=== PATIENT | male | born 1950 | race Caucasian/White ===

== ENCOUNTER → 2017-06-19 | Outpatient (CLI) | payer MEDICARE | END | disposition home or self-care (01) | LOC: LABWHC1 16:08 | PROVIDERS: ATTEND Otolaryngology | DX: H93.11 Tinnitus, right ear (principal); H91.91 Unspecified hearing loss, right ear | CPT/HCPCS: 36415; 82565 ==

== ENCOUNTER → 2017-06-20 | Outpatient (CLI) | payer MEDICARE ==
--- NOTE | 2017-06-20 09:52 | MR ---
EXAMINATION TYPE: MR iac wo/w con DATE OF EXAM: 06/20/2017 COMPARISON: NONE HISTORY: Tinnitus, Hearing loss, ringing in left and right ear TECHNIQUE: Multiplanar, multisequence images of the brain and brainstem is performed without and with IV contras t, utilizing 7.5 mL intravenous Gadavist . FINDINGS: Nasopharynx and visualized oropharynx are symmetric. Parotid glands have a normal appearance as visua lized. There is no evidence of cerebellopontine angle mass. No acoustic schwannoma. 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 There i s mild generalized degenerative change. Changes of chronic sinusitis noted. Nonspecific areas of abno rmal signal are most typical remote microvascular ischemia. Mastoid air cells are clear. IMPRESSION: 1. No evidence of cerebellopontine angle mass or acoustic schwannoma. 2. 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 3. Nonspecific white matter changes most typical remote microvascular ischemia A [facility] message has been communicated to Navid Silver MD via the [employer] Critical Result system on 06/20/2017 9:48 AM, Message ID [id number].
== END | disposition home or self-care (01) ==
LOC: RADMRIMAIN 07:59
PROVIDERS: ATTEND Otolaryngology
DX: I67.1 Cerebral aneurysm, nonruptured (principal); H93.11 Tinnitus, right ear; H91.91 Unspecified hearing loss, right ear
CPT/HCPCS: 70553; A9581

== ENCOUNTER → 2017-08-18 | Outpatient (CLI) | payer MEDICARE ==
[2017-08-18 17:43] LABS: Blood Urea Nitrogen 16 mg/dL (9-20)
--- NOTE | 2017-08-18 19:29 | CT ---
EXAMINATION TYPE: CT chest w con DATE OF EXAM: 08/18/2017 COMPARISON: NONE HISTORY: COPD. CT DLP: 538 mGycm Automated exposure control for dose reduction was used. CONTRAST: CT scan of the chest is performed with IV Contrast, patient injected with 100ml mL of Omnipaque 300. FINDINGS: There is diffuse pulmonary emphysema. There is some pleural thickening at the posterior lung apices b ilaterally. I see no pulmonary mass. There is a hiatal hernia. There is no pleural effusion. Heart si ze is normal. There is no pericardial effusion. There is no mediastinal adenopathy. There are no hilar masses. The bony thorax appears intact. There is spurring in the thoracic spine. There is 25% anterior wedging of L1 vertebral body. This appears o ld. IMPRESSION: Emphysema. Pulmonary fibrosis. Bilateral apical pleural scarring. Old mild compression f racture of L1. Normal heart. Hiatal hernia.
== END | disposition home or self-care (01) ==
LOC: RADCTMAIN 17:11
PROVIDERS: ATTEND Internal Medicine Critical Care Medicine
DX: J43.9 Emphysema, unspecified (principal); J84.10 Pulmonary fibrosis, unspecified; J98.4 Other disorders of lung; K44.9 Diaphragmatic hernia without obstruction or gangrene
CPT/HCPCS: 82565; 84520; 71260; 36415; Q9967

== ENCOUNTER 2018-06-10 22:14 | Emergency (ER) | payer MEDICARE ==
[2018-06-10 22:40] VITALS: TEMP 98.9
[2018-06-10] MEDS ORDERED: SODIUM CHLORIDE 0.9% 1,000 ML IV STA ×2 (22:47)
[2018-06-10] MEDS ORDERED: IPRATROPIUM-ALBUTEROL 3 ML NEB INHALATION STA (22:47)
[2018-06-10] MEDS ORDERED: methylPREDNISolone SOD SUCCI 125 MG/2 ML VIAL IV STA (22:47)
[2018-06-10] MEDS ORDERED: MORPHINE SULFATE 4 MG/ML SYRINGE IVP STA (22:48)
--- NOTE | 2018-06-10 22:48 | ED ---
Headache HPI - General Chief Complaint: Headache Stated Complaint: Has two aneurysms, stiff neck, headache Time Seen by Provider: 06/10/18 22:46 Source: RN notes reviewed, old records reviewed Mode of arrival: ambulatory Limitations: no limitations - History of Present Illness Initial Comments: This is a 68-year-old male the ER for evaluation of headache left hand swelling. Patient awoke with symptoms 3 days ago. Patient denies any trauma, has pain in the back of his neck back of his had and the swelling in his left arm. No significant chest pain or shortness of breath no travel history or sick contacts no fevers. Patient states he has no history of aneurysm is concerned that he went to an issue with the aneurysm in this patient brings him to the emergency room today. MD Complaint: headache, other (Cough and shortness of breath) -: days(s) (3) Onset Description: gradual Location: occipital Severity: moderate Severity scale (1-10): 3 Quality: aching Consistency: constant Improves With: nothing Worsens With: none Associated Symptoms: nausea Other Symptoms: cough Treatments Prior to Arrival: none - Related Data Home Medications Medication Instructions Recorded Confirmed Atorvastatin [Lipitor] 20 mg PO HS 06/10/18 06/10/18 Budesonide/Formoterol Fumarate 2 puff INHALATION RT-BID 06/10/18 06/10/18 [Symbicort 160-4.5 Mcg Inhaler] Esomeprazole Magnesium [NexIUM] 20 mg PO HS 06/10/18 06/10/18 Ipratropium/Albuterol Sulfate 1 puff INHALATION RT-QID 06/10/18 06/10/18 [Combivent Respimat Inhaler] Allergies Allergy/AdvReac Type Severity Reaction Status Date / Time No Known Allergies Allergy Verified 06/10/18 22:51 Review of Systems ROS Statement: Those systems with pertinent positive or pertinent negative responses have been documented in the HPI. ROS Other: All systems not noted in ROS Statement are negative. Past Medical History Past Medical History: COPD, Hyperlipidemia Additional Past Medical History / Comment(s): brain aneurysms. History of Any Multi-Drug Resistant Organisms: None Reported Past Surgical History: No Surgical Hx Reported Past Psychological History: No Psychological Hx Reported Smoking Status: Former smoker Past Alcohol Use History: Occasional Past Drug Use History: None Reported General Exam Limitations: no limitations General appearance: alert, in no apparent distress Head exam: Present: atraumatic, normocephalic, normal inspection Eye exam: Present: normal appearance, PERRL, EOMI. Absent: scleral icterus, conjunctival injection, periorbital swelling ENT exam: Present: normal exam, mucous membranes moist Neck exam: Present: normal inspection. Absent: tenderness, meningismus, lymphadenopathy Respiratory exam: Present: wheezes. Absent: respiratory distress, rales, rhonchi, stridor Cardiovascular Exam: Present: normal rhythm, tachycardia, normal heart sounds. Absent: systolic murmur, diastolic murmur, rubs, gallop, clicks GI/Abdominal exam: Present: soft, normal bowel sounds. Absent: distended, tenderness, guarding, rebound, rigid Extremities exam: Present: normal inspection, full ROM, normal capillary refill. Absent: tenderness, pedal edema, joint swelling, calf tenderness Back exam: Present: normal inspection Neurological exam: Present: alert, oriented X3, CN II-XII intact Psychiatric exam: Present: normal affect, normal mood Skin exam: Present: warm, dry, intact, normal color. Absent: rash Course Vital Signs 06/10/18 06/10/18 06/11/18 22:35 23:40 00:00 Temperature 98.9 F Pulse Rate 114 H 105 H 98 Respiratory 20 16 Rate Blood Pressure 161/87 155/82 155/82 O2 Sat by Pulse 93 L Oximetry 06/11/18 06/11/18 06/11/18 00:05 00:20 00:30 Temperature Pulse Rate 94 96 102 H Respiratory Rate Blood Pressure 136/94 O2 Sat by Pulse Oximetry - Reevaluation(s) Reevaluation #1: 06/10/18 23:37 Medical record is reviewed Reevaluation #2: 06/10/18 23:37 Patient has good pain control Reevaluation #3: 06/11/18 00:12 Patient is currently improved after breathing treatment Medical Decision Making - Medical Decision Making 68-year-old male the ER for evaluation of headache and cough and congestion, patient is mild has some exacerbation, pain is controlled, CTA brain and had neck is negative for acute disease. Patient's pain is controlled is in no acute distress denies any complaints and can be discharged home - Lab Data Result diagrams: 06/10/18 23:05 06/10/18 23:05 Lab Results 0106/10/18 06/10/18 Range/Units 23:05 23:05 23:05 WBC 15.9 H (3.8-10.6) k/uL RBC 4.58 (4.30-5.90) m/uL Hgb 14.7 (13.0-17.5) gm/dL Hct 43.0 (39.0-53.0) % MCV 93.8 (80.0-100.0) fL MCH 32.0 (25.0-35.0) pg MCHC 34.1 (31.0-37.0) g/dL RDW 13.1 (11.5-15.5) % Plt Count 267 (150-450) k/uL Neutrophils % 79 % Lymphocytes % 13 % Monocytes % 4 % Eosinophils % 1 % Basophils % 0 % Neutrophils # 12.6 H (1.3-7.7) k/uL Lymphocytes # 2.1 (1.0-4.8) k/uL Monocytes # 0.7 (0-1.0) k/uL Eosinophils # 0.1 (0-0.7) k/uL Basophils # 0.0 (0-0.2) k/uL PT (9.0-12.0) sec INR (<1.2) APTT (22.0-30.0) sec Sodium 142 (137-145) mmol/L Potassium 4.7 (3.5-5.1) mmol/L Chloride 107 (98-107) mmol/L Carbon Dioxide 26 (22-30) mmol/L Anion Gap 9 mmol/L BUN 15 (9-20) mg/dL Creatinine 0.86 (0.66-1.25) mg/dL Est GFR (CKD-EPI)AfAm >90 (>60 ml/min/1.73 sqM) Est GFR (CKD-EPI)NonAf 88 (>60 ml/min/1.73 sqM) Glucose 143 H (74-99) mg/dL Calcium 9.7 (8.4-10.2) mg/dL Magnesium 1.8 (1.6-2.3) mg/dL Total Bilirubin 0.8 (0.2-1.3) mg/dL AST 17 (17-59) U/L ALT 25 (21-72) U/L Alkaline Phosphatase 101 (38-126) U/L Total Creatine Kinase 41 L (55-170) U/L CK-MB (CK-2) 0.3 (0.0-2.4) ng/mL CK-MB (CK-2) Rel Index 0.7 Troponin I <0.012 (0.000-0.034) ng/mL Total Protein 6.9 (6.3-8.2) g/dL Albumin 3.8 (3.5-5.0) g/dL 06/10/18 Range/Units 23:05 WBC (3.8-10.6) k/uL RBC (4.30-5.90) m/uL Hgb (13.0-17.5) gm/dL Hct (39.0-53.0) % MCV (80.0-100.0) fL MCH (25.0-35.0) pg MCHC (31.0-37.0) g/dL RDW (11.5-15.5) % Plt Count (150-450) k/uL Neutrophils % % Lymphocytes % % Monocytes % % Eosinophils % % Basophils % % Neutrophils # (1.3-7.7) k/uL Lymphocytes # (1.0-4.8) k/uL Monocytes # (0-1.0) k/uL Eosinophils # (0-0.7) k/uL Basophils # (0-0.2) k/uL PT 10.3 (9.0-12.0) sec INR 1.0 (<1.2) APTT 23.7 (22.0-30.0) sec Sodium (137-145) mmol/L Potassium (3.5-5.1) mmol/L Chloride (98-107) mmol/L Carbon Dioxide (22-30) mmol/L Anion Gap mmol/L BUN (9-20) mg/dL Creatinine (0.66-1.25) mg/dL Est GFR (CKD-EPI)AfAm (>60 ml/min/1.73 sqM) Est GFR (CKD-EPI)NonAf (>60 ml/min/1.73 sqM) Glucose (74-99) mg/dL Calcium (8.4-10.2) mg/dL Magnesium (1.6-2.3) mg/dL Total Bilirubin (0.2-1.3) mg/dL AST (17-59) U/L ALT (21-72) U/L Alkaline Phosphatase (38-126) U/L Total Creatine Kinase (55-170) U/L CK-MB (CK-2) (0.0-2.4) ng/mL CK-MB (CK-2) Rel Index Troponin I (0.000-0.034) ng/mL Total Protein (6.3-8.2) g/dL Albumin (3.5-5.0) g/dL - EKG Data -: EKG Interpreted by Me (EKG shows sinus tachycardia rate of 108, DC 134, QRS 92, QTc 434) - Radiology Data Radiology results: report reviewed (CT brain CTA had not negative for acute changes, does have some millimeter Walker aneurysm similar to prior MRI as noted. Chest x-rays negative for acute disease), image reviewed Disposition Clinical Impression: Headache Disposition: HOME SELF-CARE Instructions: Acute Headache (ED) Is patient prescribed a controlled substance at d/c from ED?: No Referrals: Teodora Pascual DO [Primary Care Provider] - 1-2 days
[2018-06-10] MEDS ORDERED: ACETAMINOPHEN TAB 500 MG TAB PO STA (22:55)
[2018-06-10 23:14] LABS: Basophils % (A) 0 %; Eosinophils # (A) 0.1 k/uL (0-0.7); Eosinophils % (A) 1 %; HGB 14.7 gm/dL (13.0-17.5); Lymphocytes # (A) 2.1 k/uL (1.0-4.8); Lymphocytes % (A) 13 %; MCHC 34.1 g/dL (31.0-37.0); MCV 93.8 fL (80.0-100.0); Mean Platelet Volume 6.8; Monocytes # (A) 0.7 k/uL (0-1.0); Monocytes % (A) 4 %; Neutrophils # (A) 12.6 k/uL (1.3-7.7); Neutrophils % (A) 79 %; Platelet Count 267 k/uL (150-450); RBC 4.58 m/uL (4.30-5.90); RDW 13.1 % (11.5-15.5); WBC 15.9 k/uL (3.8-10.6)
--- NOTE | 2018-06-10 23:17 | XR ---
EXAMINATION TYPE: XR chest 2V DATE OF EXAM: 06/10/2018 COMPARISON: NONE HISTORY: Chest pain TECHNIQUE: Frontal and lateral views of the chest are obtained. FINDINGS: There is no heart failure nor confluent pneumonic infiltrate. Costophrenic angles are fair ly clear. There are mild interstitial fibrotic changes. There is minimal pleural thickening at the caroline ng apices. There are no hilar masses. Bony thorax is intact. IMPRESSION: Fibrotic changes mainly in the upper lobes. Normal heart.
[2018-06-10 23:22] LABS: Partial Thromboplastin Time 23.7 sec (22.0-30.0); Prothrombin Time 10.3 sec (9.0-12.0)
[2018-06-10 23:23] LABS: ALT 25 U/L (21-72); AST 17 U/L (17-59); Albumin 3.8 g/dL (3.5-5.0); Alkaline Phosphatase 101 U/L (38-126); Anion Gap 9 mmol/L; Blood Urea Nitrogen 15 mg/dL (9-20); Calcium 9.7 mg/dL (8.4-10.2); Carbon Dioxide 26 mmol/L (22-30); Chloride 107 mmol/L (98-107); Glucose 143 mg/dL (74-99); Magnesium 1.8 mg/dL (1.6-2.3); Potassium 4.7 mmol/L (3.5-5.1); Sodium 142 mmol/L (137-145); Total Bilirubin 0.8 mg/dL (0.2-1.3); Total Protein 6.9 g/dL (6.3-8.2)
[2018-06-10 23:31] LABS: Creatine Kinase 41 U/L (55-170)
[2018-06-10 23:43] VITALS: RESP 16
[2018-06-10 23:45] LABS: Creatine Kinase MB 0.3 ng/mL (0.0-2.4); Troponin I <0.012 ng/mL (0.000-0.034)
--- NOTE | 2018-06-10 23:51 | CT ---
EXAMINATION TYPE: CT brain wo con DATE OF EXAM: 06/10/2018 COMPARISON: None HISTORY: headache, stiff neck; hx. of aneurysms CT DLP: 957.9 mGycm Automated exposure control for dose reduction was used. FINDINGS: There is cerebral cortical atrophy. There is no mass effect nor midline shift. There is no sign of in tracranial hemorrhage. There is 7 mm high attenuation rounded area in the left anterior sylvian fissu re that could be aneurysm of the left middle cerebral artery. The calvarium is intact. IMPRESSION: CEREBRAL ATROPHY. POSSIBLE ANEURYSM LEFT MIDDLE CEREBRAL ARTERY. NO ACUTE INTRACRANIAL ABNORMALITY.
--- NOTE | 2018-06-10 23:56 | CT ---
EXAMINATION TYPE: CT angio COW [place] DATE OF EXAM: 06/10/2018 11:38 PM COMPARISON: HISTORY: stiff neck; headache CT DLP: 862.2 mGycm Automated exposure control for dose reduction was used. TECHNIQUE: Performed with IV Contrast, patient injected with 100 mL of Isovue 370. . FINDINGS: There is arterial flow in the anterior middle and posterior cerebral arteries. There is arterial flow in the vertebrobasilar artery system. There is bilateral distal vertebral artery flow. There is bila teral distal internal carotid artery flow. There is no evidence of carotid or vertebral dissection. T here is normal contrast opacification of the venous sinuses. There is a 7.5 mm saucedo aneurysm of the anterior left middle cerebral artery within the left sylvian fissure. There is no sign of hemorrhage. There is no mass effect. There is no evidence of cerebral ed mariya. I see no evidence of neovascularity. IMPRESSION: EXAM SHOWS 7.5 MM ANEURYSM OF THE LEFT MIDDLE CEREBRAL ARTERY. NO EVIDENCE OF CEREBRAL THROMBOSIS. NO INTRACRANIAL HEMORRHAGE SEEN.
[2018-06-11 00:38] VITALS: BP 136/94; PULSE 102
== END 2018-06-11 00:39 | disposition home or self-care (01) ==
LOC: EC 22:14
DX: R51 Headache (principal); I67.1 Cerebral aneurysm, nonruptured; R06.2 Wheezing; R00.0 Tachycardia, unspecified; R05 Cough; R09.89 Other specified symptoms and signs involving the circulatory and respiratory systems; R06.02 Shortness of breath; M79.89 Other specified soft tissue disorders; M54.2 Cervicalgia; R11.0 Nausea; J44.9 Chronic obstructive pulmonary disease, unspecified; E78.5 Hyperlipidemia, unspecified; Z87.891 Personal history of nicotine dependence; Z79.51 Long term (current) use of inhaled steroids; Z79.899 Other long term (current) drug therapy
CPT/HCPCS: 36415; 94640; 93005; 80053; 82550; 82553; 83735; 84484; 85025; 85610; 85730; 71046; 70496; 70450; 99285; 96374; 96375; 96361; J2270; J2930; Q9967

== ENCOUNTER → 2021-01-26 | Outpatient (CLI) | payer MEDICARE ==
[2021-01-26 13:17] LABS: HCT 44.7 % (39.0-53.0); HGB 15.4 gm/dL (13.0-17.5); MCH 33.5 pg (25.0-35.0); MCHC 34.4 g/dL (31.0-37.0); MCV 97.5 fL (80.0-100.0); Mean Platelet Volume 7.7; Platelet Count 300 k/uL (150-450); RBC 4.58 m/uL (4.30-5.90); RDW 13.3 % (11.5-15.5); WBC 13.6 k/uL (3.8-10.6)
[2021-01-26 13:23] LABS: African American GFR (CKD) >90 (>60 ml/min/1.73 sqM); Anion Gap 10 mmol/L; Blood Urea Nitrogen 11 mg/dL (9-20); Carbon Dioxide 27 mmol/L (22-30); Chloride 103 mmol/L (98-107); Non-African American GFR(CKD) >90 (>60 ml/min/1.73 sqM); Potassium 4.6 mmol/L (3.5-5.1); Sodium 140 mmol/L (137-145)
== END | disposition home or self-care (01) ==
LOC: LABPAT 11:36
PROVIDERS: ATTEND Internal Medicine Interventional Cardiology
DX: Z01.812 Encounter for preprocedural laboratory examination (principal); R94.39 Abnormal result of other cardiovascular function study
CPT/HCPCS: 36415; 80051; 82565; 84520; 85027

== ENCOUNTER 2021-02-02 08:53 | Day surgery (SDC) | payer MEDICARE ==
[2021-02-01 13:10] VITALS: BMI 25.1
[~2021-02-02 08:53] MED LIST: ALPRAZolam 0.25 MG TAB PO PRN; ALPRAZolam 0.5 MG TAB PO PRN; ASPIRIN 325 MG TAB PO STA; ATORVASTATIN 80 MG TAB PO STA; NITROGLYCERIN SL TABS 0.4 MG TAB SUBLINGUAL PRN; SODIUM CHLORIDE 0.9% 1,000 ML in EMPTY BAG 1 BAG IV ONE
[2021-02-02] MEDS ORDERED: SODIUM CHLORIDE 0.9% 1,000 ML IV ONE (09:15)
[2021-02-02 09:31] VITALS: TEMP 98.6
[2021-02-02 09:50] LABS: Basophils % (A) 0 %; Eosinophils # (A) 0.1 k/uL (0-0.7); Eosinophils % (A) 1 %; HCT 46.4 % (39.0-53.0); HGB 15.4 gm/dL (13.0-17.5); Lymphocytes # (A) 2.8 k/uL (1.0-4.8); Lymphocytes % (A) 22 %; MCH 32.4 pg (25.0-35.0); MCHC 33.2 g/dL (31.0-37.0); MCV 97.5 fL (80.0-100.0); Mean Platelet Volume 7.8; Monocytes # (A) 0.7 k/uL (0-1.0); Monocytes % (A) 5 %; Neutrophils # (A) 8.9 k/uL (1.3-7.7); Neutrophils % (A) 69 %; Platelet Count 295 k/uL (150-450); RBC 4.76 m/uL (4.30-5.90); RDW 13.6 % (11.5-15.5)
[2021-02-02] MEDS ORDERED: LIDOCAINE 1% INJ 10MG/ML (20 ML MDV) ONE (10:33)
[2021-02-02] MEDS ORDERED: VERAPAMIL 2.5 MG/ML 2 ML AMP ONE (10:33)
[2021-02-02] MEDS ORDERED: HEPARIN SODIUM 1,000 UN/ML (10ML VL) ONE (10:49)
[2021-02-02] MEDS ORDERED: MIDAZOLAM 2 MG/2 ML VIAL IVP ONE (10:52)
[2021-02-02] MEDS ORDERED: LIDOCAINE 1% INJ 10MG/ML (20 ML MDV) SQ ONE (10:55)
[2021-02-02] MEDS: VERAPAMIL SYRINGE (5 MG/10 ML) INTRAARTER ONE ×2 (10:58→11:08)
[2021-02-02] MEDS ORDERED: HEPARIN SODIUM 1,000 UN/ML (10ML VL) IV ONE (10:58)
[2021-02-02] MEDS ORDERED: IOPAMIDOL-370 100ML BTL INJ ONE (11:09)
[2021-02-02] MEDS ORDERED: SODIUM CHLORIDE 0.9% 1,000 ML IV SCH (11:20)
--- NOTE | 2021-02-02 14:34 | CC ---
CARDIAC CATHETERIZATION REPORT DATE OF PROCEDURE: 02/02/2021 PROCEDURE: Left heart catheterization and coronary angiography. PERFORMED BY: Dr. Sapna Frederick. Moderate conscious sedation time was 18 minutes. Patient was administered Versed. Oxygen saturation, hemodynamics and EKG were monitored closely. CLINICAL INFORMATION: Mr. Thong Sung is a 70-year-old gentleman with history of hypertension, hyperlipidemia, moderate aortic stenosis and a small intracranial aneurysm of about 8 mm length. Because of his abnormal stress test after clearance from Neurosurgery, I proceeded with cardiac catheterization after due discussion regarding risks, benefits and options. PROCEDURE NOTE: Under local anesthesia and strict aseptic precautions, a 6-Mal[place]ian introducer was placed in the right radial artery. Using a JR4 and JL3.5 catheters, I performed coronary angiography. The same right catheter was used to check LV pressures, but LV gram was not performed. Following the procedure, a TR band was applied as per protocol and saturation in the fingers of the right hand was 95%. The patient tolerated procedure well without complication. The details and the results were discussed with the patient and his . We will continue medical therapy with risk factor modification. Aortic stenosis is mild to moderate; no intervention. CARDIAC CATHETERIZATION FINDINGS: The left ventricular end-diastolic pressure was about 12-13 mmHg. There was a 25 mm pullback gradient across the aortic valve suggestive of mild to moderate aortic stenosis. The end-diastolic pressures were normal. CORONARY ANGIOGRAPHY FINDINGS: RIGHT CORONARY ARTERY: Large dominant vessel. No significant disease. Distally bifurcates into PDA and PLV, both of which supply a fair amount of myocardium. No significant disease in the dominant RCA. LEFT MAIN CORONARY ARTERY: Very short patent vessel. No significant disease. Bifurcates into LAD and circumflex. LEFT ANTERIOR DESCENDING CORONARY ARTERY: Good-caliber vessel extends along the anterior wall, gives off septal and diagonal branches and runs towards the apex. Has minor irregularities. No significant disease. LEFT POSTERIOR CIRCUMFLEX CORONARY ARTERY: This is a nondominant vessel that has a proximal lesion of about 40% to 45% and then it gives off two obtuse marginal branches and then an AV groove branch. The distal portion of the groove branch has mild diffuse disease. There is a left atrial circumflex branch with mild diffuse disease, but the circumflex marginal itself is free of significant disease. Proximal circumflex therefore has a 40% to 45% lesion which is best seen in the caudal projection. It does not appear to be significant in multiple views. Left ventriculogram was not performed. FINAL IMPRESSION: This patient has a right-dominant system. No significant disease in the RCA or LAD system. Proximal circumflex has about a 40% to 45% smooth lesion and then it gives off a good-sized obtuse marginal branch. Filling pressures are normal. There is mild to moderate aortic stenosis with a pullback gradient of 25 mmHg across the aortic valve. RECOMMENDATIONS: Findings were discussed with the patient and his . Circumflex lesion does not appear to be significant in multiple views. I will recommend no intervention at this time other than aggressive risk factor modifications with a lipid-lowering strategy and LDL of less than 70. Aortic stenosis is mild to moderate. No intervention needed. Will continue medical therapy with noninvasive followup. Details were discussed with the patient and his . I expect he will be discharged later on today and I will see him in the office next Friday. MMODL / IJN: [id number] /
[2021-02-02 14:54] VITALS: RESP 16
[2021-02-02 17:16] VITALS: BP 138/72; PULSE 76
== END 2021-02-02 17:20 | disposition home or self-care (01) ==
LOC: CATHCVL 08:53
PROVIDERS: ATTEND Internal Medicine Interventional Cardiology
DX: I25.10 Atherosclerotic heart disease of native coronary artery without angina pectoris (principal); I10 Essential (primary) hypertension; E78.5 Hyperlipidemia, unspecified; I35.0 Nonrheumatic aortic (valve) stenosis; I67.1 Cerebral aneurysm, nonruptured; J44.9 Chronic obstructive pulmonary disease, unspecified; F17.210 Nicotine dependence, cigarettes, uncomplicated; Z79.899 Other long term (current) drug therapy
CPT/HCPCS: 93458; 85025; C1894; J2250; J2001; J1644; Q9967

== ENCOUNTER 2021-12-15 22:42 | Inpatient (IN) | payer MEDICARE ==
[2021-12-15] MEDS ORDERED: SODIUM CHLORIDE 0.9% 500 ML 500 ML IV STA (23:16)
[2021-12-15] MEDS ORDERED: SODIUM CHLORIDE 0.9% 1,000 ML IV STA (23:16)
[2021-12-15] MEDS ORDERED: IPRATROPIUM-ALBUTEROL 3 ML NEB INHALATION STA (23:16)
[2021-12-15] MEDS ORDERED: ACETAMINOPHEN TAB 500 MG TAB PO STA (23:17)
[2021-12-15] MEDS ORDERED: IBUPROFEN 800 MG TAB PO STA (23:17)
--- NOTE | 2021-12-15 23:17 | ED ---
SOB HPI - General Chief Complaint: Shortness of Breath Stated Complaint: TRA, Fever Time Seen by Provider: 12/15/21 23:15 Source: patient, RN notes reviewed, old records reviewed Mode of arrival: ambulatory Limitations: no limitations - History of Present Illness Initial Comments: This is a 71-year-old male DF for evaluation. Patient presents today for evaluation regards to shortness of breath cough congestion feeling hot chills sweats. Patient having significant difficulty breathing. No recent travel history no known sick contacts no known coronavirus exposures patient is vaccinated. MD Complaint: shortness of breath, cough -: days(s) Severity: severe Severity scale (1-10): 10 Quality: aching Consistency: constant Improves With: nothing Worsens With: exertion, movement Known History Of: COPD Context: recent URI, recent illness Associated Symptoms: fever, cough Treatments Prior to Arrival: none - Related Data Home Medications Medication Instructions Recorded Confirmed Atorvastatin [Lipitor] 20 mg PO HS 06/10/18 02/02/21 Budesonide/Formoterol Fumarate 2 puff INHALATION RT-BID PRN 06/10/18 02/02/21 [Symbicort 160-4.5 Mcg Inhaler] Esomeprazole Magnesium [NexIUM] 20 mg PO DAILY 06/10/18 02/02/21 Ipratropium/Albuterol Sulfate 2 puff INHALATION BID 06/10/18 02/02/21 [Combivent Respimat Inhaler] Ascorbic Acid [Vitamin C] 500 mg PO DAILY 02/01/21 02/02/21 Metoprolol Tartrate [Lopressor] 25 mg PO DAILY 02/01/21 02/02/21 Allergies Allergy/AdvReac Type Severity Reaction Status Date / Time No Known Allergies Allergy Verified 12/15/21 23:01 Review of Systems ROS Statement: Those systems with pertinent positive or pertinent negative responses have been documented in the HPI. ROS Other: All systems not noted in ROS Statement are negative. Past Medical History Past Medical History: COPD, Hyperlipidemia, Hypertension Additional Past Medical History / Comment(s): 2 brain aneurysms-states no symptoms ., See Cardiology H & P. History of Any Multi-Drug Resistant Organisms: None Reported Past Surgical History: Heart Catheterization Additional Past Anesthesia/Blood Transfusion Reaction / Comment(s): NO ANESTHESIA HX Past Psychological History: No Psychological Hx Reported Smoking Status: Former smoker Past Alcohol Use History: Rare Past Drug Use History: None Reported - Past Family History Mother Family Medical History: No Reported History General Exam Limitations: no limitations General appearance: alert, in no apparent distress, anxious Head exam: Present: atraumatic, normocephalic, normal inspection Eye exam: Present: normal appearance, PERRL, EOMI. Absent: scleral icterus, conjunctival injection, periorbital swelling ENT exam: Present: normal exam, mucous membranes dry Neck exam: Present: normal inspection. Absent: tenderness, meningismus, lymphadenopathy Respiratory exam: Present: respiratory distress, wheezes, decreased breath sounds, prolonged expiratory. Absent: rales, rhonchi, stridor Cardiovascular Exam: Present: tachycardia, normal heart sounds. Absent: systolic murmur, diastolic murmur, rubs, gallop, clicks GI/Abdominal exam: Present: soft, normal bowel sounds. Absent: distended, tenderness, guarding, rebound, rigid Extremities exam: Present: normal inspection, full ROM, normal capillary refill. Absent: tenderness, pedal edema, joint swelling, calf tenderness Back exam: Present: normal inspection Neurological exam: Present: alert, oriented X3, CN II-XII intact Psychiatric exam: Present: normal affect, normal mood Skin exam: Present: warm, dry, intact, normal color. Absent: rash Course Vital Signs 12/15/21 12/15/21 12/15/21 23:01 23:29 23:42 Temperature 100.8 F H Pulse Rate 127 H 115 H 109 H Respiratory 28 H 20 Rate Blood Pressure 152/74 150/74 O2 Sat by Pulse 89 L 95 Oximetry 12/15/21 23:48 Temperature Pulse Rate 112 H Respiratory Rate Blood Pressure O2 Sat by Pulse Oximetry - Reevaluation(s) Reevaluation #1: 12/16/21 01:21 Medical record is reviewed Reevaluation #2: 12/16/21 01:21 Patient family informed of results and questions answered Reevaluation #3: 12/16/21 01:21 Patient is feeling improved with still requiring oxygen for low pulse ox - Consultations Consultation #1: Spoke with Dr. Sepulveda agrees to admit this patient Medical Decision Making - Medical Decision Making 68 female DF for evaluation. Patient will be admitted for pneumonia pneumonia with fever and sepsis. Elevated white count increasing shortness of breath and hypoxia. - Lab Data Result diagrams: 12/15/21 23:28 12/15/21 23:28 Lab Results 12/15/21 12/15/21 12/15/21 Range/Units 23:28 23:28 23:28 WBC 20.0 H (3.8-10.6) k/uL RBC 4.13 L (4.30-5.90) m/uL Hgb 13.7 (13.0-17.5) gm/dL Hct 39.4 (39.0-53.0) % MCV 95.5 (80.0-100.0) fL MCH 33.3 (25.0-35.0) pg MCHC 34.8 (31.0-37.0) g/dL RDW 13.4 (11.5-15.5) % Plt Count 283 (150-450) k/uL MPV 7.4 Neutrophils % 85 % Lymphocytes % 8 % Monocytes % 5 % Eosinophils % 0 % Basophils % 1 % Neutrophils # 17.1 H (1.3-7.7) k/uL Lymphocytes # 1.6 (1.0-4.8) k/uL Monocytes # 0.9 (0-1.0) k/uL Eosinophils # 0.1 (0-0.7) k/uL Basophils # 0.1 (0-0.2) k/uL PT 11.5 (9.0-12.0) sec INR 1.1 (<1.2) APTT 25.0 (22.0-30.0) sec Sodium 135 L (137-145) mmol/L Potassium 3.5 (3.5-5.1) mmol/L Chloride 104 (98-107) mmol/L Carbon Dioxide 20 L (22-30) mmol/L Anion Gap 11 mmol/L BUN 12 (9-20) mg/dL Creatinine 0.71 (0.66-1.25) mg/dL Est GFR (CKD-EPI)AfAm >90 (>60 ml/min/1.73 sqM) Est GFR (CKD-EPI)NonAf >90 (>60 ml/min/1.73 sqM) Glucose 128 H (74-99) mg/dL Plasma Lactic Acid Albert (0.7-2.0) mmol/L Calcium 9.2 (8.4-10.2) mg/dL Magnesium 1.3 L (1.6-2.3) mg/dL Total Bilirubin 0.7 (0.2-1.3) mg/dL AST 23 (17-59) U/L ALT 20 (4-49) U/L Alkaline Phosphatase 112 (38-126) U/L Troponin I (0.000-0.034) ng/mL NT-Pro-B Natriuret Pep pg/mL Total Protein 7.1 (6.3-8.2) g/dL Albumin 4.0 (3.5-5.0) g/dL Coronavirus (PCR) (Not Detectd) 12/15/21 12/15/21 12/15/21 Range/Units 23:28 23:28 23:28 WBC (3.8-10.6) k/uL RBC (4.30-5.90) m/uL Hgb (13.0-17.5) gm/dL Hct (39.0-53.0) % MCV (80.0-100.0) fL MCH (25.0-35.0) pg MCHC (31.0-37.0) g/dL RDW (11.5-15.5) % Plt Count (150-450) k/uL MPV Neutrophils % % Lymphocytes % % Monocytes % % Eosinophils % % Basophils % % Neutrophils # (1.3-7.7) k/uL Lymphocytes # (1.0-4.8) k/uL Monocytes # (0-1.0) k/uL Eosinophils # (0-0.7) k/uL Basophils # (0-0.2) k/uL PT (9.0-12.0) sec INR (<1.2) APTT (22.0-30.0) sec Sodium (137-145) mmol/L Potassium (3.5-5.1) mmol/L Chloride (98-107) mmol/L Carbon Dioxide (22-30) mmol/L Anion Gap mmol/L BUN (9-20) mg/dL Creatinine (0.66-1.25) mg/dL Est GFR (CKD-EPI)AfAm (>60 ml/min/1.73 sqM) Est GFR (CKD-EPI)NonAf (>60 ml/min/1.73 sqM) Glucose (74-99) mg/dL Plasma Lactic Acid Albert 1.9 (0.7-2.0) mmol/L Calcium (8.4-10.2) mg/dL Magnesium (1.6-2.3) mg/dL Total Bilirubin (0.2-1.3) mg/dL AST (17-59) U/L ALT (4-49) U/L Alkaline Phosphatase (38-126) U/L Troponin I <0.012 (0.000-0.034) ng/mL NT-Pro-B Natriuret Pep 226 pg/mL Total Protein (6.3-8.2) g/dL Albumin (3.5-5.0) g/dL Coronavirus (PCR) (Not Detectd) 12/15/21 Range/Units 23:28 WBC (3.8-10.6) k/uL RBC (4.30-5.90) m/uL Hgb (13.0-17.5) gm/dL Hct (39.0-53.0) % MCV (80.0-100.0) fL MCH (25.0-35.0) pg MCHC (31.0-37.0) g/dL RDW (11.5-15.5) % Plt Count (150-450) k/uL MPV Neutrophils % % Lymphocytes % % Monocytes % % Eosinophils % % Basophils % % Neutrophils # (1.3-7.7) k/uL Lymphocytes # (1.0-4.8) k/uL Monocytes # (0-1.0) k/uL Eosinophils # (0-0.7) k/uL Basophils # (0-0.2) k/uL PT (9.0-12.0) sec INR (<1.2) APTT (22.0-30.0) sec Sodium (137-145) mmol/L Potassium (3.5-5.1) mmol/L Chloride (98-107) mmol/L Carbon Dioxide (22-30) mmol/L Anion Gap mmol/L BUN (9-20) mg/dL Creatinine (0.66-1.25) mg/dL Est GFR (CKD-EPI)AfAm (>60 ml/min/1.73 sqM) Est GFR (CKD-EPI)NonAf (>60 ml/min/1.73 sqM) Glucose (74-99) mg/dL Plasma Lactic Acid Albert (0.7-2.0) mmol/L Calcium (8.4-10.2) mg/dL Magnesium (1.6-2.3) mg/dL Total Bilirubin (0.2-1.3) mg/dL AST (17-59) U/L ALT (4-49) U/L Alkaline Phosphatase (38-126) U/L Troponin I (0.000-0.034) ng/mL NT-Pro-B Natriuret Pep pg/mL Total Protein (6.3-8.2) g/dL Albumin (3.5-5.0) g/dL Coronavirus (PCR) Not Detected (Not Detectd) - EKG Data -: EKG Interpreted by Me (Over the past EKG shows sinus tachycardia 118 ME 135 QRS 92 QTC 410) - Radiology Data Radiology results: report reviewed (Chest x-rays positive for pneumonia), image reviewed Disposition Clinical Impression: Community acquired pneumonia, Acute exacerbation of chronic obstructive pulmonary disease, Hypoxia, Sepsis Disposition: ADMITTED IP TO THIS [facility] Condition: Serious Is patient prescribed a controlled substance at d/c from ED?: No Referrals: Teodora Pascual DO [Primary Care Provider] - 1-2 days Time of Disposition: 01:15
[2021-12-15 23:43] LABS: Basophils # (A) 0.1 k/uL (0-0.2); Basophils % (A) 1 %; Eosinophils # (A) 0.1 k/uL (0-0.7); Eosinophils % (A) 0 %; HCT 39.4 % (39.0-53.0); HGB 13.7 gm/dL (13.0-17.5); Lymphocytes # (A) 1.6 k/uL (1.0-4.8); Lymphocytes % (A) 8 %; MCH 33.3 pg (25.0-35.0); MCHC 34.8 g/dL (31.0-37.0); MCV 95.5 fL (80.0-100.0); Mean Platelet Volume 7.4; Monocytes # (A) 0.9 k/uL (0-1.0); Monocytes % (A) 5 %; Neutrophils # (A) 17.1 k/uL (1.3-7.7); Neutrophils % (A) 85 %; Platelet Count 283 k/uL (150-450); RBC 4.13 m/uL (4.30-5.90); RDW 13.4 % (11.5-15.5)
[2021-12-15 23:54] LABS: ALT 20 U/L (4-49); AST 23 U/L (17-59); African American GFR (CKD) >90 (>60 ml/min/1.73 sqM); Alkaline Phosphatase 112 U/L (38-126); Anion Gap 11 mmol/L; Blood Urea Nitrogen 12 mg/dL (9-20); Calcium 9.2 mg/dL (8.4-10.2); Carbon Dioxide 20 mmol/L (22-30); Chloride 104 mmol/L (98-107); Glucose 128 mg/dL (74-99); Magnesium 1.3 mg/dL (1.6-2.3); Non-African American GFR(CKD) >90 (>60 ml/min/1.73 sqM); Potassium 3.5 mmol/L (3.5-5.1); Sodium 135 mmol/L (137-145); Total Bilirubin 0.7 mg/dL (0.2-1.3); Total Protein 7.1 g/dL (6.3-8.2)
[2021-12-15 23:58] LABS: INR 1.1 (<1.2); Prothrombin Time 11.5 sec (9.0-12.0)
--- NOTE | 2021-12-16 00:12 | XR ---
EXAMINATION TYPE: XR chest 1V portable DATE OF EXAM: 12/16/2021 COMPARISON: 06/18/2018 HISTORY: Short of breath TECHNIQUE: Single view FINDINGS: There is some coarse interstitial infiltrate at the lung bases. There is poor inspiration. No heart failure. IMPRESSION: There is some interstitial infiltrate and atelectasis at the lung bases which appears new compared to old exam. There is probably some pulmonary fibrosis. No heart failure.
[2021-12-16] MEDS ORDERED: ALBUTEROL NEBULIZED 2.5 MG/3 ML INHALATION PRN (01:14)
[2021-12-16] MEDS ORDERED: IPRATROPIUM-ALBUTEROL 3 ML NEB INHALATION STA (01:14)
[2021-12-16] MEDS ORDERED: PNEUMONIA PROTOCOL UTILIZED 1 EACH MISC PO PRN (01:14)
[2021-12-16] MEDS ORDERED: AZITHROMYCIN 500 MG in SODIUM CHLORIDE 0.9% 250 ML IVPB STA (01:14)
[2021-12-16] MEDS ORDERED: SODIUM CHLORIDE 0.9% 1,000 ML IV STA (01:16)
[2021-12-16] MEDS ORDERED: SODIUM CHLORIDE 0.9% 500 ML 500 ML IV STA (01:16)
[2021-12-16] MEDS: SODIUM CHLORIDE 0.9% 1,000 ML IV SCH ×3 (05:39→20:38)
[2021-12-16] MEDS ORDERED: ACETAMINOPHEN TAB 500 MG TAB PO PRN (11:04)
[2021-12-16] MEDS: PANTOPRAZOLE 40 MG TABLET PO SCH (11:31)
[2021-12-16] MEDS: METOPROLOL TARTRATE 12.5 MG TAB PO SCH ×2 (11:31→20:37)
--- NOTE | 2021-12-16 12:29 | P.CNPUL ---
History of Present Illness Consult date: 12/16/21 Chief complaint: Shortness of breath, cough, chest pain History of present illness: 71-year-old male patient with past medical history of COPD with baseline FEV1 of 57% of predicted, former smoker, carries a 49-ayof-wplh smoking history, hypertension, hyperlipidemia, history of brain aneurysms, and moderate aortic stenosis, presented to the emergency department on 12/15/2021 with complaints of cough, chest congestion, chest pain in the right lower anterior rib cage exacerbated with deep breathing and coughing, shortness of breath. Patient agrees to having fever and chills. No recent travel history no known sick contacts. Patient is vaccinated against COVID-19. Patient tested positive for COVID-19 via PCR test. Chest x-ray showed some interstitial infiltrates and atelectasis at the lung bases. Probable fibrosis, no heart failure. Labs showed elevated white count of 20, hemoglobin 13.7, and coordination profile within normal limits, sodium is 135, potassium is 3.5, chloride is 104, CO2 is 20, BUN is 12, creatinine 0.72, LFTs were within normal limits, proBNP was 226. Patient was started on empiric antibiotics in the form of azithromycin and Rocephin, IV steroids have been added today, and nebulized bronchodilators were added. Review of Systems All systems: negative Constitutional: Denies chills, Denies fever Eyes: denies blurred vision, denies pain Ears, nose, mouth and throat: Denies headache, Denies sore throat Cardiovascular: Reports chest pain, Denies shortness of breath Respiratory: Reports congestion, Reports cough, Reports dyspnea Gastrointestinal: Denies abdominal pain, Denies diarrhea, Denies nausea, Denies vomiting Musculoskeletal: Denies myalgias Integumentary: Denies pruritus, Denies rash Neurological: Denies numbness, Denies weakness Psychiatric: Denies anxiety, Denies depression Endocrine: Denies fatigue, Denies weight change Past Medical History Past Medical History: COPD, Hyperlipidemia, Hypertension, Osteoarthritis (OA) Additional Past Medical History / Comment(s): 2 brain aneurysms-states no symptoms ., See Cardiology H & P. History of Any Multi-Drug Resistant Organisms: None Reported Past Surgical History: Heart Catheterization Past Anesthesia/Blood Transfusion Reactions: No Reported Reaction Additional Past Anesthesia/Blood Transfusion Reaction / Comment(s): NO ANESTHESIA HX Past Psychological History: No Psychological Hx Reported Smoking Status: Former smoker Past Alcohol Use History: Rare Additional Past Alcohol Use History / Comment(s): QUIT SMOKING 10-12 YEARS AGO, SMOKED 2PPD, STARTED SMOKING AGE 13 YRS OLD. Past Drug Use History: None Reported Additional Drug Use History / Comment(s): patient states he very rarely drinks alcohol. - Past Family History Mother Family Medical History: No Reported History Medications and Allergies Home Medications Medication Instructions Recorded Confirmed Type Budesonide/Formoterol Fumarate 2 puff INHALATION RT-BID PRN 06/10/18 12/16/21 History [Symbicort 160-4.5 Mcg Inhaler] Esomeprazole Magnesium [NexIUM] 20 mg PO DAILY 06/10/18 12/16/21 History Ipratropium/Albuterol Sulfate 1 puff INHALATION RT-QID 06/10/18 12/16/21 History [Combivent Respimat Inhaler] Ascorbic Acid [Vitamin C] 500 mg PO DAILY 02/01/21 12/16/21 History Metoprolol Tartrate [Lopressor] 25 mg PO DAILY 02/01/21 12/16/21 History Atorvastatin [Lipitor] 40 mg PO DAILY 12/16/21 12/16/21 History Allergies Allergy/AdvReac Type Severity Reaction Status Date / Time No Known Allergies Allergy Verified 12/16/21 11:37 Physical Exam Vitals: Vital Signs Temp Pulse Pulse Resp BP BP Pulse Ox 12/16/21 08:00 97.9 F 92 18 158/67 97 12/16/21 05:20 17 12/16/21 02:40 98.3 F 92 18 146/77 97 12/16/21 02:07 12/16/21 01:59 98.7 F 96 18 126/68 96 12/15/21 23:48 112 H 12/15/21 23:42 109 H 12/15/21 23:29 115 H 20 150/74 95 12/15/21 23:01 100.8 F H 127 H 28 H 152/74 89 L FiO2 12/16/21 08:00 12/16/21 05:20 12/16/21 02:40 12/16/21 02:07 100 12/16/21 01:59 12/15/21 23:48 12/15/21 23:42 12/15/21 23:29 12/15/21 23:01 Intake and Output 12/15/21 12/16/21 12/16/21 22:59 06:59 14:59 Other: Voiding Method Toilet Toilet # Voids 1 Weight 81.193 kg GENERAL EXAM: Alert, very pleasant, 71-year-old white male on 2 L of oxygen pulse ox of 97% comfortable in no apparent distress. HEAD: Normocephalic/atraumatic. EYES: Normal reaction of pupils, equal size. Conjunctiva pink, sclera white. NOSE: Clear with pink turbinates. THROAT: No erythema or exudates. NECK: No masses, no JVD, no thyroid enlargement, no adenopathy. CHEST: No chest wall deformity. Symmetrical expansion. LUNGS: Equal air entry with bilateral scattered rhonchi CVS: Regular rate and rhythm, normal S1 and S2, no gallops, no murmurs, no rubs ABDOMEN: Soft, nontender. No hepatosplenomegaly, normal bowel sounds, no guarding or rigidity. EXTREMITIES: No clubbing, no edema, no cyanosis, 2+ pulses and upper and lower extremities. MUSCULOSKELETAL: Muscle strength and tone normal. SPINE: No scoliosis or deformity SKIN: No rashes CENTRAL NERVOUS SYSTEM: Alert and oriented -3. No focal deficits, tone is normal in all 4 extremities. PSYCHIATRIC: Alert and oriented -3. Appropriate affect. Intact judgment and insight. Results - Laboratory Findings CBC and BMP: 12/15/21 23:28 12/15/21 23:28 PT/INR, D-dimer PT 11.5 sec (9.0-12.0) 12/15/21 23:28 INR 1.1 (<1.2) 12/15/21 23:28 Abnormal lab findings: Abnormal Labs 12/15/21 12/15/21 23:28 23:28 WBC 20.0 H RBC 4.13 L Neutrophils # 17.1 H Sodium 135 L Carbon Dioxide 20 L Glucose 128 H Magnesium 1.3 L - Diagnostic Findings Chest x-ray: report reviewed, image reviewed Assessment and Plan Plan: Assessment: #1. Acute hypoxic respiratory failure related to possible community acquired pneumonia, COVID-19 PCR is negative. Chest x-ray showing probable pulmonary fibrosis, and interstitial infiltrates and atelectasis #2. Acute exacerbation of COPD #3. History of COPD, baseline FEV1 of 57% of predicted #4. History of tobacco dependence, in remission, smoked one half packs a day for 49 years #5. History of brain aneurysms #6. Hypertension #7. Moderate aortic stenosis Plan: Continue current antibiotic coverage Send a sputum culture We will add IV steroids Continue nebulized bronchodilators We'll get a procalcitonin level We'll continue to follow his clinical course I have personally seen and examined the patient, performed the documentation and the assessment and plan as written. Number of minutes spent on the visit: [15] Time with Patient: Greater than 30
[2021-12-16] MEDS: guaiFENesin 600 MG TABLET.ER PO SCH ×3 (13:33→20:37)
[2021-12-16] MEDS: methylPREDNISolone SOD SUCCI 125 MG/2 ML VIAL IV SCH ×2 (13:33→18:57)
[2021-12-16] MEDS: ENOXAPARIN 40 MG/0.4 ML SYRINGE SQ SCH (13:33)
--- NOTE | 2021-12-16 14:14 | CT ---
EXAMINATION TYPE: CT angio chest CT DLP: 341.6 mGycm, Automated exposure control for dose reduction was used. DATE OF EXAM: 12/16/2021 1:29 PM COMPARISON: Chest radiograph from 12/16/2021 CLINICAL INDICATION:Male, 71 years old with history of chest pain. TECHNIQUE/CONTRAST: CTA scan of the thorax is performed without and with IV Contrast, patient injected with 100 ml mL of Isovue 370, pulmonary embolism protocol. MIP images are created and reviewed. FINDINGS: Motion artifact limits evaluation of the lungs. Pulmonary Artery: Poor bolus timing is present which limits evaluation. There is no evidence for a ce ntral filling defect within the pulmonary vasculature to suggest acute pulmonary embolism. Limited ev aluation of the segmental and subsegmental branches secondary to bolus timing. The pulmonary artery i s of normal size. Lungs/Pleura: There is centrilobular and paraseptal emphysema changes with suspected superimposed rig ht lower lobe airspace opacities. Scattered airspace opacities are seen throughout the left lower lob e, left upper lung and to a lesser extent the right middle upper lobes. There is right apical scarrin g with calcification and atelectasis. Airway: Bronchial wall thickening is also noted within the right lower lobe. A few opacified airways are seen in the right lower lobe and to a lesser extent left lower lobe.. Heart: The heart is mildly enlarged for size. There is mild coronary artery atherosclerosis present. Vasculature: No evidence of aortic aneurysm. Scattered mild atherosclerosis of the arterial vasculatu re. Mediastinum: No gross evidence of adenopathy. Moderate hiatal hernia is present. The pulmonary hilum fullness with lymph node measuring up to 10 mm in short axis. Musculoskeletal: No acute osseous abnormalities. Multilevel disc degeneration changes are seen throug hout the spine Soft Tissues: Unremarkable. Lower neck: No significant findings. Upper Abdomen: No significant findings. IMPRESSION: 1. No evidence of central pulmonary embolism. Limited evaluation of the segmental and subsegmental br anches secondary to bolus timing and motion. 2. Right lower lobe bronchial wall thickening with opacified airways in the bilateral lower lobes, co rrelate for aspiration pneumonitis/bronchitis. Alternatively opacification of the airways may represe nt retained secretions. 3. 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 4. Moderate to severe COPD with underlying pulmonary fibrosis is also suspected. 5. Moderate hiatal hernia. 6. Right pulmonary hilum lymph nodes secondary to infectious/inflammatory process mentioned #3.
--- NOTE | 2021-12-16 15:28 | P.HPIM ---
History of Present Illness H&P Date: 12/16/21 Chief Complaint: Short of breath This is a pleasant 70-year-old patient of Dr. Pascual. Chronic stable medical conditions include hypertension, hyperlipidemia, osteoporosis, aneurysm that has been followed. Initially patient. Posterior shopping and came back negative so short of breath. She has been identified. 2. No cough. Congestive, no sputum production. Decreased appetite. No change in bowel or urine... Patient is accompanied by the in the room. Slight improvement from last night. Review of systems: GEN.: Tired, decreased appetite EYES: None HEENT: None NECK: None RESPIRATORY: As above CARDIOVASCULAR: None GASTROINTESTINAL: None GENITOURINARY: None MUSCULOSKELETAL: Joint pains LYMPHATICS: None HEMATOLOGICAL: None PSYCHIATRY: None NEUROLOGICAL: None Past medical history to include: COPD, hypertension, hyperlipidemia, BPH, brain aneurysm Social history: . Started smoking at age 13 about 2 packs a day stopped about 10 years ago. Alcohol rarely. Family history: Reviewed, noncontributory to presentation Physical examination: VITAL SIGNS: 100.8, 127, 28, 152/74, 89% on room air upon presentation GENERAL: BMI 25.7, reclining but awake, tired. EYES: Pupils equal. Conjunctiva normal. HEENT: External appearance of nose and ears normal, oral cavity grossly normal. NECK: JVD not raised; masses not palpable. HEART: First and second heart sounds are normal; no edema. LUNGS: Respiratory rate increased; decreased breath sound some coarse breath sounds. ABDOMEN: Soft, nontender, liver spleen not palpable, no masses palpable. PSYCH: Alert and oriented x3; mood and affect normal. MUSCULOSKELETAL:No Clubbing/cyanosis;muscles-grossly intact. Evidence of OA NEUROLOGICAL: Cranial nerves grossly intact; no facial asymmetry, power and sensation grossly intact. LYMPHATICS: No lymph nodes palpable in the axilla and neck INVESTIGATIONS, reviewed in the clinical context: White count 20 hemoglobin 13.7 platelets 23 sodium 135 progression 3.5 crit 0.71 troponin I less than 0.012 proBNP 226 COVID 19: PCR: Not detected EKG tracing personally reviewed by me-normal sinus rhythm. Grade 1 on 8, some ST segment depression in lateral leads. Chest x-ray film personally reviewed by me-some basilar infiltrate CT chest: Right lower lobe bronchial wall thickening with opacified airways in bilateral lower lobes. COPD, moderate hiatal hernia. Assessment and plan: -Bilateral basal pneumonia, suspect gram-negative organism IV ceftriaxone twice a day -Acute COPD exacerbation and a previous smoker DuoNeb, nebulized steroids, IV Solu-Medrol -Essential hypertension Lopressor -Hyperlipidemia Lipitor 40 mg a day -GERD Nexium 20 mg a day IV ceftriaxone. DuoNeb. Steroids. Resume home medications. Add Mucinex. IV fluids. Care was discussed with the patient and at the bedside. Questions answered. Past Medical History Past Medical History: COPD, Hyperlipidemia, Hypertension, Osteoarthritis (OA) Additional Past Medical History / Comment(s): 2 brain aneurysms-states no symptoms ., See Cardiology H & P. History of Any Multi-Drug Resistant Organisms: None Reported Past Surgical History: Heart Catheterization Past Anesthesia/Blood Transfusion Reactions: No Reported Reaction Additional Past Anesthesia/Blood Transfusion Reaction / Comment(s): NO ANESTHESIA HX Past Psychological History: No Psychological Hx Reported Smoking Status: Former smoker Past Alcohol Use History: Rare Additional Past Alcohol Use History / Comment(s): QUIT SMOKING 10-12 YEARS AGO, SMOKED 2PPD, STARTED SMOKING AGE 13 YRS OLD. Past Drug Use History: None Reported Additional Drug Use History / Comment(s): patient states he very rarely drinks alcohol. - Past Family History Mother Family Medical History: No Reported History Medications and Allergies Home Medications Medication Instructions Recorded Confirmed Type Budesonide/Formoterol Fumarate 2 puff INHALATION RT-BID PRN 06/10/18 12/16/21 History [Symbicort 160-4.5 Mcg Inhaler] Esomeprazole Magnesium [NexIUM] 20 mg PO DAILY 06/10/18 12/16/21 History Ipratropium/Albuterol Sulfate 1 puff INHALATION RT-QID 06/10/18 12/16/21 History [Combivent Respimat Inhaler] Ascorbic Acid [Vitamin C] 500 mg PO DAILY 02/01/21 12/16/21 History Metoprolol Tartrate [Lopressor] 25 mg PO DAILY 02/01/21 12/16/21 History Atorvastatin [Lipitor] 40 mg PO DAILY 12/16/21 12/16/21 History Allergies Allergy/AdvReac Type Severity Reaction Status Date / Time No Known Allergies Allergy Verified 12/16/21 11:37 Physical Exam Vitals: Vital Signs Temp Pulse Pulse Resp BP BP Pulse Ox 12/16/21 08:00 97.9 F 92 18 158/67 97 12/16/21 05:20 17 12/16/21 02:40 98.3 F 92 18 146/77 97 12/16/21 02:07 12/16/21 01:59 98.7 F 96 18 126/68 96 12/15/21 23:48 112 H 12/15/21 23:42 109 H 12/15/21 23:29 115 H 20 150/74 95 12/15/21 23:01 100.8 F H 127 H 28 H 152/74 89 L FiO2 12/16/21 08:00 12/16/21 05:20 12/16/21 02:40 12/16/21 02:07 100 12/16/21 01:59 12/15/21 23:48 12/15/21 23:42 12/15/21 23:29 12/15/21 23:01 Intake and Output 12/15/21 12/16/21 12/16/21 22:59 06:59 14:59 Other: Voiding Method Toilet Toilet # Voids 1 Weight 81.193 kg Results CBC & Chem 7: 12/15/21 23:28 12/15/21 23:28 Labs: Abnormal Lab Results - Last 24 Hours (Table) 12/15/21 12/15/21 Range/Units 23:28 23:28 WBC 20.0 H (3.8-10.6) k/uL RBC 4.13 L (4.30-5.90) m/uL Neutrophils # 17.1 H (1.3-7.7) k/uL Sodium 135 L (137-145) mmol/L Carbon Dioxide 20 L (22-30) mmol/L Glucose 128 H (74-99) mg/dL Magnesium 1.3 L (1.6-2.3) mg/dL Thrombosis Risk Factor Assmnt - Choose All That Apply Any of the Below Risk Factors Present?: Yes Each Factor Represents 1 point: Abnormal pulmonary function (COPD) Each Risk Factor Represents 2 Points: Age 61-74 years Thrombosis Risk Factor Assessment Total Risk Factor Score: 3 Thrombosis Risk Factor Assessment Level: Moderate Risk
[2021-12-16] MEDS: IPRATROPIUM-ALBUTEROL 3 ML NEB INHALATION SCH ×2 (15:59→20:37)
[2021-12-16] MEDS: BUDESONIDE 1 MG/2 ML NEBU INHALATION SCH ×2 (16:00→20:37)
[2021-12-16] MEDS: AZITHROMYCIN 500 MG in SODIUM CHLORIDE 0.9% 250 ML IVPB SCH (20:36)
[2021-12-16] MEDS: ATORVASTATIN 20 MG TAB PO SCH (20:37)
[2021-12-17] MEDS: methylPREDNISolone SOD SUCCI 125 MG/2 ML VIAL IV SCH ×3 (00:33→12:26)
[2021-12-17] MEDS: SODIUM CHLORIDE 0.9% 1,000 ML IV SCH ×2 (05:31→18:03)
[2021-12-17] MEDS: guaiFENesin 600 MG TABLET.ER PO SCH ×4 (07:42→22:09)
[2021-12-17] MEDS: ENOXAPARIN 40 MG/0.4 ML SYRINGE SQ SCH (07:42)
[2021-12-17] MEDS: METOPROLOL TARTRATE 12.5 MG TAB PO SCH ×2 (07:42→22:09)
[2021-12-17] MEDS: PANTOPRAZOLE 40 MG TABLET PO SCH (07:42)
[2021-12-17] MEDS: BUDESONIDE 1 MG/2 ML NEBU INHALATION SCH ×2 (08:37→20:58)
[2021-12-17] MEDS: IPRATROPIUM-ALBUTEROL 3 ML NEB INHALATION SCH ×4 (08:39→20:58)
--- NOTE | 2021-12-17 09:10 | XR ---
EXAMINATION TYPE: XR chest 2V DATE OF EXAM: 12/17/2021 COMPARISON: 12/15/2021 TECHNIQUE: PA and lateral views submitted. HISTORY: Follow-up pneumonia FINDINGS: Hyperinflation compatible with emphysema with coarsened interstitium stable. Suspect bilateral nodule s representing nipple shadows. Improving left lower lobe infiltrate with small effusion. Biapical ple ural thickening. Arthropathy of the shoulders. Hypertrophic and degenerative change of the spine with a chronic appearing compression deformity thoracolumbar junction. Subsegmental changes right lung ba se stable. IMPRESSION: 1. COPD correlate for chronic interstitial lung disease. Improving left lower lobe atelectasis or inf iltrate with small effusion.
--- NOTE | 2021-12-17 12:52 | P.PN ---
Subjective Progress Note Date: 12/17/21 Principal diagnosis: Shortness of breath 71-year-old male patient with past medical history of COPD with baseline FEV1 of 57% of predicted, former smoker, carries a [id number] smoking history, hypertension, hyperlipidemia, history of brain aneurysms, and moderate aortic stenosis, presented to the emergency department on 12/15/2021 with complaints of cough, chest congestion, chest pain in the right lower anterior rib cage exacerbated with deep breathing and coughing, shortness of breath. Patient agrees to having fever and chills. No recent travel history no known sick c ontacts. Patient is vaccinated against COVID-19. Patient tested positive for COVID-19 via PCR test. Chest x-ray showed some interstitial infiltrates and atelectasis at the lung bases. Probable fibrosis, no heart failure. Labs showed elevated white count of 20, hemoglobin 13.7, and coordination profile within normal limits, sodium is 135, potassium is 3.5, chloride is 104, CO2 is 20, BUN is 12, creatinine 0.72, LFTs were within normal limits, proBNP was 226. Patient was started on empiric antibiotics in the form of azithromycin and Rocephin, IV steroids have been added today, and nebulized bronchodilators were added. On 12/17/2021 patient seen in follow-up on medical surgical floor, he is resting comfortably in bed, breathing easier today. Vital signs are stable, patient is currently down to 2.5 L from 4 L. No fever or chills, no chest pain. CTA chest was completed showing no evidence of central pulmonary embolism, evaluation of the segmental and subsegmental branches was limited secondary to bolus timing and motion, there was a right lower lobe bronchial wall thickening and opacification of the bilateral lower lobe airways possibly related to aspiration pneumonitis and bronchitis, or retained secretions. There was scattered airspace opacities likely related to infectious and inflammatory etiology. Moderate to severe COPD with underlying pulmonary fibrosis was suspected and a moderate hiatal hernia and lymph node in the pulmonary hilum measuring 10 mm with possibility of infectious etiology. he remains on combination of azithromycin and Rocephin, IV steroids, and nebulized bronchodilators. Sputum and blood cultures have been sent, results are pending. Objective - Vital Signs Vital signs: Vital Signs Temp 97.7 F 12/17/21 08:00 Pulse 88 12/17/21 12:20 Resp 16 12/17/21 08:00 BP 144/75 12/17/21 08:00 Pulse Ox 95 12/17/21 08:40 FiO2 100 12/16/21 02:07 Intake & Output 12/16/21 12/17/21 12/17/21 18:59 06:59 18:59 Intake Total 1080 Balance 1080 Intake: Oral 1080 Other: Voiding Method Toilet Toilet - Exam GENERAL EXAM: Alert, very pleasant, 71-year-old white male to have liters oxygen pulse ox of 95% comfortable in no apparent distress. HEAD: Normocephalic/atraumatic. EYES: Normal reaction of pupils, equal size. Conjunctiva pink, sclera white. NOSE: Clear with pink turbinates. THROAT: No erythema or exudates. NECK: No masses, no JVD, no thyroid enlargement, no adenopathy. CHEST: No chest wall deformity. Symmetrical expansion. LUNGS: Equal air entry with diffuse crackles CVS: Regular rate and rhythm, normal S1 and S2, no gallops, no murmurs, no rubs ABDOMEN: Soft, nontender. No hepatosplenomegaly, normal bowel sounds, no guarding or rigidity. EXTREMITIES: No clubbing, no edema, no cyanosis, 2+ pulses and upper and lower extremities. MUSCULOSKELETAL: Muscle strength and tone normal. SPINE: No scoliosis or deformity SKIN: No rashes CENTRAL NERVOUS SYSTEM: Alert and oriented -3. No focal deficits, tone is normal in all 4 extremities. PSYCHIATRIC: Alert and oriented -3. Appropriate affect. Intact judgment and insight. - Labs CBC & Chem 7: 12/15/21 23:28 12/15/21 23:28 Labs: Abnormal Lab Results - Last 24 Hours (Table) 12/15/21 Range/Units 23:28 Procalcitonin 0.25 H (0.02-0.09) ng/mL Assessment and Plan Plan: Assessment: #1. Acute hypoxic respiratory failure related to possible community acquired pneumonia, COVID-19 PCR is negative. Chest x-ray showing probable pulmonary fibrosis, and interstitial infiltrates and atelectasis #2. Acute exacerbation of COPD #3. History of COPD, baseline FEV1 of 57% of predicted #4. History of tobacco dependence, in remission, smoked one half packs a day for 49 years #5. History of brain aneurysms #6. Hypertension #7. Moderate aortic stenosis Plan: Continue current medical treatment Continue current antibiotics Will await results of the sputum culture and blood cultures Clinically patient is feeling improved We will continue on IV steroids and nebulized bronchodilators Continue to follow his clinical course If he continues to improve may consider discharge home in the next 24-48 hours I have personally seen and examined the patient, performed the documentation and the assessment and plan as written. Number of minutes spent on the visit: [15] Time with Patient: Less than 30
--- NOTE | 2021-12-17 13:23 | CDI ---
Documentation Clarification Form Date: 12/17/2021 12:59:43 PM From: Kalie Bills RN CCDS Admit Date: 12/16/2021 01:14:00 AM Patient Name: Thong Sung Visit Number: [id number] Discharge Date: ATTENTION: The Clinical Documentation Specialists (CDI) and [facility] Coding Staff appreciate your assistance in clarifying documentation. Please respond to the clarification below the line at the bottom and electronically sign. The CDI & [facility] Coding staff will review the response and follow-up if needed. Please note: Queries are made part of the Legal Health Record. If you have any questions, please contact the author of this message via ITS. Dr. David Sepulveda Sepsis is documented ED Note, 12/16, but is not noted in subsequent documentation. Clarification is requested. History/Risk Factors: 71-year-old male presents to the ED with shortness of breath. Medical history HTN and COPD. 12/16, H&P. Clinical Indicators: VSS: 12/15 B/P 152/74; HR 127; Temp 100.8; RR 28, SpO2 89% ra Labs: Wbc 20.0; Neutrophils 17.1. Fluid bolus: 12/15 0.9 NS 500cc IV x 1; 12/16 0.9NS 500cc IV x 1 AGCHEST: 12/16 Right lower lobe bronchial wall thickening with opacified airways in the bilateral lower lobes, alternatively opacifications of the airways may represent retained secretions. Scattered airspace opacities likely event sales representative of infectious/ inflammatory process. Moderate to severe COPD with underlying pulmonary fibrosis is also suspected. Right pulmonary hilum lymph nodes 2/2 infectious / inflammatory process Treatment: 12/16 Azithromycin IVPB x1; 12/16 Ceftriaxone x 1; 12/16 Ceftriaxone IVPB BID x 5 bags; 12/16 Azithromycin IVPB x 3 bags. Please clarify if the Sepsis is: [ ] Sepsis confirmed, remains under treatment [ ] Sepsis confirmed, resolved [ ] Sepsis ruled out [ ] Other condition, please specify [ ] Unable to determine (Template Last Revised: August 2020) Sepsis, secondary to pneumonia, POA MTDD
--- NOTE | 2021-12-17 17:15 | P.PN ---
Progress Note - Text Progress Note Date: 12/17/21 Chief Complaint: Short of breath This is a pleasant 70-year-old patient of Dr. Pascual. Chronic stable medical conditions include hypertension, hyperlipidemia, osteoporosis, aneurysm that has been followed. Initially patient. Posterior shopping and came back negative so short of breath. She has been identified. 2. No cough. Congestive, no sputum production. Decreased appetite. No change in bowel or urine... Patient is accompanied by the in the room. Slight improvement from last night. Admitted with bilateral basal pneumonia, COPD exacerbation. Started on IV ceftriaxone, bronchodilators, inhaled steroids. 12/17/2021: Breathing better. Decreased cough. Oral intake improving. Did sit up in a chair. Increase activity as tolerated. Past medical history to include: COPD, hypertension, hyperlipidemia, BPH, brain aneurysm Social history: . Started smoking at age 13 about 2 packs a day stopped about 10 years ago. Alcohol rarely. Family history: Reviewed, noncontributory to presentation Physical examination: VITAL SIGNS: 37.7, 90, 16, 94 was 75, 95% on 2 L GENERAL: Sitting up in bed, eating lunch. EYES: Pupils equal. Conjunctiva normal. HEENT: External appearance of nose and ears normal, oral cavity grossly normal. NECK: JVD not raised; masses not palpable. HEART: First and second heart sounds are normal; no edema. LUNGS: Respiratory rate increased; some basal crackles ABDOMEN: Soft, nontender, liver spleen not palpable, no masses palpable. PSYCH: Alert and oriented x3; mood and affect normal. MUSCULOSKELETAL:No Clubbing/cyanosis;muscles-grossly intact. Evidence of OA INVESTIGATIONS, reviewed in the clinical context: White count 20 hemoglobin 13.7 platelets 23 sodium 135 progression 3.5 crit 0.71 troponin I less than 0.012 proBNP 226 COVID 19: PCR: Not detected EKG tracing personally reviewed by me-normal sinus rhythm. Grade 1 on 8, some ST segment depression in lateral leads. Chest x-ray film personally reviewed by me-some basilar infiltrate CT chest: Right lower lobe bronchial wall thickening with opacified airways in bilateral lower lobes. COPD, moderate hiatal hernia. Assessment and plan: -Bilateral basal pneumonia, suspect gram-negative organism IV ceftriaxone twice a day -Acute COPD exacerbation and a previous smoker DuoNeb, nebulized steroids, IV Solu-Medrol -Essential hypertension Lopressor -Hyperlipidemia Lipitor 40 mg a day -GERD Nexium 20 mg a day IV ceftriaxone. DuoNeb. Steroids. Mucinex. Increase activity as tolerated.
[2021-12-17] MEDS: methylPREDNISolone SOD SUCCI 40 MG/ML 1 ML VIAL IV SCH (18:03)
[2021-12-17] MEDS: ATORVASTATIN 20 MG TAB PO SCH (22:09)
[2021-12-17] MEDS: AZITHROMYCIN 500 MG in SODIUM CHLORIDE 0.9% 250 ML IVPB SCH (22:09)
[2021-12-18] MEDS: methylPREDNISolone SOD SUCCI 40 MG/ML 1 ML VIAL IV SCH ×2 (00:45→08:11)
[2021-12-18] MEDS: PANTOPRAZOLE 40 MG TABLET PO SCH (08:05)
[2021-12-18] MEDS: guaiFENesin 600 MG TABLET.ER PO SCH ×2 (08:05→12:55)
[2021-12-18] MEDS: METOPROLOL TARTRATE 12.5 MG TAB PO SCH (08:05)
[2021-12-18] MEDS: ENOXAPARIN 40 MG/0.4 ML SYRINGE SQ SCH (08:06)
[2021-12-18] MEDS: BUDESONIDE 1 MG/2 ML NEBU INHALATION SCH (08:31)
[2021-12-18] MEDS: IPRATROPIUM-ALBUTEROL 3 ML NEB INHALATION SCH ×3 (08:31→15:40)
[2021-12-18 08:33] VITALS: RESP 16
--- NOTE | 2021-12-18 12:32 | P.PN ---
Subjective Progress Note Date: 12/18/21 Principal diagnosis: Shortness of breath. 71-year-old male patient with past medical history of COPD with baseline FEV1 of 57% of predicted, former smoker, carries a [id number] smoking history, hypertension, hyperlipidemia, history of brain aneurysms, and moderate aortic stenosis, presented to the emergency department on 12/15/2021 with complaints of cough, chest congestion, chest pain in the right lower anterior rib cage exacerbated with deep breathing and coughing, shortness of breath. Patient agrees to having fever and chills. No recent travel history no known sick contacts. Patient is vaccinated against COVID-19. Patient tested positive for COVID-19 via PCR test. Chest x-ray showed some interstitial infiltrates and atelectasis at the lung bases. Probable fibrosis, no heart failure. Labs showed elevated white count of 20, hemoglobin 13.7, and coordination profile within normal limits, sodium is 135, potassium is 3.5, chloride is 104, CO2 is 20, BUN is 12, creatinine 0.72, LFTs were within normal limits, proBNP was 226. Patient was started on empiric antibiotics in the form of azithromycin and Rocephin, IV steroids have been added today, and nebulized bronchodilators were added. On 12/17/2021 patient seen in follow-up on medical surgical floor, he is resting comfortably in bed, breathing easier today. Vital signs are stable, patient is currently down to 2.5 L from 4 L. No fever or chills, no chest pain. CTA chest was completed showing no evidence of central pulmonary embolism, evaluation of the segmental and subsegmental branches was limited secondary to bolus timing and motion, there was a right lower lobe bronchial wall thickening and opacification of the bilateral lower lobe airways possibly related to aspiration pneumonitis and bronchitis, or retained secretions. There was scattered airspace opacities likely related to infectious and inflammatory etiology. Moderate to severe COPD with underlying pulmonary fibrosis was suspected and a moderate hiatal hernia and lymph node in the pulmonary hilum measuring 10 mm with possibility of infectious etiology. he remains on combination of azithromycin and Rocephin, IV steroids, and nebulized bronchodilators. Sputum and blood cultures have been sent, results are pending. Progress note dated 12/18/2021. The patient is seen today in room 458. He is resting comfortably in bed. 2 L nasal cannula. Is getting saline at 50 mL an hour. The patient is stable from our perspective, and could be considered for possible discharge. If he is discharged, I will see him in the office next week. He states, he is feeling much improved. No new laboratory data today other than a pro-calcitonin level up 0.19, which is reduced from his previous pro-calcitonin level of 0.25. Sputum and blood cultures are negative. Chest x-ray from yesterday is reviewed. Objective - Vital Signs Vital signs: Vital Signs Temp 97.9 F 12/18/21 08:00 Pulse 80 12/18/21 12:14 Resp 16 12/18/21 08:00 BP 135/82 12/18/21 08:00 Pulse Ox 94 L 12/18/21 08:31 FiO2 28 12/18/21 08:31 Intake & Output 12/17/21 12/18/21 12/18/21 18:59 06:59 18:59 Other: Voiding Method Toilet Urinal # Voids 4 2 - Exam No acute distress, oriented 3. Currently on 2 L nasal cannula. Saturations are 94%. HEENT examination is grossly unremarkable. Neck supple. Full range of motion. No adenopathy thyromegaly or neck vein distention. Cardiovascular examination reveals regular rhythm rate. S1-S2 normal. No S3 or S4. No discernible murmur noted. Heart rate 80 bpm. Lungs reveal mild bilateral scattered rhonchi. No distinct wheezes. No c rackles. Breath sounds equal bilaterally. Breath sounds are certainly improved. Abdomen soft bowel sounds are heard. No masses or tenderness. Extremities are intact. No cyanosis clubbing or edema. Skin is without rash or lesion. Neurologic examination is brief but nonfocal. - Labs CBC & Chem 7: 12/15/21 23:28 12/15/21 23:28 Labs: Abnormal Lab Results - Last 24 Hours (Table) 12/18/21 Range/Units 06:08 Procalcitonin 0.19 H (0.02-0.09) ng/mL Microbiology - Last 24 Hours (Table) 12/17/21 08:44 Gram Stain - Preliminary Sputum Sputum Culture - Preliminary 12/17/21 05:57 Blood Culture - Preliminary Blood No Growth after 24 hours 12/17/21 05:47 Blood Culture - Preliminary Blood No Growth after 24 hours Assessment and Plan Assessment: Acute hypoxemic respiratory failure, secondary to possible community-acquired pneumonia. History of COPD, with COPD exacerbation, in a patient with moderately severe disease, and an FEV1 that's 57 % of predicted. Previous history of tobacco dependence, in remission. History of brain aneurysms. History of hypertension. Moderate aortic stenosis. Plan: Plan dated 12/18/2021. The patient will be assessed for the need for home oxygen. The patient could be discharged home on a prednisone burst and taper. The patient will see me in the office next week. No additional recommendations are made. Prognosis is guarded. The patient should resume his normal home medications. Prognosis is guarded. Time with Patient: Less than 30
[2021-12-18 13:26] VITALS: BP 144/73; PULSE 64; TEMP 97.5
--- NOTE | 2021-12-18 16:48 | P.DS ---
Providers Date of admission: 12/16/21 01:14 Expected date of discharge: 12/18/21 Attending physician: David Sepulveda Consults: 12/16/21 01:14 Consult Physician Routine Consulting Provider: David Navarrete Consult Reason/Comments: known Do you want consulting provider notified?: Yes Primary care physician: Teodora Pascual [facility] Course: Chief Complaint: Short of breath This is a pleasant 70-year-old patient of Dr. Pascual. Chronic stable medical conditions include hypertension, hyperlipidemia, osteoporosis, aneurysm that has been followed. Initially patient. Posterior shopping and came back negative so short of breath. She has been identified. 2. No cough. Congestive, no sputum production. Decreased appetite. No change in bowel or urine... Patient is accompanied by the in the room. Slight improvement from last night. Admitted with bilateral basal pneumonia, COPD exacerbation. Started on IV ceftriaxone, bronchodilators, inhaled steroids. 12/17/2021: Breathing better. Decreased cough. Oral intake improving. Did sit up in a chair. Increase activity as tolerated. 12/18/2021: Some cough or sputum. Admitting better. Cleared by Dr. Knox for discharge. Change antibiotic to Ceftin. Prednisone taper. Requiring oxygen for discharge. Discussion and discharge planning more than 35 minutes Past medical history to include: COPD, hypertension, hyperlipidemia, BPH, brain aneurysm Social history: . Started smoking at age 13 about 2 packs a day stopped about 10 years ago. Alcohol rarely. Family history: Reviewed, noncontributory to presentation Physical examination: VITAL SIGNS: 97.5, 64, 16, 140/73, 95% on 2 L GENERAL: Sitting up in bed, feeling better EYES: Pupils equal. Conjunctiva normal. HEENT: External appearance of nose and ears normal, oral cavity grossly normal. NECK: JVD not raised; masses not palpable. HEART: First and second heart sounds are normal; no edema. LUNGS: Respiratory rate normal; mild basal crackles ABDOMEN: Soft, nontender, liver spleen not palpable, no masses palpable. PSYCH: Alert and oriented x3; mood and affect normal. MUSCULOSKELETAL:No Clubbing/cyanosis;muscles-grossly intact. Evidence of OA INVESTIGATIONS, reviewed in the clinical context: December 18: Pro-calcitonin 0.19 White count 20 hemoglobin 13.7 platelets 23 sodium 135 progression 3.5 crit 0.71 troponin I less than 0.012 proBNP 226 COVID 19: PCR: Not detected EKG tracing personally reviewed by me-normal sinus rhythm. Grade 1 on 8, some ST segment depression in lateral leads. Chest x-ray film personally reviewed by me-some basilar infiltrate CT chest: Right lower lobe bronchial wall thickening with opacified airways in bilateral lower lobes. COPD, moderate hiatal hernia. Assessment and plan: -Bilateral basal pneumonia, suspect gram-negative organism IV ceftriaxone twice a day. Ceftin 500 mg twice a day complete course -Acute COPD exacerbation and a previous smoker DuoNeb, nebulized steroids, IV Solu-Medrol DC with prednisone taper -Acute hypoxic respiratory failure from COPD and pneumonia Discharge weight 2 L of oxygen -Essential hypertension Lopressor -Hyperlipidemia Lipitor 40 mg a day -GERD Nexium 20 mg a day Disposition: Home Plan - Discharge Summary Discharge Rx Participant: Yes New Discharge Prescriptions: New cefUROXime axetiL [Ceftin] 500 mg PO BID #10 tab predniSONE 10 mg PO DAILY #30 tab Continue Ipratropium/Albuterol Sulfate [Combivent Respimat Inhaler] 1 puff INHALATION RT-QID Esomeprazole Magnesium [NexIUM] 20 mg PO DAILY Budesonide/Formoterol Fumarate [Symbicort 160-4.5 Mcg Inhaler] 2 puff INHALATION RT-BID PRN PRN Reason: Shortness Of Breath Atorvastatin [Lipitor] 40 mg PO DAILY Ascorbic Acid [Vitamin C] 500 mg PO DAILY Changed Metoprolol Tartrate [Lopressor] 12.5 mg PO BID #0 Discharge Medication List Budesonide/Formoterol Fumarate [Symbicort 160-4.5 Mcg Inhaler] 2 puff INHALATION RT-BID PRN 06/10/18 [History] Esomeprazole Magnesium [NexIUM] 20 mg PO DAILY 06/10/18 [History] Ipratropium/Albuterol Sulfate [Combivent Respimat Inhaler] 1 puff INHALATION RT- QID 06/10/18 [History] Ascorbic Acid [Vitamin C] 500 mg PO DAILY 02/01/21 [History] Atorvastatin [Lipitor] 40 mg PO DAILY 12/16/21 [History] Metoprolol Tartrate [Lopressor] 12.5 mg PO BID #0 12/18/21 [Rx] cefUROXime axetiL [Ceftin] 500 mg PO BID #10 tab 12/18/21 [Rx] predniSONE 10 mg PO DAILY #30 tab 12/18/21 [Rx] Follow up Appointment(s)/Referral(s): [facility],Equipment [NON-STAFF] - (Please call [facility] once home to arrange delivery of the oxygen concentrator and with any questions regarding the home oxygen. ) Teodora Pascual DO [Primary Care Provider] - 12/28/21 11:30 am David Navarrete DO [Doctor of Osteopathic Medicine] - 12/26/21 9:45 am Patient Instructions/Handouts: Using Oxygen at Home (DC) Discharge Disposition: HOME SELF-CARE
== END 2021-12-18 16:14 | disposition home or self-care (01) | DRG 871 ==
LOC: EC 22:42 → 4SSUR 12-16 01:14
PROVIDERS: ADMIT Hospitalist; ATTEND Hospitalist
DX: A41.50 Gram-negative sepsis, unspecified (principal); J15.6 Pneumonia due to other Gram-negative bacteria; J96.01 Acute respiratory failure with hypoxia; J44.1 Chronic obstructive pulmonary disease with (acute) exacerbation; J44.0 Chronic obstructive pulmonary disease with (acute) lower respiratory infection; N40.0 Benign prostatic hyperplasia without lower urinary tract symptoms; E78.5 Hyperlipidemia, unspecified; M81.0 Age-related osteoporosis without current pathological fracture; I67.1 Cerebral aneurysm, nonruptured; Z20.822 Contact with and (suspected) exposure to COVID-19; I35.0 Nonrheumatic aortic (valve) stenosis; I10 Essential (primary) hypertension; J84.10 Pulmonary fibrosis, unspecified; K44.9 Diaphragmatic hernia without obstruction or gangrene; K21.9 Gastro-esophageal reflux disease without esophagitis; Z87.891 Personal history of nicotine dependence; Z79.899 Other long term (current) drug therapy; Z79.51 Long term (current) use of inhaled steroids
CPT/HCPCS: 36415; 71045; 71046; 71275; 80053; 83605; 83735; 83880; 84145; 84484; 85025; 85610; 85730; 87040; 87070; 87205; 87635; 93005; 94640; 94760; 96361; 96374; 99285

== ENCOUNTER → 2023-06-18 | Outpatient (CLI) | payer MEDICARE ==
[2023-06-18 15:20] LABS: ALT 12 U/L (10-49); AST 15 U/L (14-35); Albumin 3.7 g/dL (3.8-4.9); Albumin/Globulin Ratio 1.37 Ratio (1.60-3.17); Alkaline Phosphatase 105 U/L (41-126); BUN/Creat Ratio 20.33 Ratio (12.00-20.00); Blood Urea Nitrogen 18.3 mg/dL (9.0-27.0); Calcium 9.3 mg/dL (8.7-10.3); Carbon Dioxide 25.9 mmol/L (21.6-31.8); Chloride 104 mmol/L (96-109); Chol/HDL Ratio 2.35 Ratio; Globulin 2.7 g/dL (1.6-3.3); Glucose 105 mg/dL (70-110); LDL Cholesterol,Calculated 47.4 mg/dL (0.0-131.0); Potassium 4.5 mmol/L (3.5-5.5); Sodium 141 mmol/L (135-145); Total Bilirubin 0.4 mg/dL (0.3-1.2); Total Protein 6.4 g/dL (6.2-8.2); VLDL Calculation 10.68 mg/dL (5.00-40.00)
[2023-06-18 15:45] LABS: Basophils # (A) 0.02 X 10*3/uL (0.00-0.10); Basophils % (A) 0.2 %; Eosinophils # (A) 0.07 X 10*3/uL (0.04-0.35); Eosinophils % (A) 0.7 %; HCT 39.4 % (39.6-50.0); Lymphocytes # (A) 2.28 X 10*3/uL (0.90-5.00); Lymphocytes % (A) 21.2 %; MCH 31.6 pg (27.0-32.0); MCV 95.9 FL (80.0-97.0); Mean Platelet Volume 10.3 FL (9.5-12.2); Monocytes % (A) 7.4 %; NRBC Per 100 WBC 0 X 10*3/uL (0.00-0.01); Neutrophils # (A) 7.56 X 10*3/uL (1.80-7.70); Neutrophils % (A) 70.2 %; Platelet Count 220 X 10*3/uL (140-440); RBC 4.11 X 10*6/uL (4.40-5.60); RDW 13.6 % (11.5-14.5); WBC 10.76 X 10*3/uL (4.50-10.00)
== END | disposition home or self-care (01) ==
LOC: LABWHC1 11:24
PROVIDERS: ATTEND Family Medicine
DX: E78.5 Hyperlipidemia, unspecified (principal)
CPT/HCPCS: 36415; 80053; 80061; 85025

== ENCOUNTER 2023-10-17 03:02 | Inpatient (IN) | payer MEDICARE ==
[2023-10-17] MEDS: MORPHINE SULFATE 2 MG/ML SYRINGE IVP STA (03:15)
[2023-10-17] MEDS: SODIUM CHLORIDE 0.9% 1,000 ML IV STA (03:18)
--- NOTE | 2023-10-17 03:19 | ED ---
SOB HPI - General Stated Complaint: TRA Time Seen by Provider: 10/17/23 03:09 Source: RN notes reviewed, old records reviewed Mode of arrival: EMS Limitations: no limitations - History of Present Illness Initial Comments: This is a 73-year-old male with severe shortness of breath severe dyspnea severe respiratory distress history of significant lung disease COPD emphysema and h ypoxia severe respiratory distress persistent here in the ER worsening for the last few days. Suffers from COPD The 60s at home MD Complaint: shortness of breath, cough, "asthma attack", anxiety -: days(s) Severity: severe Severity scale (1-10): 10 Quality: dull Consistency: constant Improves With: nothing Worsens With: nothing Known History Of: asthma Context: recent URI, recent illness Associated Symptoms: cough Treatments Prior to Arrival: none - Related Data Home Medications Medication Instructions Recorded Confirmed Budesonide/Formoterol Fumarate 2 puff INHALATION RT-BID PRN 06/10/18 10/17/23 [Symbicort 160-4.5 Mcg Inhaler] Esomeprazole Magnesium [NexIUM] 20 mg PO DAILY 06/10/18 10/17/23 Ipratropium/Albuterol Sulfate 1 puff INHALATION RT-QID 06/10/18 10/17/23 [Combivent Respimat Inhaler] Atorvastatin [Lipitor] 40 mg PO DAILY 12/16/21 10/17/23 Previous Rx's Medication Instructions Recorded Furosemide [Lasix] 20 mg PO DAILY@1600 #30 tab 10/23/23 Furosemide [Lasix] 40 mg PO DAILY #30 tab 10/23/23 Losartan [Cozaar] 12.5 mg PO DAILY #15 tab 10/23/23 Metoprolol Tartrate [Lopressor] 25 mg PO TID #90 tab 10/23/23 Spironolactone [Aldactone] 12.5 mg PO DAILY #15 tab 10/23/23 predniSONE 10 mg PO DIRECTED #9 tab 10/23/23 Allergies Allergy/AdvReac Type Severity Reaction Status Date / Time No Known Allergies Allergy Verified 10/17/23 10:08 Review of Systems ROS Statement: Those systems with pertinent positive or pertinent negative responses have been documented in the HPI. ROS Other: All systems not noted in ROS Statement are negative. Past Medical History Past Medical History: COPD, Hyperlipidemia, Hypertension, Osteoarthritis (OA) Additional Past Medical History / Comment(s): 2 brain aneurysms-states no sym ptoms ., See Cardiology H & P. History of Any Multi-Drug Resistant Organisms: None Reported Past Surgical History: Heart Catheterization Past Anesthesia/Blood Transfusion Reactions: No Reported Reaction Additional Past Anesthesia/Blood Transfusion Reaction / Comment(s): NO ANESTHESIA HX Past Psychological History: No Psychological Hx Reported Smoking Status: Former smoker Past Alcohol Use History: Rare Past Drug Use History: None Reported - Past Family History Mother Family Medical History: No Reported History Father Family Medical History: Asthma General Exam Limitations: altered mental status General appearance: alert, anxious, in distress Head exam: Present: atraumatic, normocephalic, normal inspection Eye exam: Present: normal appearance, PERRL, EOMI. Absent: scleral icterus, conjunctival injection, periorbital swelling ENT exam: Present: normal exam, mucous membranes moist Neck exam: Present: normal inspection. Absent: tenderness, meningismus, lymphadenopathy Respiratory exam: Present: respiratory distress, wheezes, accessory muscle use, decreased breath sounds, prolonged expiratory. Absent: rales, rhonchi, stridor Cardiovascular Exam: Present: regular rate, normal rhythm, normal heart sounds. Absent: systolic murmur, diastolic murmur, rubs, gallop, clicks GI/Abdominal exam: Present: soft, normal bowel sounds. Absent: distended, tenderness, guarding, rebound, rigid Extremities exam: Present: normal inspection, full ROM, normal capillary refill. Absent: tenderness, pedal edema, joint swelling, calf tenderness Back exam: Present: normal inspection Neurological exam: Present: alert, oriented X3, CN II-XII intact Psychiatric exam: Present: normal affect, normal mood Skin exam: Present: warm, dry, intact, normal color. Absent: rash Course Vital Signs 10/17/23 10/17/23 10/17/23 03:08 03:24 03:34 Temperature Pulse Rate 146 H 115 H Pulse Rate [ Pulse Oximetery ] Pulse Rate [ Right] Respiratory 36 H 32 H 26 H Rate Blood Pressure 133/73 Blood Pressure [Left Arm Supine] Blood Pressure [Right Arm] O2 Sat by Pulse 56 L 97 Oximetry Fraction of Inspired Oxygen (FIO2) 10/17/23 10/17/23 10/17/23 03:36 04:00 04:31 Temperature Pulse Rate 105 H 101 H Pulse Rate [ Pulse Oximetery ] Pulse Rate [ Right] Respiratory 22 20 Rate Blood Pressure 135/72 123/68 Blood Pressure [Left Arm Supine] Blood Pressure [Right Arm] O2 Sat by Pulse 100 100 Oximetry Fraction of 70 Inspired Oxygen (FIO2) 10/17/23 10/17/23 10/17/23 05:23 05:34 06:00 Temperature Pulse Rate 99 92 96 Pulse Rate [ Pulse Oximetery ] Pulse Rate [ Right] Respiratory 20 Rate Blood Pressure 128/64 Blood Pressure [Left Arm Supine] Blood Pressure [Right Arm] O2 Sat by Pulse 100 Oximetry Fraction of 50 Inspired Oxygen (FIO2) 10/17/23 10/17/23 10/17/23 06:45 07:49 08:07 Temperature Pulse Rate 94 98 Pulse Rate [ Pulse Oximetery ] Pulse Rate [ Right] Respiratory Rate Blood Pressure Blood Pressure [Left Arm Supine] Blood Pressure [Right Arm] O2 Sat by Pulse Oximetry Fraction of 100 100 Inspired Oxygen (FIO2) 10/17/23 10/17/23 10/17/23 09:01 09:03 10:02 Temperature Pulse Rate Pulse Rate [ 133 H 133 H Pulse Oximetery ] Pulse Rate [ Right] Respiratory 20 20 Rate Blood Pressure Blood Pressure [Left Arm Supine] Blood Pressure 137/70 [Right Arm] O2 Sat by Pulse 96 Oximetry Fraction of 70 70 Inspired Oxygen (FIO2) 10/17/23 10/17/23 10/17/23 11:27 11:40 12:21 Temperature Pulse Rate 110 H 106 H Pulse Rate [ 104 H Pulse Oximetery ] Pulse Rate [ Right] Respiratory 20 Rate Blood Pressure Blood Pressure [Left Arm Supine] Blood Pressure 140/66 [Right Arm] O2 Sat by Pulse 98 Oximetry Fraction of 50 50 Inspired Oxygen (FIO2) 10/17/23 10/17/23 10/17/23 14:09 15:36 15:48 Temperature Pulse Rate 106 H 106 H Pulse Rate [ 104 H Pulse Oximetery ] Pulse Rate [ Right] Respiratory 20 Rate Blood Pressure Blood Pressure [Left Arm Supine] Blood Pressure [Right Arm] O2 Sat by Pulse Oximetry Fraction of 50 Inspired Oxygen (FIO2) 10/17/23 10/17/23 10/17/23 18:00 18:15 18:30 Temperature 98.5 F Pulse Rate Pulse Rate [ Pulse Oximetery ] Pulse Rate [ 108 H 117 H 103 H Right] Respiratory 20 20 21 Rate Blood Pressure Blood Pressure 139/61 141/84 136/70 [Left Arm Supine] Blood Pressure [Right Arm] O2 Sat by Pulse 95 96 98 Oximetry Fraction of 50 50 50 Inspired Oxygen (FIO2) - Reevaluation(s) Reevaluation #1: 10/17/23 04:36 Medical record is reviewed Reevaluation #2: 10/17/23 06:41 Patient has minimal improvement on BiPAP but is very temperamental especially with change of position, patient did go for CT scan and became significantly worse after being laid down flat Reevaluation #3: 10/17/23 06:41 Patient informed of results questions answered Reevaluation #4: Was pt. sent in by a medical professional or institution (, [facility], [facility], urgent care, hospital, or intermediate...) When possible be specific @ -no Did you speak to anyone other than the patient for history (EMS, parent, family, police, friend...)? What history was obtained from this source @ -no Did you review nursing and triage notes (agree or disagree)? Why? @ -agree Are old charts reviewed (outside hosp., previous admission, EMS record, old EKG, old radiological studies, urgent care reports/EKG's, intermediate records)? Report findings @ -yes Differential Diagnosis (chest pain, altered mental status, abdominal pain women, abdominal pain men, vaginal bleeding, weakness, fever, dyspnea, syncope, h eadache, dizziness, GI bleed, back pain, seizure, CVA, palpatations, mental health, musculoskeletal)? @ -prior EKG interpreted by me (3pts min.). @ -yes X-rays interpreted by me (1pt min.). @ -yes negative for acute disease CT interpreted by me (1pt min.). @ -no U/S interpreted by me (1pt. min.). @ -no What testing was considered but not performed or refused? (CT, X-rays, U/S, labs)? Why? @ -none What meds were considered but not given or refused? Why? @ -none Did you discuss the management of the patient with other professionals (professionals i.e. [facility], [facility] [employer], lab, RT, psych nurse, social service assistant, quality assurance supervisor, teacher, dental officer, case management rn)? Give summary @ -no Was smoking cessation discussed for >3mins.? @ -no Was critical care preformed (if so, how long)? @ -yes31 Were there social determinants of health that impacted care today? How? (Homelessness, low income, unemployed, alcoholism, drug addiction, transportation, low edu. Level, literacy, decrease access to med. care, long-term, rehab)? @ -none Was there de-escalation of care discussed even if they declined (Discuss DNR or withdrawal of care, Hospice)? DNR status @ -no What co-morbidities impacted this encounter? (DM, HTN, Smoking, COPD, CAD, Cancer, CVA, ARF, Chemo, Hep., AIDS, mental health diagnosis, sleep apnea, morbid obesity)? @ -none Was patient admitted / discharged? Hospital course, mention meds given and route, prescriptions, significant lab abnormalities, going to OR and other pertinent info. @ - 73 male in significant severe respiratory distress showing ARDS type picture on x-ray, patient has pneumonia with significant of elevated white blood cell count on BiPAP with respiratory failure and hypoxia Admitted Undiagnosed new problem with uncertain prognosis? @ -no Drug Therapy requiring intensive monitoring for toxicity (Heparin, Nitro, Insulin, Cardizem)? @ -no Were any procedures done? @ -no Diagnosis/symptom? @ -COPD hypoxia Acute, or Chronic, or Acute on Chronic? @ -Acute Uncomplicated (without systemic symptoms) or Complicated (systemic symptoms)? @ -Complicated Side effects of treatment? @ -no Exacerbation, Progression, or Severe Exacerbation? @ -exacerbation Poses a threat to life or bodily function? How? (Chest pain, [place], [place], pneumonia, PE, COPD, DKA, ARF, appy, cholecystitis, CVA, Diverticulitis, Homicidal, Suicidal, threat to staff... and all critical care pts) @ -yes with severe respiratory distress Reevaluation #5: Differential Dyspnea: Coronary syndrome, arrhythmia, tamponade, asthma, COPD, pulmonary embolism, pneumonia, pneumothorax, pulmonary effusion, anaphylaxis, diabetic ketoacidosis, flailed chest, pulmonary contusion, diaphragmatic rupture, anemia, neuromuscular, this is not meant to be an all-inclusive list. - Consultations Consultation #1: Spoke with [facility] who agrees to admit this patient Medical Decision Making - Medical Decision Making 73 male in significant severe respiratory distress showing ARDS type picture on x-ray, patient has pneumonia with significant of elevated white blood cell count on BiPAP with respiratory failure and hypoxia - Lab Data Result diagrams: 10/23/23 11:05 10/23/23 11:05 Lab Results 10/17/23 10/17/23 10/17/23 Range/Units 03:10 03:10 03:10 WBC 23.9 H (3.8-10.6) k/uL RBC 4.20 L (4.30-5.90) m/uL Hgb 13.6 (13.0-17.5) gm/dL Hct 43.6 (39.0-53.0) % MCV 103.8 H (80.0-100.0) fL MCH 32.3 (25.0-35.0) pg MCHC 31.1 (31.0-37.0) g/dL RDW 14.5 (11.5-15.5) % Plt Count 296 (150-450) k/uL MPV 10.3 Neutrophils % 49 % Lymphocytes % 43 % Monocytes % 4 % Eosinophils % 1 % Basophils % 1 % Neutrophils # 11.7 H (1.3-7.7) k/uL Lymphocytes # 10.2 H (1.0-4.8) k/uL Monocytes # 1.0 (0-1.0) k/uL Eosinophils # 0.2 (0-0.7) k/uL Basophils # 0.1 (0-0.2) k/uL Manual Slide Review Performed Hypochromasia Moderate Poikilocytosis (manual Present Anisocytosis (manual) Present Macrocytosis Slight PT 11.3 (10.0-12.5) sec INR 1.0 (<1.2) APTT 21.2 L (22.0-30.0) sec Sodium 142 (137-145) mmol/L Potassium 3.9 (3.5-5.1) mmol/L Chloride 109 H (98-107) mmol/L Carbon Dioxide 18 L (22-30) mmol/L Anion Gap 15 mmol/L BUN 17 (9-20) mg/dL Creatinine 0.79 (0.66-1.25) mg/dL Est GFR (CKD-EPI)AfAm >90 (>60 ml/min/1.73 sqM) Est GFR (CKD-EPI)NonAf 88 (>60 ml/min/1.73 sqM) Glucose 334 H (74-99) mg/dL Lactic Ac Sepsis Rflx Plasma Lactic Acid Albert (0.7-2.0) mmol/L Calcium 9.0 (8.4-10.2) mg/dL Magnesium 1.7 (1.6-2.3) mg/dL Total Bilirubin 0.4 (0.2-1.3) mg/dL AST 31 (17-59) U/L ALT 24 (4-49) U/L Alkaline Phosphatase 101 (38-126) U/L Troponin I (0.000-0.034) ng/mL NT-Pro-B Natriuret Pep 4210 pg/mL Total Protein 6.6 (6.3-8.2) g/dL Albumin 3.6 (3.5-5.0) g/dL Influenza Type A (PCR) (Not Detectd) Influenza Type B (PCR) (Not Detectd) RSV (PCR) (Not Detectd) SARS-CoV-2 (PCR) (Not Detectd) 10/17/23 10/17/23 10/17/23 Range/Units 03:10 03:10 03:39 WBC (3.8-10.6) k/uL RBC (4.30-5.90) m/uL Hgb (13.0-17.5) gm/dL Hct (39.0-53.0) % MCV (80.0-100.0) fL MCH (25.0-35.0) pg MCHC (31.0-37.0) g/dL RDW (11.5-15.5) % Plt Count (150-450) k/uL MPV Neutrophils % % Lymphocytes % % Monocytes % % Eosinophils % % Basophils % % Neutrophils # (1.3-7.7) k/uL Lymphocytes # (1.0-4.8) k/uL Monocytes # (0-1.0) k/uL Eosinophils # (0-0.7) k/uL Basophils # (0-0.2) k/uL Manual Slide Review Hypochromasia Poikilocytosis (manual Anisocytosis (manual) Macrocytosis PT (10.0-12.5) sec INR (<1.2) APTT (22.0-30.0) sec Sodium (137-145) mmol/L Potassium (3.5-5.1) mmol/L Chloride (98-107) mmol/L Carbon Dioxide (22-30) mmol/L Anion Gap mmol/L BUN (9-20) mg/dL Creatinine (0.66-1.25) mg/dL Est GFR (CKD-EPI)AfAm (>60 ml/min/1.73 sqM) Est GFR (CKD-EPI)NonAf (>60 ml/min/1.73 sqM) Glucose (74-99) mg/dL Lactic Ac Sepsis Rflx Y Plasma Lactic Acid Albert 7.0 H* (0.7-2.0) mmol/L Calcium (8.4-10.2) mg/dL Magnesium (1.6-2.3) mg/dL Total Bilirubin (0.2-1.3) mg/dL AST (17-59) U/L ALT (4-49) U/L Alkaline Phosphatase (38-126) U/L Troponin I 0.057 H* (0.000-0.034) ng/mL NT-Pro-B Natriuret Pep pg/mL Total Protein (6.3-8.2) g/dL Albumin (3.5-5.0) g/dL Influenza Type A (PCR) (Not Detectd) Influenza Type B (PCR) (Not Detectd) RSV (PCR) (Not Detectd) SARS-CoV-2 (PCR) (Not Detectd) 10/17/23 Range/Units 05:33 WBC (3.8-10.6) k/uL RBC (4.30-5.90) m/uL Hgb (13.0-17.5) gm/dL Hct (39.0-53.0) % MCV (80.0-100.0) fL MCH (25.0-35.0) pg MCHC (31.0-37.0) g/dL RDW (11.5-15.5) % Plt Count (150-450) k/uL MPV Neutrophils % % Lymphocytes % % Monocytes % % Eosinophils % % Basophils % % Neutrophils # (1.3-7.7) k/uL Lymphocytes # (1.0-4.8) k/uL Monocytes # (0-1.0) k/uL Eosinophils # (0-0.7) k/uL Basophils # (0-0.2) k/uL Manual Slide Review Hypochromasia Poikilocytosis (manual Anisocytosis (manual) Macrocytosis PT (10.0-12.5) sec INR (<1.2) APTT (22.0-30.0) sec Sodium (137-145) mmol/L Potassium (3.5-5.1) mmol/L Chloride (98-107) mmol/L Carbon Dioxide (22-30) mmol/L Anion Gap mmol/L BUN (9-20) mg/dL Creatinine (0.66-1.25) mg/dL Est GFR (CKD-EPI)AfAm (>60 ml/min/1.73 sqM) Est GFR (CKD-EPI)NonAf (>60 ml/min/1.73 sqM) Glucose (74-99) mg/dL Lactic Ac Sepsis Rflx Plasma Lactic Acid Albert (0.7-2.0) mmol/L Calcium (8.4-10.2) mg/dL Magnesium (1.6-2.3) mg/dL Total Bilirubin (0.2-1.3) mg/dL AST (17-59) U/L ALT (4-49) U/L Alkaline Phosphatase (38-126) U/L Troponin I (0.000-0.034) ng/mL NT-Pro-B Natriuret Pep pg/mL Total Protein (6.3-8.2) g/dL Albumin (3.5-5.0) g/dL Influenza Type A (PCR) Not Detected (Not Detectd) Influenza Type B (PCR) Not Detected (Not Detectd) RSV (PCR) Not Detected (Not Detectd) SARS-CoV-2 (PCR) Not Detected (Not Detectd) - EKG Data -: EKG Interpreted by Me (EKG sinus tachycardia 144 PA 160 QRS 94 QTc 376) - Radiology Data Radiology results: report reviewed (Chest x-ray positive for significant infiltrates), image reviewed Critical Care Time Critical Care Time: Yes Total Critical Care Time: 31 Disposition Clinical Impression: Acute exacerbation of chronic obstructive pulmonary disease, Hypoxia, Sepsis, Community acquired pneumonia, Acute pulmonary edema Disposition: ADMITTED IP TO THIS HOSP Condition: Critical Is patient prescribed a controlled substance at d/c from ED?: No
[2023-10-17 03:37] LABS: ALT 24 U/L (4-49); AST 31 U/L (17-59); African American GFR (CKD) >90 (>60 ml/min/1.73 sqM); Albumin 3.6 g/dL (3.5-5.0); Alkaline Phosphatase 101 U/L (38-126); Anion Gap 15 mmol/L; Blood Urea Nitrogen 17 mg/dL (9-20); Carbon Dioxide 18 mmol/L (22-30); Chloride 109 mmol/L (98-107); Glucose 334 mg/dL (74-99); Magnesium 1.7 mg/dL (1.6-2.3); Non-African American GFR(CKD) 88 (>60 ml/min/1.73 sqM); Potassium 3.9 mmol/L (3.5-5.1); Sodium 142 mmol/L (137-145); Total Bilirubin 0.4 mg/dL (0.2-1.3); Total Protein 6.6 g/dL (6.3-8.2)
[2023-10-17 03:45] LABS: NT-Pro-B-Type Natriuretic Pept 4210 pg/mL
--- NOTE | 2023-10-17 04:33 | XR ---
EXAM: XR Chest, 1 View CLINICAL HISTORY: ITS.REASON XR Reason: sob TECHNIQUE: Frontal view of the chest. COMPARISON: 08/11/2023 IMPRESSION: Severe interstitial opacities throughout.
[2023-10-17 04:36] LABS: Basophils # (A) 0.1 k/uL (0-0.2); Basophils % (A) 1 %; Eosinophils # (A) 0.2 k/uL (0-0.7); Eosinophils % (A) 1 %; HCT 43.6 % (39.0-53.0); HGB 13.6 gm/dL (13.0-17.5); Hypochromasia Moderate; Lymphocytes # (A) 10.2 k/uL (1.0-4.8); Lymphocytes % (A) 43 %; MCH 32.3 pg (25.0-35.0); MCHC 31.1 g/dL (31.0-37.0); MCV 103.8 fL (80.0-100.0); Macrocytosis Slight; Mean Platelet Volume 10.3; Monocytes % (A) 4 %; Neutrophils # (A) 11.7 k/uL (1.3-7.7); Neutrophils % (A) 49 %; Platelet Count 296 k/uL (150-450); RDW 14.5 % (11.5-15.5); WBC 23.9 k/uL (3.8-10.6)
[2023-10-17 04:54] LABS: Prothrombin Time 11.3 sec (10.0-12.5)
[2023-10-17 04:58] LABS: Partial Thromboplastin Time 21.2 sec (22.0-30.0)
[2023-10-17] MEDS: IPRATROPIUM-ALBUTEROL 3 ML NEB INHALATION STA ×2 (05:14→09:24)
[2023-10-17] MEDS: PIPERACILLIN-TAZOBACTAM 3.375 GM in SODIUM CHLORIDE 0.9% 100 ML IVPB STA (05:25)
[2023-10-17] MEDS: SODIUM CHLORIDE 0.9% 2,000 ML IV STA (05:26)
[2023-10-17] MEDS: LEVOFLOXACIN 750MG-D5W PMX 750 MG in DEXTROSE/WATER 1 150ML.BAG IVPB STA (06:07)
[2023-10-17 06:27] LABS: Anisocytosis (M) Present; Poikilocytosis (M) Present
[2023-10-17] MEDS ORDERED: MORPHINE SULFATE 4 MG/ML SYRINGE IV PRN (06:38)
[2023-10-17] MEDS ORDERED: ALBUTEROL NEBULIZED 2.5 MG/3 ML INHALATION PRN (06:38)
[2023-10-17] MEDS ORDERED: NALOXONE 0.4 MG/ML 1 ML VIAL IV PRN (06:38)
[2023-10-17] MEDS: SODIUM CHLORIDE 0.9% 1,000 ML IV SCH (06:58)
[2023-10-17] MEDS: IPRATROPIUM-ALBUTEROL 3 ML NEB INHALATION SCH (07:49)
--- NOTE | 2023-10-17 08:05 | CT ---
EXAMINATION TYPE: CT angio chest DATE OF EXAM: 10/17/2023 COMPARISON: 12/16/2021 HISTORY: 73-year-old male shortness of breath TECHNIQUE: Contiguous axial scanning of the chest after the administration of 80 mL of Isovue 370. C oronal/sagittal reconstructions MIP performed. CT DLP: 313.8 mGycm. Automatic exposure control utilized for a dose reduction. FINDINGS: Heart is upper limits of normal in size without pericardial effusion. No flattening of the interventr icular septum though there is mild refluxing contrast into the hepatic veins. Moderate aortic valvular calcifications. Mild atherosclerotic arch calcifications. Conventional arch vessel branching anatomy. Scattered nonenlarged and borderline sized mediastinal lymph nodes measuring up to 1.0 cm are unchang ed. Right hilar soft tissue measuring up to 3.0 x 1.6 cm, slightly increased. Right bronchial lymph node 1.6 cm versus 1.4 cm, previously. Left hilar lymph nodes measuring up to 1.4 cm, unchanged. Large caliber to the main right and left pulmonary arteries measuring up to 3.6 cm. Satisfactory opac ification of the pulmonary arterial system. No evidence for pulmonary embolus. There is underlying moderate to advanced emphysematous change. Superimposed diffuse groundglass and s eptal lines throughout. There are small bilateral pleural effusions with adjacent atelectasis. Small to moderate-sized hiatal hernia. Bones: Mild superior compression deformity L1 remains unchanged compatible with old injury. IMPRESSION: 1. No evidence for pulmonary embolus. 2. Borderline cardiomegaly with pulmonary arterial hypertension. There is central and peripheral inte rstitial thickening with diffuse groundglass and small pleural effusions. Correlate for CHF with deve loping pulmonary edema. 3. Numerous borderline sized and mildly enlarged hilar lymph nodes may be reactive. However, keli ti ssue at the right hilum measures up to 3.0 cm. Recommend follow-up CT after successful treatment (suc h as in 6-8 weeks) to ensure stability/resolution and exclude a neoplastic etiology. 4. 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 5. Small to moderate sized hiatal hernia.
[2023-10-17 08:46] LABS: ABG Base Excess -3.3 mmol/L; ABG HCO3 22 mmol/L (21-25); ABG Oxygen Saturation 100.3 % (94-97); ABG PCO2 38 mmHg (35-45); ABG PH 7.37 (7.35-7.45); ABG PO2 365 mmHg (83-108); Allen Test Performed? Yes
[2023-10-17] MEDS: methylPREDNISolone SOD SUCCI 125 MG/2 ML VIAL IV SCH (09:33)
[2023-10-17] MEDS: FUROSEMIDE 10 MG/ML 4 ML VIAL IV STA (09:33)
[2023-10-17] MEDS: PANTOPRAZOLE 40 MG/10 ML VIAL IV SCH (09:33)
[2023-10-17] MEDS ORDERED: DEXTROSE 50% SYRINGE 50 ML IVP PRN ×2 (10:54)
[2023-10-17 12:28] LABS: Glucose,Whole Blood 159 mg/dL (70-110)
[2023-10-17] MEDS: LORazepam 2 MG/ML INJ IV STA (12:28)
[2023-10-17] MEDS: INSULIN ASPART (NovoLOG) 100 UNIT/ML VIAL SQ SCH (12:38)
[2023-10-17] MEDS: NON FORMULARY DRUG (Esomeprazole Magnesium [Nexium] 20 MG Capsule.Dr) PO SCH (12:47)
[2023-10-17] MEDS: PIPERACILLIN-TAZOBACTAM 3.375 GM in SODIUM CHLORIDE 0.9% 100 ML IVPB SCH (13:55)
--- NOTE | 2023-10-17 14:46 | P.CNPUL ---
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 He was recently seen in our office earlier this week with some symptoms of shortness of breath he was treated with steroids and was doing well the following day, well enough to golf. Last night however he developed significant shortness of breath and presented here to the emergency room around 3:00 this morning. His initial saturation was at 56% on room air. He was immediately placed on BiPAP 14/6 and 100% FiO2. Chest x-ray shows severe interstitial opacities bilaterally. CT angiogram ruled out pulmonary embolus. There is borderline cardiomegaly and pulmonary arterial hypertension. There is central and peripheral interstitial thickening with di ffuse groundglass and small pleural effusions. Correlate for CHF with developing pulmonary edema. Numerous borderline and mildly enlarged hilar lymph nodes. May be reactive. 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 White count 23.9. Hemoglobin 13.6. Sodium 142. Potassium 3.9. Bicarb 18. BUN 17. Creatinine 0.79. Glucose 159. Troponin 0.057, 0.894, 1.54. proBNP 4210. Viral screen negative. EKG revealed sinus tachycardia with nonspecific ST and T wave abnormalities. Arterial blood gases revealed a pH O2 of 365, pCO2 of 38 and a pH of 7.37 on 100% FiO2. This will be titrated down. He is currently awake and alert. Afebrile. Hemodynamically stable. Review of Systems REVIEW OF SYSTEMS: CONSTITUTIONAL: Denies any recent significant weight loss or weight gain. EYES: Denies change in vision. EARS, NOSE, MOUTH, THROAT: Denies headaches, denies sore throat. CARDIOVASCULAR: Denies chest pain, palpitations or syncopal episodes. RESPIRATORY: Positive for shortness of breath, cough, congestion no hemoptysis. GASTROINTESTINAL: Denies change in appetite, denies abdominal pain GENITOURINARY: Denies hematuria, denies infections. MUSKULOSKELETAL: Denies pain, denies swelling. INTEGUMENTARY: Denies rash, denies eczema. NEUROLOGICAL: Denies recent memory loss, no recent seizure activity. PSYCHIATRIC: Denies anxiety, denies depression. HEMATOLOGIC/LYMPHATIC: Denies anemia, denies enlarged lymph nodes. Past Medical History Past Medical History: COPD, Hyperlipidemia, Hypertension, Osteoarthritis (OA) Additional Past Medical History / Comment(s): 2 brain aneurysms-states no symptoms ., See Cardiology H & P. History of Any Multi-Drug Resistant Organisms: None Reported Past Surgical History: Heart Catheterization Past Anesthesia/Blood Transfusion Reactions: No Reported Reaction Additional Past Anesthesia/Blood Transfusion Reaction / Comment(s): NO ANESTHESIA HX Past Psychological History: No Psychological Hx Reported Smoking Status: Former smoker Past Alcohol Use History: Rare Past Drug Use History: None Reported - Past Family History Mother Family Medical History: No Reported History Medications and Allergies Home Medications Medication Instructions Recorded Confirmed Type Budesonide/Formoterol Fumarate 2 puff INHALATION RT-BID PRN 06/10/18 10/17/23 History [Symbicort 160-4.5 Mcg Inhaler] Esomeprazole Magnesium [NexIUM] 20 mg PO DAILY 06/10/18 10/17/23 History Ipratropium/Albuterol Sulfate 1 puff INHALATION RT-QID 06/10/18 10/17/23 History [Combivent Respimat Inhaler] Atorvastatin [Lipitor] 40 mg PO DAILY 12/16/21 10/17/23 History Metoprolol Tartrate [Lopressor] 12.5 mg PO BID #0 12/18/21 10/17/23 Rx Allergies Allergy/AdvReac Type Severity Reaction Status Date / Time No Known Allergies Allergy Verified 10/17/23 10:08 Physical Exam Vitals: Vital Signs Pulse Pulse Resp BP BP Pulse Ox FiO2 10/17/23 12:21 104 H 20 140/66 98 50 10/17/23 11:40 106 H 10/17/23 11:27 110 H 50 10/17/23 10:02 133 H 20 10/17/23 09:03 70 10/17/23 09:01 133 H 20 137/70 96 70 10/17/23 08:07 98 10/17/23 07:49 94 100 10/17/23 06:45 100 10/17/23 06:00 96 20 128/64 100 10/17/23 05:34 92 10/17/23 05:23 99 50 10/17/23 04:31 101 H 20 123/68 100 10/17/23 04:00 105 H 22 135/72 100 10/17/23 03:36 70 10/17/23 03:34 115 H 26 H 133/73 97 10/17/23 03:24 32 H 10/17/23 03:08 146 H 36 H 56 L Intake and Output 10/16/23 10/17/23 10/17/23 22:59 06:59 14:59 Output Total 1325 Balance -1325 Output: Urine 1325 Other: Weight 95.254 kg GENERAL EXAM: Alert, pleasant 73-year-old male, on BiPAP 14/6 on 100% FiO2, in mild respiratory distress. HEAD: Normocephalic. EYES: Normal reaction of pupils, equal size. NOSE: Clear with pink turbinates. THROAT: No erythema or exudates. NECK: No masses, no JVD. CHEST: No chest wall deformity. LUNGS: Equal air entry with crackles in the bilateral bases. CVS: S1 and S2 normal with no audible murmur, regular rhythm. ABDOMEN: No hepatosplenomegaly, normal bowel sounds, no guarding or rigidity. SPINE: No scoliosis or deformity SKIN: No rashes CENTRAL NERVOUS SYSTEM: No focal deficits, tone is normal in all 4 extremities. EXTREMITIES: There is no peripheral edema. No clubbing, no cyanosis. Per ipheral pulses are intact. Results - Laboratory Findings CBC and BMP: 10/17/23 03:10 10/17/23 03:10 ABG ABG pH 7.37 (7.35-7.45) 10/17/23 08:39 ABG pCO2 38 mmHg (35-45) 10/17/23 08:39 ABG pO2 365 mmHg (83-108) H 10/17/23 08:39 ABG O2 Saturation 100.3 % (94-97) H 10/17/23 08:39 PT/INR, D-dimer PT 11.3 sec (10.0-12.5) 10/17/23 03:10 INR 1.0 (<1.2) 10/17/23 03:10 Abnormal lab findings: Abnormal Labs 10/17/23 10/17/23 10/17/23 03:10 03:10 03:10 WBC 23.9 H RBC 4.20 L MCV 103.8 H Neutrophils # 11.7 H Lymphocytes # 10.2 H APTT 21.2 L ABG pO2 ABG O2 Saturation Chloride 109 H Carbon Dioxide 18 L Glucose 334 H POC Glucose (mg/dL) Plasma Lactic Acid Albert Troponin I 10/17/23 10/17/23 10/17/23 03:10 03:10 08:30 WBC RBC MCV Neutrophils # Lymphocytes # APTT ABG pO2 ABG O2 Saturation Chloride Carbon Dioxide Glucose POC Glucose (mg/dL) Plasma Lactic Acid Albert 7.0 H* Troponin I 0.057 H* 0.894 H* 10/17/23 10/17/23 10/17/23 08:39 12:26 13:16 WBC RBC MCV Neutrophils # Lymphocytes # APTT ABG pO2 365 H ABG O2 Saturation 100.3 H Chloride Carbon Dioxide Glucose POC Glucose (mg/dL) 159 H Plasma Lactic Acid Albert Troponin I 1.540 H* - Diagnostic Findings Chest x-ray: image reviewed CT scan - chest: image reviewed Assessment and Plan Assessment: Acute hypoxemic respiratory failure suspect secondary to flash pulmonary edema. Cannot rule out underlying pneumonia. Procalcitonin pending. Currently on Zosyn and Levaquin. Chest x-ray shows severe interstitial opacities bilaterally. CT angiogram ruled out pulmonary embolus. There is borderline cardiomegaly and pulmonary arterial hypertension. There is central and peripheral interstitial thickening with diffuse groundglass and small pleural effusions. Correlate for CHF with developing pulmonary edema. Numerous borderline and mildly enlarged hilar lymph nodes. May be reactive. 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 Troponin leak, echocardiogram pending Moderate aortic stenosis Leukocytosis, being treated with steroids in the outpatient setting, procalcitonin pending History of moderate to advanced COPD Former smoker Hypertension Hyperlipidemia Plan: The patient was seen and evaluated Chest x-ray, CAT scan, labs, ABGs and medications reviewed Currently on BiPAP 14/6 and 100% FiO2 Titrate down the FiO2 as tolerated Obtain echocardiogram, cardiology consult Obtain a procalcitonin Continue antibiotics for now Lasix 40 mg IVP x 1 Decrease fluids to KVO Continue bronchodilators and steroids We will continue to follow and make further recommendations based on his clinical status I have personally seen and examined the patient, performed the documentation and the assessment and plan as written. Number of minutes spent on the visit: 20.
[2023-10-17] MEDS ORDERED: ALPRAZolam 0.5 MG TAB PO PRN (15:30)
[2023-10-17] MEDS ORDERED: NITROGLYCERIN SL TABS 0.4 MG TAB SUBLINGUAL PRN (15:30)
[2023-10-17] MEDS ORDERED: ALPRAZolam 0.25 MG TAB PO PRN (15:30)
[2023-10-17] MEDS ORDERED: HEPARIN SODIUM 1,000 UN/ML (10ML VL) IV PRN (15:32)
[2023-10-17] MEDS: ASPIRIN 325 MG TAB PO STA (16:02)
[2023-10-17] MEDS: HEPARIN SODIUM 1,000 UN/ML (10ML VL) IV ONE ×2 (16:02→16:55)
[2023-10-17] MEDS ORDERED: LIDOCAINE 1% INJ 10MG/ML (20 ML MDV) ONE (16:04)
[2023-10-17] MEDS ORDERED: VERAPAMIL 2.5 MG/ML 2 ML AMP ONE (16:04)
[2023-10-17] MEDS: ATORVASTATIN 40 MG TAB PO STA (16:13)
[2023-10-17] MEDS: NITROGLYCERIN-D5W PMX 50 MG in DEXTROSE/WATER 1 250ML.BAG IV SCH (16:13)
[2023-10-17 16:26] LABS: Basophils % (A) 0 %; Eosinophils % (A) 0 %; HCT 42.7 % (39.0-53.0); HGB 13.7 gm/dL (13.0-17.5); Lymphocytes # (A) 0.9 k/uL (1.0-4.8); Lymphocytes % (A) 7 %; MCH 31.8 pg (25.0-35.0); MCHC 32.1 g/dL (31.0-37.0); MCV 99.1 fL (80.0-100.0); Macrocytosis Slight; Mean Platelet Volume 8.4; Monocytes # (A) 0.3 k/uL (0-1.0); Monocytes % (A) 2 %; Neutrophils # (A) 11.9 k/uL (1.3-7.7); Neutrophils % (A) 91 %; Platelet Count 264 k/uL (150-450); RBC 4.31 m/uL (4.30-5.90); RDW 14.8 % (11.5-15.5); WBC 13.2 k/uL (3.8-10.6)
[2023-10-17] MEDS: ATORVASTATIN 80 MG TAB PO STA (16:28)
[2023-10-17] MEDS: ATORVASTATIN 40 MG TAB PO SCH (16:28)
[2023-10-17] MEDS: ASPIRIN 81 MG PO STA (16:28)
[2023-10-17 16:33] LABS: INR 1.1 (<1.2); Partial Thromboplastin Time 23.7 sec (22.0-30.0); Prothrombin Time 11.9 sec (10.0-12.5)
[2023-10-17] MEDS ORDERED: fentaNYL (PF) 50 MCG/ML 2 ML AMP ONE (16:40)
[2023-10-17] MEDS ORDERED: HEPARIN SODIUM 1,000 UN/ML (10ML VL) ONE (16:40)
[2023-10-17] MEDS: MIDAZOLAM 2 MG/2 ML VIAL IVP ONE (16:45)
[2023-10-17] MEDS: fentaNYL (PF) 50 MCG/1 ML VIAL IVP ONE (16:45)
[2023-10-17] MEDS: LIDOCAINE 1% INJ 10MG/ML (20 ML MDV) SQ ONE (16:49)
[2023-10-17] MEDS: VERAPAMIL SYRINGE (5 MG/10 ML) INTRAARTER ONE (16:51)
[2023-10-17] MEDS: IV FLUID CONTINUATION 1,000 ML IV ONE (16:56)
[2023-10-17] MEDS: IOPAMIDOL-370 100ML BTL INJ ONE ×2 (17:01→17:02)
--- NOTE | 2023-10-17 17:20 | P.HPIM ---
History of Present Illness H&P Date: 10/17/23 Chief Complaint: Shortness of breath 73-year-old male patient who has a history of hypertension, hyperlipidemia, obstructive pulmonary disease, former smoker, brain aneurysms, moderate aortic stenosis. He was recently seen in our office earlier this week with some symptoms of shortness of breath he was treated with steroids and was doing well the following day, well enough to golf. Last night however he developed significant shortness of breath and presented here to the emergency room around 3:00 this morning. His initial saturation was at 56% on room air. He was i mmediately placed on BiPAP 14/6 and 100% FiO2. Chest x-ray shows severe interstitial opacities bilaterally. CT angiogram ruled out pulmonary embolus. There is borderline cardiomegaly and pulmonary arterial hypertension. There is central and peripheral interstitial thickening with diffuse groundglass and small pleural effusions. Correlate for CHF with developing pulmonary edema. Numerous borderline and mildly enlarged hilar lymph nodes. May be reactive. 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 White count 23.9. Hemoglobin 13.6. Sodium 142. Potassium 3.9. Bicarb 18. BUN 17. Creatinine 0.79. Glucose 159. Troponin 0.057, 0.894, 1.54. proBNP 4210. Viral screen negative. EKG revealed sinus tachycardia with nonspecific ST and T wave abnormalities. Arterial blood gases revealed a pH O2 of 365, pCO2 of 38 and a pH of 7.37 on 100% FiO2. Review of Systems REVIEW OF SYSTEMS: CONSTITUTIONAL: No fever, no malaise, no fatigue. HEENT: No recent visual problems or hearing problems. Denied any sore throat. CARDIOVASCULAR: No chest pain, orthopnea, PND, no palpitations, no syncope. PULMONARY: No shortness of breath, no cough, no hemoptysis. GASTROINTESTINAL: No diarrhea, no nausea, no vomiting, no abdominal pain. NEUROLOGICAL: No headaches, no weakness, no numbness. HEMATOLOGICAL: Denies any bleeding or petechiae. GENITOURINARY: Denies any burning micturition, frequency, or urgency. MUSCULOSKELETAL/RHEUMATOLOGICAL: Denies any joint pain, swelling, or any muscle pain. ENDOCRINE: Denies any polyuria or polydipsia. The rest of the 14-point review of systems is negative. Past Medical History Past Medical History: COPD, Hyperlipidemia, Hypertension, Osteoarthritis (OA) Additional Past Medical History / Comment(s): 2 brain aneurysms-states no symptoms ., See Cardiology H & P. History of Any Multi-Drug Resistant Organisms: None Reported Past Surgical History: Heart Catheterization Past Anesthesia/Blood Transfusion Reactions: No Reported Reaction Additional Past Anesthesia/Blood Transfusion Reaction / Comment(s): NO ANESTHESIA HX Past Psychological History: No Psychological Hx Reported Smoking Status: Former smoker Past Alcohol Use History: Rare Past Drug Use History: None Reported - Past Family History Mother Family Medical History: No Reported History Medications and Allergies Home Medications Medication Instructions Recorded Confirmed Type Budesonide/Formoterol Fumarate 2 puff INHALATION RT-BID PRN 06/10/18 10/17/23 History [Symbicort 160-4.5 Mcg Inhaler] Esomeprazole Magnesium [NexIUM] 20 mg PO DAILY 06/10/18 10/17/23 History Ipratropium/Albuterol Sulfate 1 puff INHALATION RT-QID 06/10/18 10/17/23 History [Combivent Respimat Inhaler] Atorvastatin [Lipitor] 40 mg PO DAILY 12/16/21 10/17/23 History Metoprolol Tartrate [Lopressor] 12.5 mg PO BID #0 12/18/21 10/17/23 Rx Allergies Allergy/AdvReac Type Severity Reaction Status Date / Time No Known Allergies Allergy Verified 10/17/23 10:08 Physical Exam Vitals: Vital Signs Pulse Pulse Resp BP BP Pulse Ox FiO2 10/17/23 11:27 110 H 50 10/17/23 10:02 133 H 20 10/17/23 09:03 70 10/17/23 09:01 133 H 20 137/70 96 70 10/17/23 08:07 98 10/17/23 07:49 94 100 10/17/23 06:45 100 10/17/23 06:00 96 20 128/64 100 10/17/23 05:34 92 10/17/23 05:23 99 50 10/17/23 04:31 101 H 20 123/68 100 10/17/23 04:00 105 H 22 135/72 100 10/17/23 03:36 70 10/17/23 03:34 115 H 26 H 133/73 97 10/17/23 03:24 32 H 10/17/23 03:08 146 H 36 H 56 L Intake and Output 10/16/23 10/17/23 10/17/23 22:59 06:59 14:59 Other: Weight 95.254 kg General appearance: alert, anxious, in distress Head exam: Present: atraumatic, normocephalic, normal inspection Eye exam: Present: normal appearance, PERRL, EOMI. Absent: scleral icterus, conjunctival injection, periorbital swelling ENT exam: Present: normal exam, mucous membranes moist Neck exam: Present: normal inspection. Absent: tenderness, meningismus, lymphadenopathy Respiratory exam: Present: respiratory distress, wheezes, accessory muscle use, decreased breath sounds, prolonged expiratory. Absent: rales, rhonchi, stridor Cardiovascular Exam: Present: regular rate, normal rhythm, normal heart sounds. Absent: systolic murmur, diastolic murmur, rubs, gallop, clicks GI/Abdominal exam: Present: soft, normal bowel sounds. Absent: distended, t enderness, guarding, rebound, rigid Extremities exam: Present: normal inspection, full ROM, normal capillary refill. Absent: tenderness, pedal edema, joint swelling, calf tenderness Neurological exam: Present: alert, oriented X3, CN II-XII intact Skin exam: Present: warm, dry, intact, normal color. Absent: rash Results CBC & Chem 7: 10/17/23 15:57 10/17/23 03:10 Labs: Abnormal Lab Results - Last 24 Hours (Table) 10/17/23 10/17/23 10/17/23 Range/Units 03:10 03:10 03:10 WBC 23.9 H (3.8-10.6) k/uL RBC 4.20 L (4.30-5.90) m/uL MCV 103.8 H (80.0-100.0) fL Neutrophils # 11.7 H (1.3-7.7) k/uL Lymphocytes # 10.2 H (1.0-4.8) k/uL APTT 21.2 L (22.0-30.0) sec ABG pO2 (83-108) mmHg ABG O2 Saturation (94-97) % Chloride 109 H (98-107) mmol/L Carbon Dioxide 18 L (22-30) mmol/L Glucose 334 H (74-99) mg/dL Plasma Lactic Acid Albert (0.7-2.0) mmol/L Troponin I (0.000-0.034) ng/mL 10/17/23 10/17/23 10/17/23 Range/Units 03:10 03:10 08:30 WBC (3.8-10.6) k/uL RBC (4.30-5.90) m/uL MCV (80.0-100.0) fL Neutrophils # (1.3-7.7) k/uL Lymphocytes # (1.0-4.8) k/uL APTT (22.0-30.0) sec ABG pO2 (83-108) mmHg ABG O2 Saturation (94-97) % Chloride (98-107) mmol/L Carbon Dioxide (22-30) mmol/L Glucose (74-99) mg/dL Plasma Lactic Acid Albert 7.0 H* (0.7-2.0) mmol/L Troponin I 0.057 H* 0.894 H* (0.000-0.034) ng/mL 10/17/23 Range/Units 08:39 WBC (3.8-10.6) k/uL RBC (4.30-5.90) m/uL MCV (80.0-100.0) fL Neutrophils # (1.3-7.7) k/uL Lymphocytes # (1.0-4.8) k/uL APTT (22.0-30.0) sec ABG pO2 365 H (83-108) mmHg ABG O2 Saturation 100.3 H (94-97) % Chloride (98-107) mmol/L Carbon Dioxide (22-30) mmol/L Glucose (74-99) mg/dL Plasma Lactic Acid Albert (0.7-2.0) mmol/L Troponin I (0.000-0.034) ng/mL Assessment and Plan Assessment: 1. Acute hypoxic respiratory failure; multifactorial Pulmonary edema-/underlying pneumonia versus COPD exacerbation 2. Possible pneumonia; patient has been placed on Levaquin and Zosyn --Chest x-ray completed in ED reveals severe interstitial bilateral opacities -- CTA chest is negative for PE but revealed central and peripheral interstitial thickening and diffuse groundglass and small pleural effusion 3. Pulmonary edema; cardiology on board; cardiogram is ordered; Lasix 40 mg IV x 1 completed in ED -- Monitor strict CLARA's, daily weights, low-salt and fluid restricted diet 4. Elevated troponin; likely demand ischemia related to acute hypoxia; patient has been placed on IV heparin per protocol -- Monitor EKG and trend troponin; 2D echo is ordered and pending 5. COPD; in exacerbation; continue with the home inhaler therapy -Patient has been placed on Solu-Medrol 60 mg IV every 6 hours; DuoNeb nebulizer treatments 4 times daily and as needed 6. Hypertension; metoprolol 12.5 mg twice daily 7. Hyperlipidemia; Lipitor 40 mg daily DVT prophylaxis; IV heparin CODE STATUS; full code
[2023-10-17 17:56] LABS: Glucose,Whole Blood 144 mg/dL (70-110)
--- NOTE | 2023-10-17 18:40 | CA ---
Transthoracic Echo Report Name: Thong Sung Age: 73 Gender: M : 1950 Exam Date: 10/17/2023 10:49 Exam Location: [facility] Ht (in): 73 Wt (lb): 210 Ordering Physician: Summer Vincent Attending/Referring Phys: Tube Splicer Teresa Poe RDCS Procedure CPT: Indications: Hypoxemia, CHF Cardiac Hx: Technical Quality: Fair Contrast 1: Total Dose (mL): Contrast 2: Total Dose (mL): MEASUREMENTS (Male / Female) Normal Values 2D ECHO LV Diastolic Diameter PLAX 6.4 cm 4.2 - 5.9 / 3.9 - 5.3 cm LV Systolic Diameter PLAX 5.7 cm IVS Diastolic Thickness 0.6 cm 0.6 - 1.0 / 0.6 - 0.9 cm LVPW Diastolic Thickness 0.9 cm 0.6 - 1.0 / 0.6 - 0.9 cm LV Relative Wall Thickness 0.2 RV Internal Dim ED PLAX 1.7 cm LVOT Diameter 2.2 cm LA Systolic Diameter LX 4.2 cm 3.0 - 4.0 / 2.7 - 3.8 cm LV Diastolic Volume MOD BP 145.7 cm??? 67 - 155 / 56 - 104 cm??? LV Systolic Volume MOD BP 96.3 cm??? 22 - 58 / 19 - 49 cm??? LV Ejection Fraction MOD BP 33.9 % >= 55 % LV Diastolic Volume MOD 4C 148.0 cm??? LV Systolic Volume MOD 4C 105.6 cm??? LV Ejection Fraction MOD 4C 28.7 % LV Diastolic Length 4C 8.6 cm LV Systolic Length 4C 8.0 cm LV Diastolic Volume MOD 2C 133.9 cm??? LV Systolic Volume MOD 2C 88.9 cm??? LV Ejection Fraction MOD 2C 33.6 % LV Diastolic Length 2C 8.0 cm LV Systolic Length 2C 8.0 cm M-MODE Aortic Root Diameter MM 2.8 cm LA Systolic Diameter MM 3.7 cm LA Ao Ratio MM 1.3 DOPPLER AV Peak Velocity 370.9 cm/s AV Peak Gradient 55.0 mmHg AV Mean Velocity 270.7 cm/s AV Mean Gradient 33.9 mmHg AV Velocity Time Integral 82.4 cm AI Peak Velocity 345.0 cm/s AI Peak Gradient 47.6 mmHg AI Pressure Half Time 202.2 ms LVOT Peak Velocity 98.8 cm/s LVOT Peak Gradient 3.9 mmHg LVOT Velocity Time Integral 21.3 cm LVOT Stroke Volume 77.9 cm??? LVOT Stroke Volume Index 35.5 ml/m??? AV Area Cont Eq vti 0.9 cm??? AV Area Cont Eq pk 1.0 cm??? MV E' Velocity 5.3 cm/s TR Peak Velocity 298.4 cm/s TR Peak Gradient 35.6 mmHg Right Ventricular Systolic Press 50.6 mmHg FINDINGS Left Ventricle Left ventricular ejection fraction is estimated at 25-30 %. Mildly increased left ventricular diastolic diameter. Severely increased left ventricular systolic volume. Severely reduced global left ventricular systolic function. Right Ventricle Mild right ventricular dilatation. Moderate pulmonary hypertension. Right Atrium Mild right atrial dilatation. Left Atrium Mildly increased left atrial diameter. Mitral Valve Structurally normal mitral valve. [id number] mitral regurgitation. Aortic Valve Severe aortic stenosis with a peak velocity of 3.81 m/s, peak gradient 57mmHg, mean gradient 41mmHg. Severe aortic regurgitation. Eccentric aortic regurgitation jet directed at the mitral valve. Tricuspid Valve Structurally normal tricuspid valve. Mild tricuspid regurgitation. Pulmonic Valve Structurally normal pulmonic valve. Trace pulmonic regurgitation. Pericardium No pericardial or pleural effusion. Aorta Normal size aortic root and proximal ascending aorta. CONCLUSIONS Impaired LV function was EF between 25-30% Severe aortic stenosis and severe aortic regurgitation Moderate to severe mitral regurgitation Previewed by: Dr. Kolby Becker MD (Electronically Signed) Final Date: 17 Oct 2023 18:39
[2023-10-17] MEDS: HEPARIN SOD,PORK IN 0.45% NACL 25,000 UNIT in 0.45% NACL 1 250ML.BAG IV SCH (19:36)
[2023-10-17 20:20] LABS: Glucose,Whole Blood 147 mg/dL (70-110)
[2023-10-17] MEDS: SYMBICORT 160-4.5 MCG INHALER INHALATION SCH (20:43)
[2023-10-17] MEDS: METOPROLOL TARTRATE 12.5 MG TAB PO SCH (21:24)
--- NOTE | 2023-10-17 23:11 | P.CARDCATH ---
Description of Procedure: PROCEDURES PERFORMED: Left heart catheterization, bilateral coronary angiography, ultrasound guided arterial access, left ventriculogram, aortogram INDICATION: Non-STEMI CONSENT:I have discussed the risks, benefits and alternative therapies for the above-mentioned procedure and for both sedation/analgesia as well as necessary blood product administration, if indicated, as they pertain to this patient. The patient has indicated understanding and acceptance of the risks and procedures discussed. PROCEDURE: After the risks, benefits and alternatives of the above mentioned procedure explained in detail with the patient, informed consent was obtained. Patient was taken to the catheterization lab and prepped and draped in usual fashion. Ultrasound guidance was used to assess for arterial access. 1% lidocaine was used to anesthetize the right radial artery. A 6-Canadian sheath was placed in the right radial artery using modified Seldinger technique and ultrasound guidance. Left coronary angiography was performed with a 5-Canadian JL 3.5 catheter and right coronary angiography was performed with a 5-Canadian FR5 catheter in various views. A 5-Canadian FR5 catheter was inserted into the left ventricle and pressure measurements were obtained. A 6-Canadian pigtail catheter was inserted left ventricle and left ventriculogram was performed in the ESTRELLA projection. Additionally given concern of significant aortic regurgitation an aortogram was performed. The right radial sheath was removed and a TR band was placed with hemostasis achieved. The patient tolerated the procedure well. Patient was transported back to the post catheterization holding area in stable condition. Conscious Sedation: Patient was monitored under the direct supervision of myself for conscious sedation using Versed and fentanyl for a total duration of 13 minutes HEMODYNAMICS: Ao: 127/61 LV: 171/3, LVEDP 14, peak to peak across valve around 45-50, mean gradient 47mmHg Left Ventriculogram: LV EF 30-35% with global hypokinesis, 2-3+ mitral regurgitation Aortogram: 4+ aortic regurgitation, no aortic aneurysm or dissection SELECTIVE CORONARY ARTERIOGRAPHY: LEFT MAIN: The left main is a large caliber vessel which bifurcates into the LAD and circumflex. There is no significant stenosis. LEFT ANTERIOR DESCENDING CORONARY ARTERY: LAD is a large caliber vessel which wraps around to the apex. There is no significant stenosis. LEFT CIRCUMFLEX CORONARY ARTERY: Left circumflex is a moderate caliber vessel with mild 20-30% stenosis. RIGHT CORONARY ARTERY: The right coronary artery is a large caliber vessel which gives off a PDA and PLV branch and is the dominant vessel. There is no significant stenosis. FINAL IMPRESSION: 1. Relatively normal coronary arteries as described above other than 20-30% mid circumflex stenosis. 2. Normal left sided filling pressures 3. Severe aortic stenosis with mean gradient 47mmHg 4. Severe aortic regurgitation 5 2-3+ mitral regurgitation PLAN: 1. Aggressive risk factor modification per most recent ACC/AHA guidelines. 2. Evaluate for aortic valve replacement
--- NOTE | 2023-10-17 23:30 | P.CRDCN ---
History of Present Illness History of present illness: HISTORY OF PRESENTING ILLNESS This is a pleasant 73-year-old with past medical history significant for hypertension, hyperlipidemia, aortic stenosis, brain aneurysm, COPD. He follows in the office with Dr Frederick. He has been monitored for his aortic stenosis. He had heart catheterization in 2020 which showed only mild circumflex disease. He was recently seen in pulmonology office and had been prescribed antibiotics and "given a shot "likely steroids in the office approximately a week ago for increasing shortness breath. He had been feeling fairly good the day before presentation and had actually played some golf. He then became significantly short of breath however woke up gasping for air and initial oxygen saturation was 56% on room air. She was placed on BiPAP with improvement in oxygen saturation. White blood cell count 23.9, hemoglobin 13.6, creatinine 0.79, lactic acid 7.0, troponin 0.05, 0.89, 1.5. ProBNP 4210. Viral panel negative. Chest x-ray showed severe interstitial opacities throughout consistent with flash pulmonary edema versus bilateral pneumonia. CTA showed no PE, cardiomegaly and interstitial thickening with groundglass changes and small pleural effusions, correlate with CHF as well as numerous borderline enlarged hilar lymph node nodes. Echocardiogram shows left ventricular ejection fraction 25-30%, moderate to severe mitral regurgitation, severe aortic stenosis as well as severe aortic regurgitation REVIEW OF SYSTEMS At the time of my exam: CONSTITUTIONAL: Denies fever or chills. CARDIOVASCULAR: Denies chest pain, +shortness of breath, +orthopnea, no PND or palpitations. RESPIRATORY: Denies cough. GASTROINTESTINAL: Denies abdominal pain, diarrhea, constipation, nausea or vomiting. MUSCULOSKELETAL: Denies myalgias. NEUROLOGIC: Denies numbness, tingling or weakness. ENDOCRINE: Denies fatigue, weight change, polydipsia or polyurina. GENITOURINARY: Denies burning, hematuria or urgency with micturation. HEMATOLOGIC: Denies history of anemia or bleeding. PHYSICAL EXAMINATION Vital signs reviewed. CONSTITUTIONAL: On BIPAP, +respiratory distrest HEENT: Head is normocephalic. Pupils are equal, round. Sclerae anicteric. Mucous membranes of the mouth are moist. No JVD. No carotid bruit. CHEST EXAMINATION: Lungs are clear to auscultation. No chest wall tenderness is noted on palpation or with deep breathing. HEART EXAMINATION: Regular rate and rhythm. S1, S2 heard. No murmurs, gallops or rub. ABDOMEN: Soft, nontender. Positive bowel sounds. EXTREMITIES: 2+ peripheral pulses, no lower extremity edema and no calf tenderne ss. NEUROLOGIC EXAMINATION: Patient is awake, alert and oriented x3. ASSESSMENT Acute on chronic respiratory failure, likely significant amount related to heart failure Acute on chronic systolic heart failure New-onset cardiomyopathy Severe aortic stenosis, severe aortic regurgitation Moderate to severe mitral regurgitation Non-STEMI COPD Previous minimal CAD by heart catheterization 2020 Hypertension Sinus tachycardia, likely reactive to severe respiratory distress PLAN Patient with non-STEMI which may be related to severe hypoxia, lactic oh stenosis Discussed heart catheterization for definitive evaluation given new-onset cardiomyopathy Majority of heart failure may be related to severe valvular disease. Patient will need evaluation for possible aortic valve replacement Leukocytosis may be related to recent steroids however mildly elevated pro- calcitonin Further recommendations to follow Past Medical History Past Medical History: COPD, Hyperlipidemia, Osteoarthritis (OA) Additional Past Medical History / Comment(s): 2 brain aneurysms-states no symptoms and no surgery/clipping History of Any Multi-Drug Resistant Organisms: None Reported Past Surgical History: Heart Catheterization Additional Past Surgical History / Comment(s): heart cath -no intervention Past Anesthesia/Blood Transfusion Reactions: No Reported Reaction Additional Past Anesthesia/Blood Transfusion Reaction / Comment(s): NO ANESTHESIA HX Smoking Status: Former smoker - Past Family History Mother Family Medical History: CVA/TIA Father Family Medical History: Asthma Medications and Allergies Home Medications Medication Instructions Recorded Confirmed Type Budesonide/Formoterol Fumarate 2 puff INHALATION RT-BID PRN 06/10/18 10/17/23 History [Symbicort 160-4.5 Mcg Inhaler] Esomeprazole Magnesium [NexIUM] 20 mg PO DAILY 06/10/18 10/17/23 History Ipratropium/Albuterol Sulfate 1 puff INHALATION RT-QID 06/10/18 10/17/23 History [Combivent Respimat Inhaler] Atorvastatin [Lipitor] 40 mg PO DAILY 12/16/21 10/17/23 History Metoprolol Tartrate [Lopressor] 12.5 mg PO BID #0 12/18/21 10/17/23 Rx Allergies Allergy/AdvReac Type Severity Reaction Status Date / Time No Known Allergies Allergy Verified 10/17/23 10:08 Physical Exam Vitals: Vital Signs Temp Pulse Pulse Pulse Resp BP BP 10/17/23 23:21 98 18 113/55 10/17/23 21:20 98.0 F 105 H 18 130/55 10/17/23 20:56 104 H 10/17/23 20:43 100 10/17/23 18:30 103 H 21 136/70 10/17/23 18:15 117 H 20 141/84 10/17/23 18:00 98.5 F 108 H 20 139/61 10/17/23 15:48 106 H 10/17/23 15:36 106 H 10/17/23 14:09 104 H 20 10/17/23 12:21 104 H 20 10/17/23 11:40 106 H 10/17/23 11:27 110 H 10/17/23 10:02 133 H 20 10/17/23 09:03 10/17/23 09:01 133 H 20 10/17/23 08:07 98 10/17/23 07:49 94 10/17/23 06:45 10/17/23 06:00 96 20 128/64 10/17/23 05:34 92 10/17/23 05:23 99 10/17/23 04:31 101 H 20 123/68 10/17/23 04:00 105 H 22 135/72 10/17/23 03:36 10/17/23 03:34 115 H 26 H 133/73 10/17/23 03:24 32 H 10/17/23 03:08 146 H 36 H BP Pulse Ox FiO2 10/17/23 23:21 95 10/17/23 21:20 93 L 10/17/23 20:56 10/17/23 20:43 10/17/23 18:30 98 50 10/17/23 18:15 96 50 10/17/23 18:00 95 50 10/17/23 15:48 10/17/23 15:36 50 10/17/23 14:09 10/17/23 12:21 140/66 98 50 10/17/23 11:40 10/17/23 11:27 50 10/17/23 10:02 10/17/23 09:03 70 10/17/23 09:01 137/70 96 70 10/17/23 08:07 10/17/23 07:49 100 10/17/23 06:45 100 10/17/23 06:00 100 10/17/23 05:34 10/17/23 05:23 50 10/17/23 04:31 100 10/17/23 04:00 100 10/17/23 03:36 70 10/17/23 03:34 97 10/17/23 03:24 10/17/23 03:08 56 L Intake and Output 10/17/23 10/17/23 10/18/23 14:59 22:59 06:59 Intake Total 50 Output Total 1325 Balance -1325 50 Intake: IV 50 Output: Urine 1325 Other: Weight 95.254 kg Results 10/17/23 15:57 10/17/23 03:10 Cardiac Enzymes 10/17/23 10/17/23 10/17/23 Range/Units 03:10 03:10 08:30 AST 31 (17-59) U/L Troponin I 0.057 H* 0.894 H* (0.000-0.034) ng/mL 10/17/23 Range/Units 13:16 AST (17-59) U/L Troponin I 1.540 H* (0.000-0.034) ng/mL Coagulation 10/17/23 10/17/23 10/17/23 Range/Units 03:10 15:57 21:20 PT 11.3 11.9 (10.0-12.5) sec APTT 21.2 L 23.7 23.9 (22.0-30.0) sec CBC 10/17/23 10/17/23 Range/Units 03:10 15:57 WBC 23.9 H 13.2 H (3.8-10.6) k/uL RBC 4.20 L 4.31 (4.30-5.90) m/uL Hgb 13.6 13.7 (13.0-17.5) gm/dL Hct 43.6 42.7 (39.0-53.0) % Plt Count 296 264 (150-450) k/uL Comprehensive Metabolic Panel 10/17/23 Range/Units 03:10 Sodium 142 (137-145) mmol/L Potassium 3.9 (3.5-5.1) mmol/L Chloride 109 H (98-107) mmol/L Carbon Dioxide 18 L (22-30) mmol/L BUN 17 (9-20) mg/dL Creatinine 0.79 (0.66-1.25) mg/dL Glucose 334 H (74-99) mg/dL Calcium 9.0 (8.4-10.2) mg/dL AST 31 (17-59) U/L ALT 24 (4-49) U/L Alkaline Phosphatase 101 (38-126) U/L Total Protein 6.6 (6.3-8.2) g/dL Albumin 3.6 (3.5-5.0) g/dL Current Medications Generic Name Dose Route Start Last Admin Trade Name Freq PRN Reason Stop Dose Admin Albuterol/Ipratropium 3 ml 10/17/23 08:00 10/17/23 20:43 Ipratropium-Albuterol 3 Ml Neb INHALATION 3 ml RT-QID CHASITY Administration Alprazolam 0.25 mg 10/17/23 15:30 Alprazolam 0.25 Mg Tab PO Q6HR PRN Mild Anxiety Alprazolam 0.5 mg 10/17/23 15:30 Alprazolam 0.5 Mg Tab PO Q6HR PRN Moderate Anxiety Atorvastatin Calcium 40 mg 10/18/23 09:00 Atorvastatin 40 Mg Tab PO DAILY CHASITY Budesonide/Formoterol Fumarate 2 puff 10/17/23 20:00 10/17/23 20:43 Symbicort 160-4.5 Mcg Inhaler INHALATION 2 puff RT-BID CHASITY Administration Dextrose/Water 25 ml 10/17/23 10:54 Dextrose 50% Syringe 50 Ml IVP PER PROTOCOL PRN Hypoglycemia Protocol Dextrose/Water 50 ml 10/17/23 10:54 Dextrose 50% Syringe 50 Ml IVP PER PROTOCOL PRN Hypoglycemia Protocol Heparin Sodium (Porcine) 0 unit 10/17/23 15:32 Heparin Sodium 1,000 Un/Ml (10ml Vl) IV PER PROTOCOL PRN Low PTT Protocol Levofloxacin 750 mg/ IV 150 mls @ 100 mls/hr 10/18/23 09:00 Solution IVPB Q24H CHASITY Protocol Piperacillin Sod/Tazobactam 100 mls @ 25 mls/hr 10/17/23 14:00 10/17/23 21:24 Sod 3.375 gm/ Sodium Chloride IVPB 25 mls/hr Q8H CHASITY Administration Protocol Sodium Chloride 1,000 mls @ 10 mls/hr 10/17/23 06:45 10/17/23 06:58 Saline 0.9% IV 130 mls/hr .Q24H HCASITY Administration Heparin Sodium (Porcine) 10, 1,001 mls @ 999 mls/hr 10/18/23 07:00 000 unit/ Sodium Chloride IRRIGATION 10/18/23 23:00 ONCE PRN INTRA-OP Heparin Sodium (Porcine) 2,500 250.5 mls @ 250 mls/hr 10/18/23 07:00 unit/ Sodium Chloride IRRIGATION 10/18/23 23:00 ONCE PRN INTRA-OP Heparin Sodium/Sodium Chloride 250 mls @ 10 mls/hr 10/17/23 15:45 10/17/23 19:36 25,000 unit/ Sodium Chloride IV Not Given .Q24H CHASITY Protocol 10.498 UNITS/KG/HR Nitroglycerin/Dextrose 50 mg/ 250 mls @ 6 mls/hr 10/17/23 15:45 10/17/23 16:13 IV Solution IV 20 mcg/min .Q24H CHASITY 6 mls/hr Administration Protocol 20 MCG/MIN Insulin Aspart 0 unit 10/17/23 12:30 10/17/23 20:36 Insulin Aspart (Novolog) 100 Unit/Ml Vial SQ Not Given ACHS [facility] Protocol Methylprednisolone Sodium Succinate 60 mg 10/17/23 08:30 10/17/23 23:22 Methylprednisolone Sod Succi 125 Mg/2 Ml Vial IV 60 mg Q6HR CHASITY Administration Metoprolol Tartrate 12.5 mg 10/17/23 21:00 10/17/23 21:24 Metoprolol Tartrate 12.5 Mg Tab PO 12.5 mg BID CHASITY Administration Morphine Sulfate 4 mg 10/17/23 06:38 Morphine Sulfate 4 Mg/Ml Syringe IV Q4HR PRN Severe Pain (Scale 7 to 10) Naloxone HCl 0.2 mg 10/17/23 06:38 Naloxone 0.4 Mg/Ml 1 Ml Vial IV Q2M PRN Opioid Reversal Nitroglycerin 0.4 mg 10/17/23 15:30 Nitroglycerin Sl Tabs 0.4 Mg Tab SUBLINGUAL Q5M PRN Chest Pain Pantoprazole Sodium 40 mg 10/17/23 09:00 10/17/23 09:33 Pantoprazole 40 Mg/10 Ml Vial IV 40 mg DAILY CHASITY Administration Intake and Output 10/17/23 10/17/23 10/18/23 14:59 22:59 06:59 Intake Total 50 Output Total 1325 Balance -1325 50 Intake: IV 50 Output: Urine 1325 Other: Weight 95.254 kg Patient Weight 10/18/23 06:59 Weight 95.254 kg 10/17/23 15:57 10/17/23 03:10
[2023-10-18 06:29] LABS: Glucose,Whole Blood 149 mg/dL (70-110)
[2023-10-18] MEDS ORDERED: HEPARIN SODIUM,PORCINE 10,000 UNIT in SODIUM CHLORIDE 0.9% 1,000 ML IRRIGATION PRN (07:00)
[2023-10-18] MEDS ORDERED: HEPARIN SODIUM,PORCINE (1 ML) 2,500 UNIT in SODIUM CHLORIDE 0.9% 250 ML IRRIGATION PRN (07:00)
[2023-10-18] MEDS: ATORVASTATIN 40 MG TAB PO SCH (08:11)
[2023-10-18] MEDS ORDERED: ATORVASTATIN 40 MG TAB PO SCH (09:00)
[2023-10-18 09:12] LABS: Basophils % (A) 0 %; Eosinophils % (A) 0 %; HCT 35.8 % (39.0-53.0); HGB 11.5 gm/dL (13.0-17.5); Lymphocytes # (A) 1.1 k/uL (1.0-4.8); Lymphocytes % (A) 10 %; MCH 31.6 pg (25.0-35.0); MCHC 32.2 g/dL (31.0-37.0); MCV 98.1 fL (80.0-100.0); Mean Platelet Volume 8.6; Monocytes # (A) 0.6 k/uL (0-1.0); Monocytes % (A) 5 %; Neutrophils # (A) 9.4 k/uL (1.3-7.7); Neutrophils % (A) 84 %; Platelet Count 227 k/uL (150-450); RBC 3.65 m/uL (4.30-5.90); RDW 14.8 % (11.5-15.5); WBC 11.2 k/uL (3.8-10.6)
[2023-10-18 09:30] LABS: INR 1.1 (<1.2); Prothrombin Time 12.2 sec (10.0-12.5)
[2023-10-18 09:36] LABS: ALT 22 U/L (4-49); AST 27 U/L (17-59); African American GFR (CKD) >90 (>60 ml/min/1.73 sqM); Alkaline Phosphatase 75 U/L (38-126); Anion Gap 9 mmol/L; Blood Urea Nitrogen 23 mg/dL (9-20); Calcium 8.1 mg/dL (8.4-10.2); Carbon Dioxide 20 mmol/L (22-30); Chloride 110 mmol/L (98-107); Glucose 131 mg/dL (74-99); Magnesium 1.4 mg/dL (1.6-2.3); Non-African American GFR(CKD) >90 (>60 ml/min/1.73 sqM); Phosphorus 3.7 mg/dL (2.5-4.5); Potassium 3.8 mmol/L (3.5-5.1); Sodium 139 mmol/L (137-145); Total Bilirubin 0.6 mg/dL (0.2-1.3); Total Protein 5.7 g/dL (6.3-8.2)
--- NOTE | 2023-10-18 09:41 | XR ---
EXAMINATION TYPE: XR chest 1V portable DATE OF EXAM: 10/18/2023 Comparison: 10/17/2023 Clinical History: 73-year-old male chf Findings: Heart mildly enlarged. Hyperinflation. Diffuse interstitial and airspace opacities show slight improv ement. Small bilateral pleural effusions. Impression: COPD with superimposed CHF and interstitial pulmonary edema. The pulmonary edema is improving from pr ior. Underlying small bilateral pleural effusions.
[2023-10-18] MEDS: LEVOFLOXACIN 750MG-D5W PMX 750 MG in DEXTROSE/WATER 1 150ML.BAG IVPB SCH (11:29)
[2023-10-18 11:37] LABS: Glucose,Whole Blood 202 mg/dL (70-110)
--- NOTE | 2023-10-18 12:00 | P.PN ---
Subjective Progress Note Date: 10/18/23 Principal diagnosis: Acute systolic congestive heart failure This is a very pleasant 73-year-old male patient who has a history of hypertension, hyperlipidemia, obstructive pulmonary disease, former smoker, brain aneurysms, moderate aortic stenosis. He was recently seen in our office earlier this week with some symptoms of shortness of breath he was treated with steroids and was doing well the following day, well enough to golf. Last night however he developed significant shortness of breath and presented here to the emergency room around 3:00 this morning. His initial saturation was at 56% on room air. He was immediately placed on BiPAP 14/6 and 100% FiO2. Chest x-ray shows severe interstitial opacities bilaterally. CT angiogram ruled out pulmonary embolus. There is borderline cardiomegaly and pulmonary arterial hypertension. There is central and peripheral interstitial thickening with diffuse groundglass and small pleural effusions. Correlate for CHF with developing pulmonary edema. Numerous borderline and mildly enlarged hilar lymph nodes. May be reactive. 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 White count 23.9. Hemoglobin 13.6. Sodium 142. Potassium 3.9. Bicarb 18. BUN 17. Creatinine 0.79. Glucose 159. Troponin 0.057, 0.894, 1.54. proBNP 4210. Viral screen negative. EKG revealed sinus tachycardia with nonspecific S T and T wave abnormalities. Arterial blood gases revealed a pH O2 of 365, pCO2 of 38 and a pH of 7.37 on 100% FiO2. This will be titrated down. He is currently awake and alert. Afebrile. Hemodynamically stable. Patient was reevaluated today on 10/18/2023, patient made a significant improvement over the last 24 hours. Patient responded well to diuretics, clinically the patient is feeling much better and he is down now to 6 L nasal cannula with O2 saturation in the mid 90s. Hardly any pulmonary symptoms patient clearly stated to me that he is much better today compared to yesterday. Chest x-ray showed significant improvement in his pulmonary edema echocardiogram showed severe LV dysfunction with ejection fraction of 25 to 30%, patient underwent cardiac catheterization yesterday, found to have relatively normal coronary arteries, however he was found to have severe aortic stenosis w ith mean gradient of 47 and severe aortic regurgitation. Cardiology is considering evaluation for aortic valve replacement and I think that would be very appropriate. WBC count today is 11.2 hemoglobin 11.5 basic metabolic profile is normal and renal profile is normal chest x-ray today showed dramatic improvement but nonetheless continues to have some evidence of pulmonary edema. Objective - Vital Signs Vital signs: Vital Signs Temp 97.8 F 10/18/23 08:08 Pulse 103 H 10/18/23 11:33 Resp 18 10/18/23 11:27 BP 121/54 10/18/23 11:27 Pulse Ox 96 10/18/23 11:27 FiO2 50 10/17/23 18:30 Intake & Output 10/17/23 10/18/23 10/18/23 18:59 06:59 18:59 Intake Total 50 118 Output Total 1325 800 Balance -1275 -800 118 Weight 95.254 kg Intake: IV 50 Oral 118 Output: Urine 1325 800 - Exam GENERAL EXAM: Reveals 73-year-old white male on 6 L nasal cannula, not in distress HEAD: Normocephalic. EYES: Normal reaction of pupils, equal size. NOSE: Clear with pink turbinates. THROAT: No erythema or exudates. NECK: No masses, no JVD. CHEST: No chest wall deformity. LUNGS: Minimal crackles at the bases CVS: S1 and S2 normal 2/6 systolic murmur over the aortic area ABDOMEN: No hepatosplenomegaly, normal bowel sounds, no guarding or rigidity. SKIN: No rashes CENTRAL NERVOUS SYSTEM: Alert oriented x 3 no gross focal neurologic deficit Psychiatric: Normal mood affect and no mental status examination EXTREMITIES: No clubbing edema or cyanosis peripheral pulses are intact. - Labs CBC & Chem 7: 10/18/23 08:02 10/18/23 08:02 Labs: Abnormal Lab Results - Last 24 Hours (Table) 10/17/23 10/17/23 10/17/23 Range/Units 08:34 12:26 13:16 WBC (3.8-10.6) k/uL RBC (4.30-5.90) m/uL Hgb (13.0-17.5) gm/dL Hct (39.0-53.0) % Neutrophils # (1.3-7.7) k/uL Lymphocytes # (1.0-4.8) k/uL Chloride (98-107) mmol/L Carbon Dioxide (22-30) mmol/L BUN (9-20) mg/dL Creatinine (0.66-1.25) mg/dL Glucose (74-99) mg/dL POC Glucose (mg/dL) 159 H (70-110) mg/dL Calcium (8.4-10.2) mg/dL Magnesium (1.6-2.3) mg/dL Troponin I 1.540 H* (0.000-0.034) ng/mL Total Protein (6.3-8.2) g/dL Albumin (3.5-5.0) g/dL Procalcitonin 0.12 H (0.02-0.09) ng/mL 10/17/23 10/17/23 10/17/23 Range/Units 15:57 17:55 20:18 WBC 13.2 H (3.8-10.6) k/uL RBC (4.30-5.90) m/uL Hgb (13.0-17.5) gm/dL Hct (39.0-53.0) % Neutrophils # 11.9 H (1.3-7.7) k/uL Lymphocytes # 0.9 L (1.0-4.8) k/uL Chloride (98-107) mmol/L Carbon Dioxide (22-30) mmol/L BUN (9-20) mg/dL Creatinine (0.66-1.25) mg/dL Glucose (74-99) mg/dL POC Glucose (mg/dL) 144 H 147 H (70-110) mg/dL Calcium (8.4-10.2) mg/dL Magnesium (1.6-2.3) mg/dL Troponin I (0.000-0.034) ng/mL Total Protein (6.3-8.2) g/dL Albumin (3.5-5.0) g/dL Procalcitonin (0.02-0.09) ng/mL 10/18/23 10/18/23 10/18/23 Range/Units 06:02 08:02 08:02 WBC 11.2 H (3.8-10.6) k/uL RBC 3.65 L (4.30-5.90) m/uL Hgb 11.5 L (13.0-17.5) gm/dL Hct 35.8 L (39.0-53.0) % Neutrophils # 9.4 H (1.3-7.7) k/uL Lymphocytes # (1.0-4.8) k/uL Chloride 110 H (98-107) mmol/L Carbon Dioxide 20 L (22-30) mmol/L BUN 23 H (9-20) mg/dL Creatinine 0.62 L (0.66-1.25) mg/dL Glucose 131 H (74-99) mg/dL POC Glucose (mg/dL) 149 H (70-110) mg/dL Calcium 8.1 L (8.4-10.2) mg/dL Magnesium 1.4 L (1.6-2.3) mg/dL Troponin I (0.000-0.034) ng/mL Total Protein 5.7 L (6.3-8.2) g/dL Albumin 3.0 L (3.5-5.0) g/dL Procalcitonin (0.02-0.09) ng/mL 10/18/23 Range/Units 11:36 WBC (3.8-10.6) k/uL RBC (4.30-5.90) m/uL Hgb (13.0-17.5) gm/dL Hct (39.0-53.0) % Neutrophils # (1.3-7.7) k/uL Lymphocytes # (1.0-4.8) k/uL Chloride (98-107) mmol/L Carbon Dioxide (22-30) mmol/L BUN (9-20) mg/dL Creatinine (0.66-1.25) mg/dL Glucose (74-99) mg/dL POC Glucose (mg/dL) 202 H (70-110) mg/dL Calcium (8.4-10.2) mg/dL Magnesium (1.6-2.3) mg/dL Troponin I (0.000-0.034) ng/mL Total Protein (6.3-8.2) g/dL Albumin (3.5-5.0) g/dL Procalcitonin (0.02-0.09) ng/mL Assessment and Plan Assessment: Impression: Acute hypoxemic respiratory failure suspect secondary to flash pulmonary edema. Cardiac catheterization showed no evidence of significant coronary artery disease however he was found to have severe aortic stenosis with high gradient, and the patient was found to have severe LV dysfunction based on echocardiogram. Troponin leak, echocardiogram pending Severe aortic stenosis History of moderate to advanced COPD Former smoker Hypertension Hyperlipidemia Recommendation: Reviewed the echocardiogram report Reviewed the cardiac catheterization findings Reviewed chest x-ray from today and clearly showing significant improvement in his pulmonary edema but not completely resolved Continue diuretics Continue oxygen and titrate accordingly Continue bronchodilators Consider stopping antibiotics in the next 24 hours since procalcitonin level is not significant 0.12. Again I strongly doubt pneumonia. Will continue to follow Time with Patient: Less than 30
[2023-10-18] MEDS: FUROSEMIDE 10 MG/ML 4 ML VIAL IV SCH (12:08)
[2023-10-18] MEDS: LOSARTAN 25 MG TAB PO SCH (12:08)
--- NOTE | 2023-10-18 15:39 | P.PN ---
Subjective Progress Note Date: 10/18/23 HISTORY OF PRESENTING ILLNESS This is a pleasant 73-year-old with past medical history significant for hyp ertension, hyperlipidemia, aortic stenosis, brain aneurysm, COPD. He follows in the office with Dr Frederick. He has been monitored for his aortic stenosis. He had heart catheterization in 2020 which showed only mild circumflex disease. He was recently seen in pulmonology office and had been prescribed antibiotics and "given a shot "likely steroids in the office approximately a week ago for increasing shortness breath. He had been feeling fairly good the day before presentation and had actually played some golf. He then became significantly short of breath however woke up gasping for air and initial oxygen saturation was 56% on room air. She was placed on BiPAP with improvement in oxygen s aturation. White blood cell count 23.9, hemoglobin 13.6, creatinine 0.79, lactic acid 7.0, troponin 0.05, 0.89, 1.5. ProBNP 4210. Viral panel negative. Chest x-ray showed severe interstitial opacities throughout consistent with flash pulmonary edema versus bilateral pneumonia. CTA showed no PE, cardiomegaly and interstitial thickening with groundglass changes and small pleural effusions, correlate with CHF as well as numerous borderline enlarged hilar lymph node nodes. Echocardiogram shows left ventricular ejection fraction 25-30%, moderate to severe mitral regurgitation, severe aortic stenosis as well as severe aortic regurgitation 10/17 Yesterday, patient underwent cardiac catheterization which revealed relatively normal coronary arteries 20 to 30% mid circumflex stenosis. Normal left-sided filling pressures. Severe aortic stenosis with mean gradient of 47 mmHg. Severe aortic regurgitation. 23+ mitral regurgitation. Patient states his breathing is okay and he is more comfortable appearing today. He denies having any chest pain or chest pressure. Blood pressure 121/54, heart rate 103, pulse ox 96% on 6 L nasal cannula. PHYSICAL EXAMINATION Vital signs reviewed. HEENT: Head is normocephalic. Pupils are equal, round. Sclerae anicteric. Mucous membranes of the mouth are moist. No JVD. No carotid bruit. CHEST EXAMINATION: Lungs are clear to auscultation. No chest wall tenderness is noted on palpation or with deep breathing. HEART EXAMINATION: Regular rate and rhythm. S1, S2 heard. No murmurs, gallops or rub. ABDOMEN: Soft, nontender. Positive bowel sounds. EXTREMITIES: 2+ peripheral pulses, no lower extremity edema and no calf tenderness. NEUROLOGIC EXAMINATION: Patient is awake, alert and oriented x3. ASSESSMENT Acute on chronic respiratory failure, likely significant amount related to heart failure Acute on chronic systolic heart failure New-onset cardiomyopathy Severe aortic stenosis, severe aortic regurgitation Moderate to severe mitral regurgitation Non-STEMI COPD Previous minimal CAD by heart catheterization 2020 Hypertension Sinus tachycardia, likely reactive to severe respiratory distress PLAN Patient with non-STEMI which may be related to severe hypoxia, lactic acidosis Majority of heart failure may be related to severe valvular disease. Consult added for cardiothoracic surgery for evaluation of possible aortic valve replacement Leukocytosis may be related to recent steroids however mildly elevated pro- calcitonin Start patient on IV Lasix 40 mg every 12 hours Monitor CLARA, daily weights, electrolytes and renal function Further recommendations to follow Nurse practitioner note has been reviewed, I agree with documented findings and plan of care. Patient was seen and examined. Objective - Vital Signs Vital signs: Vital Signs Temp 97.8 F 10/18/23 08:08 Pulse 103 H 10/18/23 11:33 Resp 18 10/18/23 11:27 BP 121/54 10/18/23 11:27 Pulse Ox 96 10/18/23 11:27 FiO2 50 10/17/23 18:30 Intake & Output 10/17/23 10/18/23 10/18/23 18:59 06:59 18:59 Intake Total 50 118 Output Total 1325 800 Balance -1275 -800 118 Weight 95.254 kg Intake: IV 50 Oral 118 Output: Urine 1325 800 - Labs CBC & Chem 7: 10/18/23 08:02 10/18/23 08:02 Labs: Abnormal Lab Results - Last 24 Hours (Table) 10/17/23 10/17/23 10/17/23 Range/Units 08:34 12:26 13:16 WBC (3.8-10.6) k/uL RBC (4.30-5.90) m/uL Hgb (13.0-17.5) gm/dL Hct (39.0-53.0) % Neutrophils # (1.3-7.7) k/uL Lymphocytes # (1.0-4.8) k/uL Chloride (98-107) mmol/L Carbon Dioxide (22-30) mmol/L BUN (9-20) mg/dL Creatinine (0.66-1.25) mg/dL Glucose (74-99) mg/dL POC Glucose (mg/dL) 159 H (70-110) mg/dL Calcium (8.4-10.2) mg/dL Magnesium (1.6-2.3) mg/dL Troponin I 1.540 H* (0.000-0.034) ng/mL Total Protein (6.3-8.2) g/dL Albumin (3.5-5.0) g/dL Procalcitonin 0.12 H (0.02-0.09) ng/mL 10/17/23 10/17/23 10/17/23 Range/Units 15:57 17:55 20:18 WBC 13.2 H (3.8-10.6) k/uL RBC (4.30-5.90) m/uL Hgb (13.0-17.5) gm/dL Hct (39.0-53.0) % Neutrophils # 11.9 H (1.3-7.7) k/uL Lymphocytes # 0.9 L (1.0-4.8) k/uL Chloride (98-107) mmol/L Carbon Dioxide (22-30) mmol/L BUN (9-20) mg/dL Creatinine (0.66-1.25) mg/dL Glucose (74-99) mg/dL POC Glucose (mg/dL) 144 H 147 H (70-110) mg/dL Calcium (8.4-10.2) mg/dL Magnesium (1.6-2.3) mg/dL Troponin I (0.000-0.034) ng/mL Total Protein (6.3-8.2) g/dL Albumin (3.5-5.0) g/dL Procalcitonin (0.02-0.09) ng/mL 10/18/23 10/18/23 10/18/23 Range/Units 06:02 08:02 08:02 WBC 11.2 H (3.8-10.6) k/uL RBC 3.65 L (4.30-5.90) m/uL Hgb 11.5 L (13.0-17.5) gm/dL Hct 35.8 L (39.0-53.0) % Neutrophils # 9.4 H (1.3-7.7) k/uL Lymphocytes # (1.0-4.8) k/uL Chloride 110 H (98-107) mmol/L Carbon Dioxide 20 L (22-30) mmol/L BUN 23 H (9-20) mg/dL Creatinine 0.62 L (0.66-1.25) mg/dL Glucose 131 H (74-99) mg/dL POC Glucose (mg/dL) 149 H (70-110) mg/dL Calcium 8.1 L (8.4-10.2) mg/dL Magnesium 1.4 L (1.6-2.3) mg/dL Troponin I (0.000-0.034) ng/mL Total Protein 5.7 L (6.3-8.2) g/dL Albumin 3.0 L (3.5-5.0) g/dL Procalcitonin (0.02-0.09) ng/mL 10/18/23 Range/Units 11:36 WBC (3.8-10.6) k/uL RBC (4.30-5.90) m/uL Hgb (13.0-17.5) gm/dL Hct (39.0-53.0) % Neutrophils # (1.3-7.7) k/uL Lymphocytes # (1.0-4.8) k/uL Chloride (98-107) mmol/L Carbon Dioxide (22-30) mmol/L BUN (9-20) mg/dL Creatinine (0.66-1.25) mg/dL Glucose (74-99) mg/dL POC Glucose (mg/dL) 202 H (70-110) mg/dL Calcium (8.4-10.2) mg/dL Magnesium (1.6-2.3) mg/dL Troponin I (0.000-0.034) ng/mL Total Protein (6.3-8.2) g/dL Albumin (3.5-5.0) g/dL Procalcitonin (0.02-0.09) ng/mL
--- NOTE | 2023-10-18 15:41 | P.PN ---
Subjective Progress Note Date: 10/18/23 73-year-old male patient who has a history of hypertension, hyperlipidemia, obstructive pulmonary disease, former smoker, brain aneurysms, moderate aortic stenosis. He was recently seen in our office earlier this week with some symptoms of shortness of breath he was treated with steroids and was doing well the following day, well enough to golf. Last night however he developed significant shortness of breath and presented here to the emergency room around 3:00 this morning. His initial saturation was at 56% on room air. He was immediately placed on BiPAP 14/6 and 100% FiO2. Chest x-ray shows severe interstitial opacities bilaterally. CT angiogram ruled out pulmonary embolus. There is borderline cardiomegaly and pulmonary arterial hypertension. There is central and peripheral interstitial thickening with diffuse groundglass and small pleural effusions. Correlate for CHF with developing pulmonary edema. Numerous borderline and mildly enlarged hilar lymph nodes. May be reactive. 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 White count 23.9. Hemoglobin 13.6. Sodium 142. Potassium 3.9. Bicarb 18. BUN 17. Creatinine 0.79. Glucose 159. Troponin 0.057, 0.894, 1.54. proBNP 4210. Viral screen negative. EKG revealed sinus tachycardia with nonspecific ST and T wave abnormalities. Arterial blood gases revealed a pH O2 of 365, pCO2 of 38 and a pH of 7.37 on 100% FiO2. Objective - Vital Signs Vital signs: Vital Signs Temp 97.8 F 10/18/23 08:08 Pulse 95 10/18/23 10:35 Resp 18 10/18/23 10:35 BP 124/62 10/18/23 08:08 Pulse Ox 95 10/18/23 08:08 FiO2 50 10/17/23 18:30 Intake & Output 10/17/23 10/18/23 10/18/23 18:59 06:59 18:59 Intake Total 50 118 Output Total 1325 800 Balance -1275 -800 118 Weight 95.254 kg Intake: IV 50 Oral 118 Output: Urine 1325 800 - Exam Head exam: Present: atraumatic, normocephalic, normal inspection Eye exam: Present: normal appearance, PERRL, EOMI. Absent: scleral icterus, conjunctival injection, periorbital swelling ENT exam: Present: normal exam, mucous membranes moist Neck exam: Present: normal inspection. Absent: tenderness, meningismus, lymphadenopathy Respiratory exam: Present: respiratory distress, wheezes, accessory muscle use, decreased breath sounds, prolonged expiratory. Absent: rales, rhonchi, stridor Cardiovascular Exam: Present: regular rate, normal rhythm, normal heart sounds. Absent: systolic murmur, diastolic murmur, rubs, gallop, clicks GI/Abdominal exam: Present: soft, normal bowel sounds. Absent: distended, tenderness, guarding, rebound, rigid Extremities exam: Present: normal inspection, full ROM, normal capillary refill. Absent: tenderness, pedal edema, joint swelling, calf tenderness Neurological exam: Present: alert, oriented X3, CN II-XII intact Skin exam: Present: warm, dry, intact, normal color. Absent: rash - Labs CBC & Chem 7: 10/18/23 08:02 10/18/23 08:02 Labs: Abnormal Lab Results - Last 24 Hours (Table) 10/17/23 10/17/23 10/17/23 Range/Units 08:34 12:26 13:16 WBC (3.8-10.6) k/uL RBC (4.30-5.90) m/uL Hgb (13.0-17.5) gm/dL Hct (39.0-53.0) % Neutrophils # (1.3-7.7) k/uL Lymphocytes # (1.0-4.8) k/uL Chloride (98-107) mmol/L Carbon Dioxide (22-30) mmol/L BUN (9-20) mg/dL Creatinine (0.66-1.25) mg/dL Glucose (74-99) mg/dL POC Glucose (mg/dL) 159 H (70-110) mg/dL Calcium (8.4-10.2) mg/dL Magnesium (1.6-2.3) mg/dL Troponin I 1.540 H* (0.000-0.034) ng/mL Total Protein (6.3-8.2) g/dL Albumin (3.5-5.0) g/dL Procalcitonin 0.12 H (0.02-0.09) ng/mL 10/17/23 10/17/23 10/17/23 Range/Units 15:57 17:55 20:18 WBC 13.2 H (3.8-10.6) k/uL RBC (4.30-5.90) m/uL Hgb (13.0-17.5) gm/dL Hct (39.0-53.0) % Neutrophils # 11.9 H (1.3-7.7) k/uL Lymphocytes # 0.9 L (1.0-4.8) k/uL Chloride (98-107) mmol/L Carbon Dioxide (22-30) mmol/L BUN (9-20) mg/dL Creatinine (0.66-1.25) mg/dL Glucose (74-99) mg/dL POC Glucose (mg/dL) 144 H 147 H (70-110) mg/dL Calcium (8.4-10.2) mg/dL Magnesium (1.6-2.3) mg/dL Troponin I (0.000-0.034) ng/mL Total Protein (6.3-8.2) g/dL Albumin (3.5-5.0) g/dL Procalcitonin (0.02-0.09) ng/mL 10/18/23 10/18/23 10/18/23 Range/Units 06:02 08:02 08:02 WBC 11.2 H (3.8-10.6) k/uL RBC 3.65 L (4.30-5.90) m/uL Hgb 11.5 L (13.0-17.5) gm/dL Hct 35.8 L (39.0-53.0) % Neutrophils # 9.4 H (1.3-7.7) k/uL Lymphocytes # (1.0-4.8) k/uL Chloride 110 H (98-107) mmol/L Carbon Dioxide 20 L (22-30) mmol/L BUN 23 H (9-20) mg/dL Creatinine 0.62 L (0.66-1.25) mg/dL Glucose 131 H (74-99) mg/dL POC Glucose (mg/dL) 149 H (70-110) mg/dL Calcium 8.1 L (8.4-10.2) mg/dL Magnesium 1.4 L (1.6-2.3) mg/dL Troponin I (0.000-0.034) ng/mL Total Protein 5.7 L (6.3-8.2) g/dL Albumin 3.0 L (3.5-5.0) g/dL Procalcitonin (0.02-0.09) ng/mL Assessment and Plan Assessment: 1. Acute hypoxic respiratory failure; multifactorial Pulmonary edema-/underlying pneumonia versus COPD exacerbation 2. Possible pneumonia; patient has been placed on Levaquin and Zosyn --Chest x-ray completed in ED reveals severe interstitial bilateral opacities -- CTA chest is negative for PE but revealed central and peripheral interstitial thickening and diffuse groundglass and small pleural effusion 3. Pulmonary edema; cardiology on board; cardiogram is ordered; Lasix 40 mg IV x 1 completed in ED -- Monitor strict CLARA's, daily weights, low-salt and fluid restricted diet 4. Elevated troponin; likely demand ischemia related to acute hypoxia; patient has been placed on IV heparin per protocol -- Monitor EKG and trend troponin; 2D echo is ordered and pending 5. COPD; in exacerbation; continue with the home inhaler therapy -Patient has been placed on Solu-Medrol 60 mg IV every 6 hours; DuoNeb nebulizer treatments 4 times daily and as needed 6. Hypertension; metoprolol 12.5 mg twice daily 7. Hyperlipidemia; Lipitor 40 mg daily DVT prophylaxis; IV heparin CODE STATUS; full code
[2023-10-18 16:07] LABS: Glucose,Whole Blood 109 mg/dL (70-110)
[2023-10-18 20:05] LABS: Glucose,Whole Blood 194 mg/dL (70-110)
[2023-10-19 06:09] LABS: Glucose,Whole Blood 149 mg/dL (70-110)
--- NOTE | 2023-10-19 09:44 | US ---
EXAMINATION TYPE: US carotid duplex BILAT DATE OF EXAM: 10/19/2023 COMPARISON: NONE CLINICAL INDICATION: Male, 73 years old with history of aortic stenosis;pre-TAVR; Pre op cardiac surg glenn TECHNIQUE: Carotid duplex ultrasound examination. Indirect Doppler criteria was utilized. FINDINGS: EXAM MEASUREMENTS: RIGHT: Peak Systolic Velocity (PSV) cm/sec ----- Right CCA: 125 ----- Right ICA: 149 ----- Right ECA: 227 ICA/CCA ratio: 1.19 RIGHT: End Diastole cm/sec ----- Right CCA: 0.0 ----- Right ICA: 6.3 ----- Right ECA: 0.0 LEFT: Peak Systolic Velocity (PSV) cm/sec ----- Left CCA: 107 ----- Left ICA: 125 ----- Left ECA: 145 ICA/CCA ratio: 1.17 LEFT: End Diastole cm/sec ----- Left CCA: 14.3 ----- Left ICA: 27.9 ----- Left ECA: 0.0 VERTEBRALS (direction of flow): Right Vertebral: Antegrade Left Vertebral: Antegrade INSTRUMENTATION TECHNOLOGIST NOTES: Mild plaque bilateral bifurcations. Increased velocities right ICA and bilateral E CA's IMPRESSION: Measurements may indicate a mild or moderate (up to 69%) proximal right ICA stenosis, as the end-motley tolic velocity in particular is elevated. A more significant stenosis is considered less likely given the grayscale appearance of the vessel lumen. Criteria for Assigning % of Stenosis / Diameter reduction (Estimation based on the indirect measurements of the internal carotid artery velocities (ICA PSV). 1. Normal (no stenosis)=ICA PSV < 125 cm/s: ratio < 2.0: ICA EDV<40 cm/s. 2. Less than 50% stenosis=ICA PSV < 125 cm/s: ratio < 2.0: ICA EDV<40 cm/s. 3. 50 to 69% stenosis=ICA PSV of 125 to 230 cm/s: ration 2.0 ? 4.0: ICA EDV 40-100 cm/s. 4. Greater than 70% stenosis to near occlusion= ICA PSV > 230 cm/s: ratio > 4.0: ICA EDV > 100 cm/s. 5. Near occlusion= ICA PSV velocities may be low or undetectable: variable ratio and ICA EDV. 6. Total occlusion=unable to detect flow.
--- NOTE | 2023-10-19 09:57 | P.GSCN ---
History of Present Illness Consult date: 10/19/23 Reason for Consult: Severe aortic stenosis Requesting physician: Benitez Lane History of present illness: This is a 73-year-old gentleman who follows outpatient with nurse practitioner Lula Arrington for primary care along with Dr. Frederick for cardiology. He has a previous medical history of aortic stenosis, hypertension, hyperlipidemia, chronic heart failure with reduced ejection fraction, brain aneurysm, COPD, and previous tobacco dependence. He presented to the emergency room at [facility] on October 17, 2023 with complaints of significant progressive shortness of breath. He denies any chest pain or any other associated symptoms. EKG upon presentation demonstrated sinus tach. Chest x-ray demonstrated severe interstitial opacities throughout the lungs. Chest CTA was also completed demonstrating no pulmonary embolus, there was borderline cardiomegaly with pulmonary artery hypertension, diffuse groundglass appearance and small pleural effusions. Lab work revealed WBC 23.9, creatinine 0.79, BNP 4210, troponin elevation to 1.54, procalcitonin 0.12, lactic acid 7, and influenza/RSV/COVID PC R's were negative. He was started on antibiotics, and admitted for evaluation and treatment with consultation placed to cardiology and pulmonology. Transthoracic echocardiogram was completed demonstrating reduced left ventricular systolic function with EF 25 to 30%, severe aortic stenosis with aor tic valve area 0.9 cm, peak/mean gradient 55/34 mmHg, and max velocity 3.71 cm/s, severe aortic insufficiency, moderate to severe mitral regurgitation, and mild tricuspid regurgitation. Due to elevated troponins heart catheterization was completed yesterday demonstrating no significant obstructive coronary disease, severe aortic regurgitation along with severe aortic stenosis with mean gradient 47 mmHg, as well as moderate mitral regurgitation. Due to these findings consultation was placed to cardiothoracic surgery for aortic valve replacement. Review of Systems Review of systems was completed and was negative except as noted - Cardiovascular Reports shortness of breath - Respiratory Reports as per HPI, Reports dyspnea Past Medical History Past Medical History: Heart Failure, COPD, Hyperlipidemia, Hypertension, Osteoarthritis (OA) Additional Past Medical History / Comment(s): 2 brain aneurysms-states no symptoms and no surgery/clipping ; severe aortic stenosis, severe aortic insufficiency, moderate to severe mitral regurgitation History of Any Multi-Drug Resistant Organisms: None Reported Past Surgical History: Heart Catheterization Additional Past Surgical History / Comment(s): heart cath -no intervention Past Anesthesia/Blood Transfusion Reactions: No Reported Reaction Additional Past Anesthesia/Blood Transfusion Reaction / Comm: NO ANESTHESIA HX Smoking Status: Former smoker Past Alcohol Use History: None Reported Past Drug Use History: None Reported - Past Family History Mother Family Medical History: CVA/TIA Father Family Medical History: Asthma Medications and Allergies Home Medications Medication Instructions Recorded Confirmed Type Budesonide/Formoterol Fumarate 2 puff INHALATION RT-BID PRN 06/10/18 10/17/23 History [Symbicort 160-4.5 Mcg Inhaler] Esomeprazole Magnesium [NexIUM] 20 mg PO DAILY 06/10/18 10/17/23 History Ipratropium/Albuterol Sulfate 1 puff INHALATION RT-QID 06/10/18 10/17/23 History [Combivent Respimat Inhaler] Atorvastatin [Lipitor] 40 mg PO DAILY 12/16/21 10/17/23 History Metoprolol Tartrate [Lopressor] 12.5 mg PO BID #0 12/18/21 10/17/23 Rx Allergies Allergy/AdvReac Type Severity Reaction Status Date / Time No Known Allergies Allergy Verified 10/17/23 10:08 Surgical - Exam Vital Signs Pulse Resp Pulse Ox 146 H 36 H 56 L 10/17/23 03:08 10/17/23 03:08 10/17/23 03:08 CONSTITUTIONAL: Awake and alert, appears comfortable, cooperative, well- developed, well-nourished, no pain, no acute distress EYES: Pupils equal, round, reactive to light, normal ocular movement ENT: Moist mucous membranes without oral lesions present NECK: No masses, no bruits, trachea midline RESPIRATORY: Lungs sounds diminished bilaterally. Respirations even, nonlabored. Currently on 4 L nasal cannula with oxygen saturation 97%. Strong cough. No chest wall deformities. No clubbing or cyanosis present CARDIOVASCULAR: S1, S2 present. Regular rate and rhythm, sinus rhythm on telemetry. Palpable peripheral pulses bilaterally. No edema present GASTROINTESTINAL: Abdomen soft, nontender, nondistended without masses or organomegaly noted. There is no rebound or guarding present. Active bowel sounds present 4 quadrants. GENITOURINARY: Deferred INTEGUMENTARY: Skin is warm and dry with evidence of good perfusion. NEUROLOGIC: Cranial nerves II through XII intact, normal coordination, no obvious motor or sensory deficits, speech is normal MUSKULOSKELETAL: Able to move all extremities, strength equal bilaterally, normal posture PSYCHIATRIC: Alert and oriented to person place and time, appropriate affect, intact judgment and insight Results - Labs 10/18/23 08:02 10/18/23 08:02 Abnormal Lab Results - Last 24 Hours (Table) 10/18/23 10/18/23 10/18/23 Range/Units 08:02 08:02 11:36 WBC 11.2 H (3.8-10.6) k/uL RBC 3.65 L (4.30-5.90) m/uL Hgb 11.5 L (13.0-17.5) gm/dL Hct 35.8 L (39.0-53.0) % Neutrophils # 9.4 H (1.3-7.7) k/uL Chloride 110 H (98-107) mmol/L Carbon Dioxide 20 L (22-30) mmol/L BUN 23 H (9-20) mg/dL Creatinine 0.62 L (0.66-1.25) mg/dL Glucose 131 H (74-99) mg/dL POC Glucose (mg/dL) 202 H (70-110) mg/dL Calcium 8.1 L (8.4-10.2) mg/dL Magnesium 1.4 L (1.6-2.3) mg/dL Total Protein 5.7 L (6.3-8.2) g/dL Albumin 3.0 L (3.5-5.0) g/dL 10/18/23 10/19/23 Range/Units 20:04 06:08 WBC (3.8-10.6) k/uL RBC (4.30-5.90) m/uL Hgb (13.0-17.5) gm/dL Hct (39.0-53.0) % Neutrophils # (1.3-7.7) k/uL Chloride (98-107) mmol/L Carbon Dioxide (22-30) mmol/L BUN (9-20) mg/dL Creatinine (0.66-1.25) mg/dL Glucose (74-99) mg/dL POC Glucose (mg/dL) 194 H 149 H (70-110) mg/dL Calcium (8.4-10.2) mg/dL Magnesium (1.6-2.3) mg/dL Total Protein (6.3-8.2) g/dL Albumin (3.5-5.0) g/dL Microbiology - Last 24 Hours (Table) 10/17/23 05:15 Blood Culture - Preliminary Blood 10/17/23 05:00 Blood Culture - Preliminary Blood Diabetes panel 10/18/23 Range/Units 08:02 Sodium 139 (137-145) mmol/L Potassium 3.8 (3.5-5.1) mmol/L Chloride 110 H (98-107) mmol/L Carbon Dioxide 20 L (22-30) mmol/L BUN 23 H (9-20) mg/dL Creatinine 0.62 L (0.66-1.25) mg/dL Glucose 131 H (74-99) mg/dL Calcium 8.1 L (8.4-10.2) mg/dL AST 27 (17-59) U/L ALT 22 (4-49) U/L Alkaline Phosphatase 75 (38-126) U/L Total Protein 5.7 L (6.3-8.2) g/dL Albumin 3.0 L (3.5-5.0) g/dL Calcium panel 10/18/23 Range/Units 08:02 Calcium 8.1 L (8.4-10.2) mg/dL Phosphorus 3.7 (2.5-4.5) mg/dL Albumin 3.0 L (3.5-5.0) g/dL Pituitary panel 10/18/23 Range/Units 08:02 Sodium 139 (137-145) mmol/L Potassium 3.8 (3.5-5.1) mmol/L Chloride 110 H (98-107) mmol/L Carbon Dioxide 20 L (22-30) mmol/L BUN 23 H (9-20) mg/dL Creatinine 0.62 L (0.66-1.25) mg/dL Glucose 131 H (74-99) mg/dL Calcium 8.1 L (8.4-10.2) mg/dL Adrenal panel 10/18/23 Range/Units 08:02 Sodium 139 (137-145) mmol/L Potassium 3.8 (3.5-5.1) mmol/L Chloride 110 H (98-107) mmol/L Carbon Dioxide 20 L (22-30) mmol/L BUN 23 H (9-20) mg/dL Creatinine 0.62 L (0.66-1.25) mg/dL Glucose 131 H (74-99) mg/dL Calcium 8.1 L (8.4-10.2) mg/dL Total Bilirubin 0.6 (0.2-1.3) mg/dL AST 27 (17-59) U/L ALT 22 (4-49) U/L Alkaline Phosphatase 75 (38-126) U/L Total Protein 5.7 L (6.3-8.2) g/dL Albumin 3.0 L (3.5-5.0) g/dL - Imaging Chest x-ray: report reviewed, image reviewed CT scan - chest: report reviewed, image reviewed EKG: image reviewed Additional studies: Heart catheterization and echocardiogram films reviewed Assessment and Plan Assessment: Severe aortic stenosis, aortic valve area 0.9 cm, peak/mean gradient 55/34 mmHg, and max velocity 3.71 cm/s, mean gradient 47 mmHg on heart catheterization Severe aortic insufficiency, moderate to severe mitral regurgitation, and mild tricuspid regurgitation Lactic acidosis present on admission Acute hypoxic respiratory failure secondary to flash pulmonary edema on admission Shortness of breath, secondary to above Hypertension Hyperlipidemia, Chronic heart failure with reduced ejection fraction, 25-30% Brain aneurysm COPD Previous tobacco dependence Plan: The patient was seen and examined this morning sitting up in bed on the cardiac stepdown unit eating breakfast in no acute distress. States his shortness of br eath has significantly improved since admission. Conversation took place between Dr. Brown and Dr. Lane regarding aortic valve replacement, potentially to consider TAVR with MitraClip down the line. TAVR versus SAVR discussed with the patient. Will order preoperative testing. Patient will need a gated CTA of the chest for valve measurement and to assess access, however he just had a heart catheterization yesterday and needs time to recover from the dye exposure to prevent contrast-induced nephropathy. Patient does have complete dentures so he does not need dental clearance. Will complete frailty testing. If patient stabilizes may discharge to home from our standpoint to return to the TAVR clinic for discussion with the entire structural heart team for shared decision making regarding aortic valve replacement. Medical management of other comorbidities per internal medicine, cardiology, pulmonology. More recommendations to follow. Thank you for this consult, we will continue to follow along with you and make further recommendations as appropriate. I have personally seen and examined the patient, performed the documentation and the assessment and plan as written. Number of minutes spent on the visit: 30. JERRY SuarezC
[2023-10-19 10:28] LABS: African American GFR (CKD) >90 (>60 ml/min/1.73 sqM); Anion Gap 10 mmol/L; Blood Urea Nitrogen 29 mg/dL (9-20); Calcium 8.4 mg/dL (8.4-10.2); Carbon Dioxide 25 mmol/L (22-30); Chloride 103 mmol/L (98-107); Glucose 199 mg/dL (74-99); Non-African American GFR(CKD) 89 (>60 ml/min/1.73 sqM); Potassium 3.5 mmol/L (3.5-5.1); Sodium 138 mmol/L (137-145)
[2023-10-19] MEDS: SPIRONOLACTONE 25 MG TAB PO SCH (10:46)
--- NOTE | 2023-10-19 11:21 | XR ---
EXAMINATION TYPE: XR chest 1V portable DATE OF EXAM: 10/19/2023 Comparison: 10/18/2023 Clinical History: 73-year-old male CHF Findings: Heart borderline in size. Hyperinflation. Diffuse interstitial opacities similar to slightly improved . An B lines persist. Trace bilateral pleural effusions persist. Impression: COPD with superimposed CHF. The interstitial pulmonary edema shows slight improvement. Small effusion s remain.
[2023-10-19 11:30] LABS: Glucose,Whole Blood 157 mg/dL (70-110)
--- NOTE | 2023-10-19 11:54 | P.PN ---
Subjective Progress Note Date: 10/19/23 HISTORY OF PRESENTING ILLNESS This is a pleasant 73-year-old with past medical history significant for hyp ertension, hyperlipidemia, aortic stenosis, brain aneurysm, COPD. He follows in the office with Dr Frederick. He has been monitored for his aortic stenosis. He had heart catheterization in 2020 which showed only mild circumflex disease. He was recently seen in pulmonology office and had been prescribed antibiotics and "given a shot "likely steroids in the office approximately a week ago for increasing shortness breath. He had been feeling fairly good the day before presentation and had actually played some golf. He then became significantly short of breath however woke up gasping for air and initial oxygen saturation was 56% on room air. She was placed on BiPAP with improvement in oxygen s aturation. White blood cell count 23.9, hemoglobin 13.6, creatinine 0.79, lactic acid 7.0, troponin 0.05, 0.89, 1.5. ProBNP 4210. Viral panel negative. Chest x-ray showed severe interstitial opacities throughout consistent with flash pulmonary edema versus bilateral pneumonia. CTA showed no PE, cardiomegaly and interstitial thickening with groundglass changes and small pleural effusions, correlate with CHF as well as numerous borderline enlarged hilar lymph node nodes. Echocardiogram shows left ventricular ejection fraction 25-30%, moderate to severe mitral regurgitation, severe aortic stenosis as well as severe aortic regurgitation 10/17 Yesterday, patient underwent cardiac catheterization which revealed relatively normal coronary arteries 20 to 30% mid circumflex stenosis. Normal left-sided filling pressures. Severe aortic stenosis with mean gradient of 47 mmHg. Severe aortic regurgitation. 23+ mitral regurgitation. Patient states his breathing is okay and he is more comfortable appearing today. He denies having any chest pain or chest pressure. Blood pressure 121/54, heart rate 103, pulse ox 96% on 6 L nasal cannula. 10/18 Patient states that he had a little episode of chest pain this morning but none now. He has been on Lasix 40 mg IV every 12 hours. Patient had a negative fluid balance yesterday. Weights do not appear to be accurate. Blood pressure 110/52, heart rate 104, pulse ox 94% on 4 L nasal cannula. Repeat blood work reveals sodium 138, potassium 3.5, BUN 29 creatinine 0.78. TSH 1.13. Patient has been seen by cardiothoracic surgery regarding aortic valve replacement and consider TAVR with MitraClip down the line. TAVR versus SAVR was discussed as well. Patient is undergoing preoperative testing. Discussed ELIECER with the patient to be performed on Friday if his heart failure symptoms are stable. Otherwise this could be delayed for another day or 2. Carotid ultrasound revealed mild to moderate up to 69% proximal right ICA stenosis. Repeat chest x-ray reveals COPD with superimposed CHF. Interstitial pulmonary edema shows slight improvement. Small effusions remain. PHYSICAL EXAMINATION Vital signs reviewed. HEENT: Head is normocephalic. Pupils are equal, round. Sclerae anicteric. Mucous membranes of the mouth are moist. No JVD. No carotid bruit. CHEST EXAMINATION: Lungs are clear to auscultation. No chest wall tenderness is noted on palpation or with deep breathing. HEART EXAMINATION: Regular rate and rhythm. S1, S2 heard. No murmurs, gallops or rub. ABDOMEN: Soft, nontender. Positive bowel sounds. EXTREMITIES: 2+ peripheral pulses, no lower extremity edema and no calf tenderness. NEUROLOGIC EXAMINATION: Patient is awake, alert and oriented x3. ASSESSMENT Acute on chronic respiratory failure, likely significant amount related to heart failure Acute on chronic systolic heart failure New-onset cardiomyopathy Severe aortic stenosis, severe aortic regurgitation Moderate to severe mitral regurgitation Non-STEMI status post [facility] on 10/16 with relatively normal coronary arteries COPD Previous minimal CAD by heart catheterization 2020 Hypertension Sinus tachycardia, likely reactive to severe respiratory distress PLAN Patient with non-STEMI which may be related to severe hypoxia, lactic acidosis Majority of heart failure may be related to severe valvular disease. Consult with cardiothoracic surgery for aortic valve replacement appreciated. Leukocytosis may be related to recent steroids however mildly elevated pro- calcitonin Continue patient on IV Lasix 40 mg every 12 hours and add Aldactone 12.5 mg daily Monitor CLARA, daily weights, electrolytes and renal function Possible ELIECER on Friday with Dr. Frederick/Dr. Lane Further recommendations to follow Nurse practitioner note has been reviewed, I agree with documented findings and plan of care. Patient was seen and examined. Objective - Vital Signs Vital signs: Vital Signs Temp 98.2 F 10/18/23 19:51 Pulse 108 H 10/19/23 08:44 Resp 17 10/19/23 04:12 BP 114/62 10/19/23 04:12 Pulse Ox 97 10/19/23 04:12 FiO2 50 10/17/23 18:30 Intake & Output 10/18/23 10/19/23 10/19/23 18:59 06:59 18:59 Intake Total 354 500 Output Total 600 Balance 354 -100 Weight 69.1 kg Intake: Oral 354 500 Output: Urine 600 - Labs CBC & Chem 7: 10/18/23 08:02 10/19/23 09:43 Labs: Abnormal Lab Results - Last 24 Hours (Table) 10/18/23 10/18/23 10/19/23 Range/Units 11:36 20:04 06:08 POC Glucose (mg/dL) 202 H 194 H 149 H (70-110) mg/dL Microbiology - Last 24 Hours (Table) 10/17/23 05:15 Blood Culture - Preliminary Blood 10/17/23 05:00 Blood Culture - Preliminary Blood
[2023-10-19 13:07] LABS: Hepatitis A Antibody IgM Nonreactive (Nonreactive); Hepatitis B Core IgM Nonreactive (Nonreactive); Hepatitis B Surface Antigen Nonreactive (Nonreactive); Hepatitis C IgG Antibody Nonreactive (Nonreactive)
--- NOTE | 2023-10-19 13:31 | P.PN ---
Subjective Progress Note Date: 10/19/23 Principal diagnosis: Acute systolic congestive heart failure This is a very pleasant 73-year-old male patient who has a history of hypertension, hyperlipidemia, obstructive pulmonary disease, former smoker, brain aneurysms, moderate aortic stenosis. He was recently seen in our office earlier this week with some symptoms of shortness of breath he was treated with steroids and was doing well the following day, well enough to golf. Last night however he developed significant shortness of breath and presented here to the emergency room around 3:00 this morning. His initial saturation was at 56% on room air. He was immediately placed on BiPAP 14/6 and 100% FiO2. Chest x-ray shows severe interstitial opacities bilaterally. CT angiogram ruled out pulmonary embolus. There is borderline cardiomegaly and pulmonary arterial hypertension. There is central and peripheral interstitial thickening with diffuse groundglass and small pleural effusions. Correlate for CHF with developing pulmonary edema. Numerous borderline and mildly enlarged hilar lymph nodes. May be reactive. 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 White count 23.9. Hemoglobin 13.6. Sodium 142. Potassium 3.9. Bicarb 18. BUN 17. Creatinine 0.79. Glucose 159. Troponin 0.057, 0.894, 1.54. proBNP 4210. Viral screen negative. EKG revealed sinus tachycardia with nonspecific S T and T wave abnormalities. Arterial blood gases revealed a pH O2 of 365, pCO2 of 38 and a pH of 7.37 on 100% FiO2. This will be titrated down. He is currently awake and alert. Afebrile. Hemodynamically stable. Patient was reevaluated today on 10/18/2023, patient made a significant improvement over the last 24 hours. Patient responded well to diuretics, clinically the patient is feeling much better and he is down now to 6 L nasal cannula with O2 saturation in the mid 90s. Hardly any pulmonary symptoms patient clearly stated to me that he is much better today compared to yesterday. Chest x-ray showed significant improvement in his pulmonary edema echocardiogram showed severe LV dysfunction with ejection fraction of 25 to 30%, patient underwent cardiac catheterization yesterday, found to have relatively normal coronary arteries, however he was found to have severe aortic stenosis w ith mean gradient of 47 and severe aortic regurgitation. Cardiology is considering evaluation for aortic valve replacement and I think that would be very appropriate. WBC count today is 11.2 hemoglobin 11.5 basic metabolic profile is normal and renal profile is normal chest x-ray today showed dramatic improvement but nonetheless continues to have some evidence of pulmonary edema. Patient was reevaluated today on 10/19/2023, he is now on 4 L nasal cannula, initially he was on 100% and BiPAP, patient responded well to diuretics, continues to improve with diuresis, his chest x-ray has shown significant improvement today, and on physical examination he sounds much clearer today compared to the last couple of days. Clinically better patient was evaluated by cardiology considering TAVR on this patient. Objective - Vital Signs Vital signs: Vital Signs Temp 98.2 F 10/18/23 19:51 Pulse 85 10/19/23 13:10 Resp 17 10/19/23 13:10 BP 107/53 10/19/23 12:00 Pulse Ox 98 10/19/23 12:00 FiO2 50 10/17/23 18:30 Intake & Output 10/18/23 10/19/23 10/19/23 18:59 06:59 18:59 Intake Total 354 500 240 Output Total 600 Balance 354 -100 240 Weight 69.1 kg Intake: Oral 354 500 240 Output: Urine 600 - Exam GENERAL EXAM: Reveals 73-year-old white male on 4 L nasal cannula HEAD: Normocephalic. EYES: Normal reaction of pupils, equal size. NOSE: Clear with pink turbinates. THROAT: No erythema or exudates. NECK: No masses, no JVD. CHEST: No chest wall deformity. LUNGS: Minimal crackles at the bases CVS: S1 and S2 normal 2/6 systolic murmur over the aortic area ABDOMEN: No hepatosplenomegaly, normal bowel sounds, no guarding or rigidity. SKIN: No rashes CENTRAL NERVOUS SYSTEM: Alert oriented x 3 no gross focal neurologic deficit Psychiatric: Normal mood affect and no mental status examination EXTREMITIES: No clubbing edema or cyanosis peripheral pulses are intact. - Labs CBC & Chem 7: 10/18/23 08:02 10/19/23 09:43 Labs: Abnormal Lab Results - Last 24 Hours (Table) 10/18/23 10/19/23 10/19/23 Range/Units 20:04 06:08 09:43 BUN 29 H (9-20) mg/dL Glucose 199 H (74-99) mg/dL POC Glucose (mg/dL) 194 H 149 H (70-110) mg/dL Hemoglobin A1c (<=6.0) % 10/19/23 10/19/23 Range/Units 09:43 11:28 BUN (9-20) mg/dL Glucose (74-99) mg/dL POC Glucose (mg/dL) 157 H (70-110) mg/dL Hemoglobin A1c 6.3 H (<=6.0) % Microbiology - Last 24 Hours (Table) 10/17/23 05:15 Blood Culture - Preliminary Blood 10/17/23 05:00 Blood Culture - Preliminary Blood Assessment and Plan Assessment: Impression: Acute hypoxemic respiratory failure suspect secondary to flash pulmonary edema. Cardiac catheterization showed no evidence of significant coronary artery disease however he was found to have severe aortic stenosis with high gradient, and the patient was found to have severe LV dysfunction based on echocardiogram. Troponin leak, echocardiogram pending Severe aortic stenosis History of moderate to advanced COPD Former smoker Hypertension Hyperlipidemia Recommendation: Reviewed the echocardiogram report Reviewed the cardiac catheterization findings Chest x-ray today is significantly better and pulmonary edema almost resolved. Continue diuretics Discontinue antibiotics Continue oxygen and titrate accordingly Continue bronchodilators Cardiology is addressing possible TAVR. Will continue to follow Time with Patient: Less than 30
[2023-10-19 16:17] LABS: Glucose,Whole Blood 137 mg/dL (70-110)
--- NOTE | 2023-10-19 17:50 | P.PN ---
Subjective Progress Note Date: 10/19/23 73-year-old male patient who has a history of hypertension, hyperlipidemia, obstructive pulmonary disease, former smoker, brain aneurysms, moderate aortic stenosis. He was recently seen in our office earlier this week with some symptoms of shortness of breath he was treated with steroids and was doing well the following day, well enough to golf. Last night however he developed significant shortness of breath and presented here to the emergency room around 3:00 this morning. His initial saturation was at 56% on room air. He was immediately placed on BiPAP 14/6 and 100% FiO2. Chest x-ray shows severe interstitial opacities bilaterally. CT angiogram ruled out pulmonary embolus. There is borderline cardiomegaly and pulmonary arterial hypertension. There is central and peripheral interstitial thickening with diffuse groundglass and small pleural effusions. Correlate for CHF with developing pulmonary edema. Numerous borderline and mildly enlarged hilar lymph nodes. May be reactive. 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 White count 23.9. Hemoglobin 13.6. Sodium 142. Potassium 3.9. Bicarb 18. BUN 17. Creatinine 0.79. Glucose 159. Troponin 0.057, 0.894, 1.54. proBNP 4210. Viral screen negative. EKG revealed sinus tachycardia with nonspecific ST and T wave abnormalities. Arterial blood gases revealed a pH O2 of 365, pCO2 of 38 and a pH of 7.37 on 100% FiO2. 10/19/2023, Patient is seen and evaluated sitting up in bedside chair with multiple family members present in the room; he is now on 4 L nasal cannula, initially he was on 100% and BiPAP, patient responded well to diuretics, continues to improve with diuresis -- chest x-ray has shown significant improvement today - patient was evaluated by cardiology considering TAVR on this patient; Repeat blood work reveals sodium 138, potassium 3.5, BUN 29 creatinine 0.78. TSH 1.13. Patient has been seen by cardiothoracic surgery regarding aortic valve replacement and consider TAVR with MitraClip down the line. TAVR versus SAVR was discussed as well. Patient is undergoing preoperative testing. Discussed ELIECER with the patient to be performed on Friday if his heart failure symptoms are stable. Otherwise this could be delayed for another day or 2. Carotid ultrasound revealed mild to moderate up to 69% proximal right ICA stenosis. Repeat chest x-ray reveals COPD with superimposed CHF. Interstitial pulmonary edema shows slight improvement. . Objective - Vital Signs Vital signs: Vital Signs Temp 98.2 F 10/18/23 19:51 Pulse 96 10/19/23 11:56 Resp 17 10/19/23 10:28 BP 110/52 10/19/23 08:00 Pulse Ox 94 L 10/19/23 08:00 FiO2 50 10/17/23 18:30 Intake & Output 10/18/23 10/19/23 10/19/23 18:59 06:59 18:59 Intake Total 354 500 240 Output Total 600 Balance 354 -100 240 Weight 69.1 kg Intake: Oral 354 500 240 Output: Urine 600 - Exam Head exam: Present: atraumatic, normocephalic, normal inspection Eye exam: Present: normal appearance, PERRL, EOMI. Absent: scleral icterus, conjunctival injection, periorbital swelling ENT exam: Present: normal exam, mucous membranes moist Neck exam: Present: normal inspection. Absent: tenderness, meningismus, lymphadenopathy Respiratory exam: Present: respiratory distress, wheezes, accessory muscle use, decreased breath sounds, prolonged expiratory. Absent: rales, rhonchi, stridor Cardiovascular Exam: Present: regular rate, normal rhythm, normal heart sounds. Absent: systolic murmur, diastolic murmur, rubs, gallop, clicks GI/Abdominal exam: Present: soft, normal bowel sounds. Absent: distended, tenderness, guarding, rebound, rigid Extremities exam: Present: normal inspection, full ROM, normal capillary refill. Absent: tenderness, pedal edema, joint swelling, calf tenderness Neurological exam: Present: alert, oriented X3, CN II-XII intact Skin exam: Present: warm, dry, intact, normal color. Absent: rash - Labs CBC & Chem 7: 10/18/23 08:02 10/19/23 09:43 Labs: Abnormal Lab Results - Last 24 Hours (Table) 10/18/23 10/19/23 10/19/23 Range/Units 20:04 06:08 09:43 BUN 29 H (9-20) mg/dL Glucose 199 H (74-99) mg/dL POC Glucose (mg/dL) 194 H 149 H (70-110) mg/dL 10/19/23 Range/Units 11:28 BUN (9-20) mg/dL Glucose (74-99) mg/dL POC Glucose (mg/dL) 157 H (70-110) mg/dL Microbiology - Last 24 Hours (Table) 10/17/23 05:15 Blood Culture - Preliminary Blood 10/17/23 05:00 Blood Culture - Preliminary Blood Assessment and Plan Assessment: 1. Acute hypoxic respiratory failure; multifactorial Pulmonary edema-/underlying pneumonia versus COPD exacerbation 2. Possible pneumonia; patient has been placed on Levaquin and Zosyn --Chest x-ray completed in ED reveals severe interstitial bilateral opacities -- CTA chest is negative for PE but revealed central and peripheral interstitial thickening and diffuse groundglass and small pleural effusion 3. Pulmonary edema; cardiology on board; cardiogram is ordered; Lasix 40 mg IV x 1 completed in ED -- Monitor strict CLARA's, daily weights, low-salt and fluid restricted diet 4. Elevated troponin; likely demand ischemia related to acute hypoxia; patient has been placed on IV heparin per protocol -- Monitor EKG and trend troponin; 2D echo is ordered and pending 5. COPD; in exacerbation; continue with the home inhaler therapy -Patient has been placed on Solu-Medrol 60 mg IV every 6 hours; DuoNeb nebulizer treatments 4 times daily and as needed 6. Hypertension; metoprolol 12.5 mg twice daily 7. Hyperlipidemia; Lipitor 40 mg daily DVT prophylaxis; IV heparin CODE STATUS; full code
[2023-10-19 20:32] LABS: Glucose,Whole Blood 193 mg/dL (70-110)
[2023-10-20 06:10] LABS: Glucose,Whole Blood 159 mg/dL (70-110)
[2023-10-20 07:14] LABS: African American GFR (CKD) >90 (>60 ml/min/1.73 sqM); Anion Gap 5 mmol/L; Blood Urea Nitrogen 29 mg/dL (9-20); Calcium 8.1 mg/dL (8.4-10.2); Carbon Dioxide 28 mmol/L (22-30); Chloride 103 mmol/L (98-107); Glucose 133 mg/dL (74-99); Non-African American GFR(CKD) >90 (>60 ml/min/1.73 sqM); Potassium 3.3 mmol/L (3.5-5.1); Sodium 136 mmol/L (137-145)
[2023-10-20] MEDS ORDERED: Potassium Replacement Protocol 1 EACH MISC MISCELLANE PRN (07:39)
[2023-10-20] MEDS: LEVOFLOXACIN 750 MG TAB PO SCH (09:01)
[2023-10-20] MEDS: POTASSIUM CHLORIDE ER 20 MEQ TAB.ER PO SCH (09:02)
--- NOTE | 2023-10-20 10:57 | P.PN ---
Subjective 73-year-old male patient who has a history of hypertension, hyperlipidemia, obstructive pulmonary disease, former smoker, brain aneurysms, moderate aortic stenosis. He was recently seen in our office earlier this week with some symptoms of shortness of breath he was treated with steroids and was doing well the following day, well enough to golf. Last night however he developed significant shortness of breath and presented here to the emergency room around 3:00 this morning. His initial saturation was at 56% on room air. He was immediately placed on BiPAP 14/6 and 100% FiO2. Chest x-ray shows severe interstitial opacities bilaterally. CT angiogram ruled out pulmonary embolus. There is borderline cardiomegaly and pulmonary arterial hypertension. There is central and peripheral interstitial thickening with diffuse groundglass and s mall pleural effusions. Correlate for CHF with developing pulmonary edema. Numerous borderline and mildly enlarged hilar lymph nodes. May be reactive. 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 White count 23.9. Hemoglobin 13.6. Sodium 142. Potassium 3.9. Bicarb 18. BUN 17. Creatinine 0.79. Glucose 159. Troponin 0.057, 0.894, 1.54. proBNP 4210. Viral screen negative. EKG revealed sinus tachycardia with nonspecific ST and T wave abnormalities. Arterial blood gases revealed a pH O2 of 365, pCO2 of 38 and a pH of 7.37 on 100% FiO2. 10/19/2023, Patient is seen and evaluated sitting up in bedside chair with multiple family members present in the room; he is now on 4 L nasal cannula, initially he was on 100% and BiPAP, patient responded well to diuretics, continues to improve with diuresis -- chest x-ray has shown significant improvement today - patient was evaluated by cardiology considering TAVR on this patient; Repeat blood work reveals sodium 138, potassium 3.5, BUN 29 creatinine 0.78. TSH 1.13. Patient has been seen by cardiothoracic surgery regarding aortic valve replacement and consider TAVR with MitraClip down the line. TAVR versus SAVR was discussed as well. Patient is undergoing preoperative testing. Discussed ELIECER with the patient to be performed on Friday if his heart failure symptoms are stable. Otherwise this could be delayed for another day or 2. Carotid ultrasound revealed mild to moderate up to 69% proximal right ICA stenosis. Repeat chest x-ray reveals COPD with superimposed CHF. Interstitial pulmonary e janet shows slight improvement. . 10/20/2023 Patient is awake alert, denies dyspnea at rest, no basilar crepitation or leg edema Patient still complains from exertional dyspnea and exertional hypoxia Currently on 2 L oxygen at rest, he was not on oxygen at home He looks pleasant and comfortable and denies chest pain or any other new complaints Patient is going for ELIECER today , pt is low risk for this ELIECER AND There is no contraindication Patient also evaluated by cardiothoracic surgery team for possible valve replacement He remains on antibiotic, he received Zosyn from 10/16 which is currently d iscontinued. Patient today receiving third day of Levaquin Pro- Calcitonin was mildly elevated 0.12. Follow-up level tomorrow Review of systems CONSTITUTIONAL: No fever, no malaise, no fatigue. HEENT: No recent visual problems or hearing problems. Denied any sore throat HEMATOLOGICAL: Denies any bleeding or petechiae. GENITOURINARY: Denies any burning micturition, frequency, or urgency. MUSCULOSKELETAL/RHEUMATOLOGICAL: Denies any joint pain, swelling, or any muscle pain. ENDOCRINE: Denies any polyuria or polydipsia. Active Medications Generic Name Dose Route Start Last Admin Trade Name Freq PRN Reason Stop Dose Admin Albuterol/Ipratropium 3 ml 10/17/23 08:00 10/20/23 09:13 Ipratropium-Albuterol 3 Ml Neb INHALATION 3 ml RT-QID CHASITY Administration Alprazolam 0.25 mg 10/17/23 15:30 Alprazolam 0.25 Mg Tab PO Q6HR PRN Mild Anxiety Alprazolam 0.5 mg 10/17/23 15:30 Alprazolam 0.5 Mg Tab PO Q6HR PRN Moderate Anxiety Atorvastatin Calcium 40 mg 10/18/23 09:00 10/20/23 09:02 Atorvastatin 40 Mg Tab PO 40 mg DAILY CHASITY Administration Budesonide/Formoterol Fumarate 2 puff 10/17/23 20:00 10/20/23 09:13 Symbicort 160-4.5 Mcg Inhaler INHALATION 2 puff RT-BID CHASITY Administration Dextrose/Water 25 ml 10/17/23 10:54 Dextrose 50% Syringe 50 Ml IVP PER PROTOCOL PRN Hypoglycemia Protocol Dextrose/Water 50 ml 10/17/23 10:54 Dextrose 50% Syringe 50 Ml IVP PER PROTOCOL PRN Hypoglycemia Protocol Furosemide 40 mg 10/18/23 12:00 10/20/23 09:02 Furosemide 10 Mg/Ml 4 Ml Vial IV 40 mg Q12HR CHASITY Administration Heparin Sodium (Porcine) 0 unit 10/17/23 15:32 Heparin Sodium 1,000 Un/Ml (10ml Vl) IV PER PROTOCOL PRN Low PTT Protocol Sodium Chloride 1,000 mls @ 10 mls/hr 10/17/23 06:45 10/20/23 06:33 Saline 0.9% IV 10 mls/hr .Q24H CHASITY Administration Insulin Aspart 0 unit 10/17/23 12:30 10/20/23 06:32 Insulin Aspart (Novolog) 100 Unit/Ml Vial SQ 2 unit ACHS CHASITY Administration Protocol Levofloxacin 750 mg 10/20/23 09:00 10/20/23 09:01 Levofloxacin 750 Mg Tab PO 750 mg DAILY CHASITY Administration Losartan Potassium 12.5 mg 10/18/23 12:00 10/20/23 09:00 Losartan 25 Mg Tab PO 12.5 mg DAILY CHASITY Administration Methylprednisolone Sodium Succinate 60 mg 10/17/23 08:30 10/20/23 06:32 Methylprednisolone Sod Succi 125 Mg/2 Ml Vial IV 60 mg Q6HR CHASITY Administration Metoprolol Tartrate 12.5 mg 10/17/23 21:00 10/20/23 09:00 Metoprolol Tartrate 12.5 Mg Tab PO 12.5 mg BID CHASITY Administration Miscellaneous Information 1 each 10/20/23 07:39 Potassium Replacement Protocol 1 Each Misc MISCELLANE DAILY PRN Per Protocol Protocol Morphine Sulfate 4 mg 10/17/23 06:38 Morphine Sulfate 4 Mg/Ml Syringe IV Q4HR PRN Severe Pain (Scale 7 to 10) Naloxone HCl 0.2 mg 10/17/23 06:38 Naloxone 0.4 Mg/Ml 1 Ml Vial IV Q2M PRN Opioid Reversal Nitroglycerin 0.4 mg 10/17/23 15:30 Nitroglycerin Sl Tabs 0.4 Mg Tab SUBLINGUAL Q5M PRN Chest Pain Pantoprazole Sodium 40 mg 10/17/23 09:00 10/20/23 09:02 Pantoprazole 40 Mg/10 Ml Vial IV 40 mg DAILY CHASITY Administration Spironolactone 12.5 mg 10/19/23 09:45 10/20/23 09:01 Spironolactone 25 Mg Tab PO 12.5 mg DAILY CHASITY Administration Objective - Vital Signs Vital signs: Vital Signs Temp 97.4 F L 10/20/23 08:55 Pulse 108 H 10/20/23 09:26 Resp 22 10/20/23 08:55 BP 145/55 10/20/23 08:55 Pulse Ox 91 L 10/20/23 08:55 FiO2 50 10/17/23 18:30 Intake & Output 10/19/23 10/20/23 10/20/23 18:59 06:59 18:59 Intake Total 476 360 Output Total 1475 1525 Balance -999 -1525 360 Weight 68.9 kg Intake: Oral 476 360 Output: Urine 1475 1525 Other: Voiding Method Urinal - Exam GENERAL: The patient is alert and oriented x3, not in any acute distress. Well developed, well nourished. HEENT: Pupils are round and equally reacting to light. EOMI. No scleral icterus. No conjunctival pallor. Normocephalic, atraumatic. No pharyngeal erythema. No thyromegaly. CARDIOVASCULAR: S1 and S2 present. No murmurs, rubs, or gallops. PULMONARY: Chest is clear to auscultation, no wheezing , no crackles. ABDOMEN: Soft, nontender, nondistended, normoactive bowel sounds. No palpable organomegaly. MUSCULOSKELETAL: No joint swelling or deformity. EXTREMITIES: No cyanosis, clubbing, or pedal edema. NEUROLOGICAL: Gross neurological examination did not reveal any focal deficits. SKIN: No rashes. no petechiae. - Labs CBC & Chem 7: 10/18/23 08:02 10/20/23 06:28 Labs: Abnormal Lab Results - Last 24 Hours (Table) 10/19/23 10/19/23 10/19/23 Range/Units 09:43 11:28 16:16 Sodium (137-145) mmol/L Potassium (3.5-5.1) mmol/L BUN (9-20) mg/dL Glucose (74-99) mg/dL POC Glucose (mg/dL) 157 H 137 H (70-110) mg/dL Hemoglobin A1c 6.3 H (<=6.0) % Calcium (8.4-10.2) mg/dL 10/19/23 10/20/23 10/20/23 Range/Units 20:30 06:08 06:28 Sodium 136 L (137-145) mmol/L Potassium 3.3 L (3.5-5.1) mmol/L BUN 29 H (9-20) mg/dL Glucose 133 H (74-99) mg/dL POC Glucose (mg/dL) 193 H 159 H (70-110) mg/dL Hemoglobin A1c (<=6.0) % Calcium 8.1 L (8.4-10.2) mg/dL Microbiology - Last 24 Hours (Table) 10/17/23 05:15 Blood Culture - Preliminary Blood 10/17/23 05:00 Blood Culture - Preliminary Blood Assessment and Plan Assessment: 1. Acute hypoxic respiratory failure; multifactorial Pulmonary edema-/underlying pneumonia versus COPD exacerbation 2. Possible pneumonia; patient has been placed on Levaquin --Chest x-ray completed in ED reveals severe interstitial bilateral opacities -- CTA chest is negative for PE but revealed central and peripheral interstitial thickening and diffuse groundglass and small pleural effusion 3. Pulmonary edema; cardiology on board; cardiogram is ordered; Lasix 40 mg IV -- Monitor strict CLARA's, daily weights, low-salt and fluid restricted diet 4. Elevated troponin; likely demand ischemia related to acute hypoxia; patient has been placed on IV heparin per protocol -- Monitor EKG and trend troponin; 2D echo is ordered and pending 5. COPD; in exacerbation; continue with the home inhaler therapy -Patient has been placed on Solu-Medrol 60 mg IV every 6 hours; DuoNeb nebulizer treatments 4 times daily and as needed 6. Hypertension; metoprolol 12.5 mg twice daily 7. Hyperlipidemia; Lipitor 40 mg daily 8. Severe valvular heart disease severe aortic stenosis aortic regurgitation and moderate to severe mitral regurgitation -- Cardiothoracic surgery team on the case for possible valve replacement surgery -- ELIECER on 10/19 by outreach representative DVT prophylaxis; IV heparin CODE STATUS; full code
--- NOTE | 2023-10-20 11:09 | P.PN ---
Subjective HISTORY OF PRESENT ILLNESS: This is a pleasant 73-year-old with past medical history significant for hypertension, hyperlipidemia, aortic stenosis, brain aneurysm, COPD. He follows in the office with Dr Frederick. He has been monitored for his aortic stenosis. He had heart catheterization in 2020 which showed only mild circumflex disease. He was recently seen in pulmonology office and had been prescribed antibiotics and "given a shot "likely steroids in the office approximately a week ago for increasing shortness breath. He had been feeling fairly good the day before presentation and had actually played some golf. He then became significantly short of breath however woke up gasping for air and initial oxygen saturation was 56% on room air. She was placed on BiPAP with improvement in oxygen saturation. White blood cell count 23.9, hemoglobin 13.6, creatinine 0.79, lactic acid 7.0, troponin 0.05, 0.89, 1.5. ProBNP 4210. Viral panel negative. Chest x-ray showed severe interstitial opacities throughout consistent with flash pulmonary edema versus bilateral pneumonia. CTA showed no PE, cardiomegaly and interstitial thickening with groundglass changes and small pleural effusions, correlate with CHF as well as numerous borderline enlarged hilar lymph node nodes. Echocardiogram shows left ventricular ejection fraction 25-30%, moderate to severe mitral regurgitation, severe aortic stenosis as well as severe aortic regurgitation 10/17 Yesterday, patient underwent cardiac catheterization which revealed relatively normal coronary arteries 20 to 30% mid circumflex stenosis. Normal left-sided filling pressures. Severe aortic stenosis with mean gradient of 47 mmHg. Severe aortic regurgitation. 23+ mitral regurgitation. Patient states his breathing is okay and he is more comfortable appearing today. He denies having any chest pain or chest pressure. Blood pressure 121/54, heart rate 103, pulse ox 96% on 6 L nasal cannula. 10/18 Patient states that he had a little episode of chest pain this morning but none now. He has been on Lasix 40 mg IV every 12 hours. Patient had a negative fluid balance yesterday. Weights do not appear to be accurate. Blood pressure 110/52, heart rate 104, pulse ox 94% on 4 L nasal cannula. Repeat blood work reveals sodium 138, potassium 3.5, BUN 29 creatinine 0.78. TSH 1.13. Patient has been seen by cardiothoracic surgery regarding aortic valve replacement and consider TAVR with MitraClip down the line. TAVR versus SAVR was discussed as well. Patient is undergoing preoperative testing. Discussed ELIECER with the patient to be performed on Friday if his heart failure symptoms are stable. Otherwise this could be delayed for another day or 2. Carotid ultrasound revealed mild to moderate up to 69% proximal right ICA stenosis. Repeat chest x-ray reveals COPD with superimposed CHF. Interstitial pulmonary edema shows slight improvement. Small effusions remain. 10/20/2023 Patient examined this morning at bedside. Patient currently denies chest pain or pressure. He denies shortness of breath at rest but does report dyspnea with exertion. Vital signs are stable. PHYSICAL EXAM: VITAL SIGNS: Reviewed. GENERAL: Well-developed in no acute distress. NECK: Supple. No JVD or thyromegaly LUNGS: Respirations even and unlabored. Lungs essentially clear to auscultation bilaterally. HEART: Regular rate and rhythm. S1 and S2 heard. EXTREMITIES: Normal range of motion. No clubbing or cyanosis. Peripheral pulses intact. No lower extremity edema ASSESSMENT: Acute on chronic respiratory failure, likely significant amount related to heart failure Acute on chronic systolic heart failure New-onset cardiomyopathy Severe aortic stenosis, severe aortic regurgitation Moderate to severe mitral regurgitation Non-STEMI status post [facility] on 10/16 with relatively normal coronary arteries COPD Previous minimal CAD by heart catheterization 2020 Hypertension Sinus tachycardia, likely reactive to severe respiratory distress PLAN: Continue current cardiac medications Patient to undergo ELIECER today with Dr. Lane to further evaluate cardiac valves Further recommendations pending patient course Nurse practitioner note has been reviewed by physician. Signing provider agrees with the documented findings, assessment, and plan of care documented by [employer]ICE TECHNICIAN as a scribe. Objective - Vital Signs Vital signs: Vital Signs Temp 97.4 F L 10/20/23 08:55 Pulse 108 H 10/20/23 09:26 Resp 22 10/20/23 08:55 BP 145/55 10/20/23 08:55 Pulse Ox 91 L 10/20/23 08:55 FiO2 50 10/17/23 18:30 Intake & Output 10/19/23 10/20/23 10/20/23 18:59 06:59 18:59 Intake Total 476 360 Output Total 1475 1525 Balance -999 -1525 360 Weight 68.9 kg Intake: Oral 476 360 Output: Urine 1475 1525 Other: Voiding Method Urinal - Labs CBC & Chem 7: 10/18/23 08:02 10/20/23 06:28 Labs: Abnormal Lab Results - Last 24 Hours (Table) 10/19/23 10/19/23 10/19/23 Range/Units 09:43 11:28 16:16 Sodium (137-145) mmol/L Potassium (3.5-5.1) mmol/L BUN (9-20) mg/dL Glucose (74-99) mg/dL POC Glucose (mg/dL) 157 H 137 H (70-110) mg/dL Hemoglobin A1c 6.3 H (<=6.0) % Calcium (8.4-10.2) mg/dL 10/19/23 10/20/23 10/20/23 Range/Units 20:30 06:08 06:28 Sodium 136 L (137-145) mmol/L Potassium 3.3 L (3.5-5.1) mmol/L BUN 29 H (9-20) mg/dL Glucose 133 H (74-99) mg/dL POC Glucose (mg/dL) 193 H 159 H (70-110) mg/dL Hemoglobin A1c (<=6.0) % Calcium 8.1 L (8.4-10.2) mg/dL Microbiology - Last 24 Hours (Table) 10/17/23 05:15 Blood Culture - Preliminary Blood 10/17/23 05:00 Blood Culture - Preliminary Blood
[2023-10-20 12:16] LABS: Glucose,Whole Blood 118 mg/dL (70-110)
[2023-10-20] MEDS: BENZOCAINE SPRAY 1 CAN TOPICAL ONE (12:30)
[2023-10-20] MEDS: MIDAZOLAM 2 MG/2 ML VIAL IVP ONE ×3 (12:36→12:41)
[2023-10-20] MEDS: fentaNYL (PF) 50 MCG/ML 2 ML AMP IVP ONE ×3 (12:36)
[2023-10-20] MEDS: SODIUM CHLORIDE 0.9% 250 ML IV ONE (12:41)
--- NOTE | 2023-10-20 13:09 | P.PN ---
Subjective Progress Note Date: 10/20/23 Principal diagnosis: Shortness of breath. This is a very pleasant 73-year-old male patient who has a history of hypertension, hyperlipidemia, obstructive pulmonary disease, former smoker, brain aneurysms, moderate aortic stenosis. He was recently seen in our office earlier this week with some symptoms of shortness of breath he was treated with steroids and was doing well the following day, well enough to golf. Last night however he developed significant shortness of breath and presented here to the emergency room around 3:00 this morning. His initial saturation was at 56% on room air. He was immediately placed on BiPAP 14/6 and 100% FiO2. Chest x-ray shows severe interstitial opacities bilaterally. CT angiogram ruled out pulmonary embolus. There is borderline cardiomegaly and pulmonary arterial hypertension. There is central and peripheral interstitial thickening with diffuse groundglass and small pleural effusions. Correlate for CHF with developing pulmonary edema. Numerous borderline and mildly enlarged hilar lymph nodes. May be reactive. 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 White count 23.9. Hemoglobin 13.6. Sodium 142. Potassium 3.9. Bicarb 18. BUN 17. Creatinine 0.79. Glucose 159. Troponin 0.057, 0.894, 1.54. proBNP 4210. Viral screen negative. EKG revealed sinus tachycardia with nonspecific ST and T wave abnormalities. Arterial blood gases revealed a pH O2 of 365, pCO2 of 38 and a pH of 7.37 on 100% FiO2. This will be titrated down. He is currently awake and alert. Afebrile. Hemodynamically stable. Patient was reevaluated today on 10/18/2023, patient made a significant improvement over the last 24 hours. Patient responded well to diuretics, clinically the patient is feeling much better and he is down now to 6 L nasal cannula with O2 saturation in the mid 90s. Hardly any pulmonary symptoms patien t clearly stated to me that he is much better today compared to yesterday. Chest x-ray showed significant improvement in his pulmonary edema echocardiogram showed severe LV dysfunction with ejection fraction of 25 to 30%, patient underwent cardiac catheterization yesterday, found to have relatively normal coronary arteries, however he was found to have severe aortic stenosis with mean gradient of 47 and severe aortic regurgitation. Cardiology is considering evaluation for aortic valve replacement and I think that would be very appropriate. WBC count today is 11.2 hemoglobin 11.5 basic metabolic profile is normal and renal profile is normal chest x-ray today showed dramatic improvement but nonetheless continues to have some evidence of pulmonary edema. Patient was reevaluated today on 10/19/2023, he is now on 4 L nasal cannula, initially he was on 100% and BiPAP, patient responded well to diuretics, continues to improve with diuresis, his chest x-ray has shown significant improvement today, and on physical examination he sounds much clearer today compared to the last couple of days. Clinically better patient was evaluated by cardiology considering TAVR on this patient. Progress note dated October 20, 2023. The patient is seen today in room 377. He is sitting at the side of the bed. He has been weaned down to 2 L of oxygen. The patient is currently being evaluated for transcatheter aortic valve replacement for his aortic stenosis. He continues on Levaquin. He was also found to have a non-ST segment elevation myocardial infarction. Current laboratory data includes a sodium 136, potassium 3.3, chlorides 103, CO2 28, BUN 29, creatinine 0.66. Glucose 118. Calcium 8.1. Objective - Vital Signs Vital signs: Vital Signs Temp 97.4 F L 10/20/23 08:55 Pulse 67 10/20/23 12:50 Resp 17 10/20/23 12:50 BP 99/59 10/20/23 12:50 Pulse Ox 96 10/20/23 12:50 FiO2 50 10/17/23 18:30 Intake & Output 10/19/23 10/20/23 10/20/23 18:59 06:59 18:59 Intake Total 476 610 Output Total 1475 1525 Balance -999 -1525 610 Weight 68.9 kg Intake: IV 250 Oral 476 360 Output: Urine 1475 1525 Other: Voiding Method Urinal - Exam No acute distress, oriented 3. Currently on 2 L of oxygen. No respiratory distress. HEENT examination is grossly unremarkable. Mucous membranes are moist. No oral lesions. Neck supple. Full range of motion. No adenopathy thyromegaly or neck vein distention. Cardiovascular examination reveals regular rhythm rate. S1-S2 normal. No S3 or S4. Soft systolic murmur is noted. Heart rate 67 bpm. Lungs reveal bibasilar crackles. No rhonchi or wheezes. Breath sounds equal. Saturations are 96%. Abdomen soft bowel sounds are heard. No masses or tenderness. Extremities are intact. No cyanosis clubbing or edema. Skin is without rash or lesion. Neurologic examination is brief but nonfocal. - Labs CBC & Chem 7: 10/18/23 08:02 10/20/23 06:28 Labs: Abnormal Lab Results - Last 24 Hours (Table) 10/19/23 10/19/23 10/20/23 Range/Units 16:16 20:30 06:08 Sodium (137-145) mmol/L Potassium (3.5-5.1) mmol/L BUN (9-20) mg/dL Glucose (74-99) mg/dL POC Glucose (mg/dL) 137 H 193 H 159 H (70-110) mg/dL Calcium (8.4-10.2) mg/dL 10/20/23 10/20/23 Range/Units 06:28 12:11 Sodium 136 L (137-145) mmol/L Potassium 3.3 L (3.5-5.1) mmol/L BUN 29 H (9-20) mg/dL Glucose 133 H (74-99) mg/dL POC Glucose (mg/dL) 118 H (70-110) mg/dL Calcium 8.1 L (8.4-10.2) mg/dL Microbiology - Last 24 Hours (Table) 10/17/23 05:15 Blood Culture - Preliminary Blood 10/17/23 05:00 Blood Culture - Preliminary Blood Assessment and Plan Assessment: Acute hypoxemic respiratory failure secondary to flash pulmonary edema, likely secondary to the patient's known severe aortic stenosis. Severe LV dysfunction. Rule out non-ST segment elevation myocardial infarction. History of moderate to advanced COPD. Previous history of tobacco use. History of hypertension. History of hyperlipidemia. Plan: Plan dated October 20, 2023. The patient is currently being evaluated by cardiology, cardiothoracic surgery, for a transcatheter aortic valve replacement. The patient's chest x-ray is much improved. We will continue to follow, and continue with bronchodilators, antibiotics, and diuretics. Labs, x-rays, medications are reviewed. The patient's overall prognosis remains guarded. We will continue to follow make recommendations where appropriate. Time with Patient: Less than 30
[2023-10-20] MEDS: fentaNYL (PF) 50 MCG/ML 2 ML AMP ONE (13:13)
--- NOTE | 2023-10-20 15:01 | P.PCN ---
Description of Procedure: Procedure performed: Transesophageal Echocardiogram with color flow doppler, pulsed wave doppler and continuous wave doppler, moderate conscious sedation Moderate conscious sedation: Moderate conscious sedation was supplied with direct supervision of myself using Versed and Fentanyl. Complications: none Indications: Aortic stenosis PROCEDURE: After the risks, benefits and alternatives of the above mentioned procedure was explained in detail with the patient, informed consent was obtained. Patient was brought to the lab in a fasting state. Patient was given IV Versed and Fentanyl for sedation. The throat was sprayed with Hurricane to anesthetize the throat. A lubricated Omni probe was then introduced into the esophagus and stomach and multiple views were obtained. 2D echo with color flow doppler, pulsed wave doppler and continuous wave doppler was utilized. Agitated saline bubbles were injected to assess for any intra-atrial shunt. The probe was then removed. Patient tolerated the procedure well. Patient was transferred to the post procedure area in stable and satisfactory condition. FINDINGS: 1. The aortic valve is tricuspid With severe aortic stenosis with aortic valve area 0.8 cm by planimetry. There is severe aortic regurgitation with diastolic flow reversal noted in the descending aorta. There appears to be partial flail of the right coronary cusp. There is an echo density 0.5 cm which is more calcified which is mobile, felt to be more likely calcification from the right coronary cusp leaflet however rule out healed vegetation or other. 2. The mitral valve appears be normal With moderate to severe mitral regurgitation. There is systolic blunting however no significant systolic flow reversal of the pulmonary veins. Secondary mitral regurgitation appears related to annular dilation. 3. Tricuspid valve appears to be normal with mild to moderate tricuspid regurgitation 4. The interatrial septum is intact. No evidence of PFO. 5. Left atrial appendage is free of clot. 6. Left ventricular Ejection fraction 30-35% with global hypokinesis
[2023-10-20 16:39] LABS: Glucose,Whole Blood 242 mg/dL (70-110)
[2023-10-20 20:12] LABS: Glucose,Whole Blood 193 mg/dL (70-110)
[2023-10-21 02:20] LABS: ALT 26 U/L (4-49); AST 24 U/L (17-59); African American GFR (CKD) >90 (>60 ml/min/1.73 sqM); Alkaline Phosphatase 60 U/L (38-126); Anion Gap 8 mmol/L; Blood Urea Nitrogen 32 mg/dL (9-20); Calcium 7.7 mg/dL (8.4-10.2); Carbon Dioxide 25 mmol/L (22-30); Chloride 103 mmol/L (98-107); Glucose 150 mg/dL (74-99); Magnesium 1.6 mg/dL (1.6-2.3); Non-African American GFR(CKD) >90 (>60 ml/min/1.73 sqM); Potassium 3.3 mmol/L (3.5-5.1); Sodium 136 mmol/L (137-145); Total Bilirubin 0.4 mg/dL (0.2-1.3); Total Protein 5.5 g/dL (6.3-8.2)
[2023-10-21] MEDS: POTASSIUM CHLORIDE ER 20 MEQ TAB.ER PO SCH (03:31)
[2023-10-21 06:20] LABS: Glucose,Whole Blood 141 mg/dL (70-110)
[2023-10-21] MEDS: PANTOPRAZOLE 40 MG TABLET PO SCH (06:32)
[2023-10-21 12:15] LABS: Glucose,Whole Blood 129 mg/dL (70-110)
[2023-10-21 12:36] LABS: African American GFR (CKD) >90 (>60 ml/min/1.73 sqM); Anion Gap 6 mmol/L; Blood Urea Nitrogen 31 mg/dL (9-20); Calcium 7.9 mg/dL (8.4-10.2); Carbon Dioxide 29 mmol/L (22-30); Chloride 101 mmol/L (98-107); Glucose 127 mg/dL (74-99); Non-African American GFR(CKD) >90 (>60 ml/min/1.73 sqM); Potassium 3.6 mmol/L (3.5-5.1); Sodium 136 mmol/L (137-145)
--- NOTE | 2023-10-21 13:37 | P.PN ---
Subjective Progress Note Date: 10/21/23 Principal diagnosis: Shortness of breath. This is a very pleasant 73-year-old male patient who has a history of hypertension, hyperlipidemia, obstructive pulmonary disease, former smoker, brain aneurysms, moderate aortic stenosis. He was recently seen in our office earlier this week with some symptoms of shortness of breath he was treated with steroids and was doing well the following day, well enough to golf. Last night however he developed significant shortness of breath and presented here to the emergency room around 3:00 this morning. His initial saturation was at 56% on room air. He was immediately placed on BiPAP 14/6 and 100% FiO2. Chest x-ray shows severe interstitial opacities bilaterally. CT angiogram ruled out pulmonary embolus. There is borderline cardiomegaly and pulmonary arterial hypertension. There is central and peripheral interstitial thickening with diffuse groundglass and small pleural effusions. Correlate for CHF with developing pulmonary edema. Numerous borderline and mildly enlarged hilar lymph nodes. May be reactive. 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 White count 23.9. Hemoglobin 13.6. Sodium 142. Potassium 3.9. Bicarb 18. BUN 17. Creatinine 0.79. Glucose 159. Troponin 0.057, 0.894, 1.54. proBNP 4210. Viral screen negative. EKG revealed sinus tachycardia with nonspecific ST and T wave abnormalities. Arterial blood gases revealed a pH O2 of 365, pCO2 of 38 and a pH of 7.37 on 100% FiO2. This will be titrated down. He is currently awake and alert. Afebrile. Hemodynamically stable. Patient was reevaluated today on 10/18/2023, patient made a significant improvement over the last 24 hours. Patient responded well to diuretics, clinically the patient is feeling much better and he is down now to 6 L nasal cannula with O2 saturation in the mid 90s. Hardly any pulmonary symptoms patien t clearly stated to me that he is much better today compared to yesterday. Chest x-ray showed significant improvement in his pulmonary edema echocardiogram showed severe LV dysfunction with ejection fraction of 25 to 30%, patient underwent cardiac catheterization yesterday, found to have relatively normal coronary arteries, however he was found to have severe aortic stenosis with mean gradient of 47 and severe aortic regurgitation. Cardiology is considering evaluation for aortic valve replacement and I think that would be very appropriate. WBC count today is 11.2 hemoglobin 11.5 basic metabolic profile is normal and renal profile is normal chest x-ray today showed dramatic improvement but nonetheless continues to have some evidence of pulmonary edema. Patient was reevaluated today on 10/19/2023, he is now on 4 L nasal cannula, initially he was on 100% and BiPAP, patient responded well to diuretics, continues to improve with diuresis, his chest x-ray has shown significant improvement today, and on physical examination he sounds much clearer today compared to the last couple of days. Clinically better patient was evaluated by cardiology considering TAVR on this patient. Progress note dated October 20, 2023. The patient is seen today in room 377. He is sitting at the side of the bed. He has been weaned down to 2 L of oxygen. The patient is currently being evaluated for transcatheter aortic valve replacement for his aortic stenosis. He continues on Levaquin. He was also found to have a non-ST segment elevation myocardial infarction. Current laboratory data includes a sodium 136, potassium 3.3, chlorides 103, CO2 28, BUN 29, creatinine 0.66. Glucose 118. Calcium 8.1. Progress note dated October 21, 2023. The patient was seen today in room 377. He is sitting at the bedside. He is getting oxygen by nasal cannula at 2 L. No IV fluids. The patient is currently being evaluated by cardiology, and cardiothoracic surgery, for a possible transcatheter aortic valve replacement for his aortic stenosis. The patient's valve surface area by echocardiogram is 0.8 cm. Current labs include a sodium 136, potassium 3.6, chlorides 101, CO2 29, BUN 31, and creatinine 0.73. Glucose is 129. Calcium is 7.9. Procalcitonin level is 0.07. Blood cultures are currently negative or pending. No recent chest x-ray to report. Objective - Vital Signs Vital signs: Vital Signs Temp 97.5 F L 10/21/23 08:20 Pulse 79 10/21/23 12:00 Resp 18 10/21/23 12:00 BP 106/52 10/21/23 12:00 Pulse Ox 96 10/21/23 12:00 FiO2 50 10/17/23 18:30 Intake & Output 10/20/23 10/21/23 10/21/23 18:59 06:59 18:59 Intake Total 970 1278 Output Total 850 Balance 970 428 Weight 68.5 kg Intake: IV 250 Oral 720 1278 Output: Urine 850 Other: Voiding Method Urinal Urinal - Exam No acute distress, oriented 3. Currently on 2 L of oxygen. No respiratory distress. HEENT examination is grossly unremarkable. Mucous membranes are moist. No oral lesions. Neck supple. Full range of motion. No adenopathy thyromegaly or neck vein distention. Cardiovascular examination reveals regular rhythm rate. S1-S2 normal. No S3 or S4. Soft systolic murmur is noted. Heart rate 79 bpm. Lungs reveal bibasilar crackles. No rhonchi or wheezes. Breath sounds equal. Saturations are 96%. Abdomen soft bowel sounds are heard. No masses or tenderness. Extremities are intact. No cyanosis clubbing or edema. Skin is without rash or lesion. Neurologic examination is brief but nonfocal. - Labs CBC & Chem 7: 10/18/23 08:02 10/21/23 11:14 Labs: Abnormal Lab Results - Last 24 Hours (Table) 10/20/23 10/20/23 10/21/23 Range/Units 16:35 19:57 01:57 Sodium 136 L (137-145) mmol/L Potassium 3.3 L (3.5-5.1) mmol/L BUN 32 H (9-20) mg/dL Glucose 150 H (74-99) mg/dL POC Glucose (mg/dL) 242 H 193 H (70-110) mg/dL Calcium 7.7 L (8.4-10.2) mg/dL Total Protein 5.5 L (6.3-8.2) g/dL Albumin 3.0 L (3.5-5.0) g/dL 10/21/23 10/21/23 10/21/23 Range/Units 06:03 11:14 12:08 Sodium 136 L (137-145) mmol/L Potassium (3.5-5.1) mmol/L BUN 31 H (9-20) mg/dL Glucose 127 H (74-99) mg/dL POC Glucose (mg/dL) 141 H 129 H (70-110) mg/dL Calcium 7.9 L (8.4-10.2) mg/dL Total Protein (6.3-8.2) g/dL Albumin (3.5-5.0) g/dL Microbiology - Last 24 Hours (Table) 10/17/23 05:15 Blood Culture - Preliminary Blood 10/17/23 05:00 Blood Culture - Preliminary Blood Assessment and Plan Assessment: Acute hypoxemic respiratory failure secondary to flash pulmonary edema, likely secondary to the patient's known severe aortic stenosis. Severe LV dysfunction. Rule out non-ST segment elevation myocardial infarction. History of moderate to advanced COPD. Previous history of tobacco use. History of hypertension. History of hyperlipidemia. Plan: Plan dated October 20, 2023. The patient is currently being evaluated by cardiology, cardiothoracic surgery, for a transcatheter aortic valve replacement. The patient's chest x-ray is much improved. We will continue to follow, and continue with bronchodilators, antibiotics, and diuretics. Labs, x-rays, medications are reviewed. The patien t's overall prognosis remains guarded. We will continue to follow make recommendations where appropriate. Plan dated October 21, 2023. The patient appears to be doing relatively well. The patient is currently being evaluated by cardiology, and cardiothoracic surgery, for possible transcatheter aortic valve replacement. Clinically, the patient appears to be stable. He continues on 2 L of oxygen. Labs, x-rays, and medications are all reviewed. We will continue to follow make recommendations along the way. No decision has been made, according to the patient. Prognosis is guarded. Time with Patient: Less than 30
--- NOTE | 2023-10-21 14:19 | P.PN ---
Subjective HISTORY OF PRESENT ILLNESS: This is a pleasant 73-year-old with past medical history significant for hypertension, hyperlipidemia, aortic stenosis, brain aneurysm, COPD. He follows in the office with Dr Frederick. He has been monitored for his aortic stenosis. He had heart catheterization in 2020 which showed only mild circumflex disease. He was recently seen in pulmonology office and had been prescribed antibiotics and "given a shot "likely steroids in the office approximately a week ago for increasing shortness breath. He had been feeling fairly good the day before presentation and had actually played some golf. He then became significantly short of breath however woke up gasping for air and initial oxygen saturation was 56% on room air. She was placed on BiPAP with improvement in oxygen saturation. White blood cell count 23.9, hemoglobin 13.6, creatinine 0.79, lactic acid 7.0, troponin 0.05, 0.89, 1.5. ProBNP 4210. Viral panel negative. Chest x-ray showed severe interstitial opacities throughout consistent with flash pulmonary edema versus bilateral pneumonia. CTA showed no PE, cardiomegaly and interstitial thickening with groundglass changes and small pleural effusions, correlate with CHF as well as numerous borderline enlarged hilar lymph node nodes. Echocardiogram shows left ventricular ejection fraction 25-30%, moderate to severe mitral regurgitation, severe aortic stenosis as well as severe aortic regurgitation 10/17 Yesterday, patient underwent cardiac catheterization which revealed relatively normal coronary arteries 20 to 30% mid circumflex stenosis. Normal left-sided filling pressures. Severe aortic stenosis with mean gradient of 47 mmHg. Severe aortic regurgitation. 23+ mitral regurgitation. Patient states his breathing is okay and he is more comfortable appearing today. He denies having any chest pain or chest pressure. Blood pressure 121/54, heart rate 103, pulse ox 96% on 6 L nasal cannula. 10/18 Patient states that he had a little episode of chest pain this morning but none now. He has been on Lasix 40 mg IV every 12 hours. Patient had a negative fluid balance yesterday. Weights do not appear to be accurate. Blood pressure 110/52, heart rate 104, pulse ox 94% on 4 L nasal cannula. Repeat blood work reveals sodium 138, potassium 3.5, BUN 29 creatinine 0.78. TSH 1.13. Patient has been seen by cardiothoracic surgery regarding aortic valve replacement and consider TAVR with MitraClip down the line. TAVR versus SAVR was discussed as well. Patient is undergoing preoperative testing. Discussed ELIECER with the patient to be performed on Friday if his heart failure symptoms are stable. Otherwise this could be delayed for another day or 2. Carotid ultrasound revealed mild to moderate up to 69% proximal right ICA stenosis. Repeat chest x-ray reveals COPD with superimposed CHF. Interstitial pulmonary edema shows slight improvement. Small effusions remain. 10/20/2023 Patient examined this morning at bedside. Patient currently denies chest pain or pressure. He denies shortness of breath at rest but does report dyspnea with exertion. Vital signs are stable. 10/21/2023 Patient is s/p ELIECER with Dr. Lane revealing aortic valve is tricuspid With severe aortic stenosis with aortic valve area 0.8 cm by planimetry. There is severe aortic regurgitation with diastolic flow reversal noted in the descending aorta. There appears to be partial flail of the right coronary cusp. There is an echo density 0.5 cm which is more calcified which is mobile, felt to be more likely calcification from the right coronary cusp leaflet however rule out healed vegetation or other. The mitral valve appears be normal With moderate to severe mitral regurgitation. There is systolic blunting however no significant systolic flow reversal of the pulmonary veins. Secondary mitral regurgitation appears related to annular dilation. Tricuspid valve appears to be normal with mild to moderate tricuspid regurgitation. The interatrial septum is intact. No evidence of PFO. Left atrial appendage is free of clot. Left ventricular Ejection fraction 30-35% with global hypokinesis. Patient examined this afternoon at the bedside. Patient denies chest pain or pressure. He denies shortness of breath. Vital signs are stable. PHYSICAL EXAM: VITAL SIGNS: Reviewed. GENERAL: Well-developed in no acute distress. NECK: Supple. No JVD or thyromegaly LUNGS: Respirations even and unlabored. Lungs essentially clear to auscultation bilaterally. HEART: Regular rate and rhythm. S1 and S2 heard. Systolic murmur noted. EXTREMITIES: Normal range of motion. No clubbing or cyanosis. Peripheral pulses intact. No lower extremity edema ASSESSMENT: Acute on chronic respiratory failure, likely significant amount related to heart failure Acute on chronic systolic heart failure New-onset cardiomyopathy, nonischemic Severe aortic stenosis, severe aortic regurgitation Moderate to severe mitral regurgitation Non-STEMI status post C on 10/16 with relatively normal coronary arteries COPD Previous minimal CAD by heart catheterization 2020 Hypertension Sinus tachycardia, likely reactive to severe respiratory distress PLAN: Continue current cardiac medications CT surgery following. Await further recommendations regarding valvular disease. Further recommendations pending patient course Nurse practitioner note has been reviewed by physician. Signing provider agrees with the documented findings, assessment, and plan of care documented by MAINFRAME ANALYST as a scribe. Objective - Vital Signs Vital signs: Vital Signs Temp 97.5 F L 10/21/23 08:20 Pulse 96 10/21/23 09:10 Resp 18 10/21/23 08:20 BP 112/64 10/21/23 08:20 Pulse Ox 95 10/21/23 08:20 FiO2 50 10/17/23 18:30 Intake & Output 10/20/23 10/21/23 10/21/23 18:59 06:59 18:59 Intake Total 970 118 Output Total 850 Balance 970 -732 Weight 68.5 kg Intake: IV 250 Oral 720 118 Output: Urine 850 Other: Voiding Method Urinal Urinal - Labs CBC & Chem 7: 10/18/23 08:02 10/21/23 11:14 Labs: Abnormal Lab Results - Last 24 Hours (Table) 10/20/23 10/20/23 10/20/23 Range/Units 12:11 16:35 19:57 Sodium (137-145) mmol/L Potassium (3.5-5.1) mmol/L BUN (9-20) mg/dL Glucose (74-99) mg/dL POC Glucose (mg/dL) 118 H 242 H 193 H (70-110) mg/dL Calcium (8.4-10.2) mg/dL Total Protein (6.3-8.2) g/dL Albumin (3.5-5.0) g/dL 10/21/23 10/21/23 Range/Units 01:57 06:03 Sodium 136 L (137-145) mmol/L Potassium 3.3 L (3.5-5.1) mmol/L BUN 32 H (9-20) mg/dL Glucose 150 H (74-99) mg/dL POC Glucose (mg/dL) 141 H (70-110) mg/dL Calcium 7.7 L (8.4-10.2) mg/dL Total Protein 5.5 L (6.3-8.2) g/dL Albumin 3.0 L (3.5-5.0) g/dL Microbiology - Last 24 Hours (Table) 10/17/23 05:15 Blood Culture - Preliminary Blood 10/17/23 05:00 Blood Culture - Preliminary Blood
[2023-10-21 16:47] LABS: Glucose,Whole Blood 214 mg/dL (70-110)
[2023-10-21 21:12] LABS: Glucose,Whole Blood 158 mg/dL (70-110)
--- NOTE | 2023-10-21 22:22 | P.PN ---
Subjective 73-year-old male patient who has a history of hypertension, hyperlipidemia, obstructive pulmonary disease, former smoker, brain aneurysms, moderate aortic stenosis. He was recently seen in our office earlier this week with some symptoms of shortness of breath he was treated with steroids and was doing well the following day, well enough to golf. Last night however he developed significant shortness of breath and presented here to the emergency room around 3:00 this morning. His initial saturation was at 56% on room air. He was immediately placed on BiPAP 14/6 and 100% FiO2. Chest x-ray shows severe interstitial opacities bilaterally. CT angiogram ruled out pulmonary embolus. There is borderline cardiomegaly and pulmonary arterial hypertension. There is central and peripheral interstitial thickening with diffuse groundglass and s mall pleural effusions. Correlate for CHF with developing pulmonary edema. Numerous borderline and mildly enlarged hilar lymph nodes. May be reactive. 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 White count 23.9. Hemoglobin 13.6. Sodium 142. Potassium 3.9. Bicarb 18. BUN 17. Creatinine 0.79. Glucose 159. Troponin 0.057, 0.894, 1.54. proBNP 4210. Viral screen negative. EKG revealed sinus tachycardia with nonspecific ST and T wave abnormalities. Arterial blood gases revealed a pH O2 of 365, pCO2 of 38 and a pH of 7.37 on 100% FiO2. 10/19/2023, Patient is seen and evaluated sitting up in bedside chair with multiple family members present in the room; he is now on 4 L nasal cannula, initially he was on 100% and BiPAP, patient responded well to diuretics, continues to improve with diuresis -- chest x-ray has shown significant improvement today - patient was evaluated by cardiology considering TAVR on this patient; Repeat blood work reveals sodium 138, potassium 3.5, BUN 29 creatinine 0.78. TSH 1.13. Patient has been seen by cardiothoracic surgery regarding aortic valve replacement and consider TAVR with MitraClip down the line. TAVR versus SAVR was discussed as well. Patient is undergoing preoperative testing. Discussed ELIECER with the patient to be performed on Friday if his heart failure symptoms are stable. Otherwise this could be delayed for another day or 2. Carotid ultrasound revealed mild to moderate up to 69% proximal right ICA stenosis. Repeat chest x-ray reveals COPD with superimposed CHF. Interstitial pulmonary e janet shows slight improvement. . 10/20/2023 Patient is awake alert, denies dyspnea at rest, no basilar crepitation or leg edema Patient still complains from exertional dyspnea and exertional hypoxia Currently on 2 L oxygen at rest, he was not on oxygen at home He looks pleasant and comfortable and denies chest pain or any other new complaints Patient is going for ELIECER today , pt is low risk for this ELIECER AND There is no contraindication Patient also evaluated by cardiothoracic surgery team for possible valve replacement He remains on antibiotic, he received Zosyn from 10/16 which is currently d iscontinued. Patient today receiving third day of Levaquin Pro- Calcitonin was mildly elevated 0.12. Follow-up level tomorrow 10/21/2023 Patient feels fine, pleasant with no chest pain or dyspnea Patient had ELIECER with Dr. Moreland today showing similar severe valvular heart disease with severe aortic stenosis with orifice area 0.8 cm. With severe aortic regurgitation with mild to severe mitral regurgitation, as such valvular disease affected LV function down to about 30%, range 25-35%. With negative cardiac cath Patient still on cardiac medication and heparin Also patient on IV Solu-Medrol and Levaquin Review of systems CONSTITUTIONAL: No fever, no malaise, no fatigue. HEENT: No recent visual problems or hearing problems. Denied any sore throat HEMATOLOGICAL: Denies any bleeding or petechiae. GENITOURINARY: Denies any burning micturition, frequency, or urgency. MUSCULOSKELETAL/RHEUMATOLOGICAL: Denies any joint pain, swelling, or any muscle pain. ENDOCRINE: Denies any polyuria or polydipsia. Active Medications Generic Name Dose Route Start Last Admin Trade Name Freq PRN Reason Stop Dose Admin Albuterol/Ipratropium 3 ml 10/17/23 08:00 10/20/23 09:13 Ipratropium-Albuterol 3 Ml Neb INHALATION 3 ml RT-QID CHASITY Administration Alprazolam 0.25 mg 10/17/23 15:30 Alprazolam 0.25 Mg Tab PO Q6HR PRN Mild Anxiety Alprazolam 0.5 mg 10/17/23 15:30 Alprazolam 0.5 Mg Tab PO Q6HR PRN Moderate Anxiety Atorvastatin Calcium 40 mg 10/18/23 09:00 10/20/23 09:02 Atorvastatin 40 Mg Tab PO 40 mg DAILY CHASITY Administration Budesonide/Formoterol Fumarate 2 puff 10/17/23 20:00 10/20/23 09:13 Symbicort 160-4.5 Mcg Inhaler INHALATION 2 puff RT-BID CHASITY Administration Dextrose/Water 25 ml 10/17/23 10:54 Dextrose 50% Syringe 50 Ml IVP PER PROTOCOL PRN Hypoglycemia Protocol Dextrose/Water 50 ml 10/17/23 10:54 Dextrose 50% Syringe 50 Ml IVP PER PROTOCOL PRN Hypoglycemia Protocol Furosemide 40 mg 10/18/23 12:00 10/20/23 09:02 Furosemide 10 Mg/Ml 4 Ml Vial IV 40 mg Q12HR CHASITY Administration Heparin Sodium (Porcine) 0 unit 10/17/23 15:32 Heparin Sodium 1,000 Un/Ml (10ml Vl) IV PER PROTOCOL PRN Low PTT Protocol Sodium Chloride 1,000 mls @ 10 mls/hr 10/17/23 06:45 10/20/23 06:33 Saline 0.9% IV 10 mls/hr .Q24H CHASITY Administration Insulin Aspart 0 unit 10/17/23 12:30 10/20/23 06:32 Insulin Aspart (Novolog) 100 Unit/Ml Vial SQ 2 unit ACHS CHASITY Administration Protocol Levofloxacin 750 mg 10/20/23 09:00 10/20/23 09:01 Levofloxacin 750 Mg Tab PO 750 mg DAILY CHASITY Administration Losartan Potassium 12.5 mg 10/18/23 12:00 10/20/23 09:00 Losartan 25 Mg Tab PO 12.5 mg DAILY CHASITY Administration Methylprednisolone Sodium Succinate 60 mg 10/17/23 08:30 10/20/23 06:32 Methylprednisolone Sod Succi 125 Mg/2 Ml Vial IV 60 mg Q6HR CHASITY Administration Metoprolol Tartrate 12.5 mg 10/17/23 21:00 10/20/23 09:00 Metoprolol Tartrate 12.5 Mg Tab PO 12.5 mg BID CHASITY Administration Miscellaneous Information 1 each 10/20/23 07:39 Potassium Replacement Protocol 1 Each Misc MISCELLANE DAILY PRN Per Protocol Protocol Morphine Sulfate 4 mg 10/17/23 06:38 Morphine Sulfate 4 Mg/Ml Syringe IV Q4HR PRN Severe Pain (Scale 7 to 10) Naloxone HCl 0.2 mg 10/17/23 06:38 Naloxone 0.4 Mg/Ml 1 Ml Vial IV Q2M PRN Opioid Reversal Nitroglycerin 0.4 mg 10/17/23 15:30 Nitroglycerin Sl Tabs 0.4 Mg Tab SUBLINGUAL Q5M PRN Chest Pain Pantoprazole Sodium 40 mg 10/17/23 09:00 10/20/23 09:02 Pantoprazole 40 Mg/10 Ml Vial IV 40 mg DAILY CHASITY Administration Spironolactone 12.5 mg 10/19/23 09:45 10/20/23 09:01 Spironolactone 25 Mg Tab PO 12.5 mg DAILY CHASITY Administration Objective - Vital Signs Vital signs: Vital Signs Temp 97.5 F L 10/21/23 08:20 Pulse 79 10/21/23 12:00 Resp 18 10/21/23 12:00 BP 106/52 10/21/23 12:00 Pulse Ox 96 10/21/23 12:00 FiO2 50 10/17/23 18:30 Intake & Output 10/20/23 10/21/23 10/21/23 18:59 06:59 18:59 Intake Total 970 1278 Output Total 850 Balance 970 428 Weight 68.5 kg Intake: IV 250 Oral 720 1278 Output: Urine 850 Other: Voiding Method Urinal Urinal - Exam GENERAL: The patient is alert and oriented x3, not in any acute distress. Well developed, well nourished. HEENT: Pupils are round and equally reacting to light. EOMI. No scleral icterus. No conjunctival pallor. Normocephalic, atraumatic. No pharyngeal erythema. No thyromegaly. CARDIOVASCULAR: S1 and S2 present. No murmurs, rubs, or gallops. PULMONARY: Chest is clear to auscultation, no wheezing , no crackles. ABDOMEN: Soft, nontender, nondistended, normoactive bowel sounds. No palpable organomegaly. MUSCULOSKELETAL: No joint swelling or deformity. EXTREMITIES: No cyanosis, clubbing, or pedal edema. NEUROLOGICAL: Gross neurological examination did not reveal any focal deficits. SKIN: No rashes. no petechiae. - Labs CBC & Chem 7: 10/18/23 08:02 10/21/23 11:14 Labs: Abnormal Lab Results - Last 24 Hours (Table) 10/20/23 10/20/23 10/21/23 Range/Units 16:35 19:57 01:57 Sodium 136 L (137-145) mmol/L Potassium 3.3 L (3.5-5.1) mmol/L BUN 32 H (9-20) mg/dL Glucose 150 H (74-99) mg/dL POC Glucose (mg/dL) 242 H 193 H (70-110) mg/dL Calcium 7.7 L (8.4-10.2) mg/dL Total Protein 5.5 L (6.3-8.2) g/dL Albumin 3.0 L (3.5-5.0) g/dL 10/21/23 10/21/23 10/21/23 Range/Units 06:03 11:14 12:08 Sodium 136 L (137-145) mmol/L Potassium (3.5-5.1) mmol/L BUN 31 H (9-20) mg/dL Glucose 127 H (74-99) mg/dL POC Glucose (mg/dL) 141 H 129 H (70-110) mg/dL Calcium 7.9 L (8.4-10.2) mg/dL Total Protein (6.3-8.2) g/dL Albumin (3.5-5.0) g/dL Microbiology - Last 24 Hours (Table) 10/17/23 05:15 Blood Culture - Preliminary Blood 10/17/23 05:00 Blood Culture - Preliminary Blood Assessment and Plan Assessment: 1. Acute hypoxic respiratory failure; multifactorial Pulmonary edema-/underlying pneumonia versus COPD exacerbation 2. Possible pneumonia; patient has been placed on Levaquin --Chest x-ray completed in ED reveals severe interstitial bilateral opacities -- CTA chest is negative for PE but revealed central and peripheral interstitial thickening and diffuse groundglass and small pleural effusion 3. Pulmonary edema; cardiology on board; cardiogram is ordered; Lasix 40 mg IV -- Monitor strict CLARA's, daily weights, low-salt and fluid restricted diet 4. Elevated troponin; likely demand ischemia related to acute hypoxia; patient has been placed on IV heparin per protocol -- Monitor EKG and trend troponin; 2D echo is ordered and pending 5. COPD; in exacerbation; continue with the home inhaler therapy -Patient has been placed on Solu-Medrol 60 mg IV every 6 hours; DuoNeb nebulizer treatments 4 times daily and as needed 6. Hypertension; metoprolol 12.5 mg twice daily 7. Hyperlipidemia; Lipitor 40 mg daily 8. Severe valvular heart disease severe aortic stenosis aortic regurgitation and moderate to severe mitral regurgitation -- Cardiothoracic surgery team on the case for possible valve replacement s urgery -- ELIECER on 10/19 by patient support representative DVT prophylaxis; IV heparin CODE STATUS; full code
[2023-10-22 05:59] LABS: Glucose,Whole Blood 129 mg/dL (70-110)
--- NOTE | 2023-10-22 10:16 | P.PN ---
Subjective Progress Note Date: 10/22/23 Principal diagnosis: Severe aortic stenosis, severe aortic insufficiency, moderate to severe mitral regurgitation, and mild tricuspid regurgitation, lactic acidosis present on admi ssion, acute hypoxic respiratory failure secondary to flash pulmonary edema on admission. History of hypertension, hyperlipidemia, chronic heart failure with reduced ejection fraction, brain aneurysm, COPD, previous tobacco dependence The patient was seen and examined with Dr. Brown sitting up in bed on the cardiac stepdown unit in no acute distress. Denies any chest pain or shortness of breath, denies any dizziness, states he feels much better than on admission. We did discuss TAVR versus SAVR with the patient, he did indicate he would really prefer TAVR. This was discussed between Dr. Brown and Dr. Frederick as well as between Dr. Brown and Dr. Lane. Will plan on TAVR CTA today. Will plan on seeing patient in TAVR clinic next Friday, with potential for TAVR to be completed next Friday. This was discussed with the patient and he is in agreement. Objective - Vital Signs Vital signs: Vital Signs Temp 97.8 F 10/22/23 08:00 Pulse 100 10/22/23 09:31 Resp 18 10/22/23 09:31 BP 132/61 10/22/23 08:00 Pulse Ox 95 10/22/23 09:22 FiO2 50 10/17/23 18:30 Intake & Output 10/21/23 10/22/23 10/22/23 18:59 06:59 18:59 Intake Total 1638 345 Output Total 850 1350 200 Balance 788 -1350 145 Weight 68.8 kg Intake: Oral 1638 345 Output: Urine 850 1350 200 Other: Voiding Method Urinal Urinal # Voids 2 - Exam CONSTITUTIONAL: Appears comfortable, cooperative, no acute distress RESPIRATORY: Lungs sounds diminished bilaterally. Respirations even, nonlabored. Currently on room air with oxygen saturation 95% CARDIOVASCULAR: S1, S2 present, systolic murmur present. Regular rate and rhythm, sinus rhythm on telemetry. Palpable peripheral pulses bilaterally. No edema present GASTROINTESTINAL: Abdomen soft, nontender, nondistended. Active bowel sounds present 4 quadrants. Tolerating diet GENITOURINARY: Continues to void, 2200 mL output in the last 24 hours INTEGUMENTARY: Skin is warm and dry NEUROLOGIC: Cranial nerves II through XII intact MUSKULOSKELETAL: Able to move all extremities, strength equal bilaterally, gait normal PSYCHIATRIC: Alert and oriented to person place and time, appropriate affect, intact judgment and insight - Allied health notes Allied health notes reviewed: nursing - Labs CBC & Chem 7: 10/18/23 08:02 10/21/23 11:14 Labs: Abnormal Lab Results - Last 24 Hours (Table) 10/21/23 10/21/23 10/21/23 Range/Units 11:14 12:08 16:43 Sodium 136 L (137-145) mmol/L BUN 31 H (9-20) mg/dL Glucose 127 H (74-99) mg/dL POC Glucose (mg/dL) 129 H 214 H (70-110) mg/dL Calcium 7.9 L (8.4-10.2) mg/dL 10/21/23 10/22/23 Range/Units 21:00 05:51 Sodium (137-145) mmol/L BUN (9-20) mg/dL Glucose (74-99) mg/dL POC Glucose (mg/dL) 158 H 129 H (70-110) mg/dL Calcium (8.4-10.2) mg/dL - Imaging and Cardiology Heart catheterization and echocardiogram films were reviewed with Dr. Brown Assessment and Plan Assessment: Severe aortic stenosis, aortic valve area 0.9 cm, peak/mean gradient 55/34 mmHg, and max velocity 3.71 cm/s, mean gradient 47 mmHg on heart catheterization Severe aortic insufficiency, moderate to severe mitral regurgitation, and mild tricuspid regurgitation Lactic acidosis present on admission Acute hypoxic respiratory failure secondary to flash pulmonary edema on admission Shortness of breath, secondary to above Hypertension Hyperlipidemia, Chronic heart failure with reduced ejection fraction, 25-30% Brain aneurysm COPD, preoperative FEV1 34% of predicted Previous tobacco dependence Plan: Patient to have TAVR CTA today May discharge to home from our standpoint to return to the TAVR clinic 10/27/23 for discussion with the entire structural heart team for shared decision making regarding aortic valve replacement Anticipate TAVR next Friday10/29/23 Increase activity as tolerated Medical management of other comorbidities per internal medicine, cardiology, p ulmonology
[2023-10-22 11:12] LABS: Glucose,Whole Blood 248 mg/dL (70-110)
--- NOTE | 2023-10-22 12:05 | P.PN ---
Subjective HISTORY OF PRESENT ILLNESS: This is a pleasant 73-year-old with past medical history significant for hypertension, hyperlipidemia, aortic stenosis, brain aneurysm, COPD. He follows in the office with Dr Frederick. He has been monitored for his aortic stenosis. He had heart catheterization in 2020 which showed only mild circumflex disease. He was recently seen in pulmonology office and had been prescribed antibiotics and "given a shot "likely steroids in the office approximately a week ago for increasing shortness breath. He had been feeling fairly good the day before presentation and had actually played some golf. He then became significantly short of breath however woke up gasping for air and initial oxygen saturation was 56% on room air. She was placed on BiPAP with improvement in oxygen saturation. White blood cell count 23.9, hemoglobin 13.6, creatinine 0.79, lactic acid 7.0, troponin 0.05, 0.89, 1.5. ProBNP 4210. Viral panel negative. Chest x-ray showed severe interstitial opacities throughout consistent with flash pulmonary edema versus bilateral pneumonia. CTA showed no PE, cardiomegaly and interstitial thickening with groundglass changes and small pleural effusions, correlate with CHF as well as numerous borderline enlarged hilar lymph node nodes. Echocardiogram shows left ventricular ejection fraction 25-30%, moderate to severe mitral regurgitation, severe aortic stenosis as well as severe aortic regurgitation 10/17 Yesterday, patient underwent cardiac catheterization which revealed relatively normal coronary arteries 20 to 30% mid circumflex stenosis. Normal left-sided filling pressures. Severe aortic stenosis with mean gradient of 47 mmHg. Severe aortic regurgitation. 23+ mitral regurgitation. Patient states his breathing is okay and he is more comfortable appearing today. He denies having any chest pain or chest pressure. Blood pressure 121/54, heart rate 103, pulse ox 96% on 6 L nasal cannula. 10/18 Patient states that he had a little episode of chest pain this morning but none now. He has been on Lasix 40 mg IV every 12 hours. Patient had a negative fluid balance yesterday. Weights do not appear to be accurate. Blood pressure 110/52, heart rate 104, pulse ox 94% on 4 L nasal cannula. Repeat blood work reveals sodium 138, potassium 3.5, BUN 29 creatinine 0.78. TSH 1.13. Patient has been seen by cardiothoracic surgery regarding aortic valve replacement and consider TAVR with MitraClip down the line. TAVR versus SAVR was discussed as well. Patient is undergoing preoperative testing. Discussed ELIECER with the patient to be performed on Friday if his heart failure symptoms are stable. Otherwise this could be delayed for another day or 2. Carotid ultrasound revealed mild to moderate up to 69% proximal right ICA stenosis. Repeat chest x-ray reveals COPD with superimposed CHF. Interstitial pulmonary edema shows slight improvement. Small effusions remain. 10/20/2023 Patient examined this morning at bedside. Patient currently denies chest pain or pressure. He denies shortness of breath at rest but does report dyspnea with exertion. Vital signs are stable. 10/21/2023 Patient is s/p ELIECER with Dr. Lane revealing aortic valve is tricuspid With severe aortic stenosis with aortic valve area 0.8 cm by planimetry. There is severe aortic regurgitation with diastolic flow reversal noted in the descending aorta. There appears to be partial flail of the right coronary cusp. There is an echo density 0.5 cm which is more calcified which is mobile, felt to be more likely calcification from the right coronary cusp leaflet however rule out healed vegetation or other. The mitral valve appears be normal With moderate to severe mitral regurgitation. There is systolic blunting however no significant systolic flow reversal of the pulmonary veins. Secondary mitral regurgitation appears related to annular dilation. Tricuspid valve appears to be normal with mild to moderate tricuspid regurgitation. The interatrial septum is intact. No evidence of PFO. Left atrial appendage is free of clot. Left ventricular Ejection fraction 30-35% with global hypokinesis. Patient examined this afternoon at the bedside. Patient denies chest pain or pressure. He denies shortness of breath. Vital signs are stable. 10/22/2023 Patient examined this morning at the bedside. Patient currently denies chest pain or pressure. He denies shortness of breath. Vital signs are stable. Patient remains on IV Lasix. He also remains on IV steroids. PHYSICAL EXAM: VITAL SIGNS: Reviewed. GENERAL: Well-developed in no acute distress. NECK: Supple. No JVD or thyromegaly LUNGS: Respirations even and unlabored. Lungs essentially clear to auscultation bilaterally. HEART: Regular rate and rhythm. S1 and S2 heard. Systolic murmur noted. EXTREMITIES: Normal range of motion. No clubbing or cyanosis. Peripheral pulses intact. No lower extremity edema ASSESSMENT: Acute on chronic respiratory failure, likely significant amount related to heart failure Acute on chronic systolic heart failure New-onset cardiomyopathy, nonischemic Severe aortic stenosis, severe aortic regurgitation Moderate to severe mitral regurgitation Non-STEMI status post LHC on 10/16 with relatively normal coronary arteries COPD Previous minimal CAD by heart catheterization 2020 Hypertension Sinus tachycardia, likely reactive to severe respiratory distress PLAN: Continue current cardiac medications Discontinue IV Lasix. Begin oral Lasix 40 mg in the morning and 20 mg in the afternoon CT surgery following. Patient to undergo TAVR CTA today. Patient to follow-up in the TAVR clinic on Friday with potential TAVR to be completed next Friday. Anticipate discharge home tomorrow if patient remains stable Nurse practitioner note has been reviewed by physician. Signing provider agrees with the documented findings, assessment, and plan of care documented by QUILL FIXER as a scribe. Objective - Vital Signs Vital signs: Vital Signs Temp 97.8 F 10/22/23 08:00 Pulse 99 10/22/23 08:00 Resp 18 10/22/23 08:00 BP 132/61 10/22/23 08:00 Pulse Ox 92 L 10/22/23 08:00 FiO2 50 10/17/23 18:30 Intake & Output 10/21/23 10/22/23 10/22/23 18:59 06:59 18:59 Intake Total 1638 345 Output Total 850 1350 Balance 788 -1350 345 Weight 68.8 kg Intake: Oral 1638 345 Output: Urine 850 1350 Other: Voiding Method Urinal Urinal # Voids 2 - Labs CBC & Chem 7: 10/18/23 08:02 10/21/23 11:14 Labs: Abnormal Lab Results - Last 24 Hours (Table) 10/21/23 10/21/23 10/21/23 Range/Units 11:14 12:08 16:43 Sodium 136 L (137-145) mmol/L BUN 31 H (9-20) mg/dL Glucose 127 H (74-99) mg/dL POC Glucose (mg/dL) 129 H 214 H (70-110) mg/dL Calcium 7.9 L (8.4-10.2) mg/dL 10/21/23 10/22/23 Range/Units 21:00 05:51 Sodium (137-145) mmol/L BUN (9-20) mg/dL Glucose (74-99) mg/dL POC Glucose (mg/dL) 158 H 129 H (70-110) mg/dL Calcium (8.4-10.2) mg/dL
--- NOTE | 2023-10-22 13:03 | P.PN ---
Subjective 73-year-old male patient who has a history of hypertension, hyperlipidemia, obstructive pulmonary disease, former smoker, brain aneurysms, moderate aortic stenosis. He was recently seen in our office earlier this week with some symptoms of shortness of breath he was treated with steroids and was doing well the following day, well enough to golf. Last night however he developed significant shortness of breath and presented here to the emergency room around 3:00 this morning. His initial saturation was at 56% on room air. He was immediately placed on BiPAP 14/6 and 100% FiO2. Chest x-ray shows severe interstitial opacities bilaterally. CT angiogram ruled out pulmonary embolus. There is borderline cardiomegaly and pulmonary arterial hypertension. There is central and peripheral interstitial thickening with diffuse groundglass and s mall pleural effusions. Correlate for CHF with developing pulmonary edema. Numerous borderline and mildly enlarged hilar lymph nodes. May be reactive. 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 White count 23.9. Hemoglobin 13.6. Sodium 142. Potassium 3.9. Bicarb 18. BUN 17. Creatinine 0.79. Glucose 159. Troponin 0.057, 0.894, 1.54. proBNP 4210. Viral screen negative. EKG revealed sinus tachycardia with nonspecific ST and T wave abnormalities. Arterial blood gases revealed a pH O2 of 365, pCO2 of 38 and a pH of 7.37 on 100% FiO2. 10/19/2023, Patient is seen and evaluated sitting up in bedside chair with multiple family members present in the room; he is now on 4 L nasal cannula, initially he was on 100% and BiPAP, patient responded well to diuretics, continues to improve with diuresis -- chest x-ray has shown significant improvement today - patient was evaluated by cardiology considering TAVR on this patient; Repeat blood work reveals sodium 138, potassium 3.5, BUN 29 creatinine 0.78. TSH 1.13. Patient has been seen by cardiothoracic surgery regarding aortic valve replacement and consider TAVR with MitraClip down the line. TAVR versus SAVR was discussed as well. Patient is undergoing preoperative testing. Discussed ELIECER with the patient to be performed on Friday if his heart failure symptoms are stable. Otherwise this could be delayed for another day or 2. Carotid ultrasound revealed mild to moderate up to 69% proximal right ICA stenosis. Repeat chest x-ray reveals COPD with superimposed CHF. Interstitial pulmonary e janet shows slight improvement. . 10/20/2023 Patient is awake alert, denies dyspnea at rest, no basilar crepitation or leg edema Patient still complains from exertional dyspnea and exertional hypoxia Currently on 2 L oxygen at rest, he was not on oxygen at home He looks pleasant and comfortable and denies chest pain or any other new complaints Patient is going for ELIECER today , pt is low risk for this ELIECER AND There is no contraindication Patient also evaluated by cardiothoracic surgery team for possible valve replacement He remains on antibiotic, he received Zosyn from 10/16 which is currently d iscontinued. Patient today receiving third day of Levaquin Pro- Calcitonin was mildly elevated 0.12. Follow-up level tomorrow 10/21/2023 Patient feels fine, pleasant with no chest pain or dyspnea Patient had ELIECER with Dr. Moreland today showing similar severe valvular heart disease with severe aortic stenosis with orifice area 0.8 cm. With severe aortic regurgitation with mild to severe mitral regurgitation, as such valvular disease affected LV function down to about 30%, range 25-35%. With negative cardiac cath Patient still on cardiac medication and heparin Also patient on IV Solu-Medrol and Levaquin 10/22/2023 Patient clinically doing okay. No new complaint no chest pain or dyspnea CTA of the chest abdomen pelvis for structural survey and yes is done today pending results Cardiothoracic surgery team cleared him today and to follow-up in the TAVR clinic this coming Friday. Cardiology also on the case, they recommend monitoring 1 more day Possible discharge in 24 to 48 hours Objective - Vital Signs Vital signs: Vital Signs Temp 97.8 F 10/22/23 08:00 Pulse 101 H 10/22/23 12:53 Resp 18 10/22/23 12:53 BP 132/61 10/22/23 08:00 Pulse Ox 95 10/22/23 09:22 FiO2 50 10/17/23 18:30 Intake & Output 10/21/23 10/22/23 10/22/23 18:59 06:59 18:59 Intake Total 1638 345 Output Total 850 1350 200 Balance 788 -1350 145 Weight 68.8 kg Intake: Oral 1638 345 Output: Urine 850 1350 200 Other: Voiding Method Urinal Urinal # Voids 2 - Exam GENERAL: The patient is alert and oriented x3, not in any acute distress. Well developed, well nourished. HEENT: Pupils are round and equally reacting to light. EOMI. No scleral icterus. No conjunctival pallor. Normocephalic, atraumatic. No pharyngeal erythema. No t hyromegaly. CARDIOVASCULAR: S1 and S2 present. No murmurs, rubs, or gallops. PULMONARY: Chest is clear to auscultation, no wheezing , no crackles. ABDOMEN: Soft, nontender, nondistended, normoactive bowel sounds. No palpable organomegaly. MUSCULOSKELETAL: No joint swelling or deformity. EXTREMITIES: No cyanosis, clubbing, or pedal edema. NEUROLOGICAL: Gross neurological examination did not reveal any focal deficits. SKIN: No rashes. no petechiae. - Labs CBC & Chem 7: 10/18/23 08:02 10/21/23 11:14 Labs: Abnormal Lab Results - Last 24 Hours (Table) 10/21/23 10/21/23 10/22/23 Range/Units 16:43 21:00 05:51 POC Glucose (mg/dL) 214 H 158 H 129 H (70-110) mg/dL 10/22/23 Range/Units 11:10 POC Glucose (mg/dL) 248 H (70-110) mg/dL Microbiology - Last 24 Hours (Table) 10/17/23 05:15 Blood Culture - Final Blood 10/17/23 05:00 Blood Culture - Final Blood Assessment and Plan Assessment: 1. Acute hypoxic respiratory failure; multifactorial Pulmonary edema-/underlying pneumonia versus COPD exacerbation 2. Possible pneumonia; patient has been placed on Levaquin --Chest x-ray completed in ED reveals severe interstitial bilateral opacities -- CTA chest is negative for PE but revealed central and peripheral interstitial thickening and diffuse groundglass and small pleural effusion 3. Pulmonary edema; cardiology on board; cardiogram is ordered; Lasix 40 mg IV -- Monitor strict CLARA's, daily weights, low-salt and fluid restricted diet 4. Elevated troponin; likely demand ischemia related to acute hypoxia; patient has been placed on IV heparin per protocol -- Monitor EKG and trend troponin; 2D echo is ordered and pending 5. COPD; in exacerbation; continue with the home inhaler therapy -Patient has been placed on Solu-Medrol 60 mg IV every 6 hours; DuoNeb nebulizer treatments 4 times daily and as needed 6. Hypertension; metoprolol 12.5 mg twice daily 7. Hyperlipidemia; Lipitor 40 mg daily 8. Severe valvular heart disease severe aortic stenosis aortic regurgitation and moderate to severe mitral regurgitation -- Cardiothoracic surgery team on the case for possible valve replacement surgery -- ELIECER on 10/19 by gas engine performance engineer DVT prophylaxis; IV heparin CODE STATUS; full code
--- NOTE | 2023-10-22 13:32 | P.PN ---
Subjective Progress Note Date: 10/22/23 This is a very pleasant 73-year-old male patient who has a history of hypertension, hyperlipidemia, obstructive pulmonary disease, former smoker, brain aneurysms, moderate aortic stenosis. He was recently seen in our office earlier this week with some symptoms of shortness of breath he was treated with steroids and was doing well the following day, well enough to golf. Last night however he developed significant shortness of breath and presented here to the emergency room around 3:00 this morning. His initial saturation was at 56% on room air. He was immediately placed on BiPAP 14/6 and 100% FiO2. Chest x-ray shows severe interstitial opacities bilaterally. CT angiogram ruled out pulmonary embolus. There is borderline cardiomegaly and pulmonary arterial hypertension. There is central and peripheral interstitial thickening with diffuse groundglass and small pleural effusions. Correlate for CHF with developing pulmonary edema. Numerous borderline and mildly enlarged hilar lymph nodes. May be reactive. 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 White count 23.9. Hemoglobin 13.6. Sodium 142. Potassium 3.9. Bicarb 18. BUN 17. Creatinine 0.79. Glucose 159. Troponin 0.057, 0.894, 1.54. proBNP 4210. Viral screen negative. EKG revealed sinus tachycardia with nonspecific ST and T wave abnormalities. Arterial blood gases revealed a pH O2 of 365, pCO2 of 38 and a pH of 7.37 on 100% FiO2. This will be titrated down. He is currently awake and alert. Afebrile. Hemodynamically stable. Patient was reevaluated today on 10/18/2023, patient made a significant i mprovement over the last 24 hours. Patient responded well to diuretics, clinically the patient is feeling much better and he is down now to 6 L nasal cannula with O2 saturation in the mid 90s. Hardly any pulmonary symptoms patient clearly stated to me that he is much better today compared to yesterday. Chest x-ray showed significant improvement in his pulmonary edema echocardiogram showed severe LV dysfunction with ejection fraction of 25 to 30%, patient underwent cardiac catheterization yesterday, found to have relatively normal coronary arteries, however he was found to have severe aortic stenosis with mean gradient of 47 and severe aortic regurgitation. Cardiology is considering evaluation for aortic valve replacement and I think that would be very appropriate. WBC count today is 11.2 hemoglobin 11.5 basic metabolic profile is normal and renal profile is normal chest x-ray today showed dramatic improvement but nonetheless continues to have some evidence of pulmonary edema. Patient was reevaluated today on 10/19/2023, he is now on 4 L nasal cannula, initially he was on 100% and BiPAP, patient responded well to diuretics, continues to improve with diuresis, his chest x-ray has shown significant improvement today, and on physical examination he sounds much clearer today comp ared to the last couple of days. Clinically better patient was evaluated by cardiology considering TAVR on this patient. Progress note dated October 20, 2023. The patient is seen today in room 377. He is sitting at the side of the bed. He has been weaned down to 2 L of oxygen. The patient is currently being evaluated for transcatheter aortic valve replacement for his aortic stenosis. He continues on Levaquin. He was also found to have a non-ST segment elevation myocardial infarction. Current laboratory data includes a sodium 136, potassium 3.3, chlorides 103, CO2 28, BUN 29, creatinine 0.66. Glucose 118. Calcium 8.1. Progress note dated October 21, 2023. The patient was seen today in room 377. He is sitting at the bedside. He is getting oxygen by nasal cannula at 2 L. No IV fluids. The patient is currently being evaluated by cardiology, and cardiothoracic surgery, for a possible transcatheter aortic valve replacement for his aortic stenosis. The patient's valve surface area by echocardiogram is 0.8 cm. Current labs include a sodium 136, potassium 3.6, chlorides 101, CO2 29, BUN 31, and creatinine 0.73. Glucose is 129. Calcium is 7.9. Procalcitonin level is 0.07. Blood cultures are currently negative or pending. No recent chest x-ray to report. The patient is seen today October 22, 2023 in follow-up on the selective care unit. He is currently resting comfortably in bed. Awake and alert in no acute distress. He is maintaining good O2 saturations in the 90s on room air. No IV fluids. Blood cultures revealed no growth. Glucose 248. He is continued on DuoNeb ventilations, Symbicort, Solu-Medrol. Antibiotics in the form of Levaquin. Remains on diuretics. Currently net -[address] scan of the chest abdomen and pelvis is pending. Objective - Vital Signs Vital signs: Vital Signs Temp 97.8 F 10/22/23 08:00 Pulse 101 H 10/22/23 12:53 Resp 18 10/22/23 12:53 BP 132/61 10/22/23 08:00 Pulse Ox 95 10/22/23 09:22 FiO2 50 10/17/23 18:30 Intake & Output 10/21/23 10/22/23 10/22/23 18:59 06:59 18:59 Intake Total 1638 455 Output Total 850 1350 200 Balance 788 -1350 255 Weight 68.8 kg Intake: Oral 1638 455 Output: Urine 850 1350 200 Other: Voiding Method Urinal Urinal # Voids 2 - Exam GENERAL EXAM: Alert, very pleasant 73-year-old male patient, on room air,, comfortable in no apparent distress. HEAD: Normocephalic. EYES: Normal reaction of pupils, equal size. NOSE: Clear with pink turbinates. THROAT: No erythema or exudates. NECK: No masses, no JVD. CHEST: No chest wall deformity. LUNGS: Equal air entry with no crackles, wheeze, rhonchi or dullness. CVS: S1 and S2 normal with an audible murmur, regular rhythm. ABDOMEN: No hepatosplenomegaly, normal bowel sounds, no guarding or rigidity. SPINE: No scoliosis or deformity SKIN: No rashes CENTRAL NERVOUS SYSTEM: No focal deficits, tone is normal in all 4 extremities. EXTREMITIES: There is no peripheral edema. No clubbing, no cyanosis. Peripheral pulses are intact. - Labs CBC & Chem 7: 10/18/23 08:02 10/21/23 11:14 Labs: Abnormal Lab Results - Last 24 Hours (Table) 10/21/23 10/21/23 10/22/23 Range/Units 16:43 21:00 05:51 POC Glucose (mg/dL) 214 H 158 H 129 H (70-110) mg/dL 10/22/23 Range/Units 11:10 POC Glucose (mg/dL) 248 H (70-110) mg/dL Microbiology - Last 24 Hours (Table) 10/17/23 05:15 Blood Culture - Final Blood 10/17/23 05:00 Blood Culture - Final Blood Assessment and Plan Assessment: Acute hypoxemic respiratory failure suspect secondary to flash pulmonary edema can Josesito to severe aortic stenosis Troponin leak, echocardiogram revealed impaired left ventricular systolic function with an ejection fraction 25 to 30%. Severe aortic stenosis and severe aortic regurgitation Moderate to severe mitral regurgitation Leukocytosis, being treated with steroids in the outpatient setting, procalcitonin 0.07 History of moderate to advanced COPD Former smoker Hypertension Hyperlipidemia Steroid-induced hyperglycemia Plan: The patient was seen and evaluated Labs and medications reviewed CT scan of the chest abdomen and pelvis pending Discontinue Solu-Medrol, prednisone taper starting at 20 mg daily Continue diuretics Plan is for outpatient transcatheter aortic valve replacement next week I have personally seen and examined the patient, performed the documentation and the assessment and plan as written. Number of minutes spent on the visit: 10.
--- NOTE | 2023-10-22 13:45 | CT ---
EXAMINATION TYPE: CT TAVR Planning DATE OF EXAM: 10/22/2023 HISTORY: aortic stenosis;TAVR planning CT DLP: 1858.50 mGycm Automated Exposure Control for Dose Reduction was Utilized. CONTRAST: CT scan of the chest, abdomen and pelvis is performed with IV Contrast, patient injected with 130ml m L of Isovue 370. COMPARISON: None TECHNIQUE: Helical imaging obtained through the chest, abdomen and pelvis during arterial phase jorge nelson administration of radiographic contrast intravenously. FINDINGS: See report from [facility] regarding preprocedural planning CHEST: Lower Neck and Thyroid: No significant findings Lungs: Moderate centrilobular emphysema. Small right-sided pleural effusion. Central Airway: No significant findings Pleura: No significant findings Pulmonary Arteries: No significant findings Heart and Pericardium: No significant findings Lymph Nodes: No significant findings Mediastinum & Esophagus: Moderate fixed hiatal hernia. AV Calcification Severity: Moderate stenosis with valvular calcific changes seen. ABDOMEN/PELVIS: Please note arterial phase of the imaging limits detailed evaluation of the solid abdominal organs. Liver: No significant findings Spleen: No significant findings Kidneys: No significant findings Adrenal Glands: No significant findings Pancreas: No significant findings Gallbladder: No significant findings Bowel and Mesentery: Moderate sigmoid diverticulosis without diverticulitis. Lymph Nodes: No significant findings Urinary Bladder: No significant findings Pelvic Organs: No significant findings Other: No significant findings Other Lines/Tubes/Devices/Hardware: None IMPRESSION: As above
[2023-10-22 16:25] LABS: Glucose,Whole Blood 121 mg/dL (70-110)
[2023-10-22] MEDS: FUROSEMIDE 20 MG TAB PO SCH (18:04)
[2023-10-22] MEDS: METOPROLOL TARTRATE 25 MG TAB PO SCH (18:04)
[2023-10-22 18:32] VITALS: RESP 16
[2023-10-22 20:28] LABS: Glucose,Whole Blood 148 mg/dL (70-110)
[2023-10-23 06:17] LABS: Glucose,Whole Blood 104 mg/dL (70-110)
[2023-10-23] MEDS: predniSONE 20 MG TAB PO SCH (09:14)
[2023-10-23] MEDS: FUROSEMIDE 40 MG TAB PO SCH (09:14)
[2023-10-23 09:20] VITALS: TEMP 97.2
[2023-10-23 11:10] VITALS: BMI 19.8
--- NOTE | 2023-10-23 11:16 | P.PN ---
Subjective HISTORY OF PRESENT ILLNESS: This is a pleasant 73-year-old with past medical history significant for hypertension, hyperlipidemia, aortic stenosis, brain aneurysm, COPD. He follows in the office with Dr Frederick. He has been monitored for his aortic stenosis. He had heart catheterization in 2020 which showed only mild circumflex disease. He was recently seen in pulmonology office and had been prescribed antibiotics and "given a shot "likely steroids in the office approximately a week ago for increasing shortness breath. He had been feeling fairly good the day before presentation and had actually played some golf. He then became significantly short of breath however woke up gasping for air and initial oxygen saturation was 56% on room air. She was placed on BiPAP with improvement in oxygen saturation. White blood cell count 23.9, hemoglobin 13.6, creatinine 0.79, lactic acid 7.0, troponin 0.05, 0.89, 1.5. ProBNP 4210. Viral panel negative. Chest x-ray showed severe interstitial opacities throughout consistent with flash pulmonary edema versus bilateral pneumonia. CTA showed no PE, cardiomegaly and interstitial thickening with groundglass changes and small pleural effusions, correlate with CHF as well as numerous borderline enlarged hilar lymph node nodes. Echocardiogram shows left ventricular ejection fraction 25-30%, moderate to severe mitral regurgitation, severe aortic stenosis as well as severe aortic regurgitation 10/17 Yesterday, patient underwent cardiac catheterization which revealed relatively normal coronary arteries 20 to 30% mid circumflex stenosis. Normal left-sided filling pressures. Severe aortic stenosis with mean gradient of 47 mmHg. Severe aortic regurgitation. 23+ mitral regurgitation. Patient states his breathing is okay and he is more comfortable appearing today. He denies having any chest pain or chest pressure. Blood pressure 121/54, heart rate 103, pulse ox 96% on 6 L nasal cannula. 10/18 Patient states that he had a little episode of chest pain this morning but none now. He has been on Lasix 40 mg IV every 12 hours. Patient had a negative fluid balance yesterday. Weights do not appear to be accurate. Blood pressure 110/52, heart rate 104, pulse ox 94% on 4 L nasal cannula. Repeat blood work reveals sodium 138, potassium 3.5, BUN 29 creatinine 0.78. TSH 1.13. Patient has been seen by cardiothoracic surgery regarding aortic valve replacement and consider TAVR with MitraClip down the line. TAVR versus SAVR was discussed as well. Patient is undergoing preoperative testing. Discussed ELIECER with the patient to be performed on Friday if his heart failure symptoms are stable. Otherwise this could be delayed for another day or 2. Carotid ultrasound revealed mild to moderate up to 69% proximal right ICA stenosis. Repeat chest x-ray reveals COPD with superimposed CHF. Interstitial pulmonary edema shows slight improvement. Small effusions remain. 10/20/2023 Patient examined this morning at bedside. Patient currently denies chest pain or pressure. He denies shortness of breath at rest but does report dyspnea with exertion. Vital signs are stable. 10/21/2023 Patient is s/p ELIECER with Dr. Lane revealing aortic valve is tricuspid With severe aortic stenosis with aortic valve area 0.8 cm by planimetry. There is severe aortic regurgitation with diastolic flow reversal noted in the descending aorta. There appears to be partial flail of the right coronary cusp. There is an echo density 0.5 cm which is more calcified which is mobile, felt to be more likely calcification from the right coronary cusp leaflet however rule out healed vegetation or other. The mitral valve appears be normal With moderate to severe mitral regurgitation. There is systolic blunting however no significant systolic flow reversal of the pulmonary veins. Secondary mitral regurgitation appears related to annular dilation. Tricuspid valve appears to be normal with mild to moderate tricuspid regurgitation. The interatrial septum is intact. No evidence of PFO. Left atrial appendage is free of clot. Left ventricular Ejection fraction 30-35% with global hypokinesis. Patient examined this afternoon at the bedside. Patient denies chest pain or pressure. He denies shortness of breath. Vital signs are stable. 10/22/2023 Patient examined this morning at the bedside. Patient currently denies chest pain or pressure. He denies shortness of breath. Vital signs are stable. Patient remains on IV Lasix. He also remains on IV steroids. 10/23/2023 Patient examined this morning at the bedside. Patient currently denies chest pain or pressure. He denies shortness of breath. He has been transition to oral diuretics and also oral steroids. Vital signs are stable. PHYSICAL EXAM: VITAL SIGNS: Reviewed. GENERAL: Well-developed in no acute distress. NECK: Supple. No JVD or thyromegaly LUNGS: Respirations even and unlabored. Lungs essentially clear to auscultation bilaterally. HEART: Regular rate and rhythm. S1 and S2 heard. Systolic and diastolic murmur noted. EXTREMITIES: Normal range of motion. No clubbing or cyanosis. Peripheral pulses intact. No lower extremity edema ASSESSMENT: Acute on chronic respiratory failure, likely significant amount related to heart failure Acute on chronic systolic heart failure New-onset cardiomyopathy, nonischemic Severe aortic stenosis, severe aortic regurgitation Moderate to severe mitral regurgitation Non-STEMI status post [facility] on 10/16 with relatively normal coronary arteries COPD Previous minimal CAD by heart catheterization 2020 Hypertension Sinus tachycardia, likely reactive to severe respiratory distress PLAN: Continue current cardiac medications Patient to follow-up in the TAVR clinic on Friday with potential TAVR to be completed next Friday. Patient is stable for discharge home today from a cardiac standpoint Nurse practitioner note has been reviewed by physician. Signing provider agrees with the documented findings, assessment, and plan of care documented by PET CARE WORKER as a scribe. Objective - Vital Signs Vital signs: Vital Signs Temp 97.2 F L 10/23/23 08:00 Pulse 88 10/23/23 08:29 Resp 16 10/23/23 08:00 BP 111/56 10/23/23 08:00 Pulse Ox 94 L 10/23/23 08:00 FiO2 50 10/17/23 18:30 Intake & Output 10/22/23 10/23/23 10/23/23 18:59 06:59 18:59 Intake Total 565 118 Output Total 200 250 Balance 365 -250 118 Weight 68.3 kg 68.3 kg Intake: Oral 565 118 Output: Urine 200 250 Other: Voiding Method Urinal Urinal # Voids 2 - Labs CBC & Chem 7: 10/18/23 08:02 10/21/23 11:14 Labs: Abnormal Lab Results - Last 24 Hours (Table) 10/22/23 10/22/23 10/22/23 Range/Units 11:10 16:10 20:18 POC Glucose (mg/dL) 248 H 121 H 148 H (70-110) mg/dL Microbiology - Last 24 Hours (Table) 10/17/23 05:15 Blood Culture - Final Blood 10/17/23 05:00 Blood Culture - Final Blood
[2023-10-23 11:30] LABS: Glucose,Whole Blood 95 mg/dL (70-110)
[2023-10-23 11:38] LABS: HCT 40.8 % (39.0-53.0); HGB 13.1 gm/dL (13.0-17.5); MCHC 32.2 g/dL (31.0-37.0); MCV 99.3 fL (80.0-100.0); Mean Platelet Volume 7.8; Platelet Count 214 k/uL (150-450); RBC 4.11 m/uL (4.30-5.90); RDW 14.3 % (11.5-15.5); WBC 15.7 k/uL (3.8-10.6)
--- NOTE | 2023-10-23 11:46 | P.PN ---
Subjective Progress Note Date: 10/23/23 This is a very pleasant 73-year-old male patient who has a history of hypertension, hyperlipidemia, obstructive pulmonary disease, former smoker, brain aneurysms, moderate aortic stenosis. He was recently seen in our office earlier this week with some symptoms of shortness of breath he was treated with steroids and was doing well the following day, well enough to golf. Last night however he developed significant shortness of breath and presented here to the emergency room around 3:00 this morning. His initial saturation was at 56% on room air. He was immediately placed on BiPAP 14/6 and 100% FiO2. Chest x-ray shows severe interstitial opacities bilaterally. CT angiogram ruled out pulmonary embolus. There is borderline cardiomegaly and pulmonary arterial hypertension. There is central and peripheral interstitial thickening with diffuse groundglass and small pleural effusions. Correlate for CHF with developing pulmonary edema. Numerous borderline and mildly enlarged hilar lymph nodes. May be reactive. 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 White count 23.9. Hemoglobin 13.6. Sodium 142. Potassium 3.9. Bicarb 18. BUN 17. Creatinine 0.79. Glucose 159. Troponin 0.057, 0.894, 1.54. proBNP 4210. Viral screen negative. EKG revealed sinus tachycardia with nonspecific ST and T wave abnormalities. Arterial blood gases revealed a pH O2 of 365, pCO2 of 38 and a pH of 7.37 on 100% FiO2. This will be titrated down. He is currently awake and alert. Afebrile. Hemodynamically stable. Patient was reevaluated today on 10/18/2023, patient made a significant i mprovement over the last 24 hours. Patient responded well to diuretics, clinically the patient is feeling much better and he is down now to 6 L nasal cannula with O2 saturation in the mid 90s. Hardly any pulmonary symptoms patient clearly stated to me that he is much better today compared to yesterday. Chest x-ray showed significant improvement in his pulmonary edema echocardiogram showed severe LV dysfunction with ejection fraction of 25 to 30%, patient underwent cardiac catheterization yesterday, found to have relatively normal coronary arteries, however he was found to have severe aortic stenosis with mean gradient of 47 and severe aortic regurgitation. Cardiology is considering evaluation for aortic valve replacement and I think that would be very appropriate. WBC count today is 11.2 hemoglobin 11.5 basic metabolic profile is normal and renal profile is normal chest x-ray today showed dramatic improvement but nonetheless continues to have some evidence of pulmonary edema. Patient was reevaluated today on 10/19/2023, he is now on 4 L nasal cannula, initially he was on 100% and BiPAP, patient responded well to diuretics, continues to improve with diuresis, his chest x-ray has shown significant improvement today, and on physical examination he sounds much clearer today comp ared to the last couple of days. Clinically better patient was evaluated by cardiology considering TAVR on this patient. Progress note dated October 20, 2023. The patient is seen today in room 377. He is sitting at the side of the bed. He has been weaned down to 2 L of oxygen. The patient is currently being evaluated for transcatheter aortic valve replacement for his aortic stenosis. He continues on Levaquin. He was also found to have a non-ST segment elevation myocardial infarction. Current laboratory data includes a sodium 136, potassium 3.3, chlorides 103, CO2 28, BUN 29, creatinine 0.66. Glucose 118. Calcium 8.1. Progress note dated October 21, 2023. The patient was seen today in room 377. He is sitting at the bedside. He is getting oxygen by nasal cannula at 2 L. No IV fluids. The patient is currently being evaluated by cardiology, and cardiothoracic surgery, for a possible transcatheter aortic valve replacement for his aortic stenosis. The patient's valve surface area by echocardiogram is 0.8 cm. Current labs include a sodium 136, potassium 3.6, chlorides 101, CO2 29, BUN 31, and creatinine 0.73. Glucose is 129. Calcium is 7.9. Procalcitonin level is 0.07. Blood cultures are currently negative or pending. No recent chest x-ray to report. The patient is seen today October 22, 2023 in follow-up on the selective care unit. He is currently resting comfortably in bed. Awake and alert in no acute distress. He is maintaining good O2 saturations in the 90s on room air. No IV fluids. Blood cultures revealed no growth. Glucose 248. He is continued on DuoNeb ventilations, Symbicort, Solu-Medrol. Antibiotics in the form of Levaquin. Remains on diuretics. Currently net -[address] scan of the chest abdomen and pelvis is pending. The patient is seen today October 23, 2023 in follow-up on the selective care unit. He is awake and alert in no acute distress. He denies any chest pain or palpitations. No worsening shortness of breath, cough or congestion. Maintaining O2 saturations in the 90s on room air. CT scan of the chest revealed moderate centrilobular emphysema. Small right pleural effusion. Moderate fixed hiatal hernia. Moderate sigmoid diverticulosis without diverticulitis. White count 15.7. Hemoglobin 13.1. Platelets 214. He is continued on bronchodilators. Heparin for DVT prophylaxis. Remains on oral diuretics. Oral prednisone. Objective - Vital Signs Vital signs: Vital Signs Temp 97.2 F L 10/23/23 08:00 Pulse 86 10/23/23 11:35 Resp 16 10/23/23 08:00 BP 111/56 10/23/23 08:00 Pulse Ox 94 L 10/23/23 08:00 FiO2 50 10/17/23 18:30 Intake & Output 10/22/23 10/23/23 10/23/23 18:59 06:59 18:59 Intake Total 565 118 Output Total 200 250 Balance 365 -250 118 Weight 68.3 kg 68.3 kg Intake: Oral 565 118 Output: Urine 200 250 Other: Voiding Method Urinal Urinal # Voids 2 - Exam GENERAL EXAM: Alert, oriented 73-year-old male patient, on room air, in no apparent distress. HEAD: Normocephalic. EYES: Normal reaction of pupils, equal size. NOSE: Clear with pink turbinates. THROAT: No erythema or exudates. NECK: No masses, no JVD. CHEST: No chest wall deformity. LUNGS: Equal air entry with no crackles, wheeze, rhonchi or dullness. CVS: S1 and S2 normal with an audible murmur, regular rhythm. ABDOMEN: No hepatosplenomegaly, normal bowel sounds, no guarding or rigidity. SPINE: No scoliosis or deformity SKIN: No rashes CENTRAL NERVOUS SYSTEM: No focal deficits, tone is normal in all 4 extremities. EXTREMITIES: There is no peripheral edema. No clubbing, no cyanosis. Peripheral pulses are intact. - Labs CBC & Chem 7: 10/23/23 11:05 10/21/23 11:14 Labs: Abnormal Lab Results - Last 24 Hours (Table) 10/22/23 10/22/23 10/23/23 Range/Units 16:10 20:18 11:05 WBC 15.7 H (3.8-10.6) k/uL RBC 4.11 L (4.30-5.90) m/uL POC Glucose (mg/dL) 121 H 148 H (70-110) mg/dL Microbiology - Last 24 Hours (Table) 10/17/23 05:15 Blood Culture - Final Blood 10/17/23 05:00 Blood Culture - Final Blood Assessment and Plan Assessment: Acute hypoxemic respiratory failure suspect secondary to flash pulmonary edema secondary to severe aortic stenosis Troponin leak, echocardiogram revealed impaired left ventricular systolic function with an ejection fraction 25 to 30%. Severe aortic stenosis and severe aortic regurgitation Moderate to severe mitral regurgitation Leukocytosis, being treated with steroids in the outpatient setting, procalcitonin 0.07 History of moderate to advanced COPD Former smoker Hypertension Hyperlipidemia Steroid-induced hyperglycemia Diverticulosis Plan: The patient was seen and evaluated Labs and medications reviewed Continue the current treatment plan CT scan of the chest abdomen and pelvis reviewed Plan is for outpatient transcatheter aortic valve replacement next week I have personally seen and examined the patient, performed the documentation and the assessment and plan as written. Number of minutes spent on the visit: 10.
[2023-10-23 11:48] LABS: INR 1.1 (<1.2); Partial Thromboplastin Time 23.4 sec (22.0-30.0); Prothrombin Time 11.6 sec (10.0-12.5)
[2023-10-23 12:03] LABS: ALT 40 U/L (4-49); AST 29 U/L (17-59); African American GFR (CKD) >90 (>60 ml/min/1.73 sqM); Albumin 2.8 g/dL (3.5-5.0); Alkaline Phosphatase 63 U/L (38-126); Anion Gap 1 mmol/L; Blood Urea Nitrogen 29 mg/dL (9-20); Calcium 8.1 mg/dL (8.4-10.2); Carbon Dioxide 32 mmol/L (22-30); Chloride 101 mmol/L (98-107); Glucose 93 mg/dL (74-99); Magnesium 1.9 mg/dL (1.6-2.3); Non-African American GFR(CKD) >90 (>60 ml/min/1.73 sqM); Potassium 3.8 mmol/L (3.5-5.1); Sodium 134 mmol/L (137-145); Total Bilirubin 0.7 mg/dL (0.2-1.3); Total Protein 5.4 g/dL (6.3-8.2)
[2023-10-23 12:11] VITALS: BP 119/66
[2023-10-23 16:03] VITALS: PULSE 80
== END 2023-10-23 16:49 | disposition home or self-care, planned readmission (81) | DRG 280 ==
LOC: EC 03:02 → 3SCARD 06:40
PROVIDERS: ADMIT Hospitalist; ATTEND Hospitalist
PROC: B2151ZZ Fluoroscopy of Left Heart using Low Osmolar Contrast (ICD-10-PCS; principal; 2023-10-17 19:05)
PROC: 4A023N7 Measurement of Cardiac Sampling and Pressure, Left Heart, Percutaneous Approach (ICD-10-PCS; principal; 2023-10-17 19:05)
PROC: B2111ZZ Fluoroscopy of Multiple Coronary Arteries using Low Osmolar Contrast (ICD-10-PCS; principal; 2023-10-17 19:05)
PROC: B3101ZZ Fluoroscopy of Thoracic Aorta using Low Osmolar Contrast (ICD-10-PCS; principal; 2023-10-17 19:05)
PROC: 5A09357 Assistance with Respiratory Ventilation, Less than 24 Consecutive Hours, Continuous Positive Airway Pressure (ICD-10-PCS; 2023-10-17 19:05)
PROC: B24BZZ4 Ultrasonography of Heart with Aorta, Transesophageal (ICD-10-PCS; 2023-10-20)
DX: I11.0 Hypertensive heart disease with heart failure (principal); I50.23 Acute on chronic systolic (congestive) heart failure; I21.4 Non-ST elevation (NSTEMI) myocardial infarction; J18.9 Pneumonia, unspecified organism; J96.21 Acute and chronic respiratory failure with hypoxia; J44.0 Chronic obstructive pulmonary disease with (acute) lower respiratory infection; J44.1 Chronic obstructive pulmonary disease with (acute) exacerbation; E87.20 Acidosis, unspecified; I42.8 Other cardiomyopathies; J43.2 Centrilobular emphysema; I65.21 Occlusion and stenosis of right carotid artery; I27.20 Pulmonary hypertension, unspecified; I08.0 Rheumatic disorders of both mitral and aortic valves; I67.1 Cerebral aneurysm, nonruptured; T38.0X5A Adverse effect of glucocorticoids and synthetic analogues, initial encounter; R73.9 Hyperglycemia, unspecified; K57.30 Diverticulosis of large intestine without perforation or abscess without bleeding; K44.9 Diaphragmatic hernia without obstruction or gangrene; F41.9 Anxiety disorder, unspecified; I25.10 Atherosclerotic heart disease of native coronary artery without angina pectoris; E78.5 Hyperlipidemia, unspecified; M19.90 Unspecified osteoarthritis, unspecified site; Z87.891 Personal history of nicotine dependence; Z79.899 Other long term (current) drug therapy; Z79.51 Long term (current) use of inhaled steroids
CPT/HCPCS: 36415; 36600; 71045; 71275; 74174; 76937; 80048; 80053; 80074; 82805; 83036; 83605; 83735; 83880; 84100; 84145; 84443; 84484; 85025; 85027; 85610; 85730; 86850; 86900; 86901; 87040; 87636; 93005; 93306; 93312; 93320; 93325; 93458; 93567; 93880; 94150; 94640; 94660; 94760; 96365; 96366; 96367; 96375; 96376; 99291

== ENCOUNTER 2023-10-29 05:49 | Inpatient (IN) | payer MEDICARE ==
[2023-10-29] MEDS ORDERED: TRANEXAMIC ACID 2,000 MG in SODIUM CHLORIDE 0.9% 80 ML IV PRN (06:00)
[2023-10-29] MEDS ORDERED: SODIUM CHLORIDE 0.9% 500 ML 500 ML INTRAARTER PRN (06:00)
[2023-10-29] MEDS ORDERED: LACTATED RINGERS 1,000 ML IV SCH (06:00)
[2023-10-29] MEDS ORDERED: PROTAMINE SULFATE 250 MG in EMPTY BAG 1 BAG IV PRN (06:00)
[2023-10-29] MEDS ORDERED: ELECTROLYTE-A SOLUTION 1,000 ML with POTASSIUM CHLORIDE 100 MEQ, MAGNESIUM SULFATE 16 M... IV PRN (06:00)
[2023-10-29] MEDS ORDERED: CLEVIDIPINE BUTYRATE 25 MG in EMPTY BAG 1 BAG IV PRN (06:00)
[2023-10-29] MEDS ORDERED: INSULIN REGULAR 100 UNIT in SODIUM CHLORIDE 0.9% 100 ML IV PRN (06:00)
[2023-10-29] MEDS ORDERED: NITROGLYCERIN-D5W PMX 25 MG/250 ML BTL IV PRN (06:00)
[2023-10-29] MEDS: SODIUM CHLORIDE 0.9% 1,000 ML IV SCH (06:19)
[2023-10-29] MEDS: CLOPIDOGREL 75 MG TAB PO ONE (06:19)
[2023-10-29] MEDS: METOPROLOL TARTRATE 25 MG TAB PO ONE (06:20)
[2023-10-29] MEDS: ATORVASTATIN 10 MG TAB PO ONE (06:20)
[2023-10-29] MEDS: ASPIRIN 325 MG TAB PO ONE (06:20)
[2023-10-29 06:25] LABS: Glucose,Whole Blood 122 mg/dL (70-110)
[2023-10-29] MEDS: MIDAZOLAM 2 MG/2 ML VIAL IV STA (06:46)
[2023-10-29] MEDS ORDERED: LIDOCAINE 1% INJ 10MG/ML (20 ML MDV) ONE (07:24)
[2023-10-29] MEDS ORDERED: GLYCOPYRROLATE 0.2 MG/ML 2 ML VIAL ONE (07:24)
[2023-10-29] MEDS ORDERED: ePHEDrine 50 MG/ML 1 ML VIAL ONE (07:24)
[2023-10-29] MEDS ORDERED: PROPOFOL 10 MG/ML 20 ML VIAL IV ONE (07:24)
[2023-10-29] MEDS ORDERED: fentaNYL (PF) 50 MCG/ML 2 ML AMP ONE (07:24)
[2023-10-29] MEDS ORDERED: HEPARIN SODIUM,PORCINE 5,000 UNIT/ML 1 ML VIAL ONE (07:24)
[2023-10-29] MEDS ORDERED: LABETALOL 5 MG/ML VIAL MDV ONE (07:24)
[2023-10-29] MEDS ORDERED: SUCCINYLCHOLINE CHLORIDE 200 MG/10 ML VIAL IV ONE (07:24)
[2023-10-29] MEDS ORDERED: NEOSTIGMINE 1 MG/ML 10 ML VIAL ONE (07:24)
[2023-10-29] MEDS ORDERED: PROTAMINE SULFATE 10 MG/ML 5 ML VIAL ONE (07:24)
[2023-10-29] MEDS ORDERED: ROCURONIUM 10 MG/ML (5 ML VIAL) IV ONE (07:24)
[2023-10-29] MEDS: IV FLUID CONTINUATION 1,000 ML IV ONE ×2 (07:55→09:27)
[2023-10-29] MEDS: IOPAMIDOL-370 100ML BTL INJ ONE (09:00)
--- NOTE | 2023-10-29 09:02 | P.ANPRN ---
Procedure Note - Anesthesia - ELIECER Intraop Pre Bypass ELIECER Intraop - Anesthesia Date of Procedure: 10/29/23 Pre-operative Diagnosis: Aortic Stenosis Surgeon: Tal Brown Ejection Fraction: Normal Regional Wall Motion Abnormalities: None Left Ventricle Hypertrophy: No R. Ventricle Function: Hypokinesis Moderate Aortic Valve: Max velocity 4.3 m/s, mean gradient is 47 mmHg, max gradient 74 mmHg Anatomy: Trileaflet Aortic Stenosis: Severe Aortic Regurgitation: Moderate Mitral Stenosis: None Mitral Regurgitation: Moderate Tricuspid Stenosis: None Tricuspid Regurgitation: Trace Pulmonic Stenosis: None Pulmonic Regurgitation: None R. Atrial Dilation: Yes R. Atrial PFO: No L. Atrial Dilation: Yes Aortic Dissection: No Aortic Calcification: Moderate Plural Effusion: None
--- NOTE | 2023-10-29 09:04 | P.ANPRN ---
Procedure Note - Anesthesia - ELIECER Intraop Post Bypass ELIECER Intraop Post Bypass Procedure Performed: TAVR Ejection Fraction: Normal Regional Wall Motion Abnormalities: None R. Ventricle Function: Hypokinesis Moderate Aortic Valve: Max velocity is2 m/s, mean gradient is 7 mmHg, max gradient is 15 mmHg Mitral Valve: Unchanged Tricuspid: Unchanged Pulmonic: Unchanged Aortic Dissection: No
--- NOTE | 2023-10-29 09:18 | P.PCN ---
Date of Procedure: 10/29/23 Operative Findings: TRANSCATHETER AORITC VALVE REPLACEMENT OPERATIVE REPORT PROCEDURE PERFORMED: 1. Percutaneous Aortic Valve Implantation using a 29 mm Core-Valve Evolut Valve. 2. Transesophageal echocardiography (performed by anesthesia) 3. Ultrasound guided access and repair of bilateral femoral artery access site by Perclose closure device. 4. Placement of temporary pacemaker wire. 5. Aortic root angiography INDICATIONS: 1. 73 year-old with a history of severe symptomatic aortic valve stenosis. The patient was experiencing shortness of breath consistent with NYHA class II PERFORMING PHYSICIANS: 1. Kolby Becker MD Interventional Cardiology. 2. Benitez Lane DO Interventional Cardiology 3. Tal Brown MD, Cardiothoracic Surgeon. SEDATION: General anesthesia provided by anesthesia, see separate note APPROACH: Bilateral femoral artery via percutaneous approach PROCEDURE DESCRIPTION: The patient was discussed at valve clinic with multidisciplinary approach with cardiothoracic surgeon as well as labor arbitrator and thought better treated with TAVR. Risks, benefits, and alternatives of the procedure had been explained to the patient who understood the risks and agreed to proceed. After consents were obtained, patient was brought to the transcatheter aortic valve implantation room in the cardiac dentures lab technician and general anesthesia was provided by the anesthesiologist (see separate report). Once full body sterile prep was performed, right subclavian venous access was obtained and a temporary pacemaker was screwed in, performed by cardiothoracic surgery. Pacing threshholds were checked and deemed appropriate. Next the left femoral artery waw accessed using a modified Seldinger technique, ultrasound guidance and micropuncture technique. A 6 Jordanian Rabi sheath was placed in the left femoral artery. Next, a 6-Jordanian pigtail catheter was advanced into the aorta and positioned in the aortic root, aortic root angiography was performed to determine optimal deployment angle. The right femoral artery was accessed using modified Seldinger technique, micropuncture technique and under direct ultrasound guidance. Femoral angiogram was done showing access in the common femoral artery and a 6Fr sheath was placed. Next preclose technique was performed using a two Perclose. Next an 8 Jordanian sheath was placed in the replacement of the 6 Jordanian sheath over 035 wire. We did initially access the left common femoral vein and we placed transfer venous pacer into the RV apex because there was some difficulties accessing the right subclavian vein. That pacer was removed during the procedure when the pacer wire was placed from the right subclavian vein. Next a 0.035 Safari wire was placed in the Aorta via a pigtail catheter. Subsequently 14 Fr [place] sheath was placed. Next a 6F- AL1 catheter was advanced over a wire to the aortic root. A straight wire was advanced through the catheter and used to cross the severely stenotic valve. The AL1 was then exchanged for a 6Fr pigtail catheter and pressure measurements were obtained. The 0.035 Safari wire was then positioned in the apex. Next a 29 mm Evolut was advanced. The valve was then positioned across the aortic valve and confirmed with aortic root angiography. [The valve was initially partially deployed however needed repositioning and therefore was recaptured.] The valve was then deployed in proper position using slow deployment and with rapid pacing in conjuncture with aortic root angiography and ELIECER. The delivery system was withdrawn back into the arch and an aortic root injection in conjunction with ELIECER demonstrated at least moderate aortic insufficiency. Subsequently we crossed the valve using a pigtail catheter and subsequently the safari wire was positioned in the LV apex and we postdilated using 26 mm balloon. The aortic insufficiency has improved significantly to almost at trace aortic insufficiency/perivalvular leak. There was no evidence of any other significant abnormalities. The preclose Perclose was then deployed in the right femoral artery and hemostasis was achieved. Subsequently I did exchange the long sheath in the left femoral artery into 11 cm sheath and advanced a 5 Jordanian rim catheter to the aortic bifurcation where we did selective right common femoral artery angiogram to assure that hemostasis was achieved. Subsequently left common femoral artery angiogram was performed and I deployed the Perclose device at the left common femoral artery and Vascade was deployed in the left common femoral vein for hemostasis. The procedure was completed with no complication COMPLICATIONS: None RECOMMENDATIONS: The patient will be monitored in the ICU for hemodynamic and electrical stability. Patient will be on aspirin and Plavix.
[2023-10-29] MEDS ORDERED: ONDANSETRON 4 MG/2 ML VIAL IVP PRN (09:19)
[2023-10-29] MEDS ORDERED: ACETAMINOPHEN TAB 325 MG TAB PO PRN (09:19)
[2023-10-29] MEDS ORDERED: IPRATROPIUM-ALBUTEROL 3 ML NEB INHALATION PRN ×2 (09:19)
--- NOTE | 2023-10-29 09:55 | P.OP ---
Date of Procedure: 10/29/23 Preoperative Diagnosis: Calcific aortic stenosis, aortic insufficiency. Postoperative Diagnosis: Same Procedure(s) Performed: Right percutaneous transfemoral transcatheter aortic valve replacement with 29 mm Medtronic evolute flex transcatheter valve Implants: 29 mm Medtronic evolute flex valve Anesthesia: GETA Surgeon: Tal Brown (Cardiovascular surgeon) Fraud Examiner #1: Kolby Becker (First yam curer) Fraud Examiner #2: Benitez Lane (Second yam curer) Estimated Blood Loss (ml): 30 Pathology: none sent Condition: stable Disposition: PACU Indications for Procedure: 73-year-old male presented with severe heart failure. He was noted to have decreased left ventricular function. He had moderate to severe aortic tricuspid calcific stenosis with severe aortic insufficiency. His heart failure was treated in the hospital when he was evaluated where he was felt to be appropriate candidate for either SAVR or TAVR. Patient was at moderate risk for SAVR. Patient expressed explicit interest in transcatheter valve placement. He was evaluated in the high risk valve clinic and felt to be appropriate candidate for transcatheter aortic valve replacement. Operative Findings: Mean gradient across the aortic valve was 38 mmHg measured on simultaneous interventional measurement. Valve was implanted with depths of 4 on the right and 6 on the left. There was initial heart block but this resolved after balloon valvuloplasty. Initial post deployment ELIECER demonstrated significant paravalvular leak with incomplete expansion of the valve frame. Following post deployment dilatation frame was fully expanded and aortic insufficiency resolved. Final mean gradient across the aortic valve was 2 mmHg. Description of Procedure: Patient was brought to the cardiac catheterization laboratory and placed supine on the table. General anesthesia was induced and the patient was intubated. ELIECER probe was placed. Patient was appropriately positioned in the anterior torso and bilateral groins were sterilely prepped and draped. Initial attempt at right subclavian puncture was unsuccessful and it was decided to place f emoral transvenous pacer. Bilateral femoral arterial access and left femoral venous access was obtained. In the left femoral artery along 6 Chilean sheath was placed up into the descending thoracic aorta and through this a pigtail catheter was advanced into the noncoronary sinus of Valsalva. A transvenous pacer was placed through the left femoral venous sheath. 7 Chilean sheath was placed in the right femoral artery and then 2 Perclose devices were placed and it was upsized to a 8 Chilean sheath. This was exchanged for a 14 Chilean sheath over a stiff wire. The patient was systemically heparinized and ACT's were maintained greater than 250. Aortic valve was crossed from the right femoral arterial access and a pigtail catheter placed in the apex of the left ventricle. Transvalvular gradients were measured as noted above. Safari wire was placed in the apex of the ventricle. 29 Medtronic evolute flex valve was loaded on the back table and brought up on the field. It was checked under fluoroscopy. 14 Chilean sheath was exchanged for the valve delivery system and this was advanced through the arterial system under fluoroscopic guidance to the ground the aortic arch and across the aortic valve. Transcatheter valve was deployed under rapid ventricular pacing. Initial evaluation revealed moderate paravalvular leak as well as incomplete expansion of the valve frame. Following initial valve deployment, the patient was in complete heart block. It was decided to reattempt the right subclavian venous puncture and this was successfully accomplished. Screw entrance venous pacemaker lead was placed through the right subclavian vein and secured to the skin with 2-0 silk suture ligatures. Valve delivery system was reexchanged for a 14 Chilean sheath. The valve was recrossed and the safari wire again placed in the apex of the ventricle. The valve was dilated with a 26 Z-Med balloon under rapid ventricular pacing. Following this the patient's complete heart block resolved heart block resolved and he was in first-degree block. Paravalvular leak also was eliminated and the frame appeared to be well-expanded and round. At this point, the transvenous pacer was removed from the left femoral the pigtail catheter which had been pulled back was also removed. Heparin was reversed with protamine and the 14 Chilean sheath was removed from the right groin and the 2 Perclose's devices were deployed. Direct pressure was applied to the groin. There was an initial small leak but this resolved with further protamine and further pressure. Final completion angiogram demonstrated excellent flow through the femoral artery on the right with no narrowing and no leak. The left sheath was removed and the artery controlled with an Angio-Seal. Direct pressure was applied to the femoral venous site after removal of the femoral venous line. Patient was extubated in the room and transferred to recovery in stable condition. He was grossly neurologically intact on completion of the procedure.
[2023-10-29] MEDS: LABETALOL SYRINGE 5 MG/ML (4 ML SYR) IVP ONE ×2 (10:02)
[2023-10-29] MEDS: SODIUM CHLORIDE 0.9% 1,000 ML IV ONE (10:22)
[2023-10-29 10:37] LABS: African American GFR (CKD) >90 (>60 ml/min/1.73 sqM); Anion Gap 4 mmol/L; Blood Urea Nitrogen 24 mg/dL (9-20); Calcium 7.9 mg/dL (8.4-10.2); Carbon Dioxide 23 mmol/L (22-30); Chloride 105 mmol/L (98-107); Glucose 112 mg/dL (74-99); Non-African American GFR(CKD) >90 (>60 ml/min/1.73 sqM); Potassium 4.9 mmol/L (3.5-5.1); Sodium 132 mmol/L (137-145)
--- NOTE | 2023-10-29 10:55 | XR ---
EXAMINATION TYPE: XR chest 1V portable DATE OF EXAM: 10/29/2023 COMPARISON: 10/19/2023 INDICATION: Postop cardiac surgery TECHNIQUE: Single frontal view of the chest is obtained. FINDINGS: The heart size is normal. The pulmonary vasculature is prominent. No suspicious focal consolidation evident. Right-sided pneumothorax is present. Pacemaker lead appears to be present IMPRESSION: 1. Right-sided pneumothorax. A Red level critical message alert has been initiated for Florinda Bernabe via the [facility] Results System on 10/29/2023 10:53 AM. This message alert has been sent to Florinda Bernabe via the pref erences provided by the clinician for the receipt of Radiology Critical Findings. Message ID [id number].
[2023-10-29 11:20] LABS: Glucose,Whole Blood 133 mg/dL (70-110)
[2023-10-29] MEDS ORDERED: hydrALAZINE HCL 20 MG/ML 1 ML VIAL IVP PRN (12:24)
[2023-10-29 12:47] LABS: MCH 33.1 pg (25.0-35.0); MCHC 32.9 g/dL (31.0-37.0); MCV 100.6 fL (80.0-100.0); Macrocytosis Slight; Mean Platelet Volume 8.1; RDW 14.5 % (11.5-15.5)
[2023-10-29 13:22] LABS: HCT 40.9 % (39.0-53.0); MCH 32.4 pg (25.0-35.0); MCHC 32.8 g/dL (31.0-37.0); Mean Platelet Volume 7.7; RBC 4.13 m/uL (4.30-5.90); RDW 14.4 % (11.5-15.5); WBC 20.1 k/uL (3.8-10.6)
[2023-10-29 13:27] LABS: Band Neutrophils % 1 %; Lymphocytes # (M) 0.32 k/uL (1.0-4.8); Metamyelocytes # (M) 0.08 k/uL (0); Metamyelocytes % 1 %; Monocytes # (M) 0.32 k/uL (0-1.0); Myelocytes # (M) 0.08 k/uL (0); Myelocytes % 1 %; Neutrophils % (M) 91 %; Nucleated Red Blood Cells 0 /100 WBC (0-0); Total Cells Counted 200
[2023-10-29 13:28] LABS: Poikilocytosis (M) Present
[2023-10-29 13:31] LABS: HGB 13.4 gm/dL (13.0-17.5)
[2023-10-29 13:32] LABS: Platelet Count 155 k/uL (150-450)
[2023-10-29 13:42] LABS: HGB 5.9 gm/dL (13.0-17.5); RBC 1.79 m/uL (4.30-5.90)
[2023-10-29 13:43] LABS: Platelet Count 72 k/uL (150-450)
[2023-10-29] MEDS: LACTATED RINGERS 1,000 ML IV SCH (14:07)
[2023-10-29] MEDS: LOSARTAN 25 MG TAB PO SCH (15:38)
[2023-10-29] MEDS: predniSONE 10 MG TAB PO SCH (15:39)
[2023-10-29] MEDS: METOPROLOL TARTRATE 25 MG TAB PO SCH (15:46)
[2023-10-29] MEDS: SYMBICORT 160-4.5 MCG INHALER INHALATION SCH (19:39)
[2023-10-29] MEDS: SENNOSIDES-DOCUSATE SODIUM 1 EACH TAB PO SCH (22:01)
[2023-10-30] MEDS: HEPARIN SODIUM,PORCINE 5,000 UNIT/ML 1 ML VIAL SQ SCH (00:45)
[2023-10-30 05:05] LABS: Basophils % (A) 0 %; Eosinophils % (A) 0 %; HCT 40.2 % (39.0-53.0); HGB 13.3 gm/dL (13.0-17.5); Lymphocytes # (A) 2.4 k/uL (1.0-4.8); Lymphocytes % (A) 12 %; MCH 32.3 pg (25.0-35.0); MCV 97.9 fL (80.0-100.0); Mean Platelet Volume 7.8; Monocytes % (A) 5 %; Neutrophils # (A) 16.5 k/uL (1.3-7.7); Neutrophils % (A) 81 %; Platelet Count 142 k/uL (150-450); RBC 4.11 m/uL (4.30-5.90); RDW 14.5 % (11.5-15.5); WBC 20.3 k/uL (3.8-10.6)
[2023-10-30 05:18] LABS: Ionized Calcium 4.9 mg/dL (4.5-5.3)
[2023-10-30 05:28] LABS: ALT 22 U/L (4-49); AST 24 U/L (17-59); African American GFR (CKD) >90 (>60 ml/min/1.73 sqM); Albumin 3.2 g/dL (3.5-5.0); Alkaline Phosphatase 76 U/L (38-126); Anion Gap 6 mmol/L; Blood Urea Nitrogen 16 mg/dL (9-20); Calcium 8.8 mg/dL (8.4-10.2); Carbon Dioxide 24 mmol/L (22-30); Chloride 104 mmol/L (98-107); Glucose 102 mg/dL (74-99); Non-African American GFR(CKD) >90 (>60 ml/min/1.73 sqM); Potassium 4.3 mmol/L (3.5-5.1); Sodium 134 mmol/L (137-145); Total Bilirubin 0.8 mg/dL (0.2-1.3); Total Protein 5.7 g/dL (6.3-8.2)
--- NOTE | 2023-10-30 08:35 | XR ---
EXAMINATION TYPE: XR chest 1V portable DATE OF EXAM: 10/29/2023 12:34 PM CLINICAL INDICATION:Male, 73 years old with history of Post Operative Cardiac Surgery; COMPARISON: None TECHNIQUE: XR chest 1V portable Frontal view of the chest. FINDINGS: Lungs/Pleura: There is flattening of the diaphragm with increased lucency of the lungs. No evidence o f pneumothorax, pleural effusion or focal consolidation. Pulmonary vascularity: Unremarkable. Heart/mediastinum: Cardiomediastinal silhouette is unremarkable. . Cardiac conduction terminates over the right ventricle. Musculoskeletal: No acute osseous pathology. IMPRESSION: 1. Small right pneumothorax, not significantly changed from prior. 2. COPD changes.
[2023-10-30] MEDS ORDERED: bisacodyL 10 MG SUPP RECTAL PRN (09:00)
[2023-10-30] MEDS ORDERED: MAGNESIUM HYDROXIDE 2,400 MG/30 ML CUP PO PRN (09:00)
[2023-10-30] MEDS: ASPIRIN 81 MG PO SCH (10:34)
[2023-10-30] MEDS: ATORVASTATIN 40 MG TAB PO SCH (10:35)
[2023-10-30] MEDS: PANTOPRAZOLE 40 MG TABLET PO SCH (10:38)
[2023-10-30] MEDS: SPIRONOLACTONE 25 MG TAB PO SCH (10:38)
--- NOTE | 2023-10-30 10:39 | US ---
EXAMINATION TYPE: US lower ext pseudo artery LT DATE OF EXAM: 10/30/2023 COMPARISON: NONE CLINICAL INDICATION: Male, 73 years old with history of Rule out hematoma; Valve replacement yesterda y 10/29/2023 EXAM PERFORMED: Grayscale and color Doppler duplex imaging performed of the groin, post cardiac michelle ter to assess for pseudoaneurysm. 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
--- NOTE | 2023-10-30 12:51 | CA ---
Transthoracic Echo Report Name: Thong Sung Age: 73 Gender: M : 1950 Exam Date: 10/30/2023 08:11 Exam Location: [facility] Ht (in): 73 Wt (lb): 150 Ordering Physician: Florinda Bernabe Attending/Referring Phys: [id number], [employer] Information Clerk Teresa Poe, AGUSTÍN Procedure CPT: Indications: post TAVR Cardiac Hx: 1 day post TAVR Technical Quality: Good Contrast 1: Total Dose (mL): Contrast 2: Total Dose (mL): MEASUREMENTS (Male / Female) Normal Values 2D ECHO LV Diastolic Diameter PLAX 5.0 cm 4.2 - 5.9 / 3.9 - 5.3 cm LV Systolic Diameter PLAX 1.2 cm IVS Diastolic Thickness 1.1 cm 0.6 - 1.0 / 0.6 - 0.9 cm LVPW Diastolic Thickness 1.0 cm 0.6 - 1.0 / 0.6 - 0.9 cm LV Relative Wall Thickness 0.4 RV Internal Dim ED PLAX 1.6 cm LV Diastolic Volume MOD BP 106.5 cm??? 67 - 155 / 56 - 104 cm??? LV Systolic Volume MOD BP 59.7 cm??? 22 - 58 / 19 - 49 cm??? LV Ejection Fraction MOD BP 43.9 % >= 55 % LV Cardiac Index MOD BP 2289.2 cm???/min???m??? LV Diastolic Volume MOD 4C 97.0 cm??? LV Systolic Volume MOD 4C 56.9 cm??? LV Ejection Fraction MOD 4C 41.3 % LV Cardiac Index MOD 4C 1959.3 cm???/min???m??? LV Diastolic Length 4C 7.1 cm LV Systolic Length 4C 6.9 cm LV Diastolic Volume MOD 2C 101.7 cm??? LV Systolic Volume MOD 2C 58.5 cm??? LV Ejection Fraction MOD 2C 42.4 % LV Cardiac Index MOD 2C 2108.4 cm???/min???m??? LV Diastolic Length 2C 8.2 cm LV Systolic Length 2C 7.5 cm M-MODE Aortic Root Diameter MM 2.4 cm LA Systolic Diameter MM 3.0 cm LA Ao Ratio MM 1.2 DOPPLER AV Peak Velocity 208.1 cm/s AV Peak Gradient 17.3 mmHg AV Mean Velocity 134.8 cm/s AV Mean Gradient 8.6 mmHg AV Velocity Time Integral 35.5 cm AI Peak Velocity 398.3 cm/s AI Peak Gradient 63.5 mmHg AI Pressure Half Time 644.1 ms LVOT Peak Velocity 90.4 cm/s LVOT Peak Gradient 3.3 mmHg LVOT Velocity Time Integral 18.0 cm Mitral E Point Velocity 74.5 cm/s Mitral A Point Velocity 108.5 cm/s Mitral E to A Ratio 0.7 MV Deceleration Time 239.6 ms TR Peak Velocity 286.6 cm/s TR Peak Gradient 32.9 mmHg Right Ventricular Systolic Press 37.9 mmHg PV Peak Velocity 100.8 cm/s PV Peak Gradient 4.1 mmHg FINDINGS Left Ventricle Left ventricular ejection fraction is estimated at 35-40%. Mildly increased septal wall thickness. Mildly increased left ventricular systolic volume. Moderately decreased left ventricular ejection fraction. Left ventricular cavity size normal. Right Ventricle Normal right ventricular size and function. Mild pulmonary hypertension. Right Atrium Normal right atrial size. Left Atrium Mild left atrial dilatation. Mitral Valve Structurally normal mitral valve. Moderate mitral regurgitation. No mitral stenosis. Aortic Valve Normally functioning bioprosthetic aortic valve without stenosis with a peak velocity of 2 m/s, peak gradient 17 mmHg, mean gradient 8mmHg. Mild paravalvular aortic regurgitation. Tricuspid Valve Structurally normal tricuspid valve. Mild tricuspid regurgitation. Pulmonic Valve Structurally normal pulmonic valve. Trace pulmonic regurgitation. No pulmonic stenosis. Pericardium No pericardial or pleural effusion. Aorta Normal size aortic root and proximal ascending aorta. CONCLUSIONS Left ventricular ejection fraction 35-40% Mild increased left ventricular wall thickness RVSP 38 Moderate mitral regurgitation Normally functioning bioprosthetic aortic valve with peak velocity 2 m/s, mean gradient 8 mmHg Mild paravalvular aortic regurgitation Mild tricuspid regurgitation Previewed by: Dr. Benitez Lane DO (Electronically Signed) Final Date: 30 Oct 2023 12:50
[2023-10-30 13:08] VITALS: BP 143/77; PULSE 78; TEMP 98.2; BMI 19.3
--- NOTE | 2023-10-30 14:47 | P.GSCN ---
History of Present Illness Consult date: 10/30/23 Reason for Consult: Left groin pseudoaneurysm Requesting physician: Kolby Becker History of present illness: This is a pleasant 73-year-old male with a past medical history including severe heart failure with with aortic stenosis and aortic insufficiency who had presented for elective TAVR. Patient underwent TAVR procedure yesterday with access of bilateral femoral arteries and left femoral vein. He is postop day #1 and was noted to have left groin bruising and hematoma noted. He underwent a left groin's arterial ultrasound which reported a 2.7 x 2.3 x 1.6 cm pseudoaneurysm with a 2.6 mm width and 3mm neck with recommendation for compression. Vascular surgery was consulted for a left groin pseudoaneurysm. Patient is currently on aspirin 81 mg, Plavix 75 mg daily and heparin 5000 units subcu every 8 hours. Patient is currently sitting up in his chair at the bedside. He denies any shortness of breath, chest pain, abdominal pain, nausea or vomiting. He does report pain to the left groin with pressure. Review of Systems A 14 point review systems was completed all pertinent positives and negatives as stated in the HPI. Past Medical History Past Medical History: Heart Failure, COPD, Hyperlipidemia, Hypertension, Osteoarthritis (OA) Additional Past Medical History / Comment(s): 2 brain aneurysms-states no symptoms and no surgery/clipping, severe aortic stenosis, severe aortic insufficiency, moderate to severe mitral regurgitation, recent adm. to [facility] for shortness of breath-COPD exacerbation, CHF History of Any Multi-Drug Resistant Organisms: None Reported Past Surgical History: Heart Catheterization Additional Past Surgical History / Comment(s): heart cath -no intervention Past Anesthesia/Blood Transfusion Reactions: No Reported Reaction Additional Past Anesthesia/Blood Transfusion Reaction / Comm: NO ANESTHESIA HX Smoking Status: Former smoker - Past Family History Mother Family Medical History: No Reported History Father Family Medical History: Asthma Medications and Allergies Home Medications Medication Instructions Recorded Confirmed Type Budesonide/Formoterol Fumarate 2 puff INHALATION RT-BID 06/10/18 10/29/23 History [Symbicort 160-4.5 Mcg Inhaler] Esomeprazole Magnesium [NexIUM] 20 mg PO DAILY 06/10/18 10/29/23 History Ipratropium/Albuterol Sulfate 1 puff INHALATION RT-QID PRN 06/10/18 10/29/23 History [Combivent Respimat Inhaler] Atorvastatin [Lipitor] 40 mg PO DAILY 12/16/21 10/28/23 History Furosemide [Lasix] 20 mg PO DAILY@1600 #30 tab 10/23/23 10/29/23 Rx Losartan [Cozaar] 12.5 mg PO DAILY #15 tab 10/23/23 10/29/23 Rx Metoprolol Tartrate [Lopressor] 25 mg PO TID #90 tab 10/23/23 10/29/23 Rx Spironolactone [Aldactone] 12.5 mg PO DAILY #15 tab 10/23/23 10/29/23 Rx Acetaminophen Tab [Tylenol] 650 mg PO Q4HR PRN tab 10/30/23 Rx Aspirin 81 mg PO DAILY tab 10/30/23 Rx Allergies Allergy/AdvReac Type Severity Reaction Status Date / Time No Known Allergies Allergy Verified 10/28/23 11:03 Surgical - Exam Vital Signs Temp Pulse Resp BP Pulse Ox 98.0 F 69 16 134/63 100 10/29/23 06:25 10/29/23 06:25 10/29/23 06:25 10/29/23 06:25 10/29/23 06:25 General appearance: The patient is alert, oriented, appears in no acute distress. HET: Head is normocephalic and atraumatic. Pupils are equal and reactive. Neck: Supple. Heart: Regular. Lungs: Equal expansion, normal respiratory effort. Abdomen: Soft, nontender, nondistended. Extremities: Normal skin color and turgor. Left groin with ecchymosis surrounding access site as well as firmness and tender with palpation. Palpable pedal pulse. Neurological: Alert and oriented x 3. Results - Labs 10/30/23 04:30 10/30/23 04:30 Abnormal Lab Results - Last 24 Hours (Table) 10/29/23 10/30/23 10/30/23 Range/Units 09:30 04:30 04:30 WBC 20.3 H (3.8-10.6) k/uL RBC 1.79 L 4.11 L (4.30-5.90) m/uL Hgb 5.9 L* D (13.0-17.5) gm/dL Hct 18.0 L* (39.0-53.0) % Plt Count 72 L D 142 L (150-450) k/uL Neutrophils # 16.5 H (1.3-7.7) k/uL Sodium 134 L (137-145) mmol/L Creatinine 0.46 L (0.66-1.25) mg/dL Glucose 102 H (74-99) mg/dL Total Protein 5.7 L (6.3-8.2) g/dL Albumin 3.2 L (3.5-5.0) g/dL Diabetes panel 10/30/23 Range/Units 04:30 Sodium 134 L (137-145) mmol/L Potassium 4.3 (3.5-5.1) mmol/L Chloride 104 (98-107) mmol/L Carbon Dioxide 24 (22-30) mmol/L BUN 16 (9-20) mg/dL Creatinine 0.46 L (0.66-1.25) mg/dL Glucose 102 H (74-99) mg/dL Calcium 8.8 (8.4-10.2) mg/dL AST 24 (17-59) U/L ALT 22 (4-49) U/L Alkaline Phosphatase 76 (38-126) U/L Total Protein 5.7 L (6.3-8.2) g/dL Albumin 3.2 L (3.5-5.0) g/dL Calcium panel 10/30/23 Range/Units 04:30 Calcium 8.8 (8.4-10.2) mg/dL Ionized Calcium Selvin 4.9 (4.5-5.3) mg/dL Albumin 3.2 L (3.5-5.0) g/dL Pituitary panel 10/30/23 Range/Units 04:30 Sodium 134 L (137-145) mmol/L Potassium 4.3 (3.5-5.1) mmol/L Chloride 104 (98-107) mmol/L Carbon Dioxide 24 (22-30) mmol/L BUN 16 (9-20) mg/dL Creatinine 0.46 L (0.66-1.25) mg/dL Glucose 102 H (74-99) mg/dL Calcium 8.8 (8.4-10.2) mg/dL Adrenal panel 10/30/23 Range/Units 04:30 Sodium 134 L (137-145) mmol/L Potassium 4.3 (3.5-5.1) mmol/L Chloride 104 (98-107) mmol/L Carbon Dioxide 24 (22-30) mmol/L BUN 16 (9-20) mg/dL Creatinine 0.46 L (0.66-1.25) mg/dL Glucose 102 H (74-99) mg/dL Calcium 8.8 (8.4-10.2) mg/dL Total Bilirubin 0.8 (0.2-1.3) mg/dL AST 24 (17-59) U/L ALT 22 (4-49) U/L Alkaline Phosphatase 76 (38-126) U/L Total Protein 5.7 L (6.3-8.2) g/dL Albumin 3.2 L (3.5-5.0) g/dL Assessment and Plan Assessment: 1. Left groin pseudoaneurysm status post TAVR 2. History of heart failure 3. Aortic stenosis 4. Hypertension 5. Hyperlipidemia 6. Tobacco use Plan: 1. Apply pressure dressing to left groin 2. Recommend pseudoaneurysm compression with thrombin injection, however this is not available at this hospital at this time 3. Patient can be discharged if cleared by cardiology and can have done as an outpatient at [facility] tomorrow. Thank you for this consultation, we will sign off at this time. The impression and plan of care has been dictated as directed. I performed a history and examination of this patient, discussed the same with the dictator. I agree with the dictator's note ,documented as a scribe. Any additional findings or plans will be noted.
--- NOTE | 2023-10-30 15:58 | P.DS ---
Providers Date of admission: 10/29/23 05:49 Expected date of discharge: 10/30/23 Attending physician: Kolby Becker Consults: 10/28/23 10:08 Consult to Anesthesia Routine Consulting Provider: Anesthesia,Services Consult Reason/Comments: Cardiac Surgery Pre-Op 10/29/23 08:41 Consult Physician Routine Consulting Provider: Tal Brown Consult Reason/Comments: TAVR Do you want consulting provider notified?: Already Contacted Primary care physician: Teodora Pascual [facility] Course: FINAL DIAGNOSIS: Severe symptomatic calcific aortic valve stenosis, severe aortic valve insu fficiency, status post percutaneous aortic valve implantation using a 29 mm Medtronic evolute flex transcatheter valve 2 to 3+ mitral valve regurgitation Hypertension Hyperlipidemia Chronic systolic heart failure with reduced ejection fraction, 25 to 30% Brain aneurysm COPD with a preoperative FEV1 34% of predicted value Osteoarthritis Remote history of nicotine dependence PRINCIPAL PROCEDURE: 1. Percutaneous Aortic Valve Implantation using a 29 mm Medtronic evolute flex transcatheter valve 2. Transesophageal echocardiography (performed by anesthesia) 3. Ultrasound guided access and repair of bilateral femoral artery access site by Perclose closure device. 4. Placement of temporary pacemaker wire. 5. Aortic root angiography HISTORY OF PRESENT ILLNESS: This is a [id number] gentleman who follows on an outpatient basis with Dr. Griffin for his primary care and Dr. ADIEL Frederick for his cardiology care. He has a known history of severe aortic valve stenosis, severe aortic valve insufficiency and has been symptomatic with progressive shortness of breath. He had been referred to structural heart clinic for evaluation for transcatheter aortic valve replacement after heart catheterization and transesophageal echocardiogram were completed. Echocardiography demonstrated her left ventricular systolic function to be severely decreased with an ejection fraction of 25 to 30%, peak velocity of 3.71 m/s, and an aortic valve area 0.8 cm with a peak/mean gradient 55/34 mmHg. Heart catheterization showed no significant coronary artery disease, severe aortic valve stenosis with a mean gradient of 47 mmHg, severe aortic valve regurgitation, and 2-3+ mitral valve regurgitation. After workup was completed STS risk score was calculated along with incremental risk and the patient was felt to be a high risk for surgical aortic valve replacement, however taking into consideration the patient's values and wishes, transcatheter aortic valve replacement was recommended. The usual course of TAVR was discussed in detail the patient, risks and benefits were reviewed, shared decision making between cardiology, surgery, and the patient/family took place, and the patient consented to proceed with the TAVR procedure. HOSPITAL COURSE: The patient was brought to the hospital on October 29, 2023, was taken to the extended stay area, prepared in the usual fashion, and subsequently taken to the cardiac catheterization laboratory where Dr. Becker, Dr. Lane and Dr. Brown completed TAVR procedure under general anesthesia with fluoroscopy and ELIECER. The valve was deployed under rapid ventricular pacing and proceeded without event. At the end of the procedure the mean gradient was 7 mmHg with a peak gradient of 15 mmHg, and a max velocity of 2 m/s, hemodynamics were felt to be acceptable, and there was trace paravalvular leak. Upon completion of the procedure the patient was extubated and was transferred to the recovery room where he was recovered and monitored hemodynamically and subsequently transferred to the cardiovascular intensive care unit for further recovery and hemodynamic monitoring. His oxygen was titrated down, he was tolerating oral diet, his pain was controlled, follow-up TTE demonstrated her left ventricular systolic function to be moderately decreased with estimated ejection fraction at 35 to 40%, a mean gradient 8 mmHg, a peak velocity of 2 m/s, and mild perivalvular aortic valve regurgitation. Postoperative day #1 it was noted the patient had some bruising and a hematoma noted to the left groin, an arterial ultrasound of the left groin was completed, which demonstrated a 2.7 x 2.3 x 1.6 cm pseudoaneurysm with a 2.6 mm with and a 3 mm neck with recommendation for compression. Vascular surgery was consulted for left groin pseudoaneurysm compression. The patient will be discharged home today on postop day #1, and will be scheduled as an outpatient to be seen at [facility] to undergo comp ression of his left groin pseudoaneurysm to be performed by Dr. Oliva. He received written and verbal instruction regarding his medications, activity restrictions, signs and symptoms requiring physician notification, and his follow-up appointments. Plan - Discharge Summary Discharge Rx Participant: Yes New Discharge Prescriptions: New Aspirin 81 mg PO DAILY tab Acetaminophen Tab [Tylenol] 650 mg PO Q4HR PRN tab PRN Reason: Fever And/ Or Mild Pain (1-3) Continue Ipratropium/Albuterol Sulfate [Combivent Respimat Inhaler] 1 puff INHALATION RT-QID PRN PRN Reason: Shortness Of Breath Esomeprazole Magnesium [NexIUM] 20 mg PO DAILY Budesonide/Formoterol Fumarate [Symbicort 160-4.5 Mcg Inhaler] 2 puff INHALATION RT-BID Atorvastatin [Lipitor] 40 mg PO DAILY Losartan [Cozaar] 12.5 mg PO DAILY #15 tab Furosemide [Lasix] 20 mg PO DAILY@1600 #30 tab Spironolactone [Aldactone] 12.5 mg PO DAILY #15 tab Metoprolol Tartrate [Lopressor] 25 mg PO TID #90 tab Discontinued predniSONE 10 mg PO DAILY Discharge Medication List Budesonide/Formoterol Fumarate [Symbicort 160-4.5 Mcg Inhaler] 2 puff INHALATION RT-BID 06/10/18 [History] Esomeprazole Magnesium [NexIUM] 20 mg PO DAILY 06/10/18 [History] Ipratropium/Albuterol Sulfate [Combivent Respimat Inhaler] 1 puff INHALATION RT- QID PRN 06/10/18 [History] Atorvastatin [Lipitor] 40 mg PO DAILY 12/16/21 [History] Furosemide [Lasix] 20 mg PO DAILY@1600 #30 tab 10/23/23 [Rx] Losartan [Cozaar] 12.5 mg PO DAILY #15 tab 10/23/23 [Rx] Metoprolol Tartrate [Lopressor] 25 mg PO TID #90 tab 10/23/23 [Rx] Spironolactone [Aldactone] 12.5 mg PO DAILY #15 tab 10/23/23 [Rx] Acetaminophen Tab [Tylenol] 650 mg PO Q4HR PRN tab 10/30/23 [Rx] Aspirin 81 mg PO DAILY tab 10/30/23 [Rx] Follow up Appointment(s)/Referral(s): Genevieve Frederick MD [STAFF PHYSICIAN] - 11/04/23 1:45 pm (Your appointment 11/04/23 is with NILDA Lind at the [facility] for groin check. You also have a 30 day post TAVR echo and appointment with Dr. Frederick 01/07/24 @2:30 pm, and a 1 year post TAVR echo and appointment with Dr. Frederick 10/06/24 @ 2:30 pm) Giliberto,Tal J, DO [Doctor of Osteopathic Medicine] - 1 Week (Call to schedule left groin ultrasound to reevaluate pseudoaneurysm early next week. He will be seen at [facility] tomorrow October 31, 2023 located at [address] [place] [address] for compression of left groin pseudoaneurysm. Somebody from Dr. Oliva's office or at [facility] will call you with scheduling time.) Beckie Griffin MD [STAFF PHYSICIAN] - As Needed Clinic,Structural Heart [NON-STAFF] - 01/07/24 2:00 pm (You have a 30 day post TAVR clinic appointment 01/07/24 @2 pm, and a 1 year post TAVR clinic appointment 10/06/24 @ 2 pm) Ambulatory/Diagnostic Orders: Basic Metabolic Panel [LAB.AMB] Location: None Selected Basic Metabolic Panel [LAB.AMB] Location: None Selected Complete Blood Count w/diff [LAB.AMB] Location: None Selected Complete Blood Count w/diff [LAB.AMB] Location: None Selected Activity/Diet/Wound Care/Special Instructions: DISCHARGE INSTRUCTIONS: 1. No driving for 1 week, or until physician gives their ok. 2. No lifting, pushing, or pulling more than 5-10 pounds for 1 week. 3. Hold both groins when you cough or sneeze for the next 2 weeks. Bruising is common, but report increased swelling, pain or fever >101F 4. Shower daily. No pool, hot tub, or bathtub for 1 week 5. No powders, lotions, ointments on incisions. 6. No straining, including for bowel movements. Use stool softner if necessary 7. Stairs are not an issue. Go slowly, using handrail and take 1 step at a time. Ambulate several times daily 8. Continue pain control per as needed orders. 9. Take only the medications listed on your discharge form 10. Eat low salt (limited to 2 grams or 2000 milligrams) daily, avoid adding salt, avoid canned/processed foods 11. Take your weight daily in the morning and record, bring with you to your follow up appointments 12. Keep all follow up appointments. You will need a valve clinic appointment at 30 days and 1 year post procedure for follow up 13. You have been referred to and are expected to begin Cardiac Rehab in approximately 4 weeks. 14. You will need antibiotics prior to any dental work, including cleanings, and any surgeries to prevent Endocarditis (bacterial infection in your heart) For any questions or concerns please call your valve coordinators: Florinda or Tony @ Discharge Disposition: HOME SELF-CARE
[2023-10-30] MEDS: FUROSEMIDE 20 MG TAB PO SCH (16:43)
[2023-10-30] MEDS: THROMBIN (BOVINE) 5,000 UNIT VIAL TOPICAL STA (16:43)
[2023-10-30] MEDS: LIDOCAINE 1% INJ 10MG/ML (20 ML MDV) SQ ONE (16:43)
[2023-10-30 16:50] VITALS: RESP 17
== END 2023-10-30 17:15 | disposition home or self-care (01) | DRG 267 ==
LOC: 2ORMAIN 05:49 → 2SICU 09:50
PROVIDERS: ADMIT Internal Medicine Interventional Cardiology; ATTEND Internal Medicine Interventional Cardiology
PROC: B3101ZZ Fluoroscopy of Thoracic Aorta using Low Osmolar Contrast (ICD-10-PCS; 2023-10-29)
PROC: 5A1223Z Performance of Cardiac Pacing, Continuous (ICD-10-PCS; 2023-10-29)
PROC: 02RF38Z Replacement of Aortic Valve with Zooplastic Tissue, Percutaneous Approach (ICD-10-PCS; principal; 2023-10-29 08:00)
PROC: B246ZZ4 Ultrasonography of Right and Left Heart, Transesophageal (ICD-10-PCS; 2023-10-29 08:00)
DX: I35.2 Nonrheumatic aortic (valve) stenosis with insufficiency (principal); Z00.6 Encounter for examination for normal comparison and control in clinical research program; I50.22 Chronic systolic (congestive) heart failure; T81.718A Complication of other artery following a procedure, not elsewhere classified, initial encounter; I72.4 Aneurysm of artery of lower extremity; E78.5 Hyperlipidemia, unspecified; I11.0 Hypertensive heart disease with heart failure; J44.9 Chronic obstructive pulmonary disease, unspecified; Z86.79 Personal history of other diseases of the circulatory system; M19.90 Unspecified osteoarthritis, unspecified site; Z79.51 Long term (current) use of inhaled steroids; Z79.02 Long term (current) use of antithrombotics/antiplatelets; Z79.899 Other long term (current) drug therapy; Z87.891 Personal history of nicotine dependence; Z79.82 Long term (current) use of aspirin; Y84.8 Other medical procedures as the cause of abnormal reaction of the patient, or of later complication, without mention of misadventure at the time of the procedure; I08.0 Rheumatic disorders of both mitral and aortic valves
CPT/HCPCS: 33210; 33361; 71045; 80048; 80053; 82330; 83735; 85025; 85027; 93306; 93312; 93320; 93325; 93975

== ENCOUNTER → 2024-01-08 | Outpatient (CLI) | payer MEDICARE ==
[2024-01-08 16:17] LABS: Basophils # (A) 0.04 X 10*3/uL (0.00-0.10); Basophils % (A) 0.3 %; Eosinophils # (A) 0.17 X 10*3/uL (0.04-0.35); Eosinophils % (A) 1.5 %; HCT 40.2 % (39.6-50.0); HGB 13.2 g/dL (13.0-17.0); Lymphocytes # (A) 2.69 X 10*3/uL (0.90-5.00); Lymphocytes % (A) 23.5 %; MCHC 32.8 g/dL (32.0-37.0); MCV 97.3 FL (80.0-97.0); Monocytes # (A) 0.92 X 10*3/uL (0.20-1.00); NRBC Per 100 WBC 0 X 10*3/uL (0.00-0.01); Neutrophils # (A) 7.56 X 10*3/uL (1.80-7.70); Neutrophils % (A) 66.1 %; Platelet Count 286 X 10*3/uL (140-440); RBC 4.13 X 10*6/uL (4.40-5.60); RDW 13.4 % (11.5-14.5); WBC 11.45 X 10*3/uL (4.50-10.00)
[2024-01-08 16:33] LABS: BUN/Creat Ratio 21.38 Ratio (12.00-20.00); Blood Urea Nitrogen 17.1 mg/dL (9.0-27.0); Calcium 9.6 mg/dL (8.7-10.3); Carbon Dioxide 23.1 mmol/L (21.6-31.8); Chloride 102 mmol/L (96-109); Glucose 97 mg/dL (70-110); Potassium 4.2 mmol/L (3.5-5.5); Sodium 138 mmol/L (135-145)
== END | disposition home or self-care (01) ==
LOC: LABWHC1 10:02
PROVIDERS: ATTEND Thoracic Surgery (Cardiothoracic Vascular Surgery)
DX: I35.1 Nonrheumatic aortic (valve) insufficiency (principal)
CPT/HCPCS: 36415; 80048; 85025

== ENCOUNTER → 2024-10-06 | Outpatient (CLI) | payer MEDICARE ==
[2024-10-06 19:40] LABS: BUN/Creat Ratio 24.25 Ratio (12.00-20.00); Blood Urea Nitrogen 19.4 mg/dL (9.0-27.0); Calcium 9.3 mg/dL (8.7-10.3); Carbon Dioxide 24.2 mmol/L (21.6-31.8); Chloride 104 mmol/L (96-109); Glucose 111 mg/dL (70-110); Potassium 4.3 mmol/L (3.5-5.5); Sodium 139 mmol/L (135-145)
[2024-10-06 19:52] LABS: Basophils # (A) 0.05 X 10*3/uL (0.00-0.10); Basophils % (A) 0.5 %; Eosinophils # (A) 0.19 X 10*3/uL (0.04-0.35); Eosinophils % (A) 1.7 %; HCT 39.4 % (39.6-50.0); HGB 12.4 g/dL (13.0-17.0); Lymphocytes # (A) 2.75 X 10*3/uL (0.90-5.00); Lymphocytes % (A) 25.2 %; MCH 30.5 pg (27.0-32.0); MCHC 31.5 g/dL (32.0-37.0); Mean Platelet Volume 10.2 FL (9.5-12.2); Monocytes # (A) 0.65 X 10*3/uL (0.20-1.00); NRBC Per 100 WBC 0 X 10*3/uL (0.00-0.01); Neutrophils # (A) 7.24 X 10*3/uL (1.80-7.70); Neutrophils % (A) 66.2 %; Platelet Count 300 X 10*3/uL (140-440); RBC 4.06 X 10*6/uL (4.40-5.60); RDW 13.3 % (11.5-14.5); WBC 10.92 X 10*3/uL (4.50-10.00)
== END | disposition home or self-care (01) ==
LOC: LABWHC1 14:17
PROVIDERS: ATTEND Nurse Practitioner Acute Care
DX: I35.1 Nonrheumatic aortic (valve) insufficiency (principal)
CPT/HCPCS: 36415; 80048; 85025

== ENCOUNTER 2024-12-21 21:13 | Inpatient (IN) | payer MEDICARE ==
--- NOTE | 2024-12-21 21:50 | ED ---
Chest Pain HPI - General Chief Complaint: Chest Pain Stated Complaint: Chest Tightness,SOB Time Seen by Provider: 12/21/24 21:44 Source: patient, RN notes reviewed, old records reviewed Mode of arrival: ambulatory Limitations: no limitations - History of Present Illness Initial Comments: This is a 74-year-old male to the ER for evaluation patient presents with major dyspnea today. Significant shortness of breath is history of asthma no for improvement with breathing treatments prior to arrival. Significant lower extremity edema and significant exertional dyspnea. History of valvular disorder with valve replacement and mesh MD Complaint: chest pain, other (Shortness of breath with lower extremity edema) -: hour(s) Onset: awoke with symptoms Pain Location: substernal Severity: moderate Severity scale (1-10): 7 Consistency: constant Improves With: nothing Worsens With: nothing Anginal Symptoms: dyspnea Other Symptoms: palpitations Treatments Prior to Arrival: none - Related Data Home Medications Medication Instructions Recorded Confirmed Budesonide/Formoterol Fumarate 2 puff INHALATION DIRECTED 06/10/18 12/22/24 [Symbicort 160-4.5 Mcg Inhaler] Ipratropium/Albuterol Sulfate 1 puff INHALATION RT-QID 06/10/18 12/22/24 [Combivent Respimat Inhaler] Atorvastatin [Lipitor] 40 mg PO DAILY 12/16/21 12/22/24 Aspirin 81mg Dye Free 81 mg PO DAILY 12/22/24 12/22/24 Esomeprazole Magnesium [NexIUM 20 mg PO DAILY 12/22/24 12/22/24 24Hr] Losartan [Cozaar] 25 mg PO HS 12/22/24 12/22/24 Metoprolol Tartrate [Lopressor] 25 mg PO DAILY 12/22/24 12/22/24 Previous Rx's Medication Instructions Recorded Azithromycin [Zithromax] 500 mg PO DAILY 3 Days #3 tab 12/24/24 Furosemide [Lasix] 40 mg PO DAILY 30 Days #30 tab 12/24/24 Magnesium Oxide [Mag-Ox] 400 mg PO DAILY 30 Days #30 tab 12/24/24 predniSONE 50 mg PO DAILY 5 Days #5 tablet 12/24/24 Allergies Allergy/AdvReac Type Severity Reaction Status Date / Time No Known Allergies Allergy Verified 12/21/24 21:18 Review of Systems ROS Statement: Those systems with pertinent positive or pertinent negative responses have been documented in the HPI. ROS Other: All systems not noted in ROS Statement are negative. EKG Findings - EKG Comments: EKG Findings:: EKG sinus tachycardia 101 NJ 165 QRS 145 QTc 449 - EKG Results: EKG: interpreted by FRITZ Past Medical History Past Medical History: Heart Failure, COPD, Hyperlipidemia, Hypertension, Osteoarthritis (OA) Additional Past Medical History / Comment(s): 2 brain aneurysms-states no symptoms and no surgery/clipping, severe aortic stenosis, severe aortic insufficiency, moderate to severe mitral regurgitation, recent adm. to [facility] for shortness of breath-COPD exacerbation, CHF History of Any Multi-Drug Resistant Organisms: None Reported Past Surgical History: Heart Catheterization Additional Past Surgical History / Comment(s): heart cath -no intervention, aortic valve Past Anesthesia/Blood Transfusion Reactions: No Reported Reaction Additional Past Anesthesia/Blood Transfusion Reaction / Comment(s): NO ANESTHESIA HX Past Psychological History: No Psychological Hx Reported Smoking Status: Former smoker Past Alcohol Use History: None Reported Past Drug Use History: None Reported - Past Family History Mother Family Medical History: No Reported History Father Family Medical History: Asthma General Exam Limitations: no limitations General appearance: alert, in no apparent distress Head exam: Present: atraumatic, normocephalic, normal inspection Eye exam: Present: normal appearance, PERRL, EOMI. Absent: scleral icterus, conjunctival injection, periorbital swelling ENT exam: Present: normal exam, mucous membranes moist Neck exam: Present: normal inspection. Absent: tenderness, meningismus, lymphadenopathy Respiratory exam: Present: normal lung sounds bilaterally. Absent: respiratory distress, wheezes, rales, rhonchi, stridor Cardiovascular Exam: Present: regular rate, normal rhythm, normal heart sounds. Absent: systolic murmur, diastolic murmur, rubs, gallop, clicks GI/Abdominal exam: Present: soft, normal bowel sounds. Absent: distended, tenderness, guarding, rebound, rigid Extremities exam: Present: normal inspection, full ROM, normal capillary refill. Absent: tenderness, pedal edema, joint swelling, calf tenderness Back exam: Present: normal inspection Neurological exam: Present: alert, oriented X3, CN II-XII intact Psychiatric exam: Present: normal affect, normal mood Skin exam: Present: warm, dry, intact, normal color. Absent: rash Course Vital Signs 07/15/25 07/15/25 07/15/25 21:14 21:42 22:40 Temperature 97.9 F Pulse Rate 110 H 98 84 Pulse Rate [ Pocketed Spring Machine Operator ] Respiratory 20 18 Rate Blood Pressure 184/70 153/75 Blood Pressure [Right Arm] O2 Sat by Pulse 95 96 Oximetry 12/21/24 12/21/24 12/22/24 22:49 23:18 00:05 Temperature Pulse Rate 86 96 84 Pulse Rate [ Pocketed Spring Machine Operator ] Respiratory 20 Rate Blood Pressure 119/59 Blood Pressure [Right Arm] O2 Sat by Pulse 95 Oximetry 12/22/24 12/22/24 12/22/24 00:14 00:31 06:00 Temperature Pulse Rate 82 92 86 Pulse Rate [ Pocketed Spring Machine Operator ] Respiratory 19 18 Rate Blood Pressure 137/61 139/64 Blood Pressure [Right Arm] O2 Sat by Pulse 96 95 Oximetry 12/22/24 12/22/24 12/22/24 07:00 07:53 08:00 Temperature 98.0 F Pulse Rate 79 83 85 Pulse Rate [ Pocketed Spring Machine Operator ] Respiratory 19 22 Rate Blood Pressure 125/55 135/60 Blood Pressure [Right Arm] O2 Sat by Pulse 95 97 Oximetry 12/22/24 12/22/24 12/22/24 08:02 09:00 10:00 Temperature Pulse Rate 84 93 94 Pulse Rate [ Pocketed Spring Machine Operator ] Respiratory 21 18 Rate Blood Pressure 145/64 151/64 Blood Pressure [Right Arm] O2 Sat by Pulse 96 96 Oximetry 12/22/24 12/22/24 12/22/24 11:00 11:21 11:35 Temperature Pulse Rate 81 82 83 Pulse Rate [ Pocketed Spring Machine Operator ] Respiratory 21 Rate Blood Pressure 139/69 Blood Pressure [Right Arm] O2 Sat by Pulse 96 Oximetry 12/22/24 12/22/24 12/22/24 12:00 13:00 15:00 Temperature Pulse Rate 80 86 87 Pulse Rate [ Pocketed Spring Machine Operator ] Respiratory 17 21 16 Rate Blood Pressure 124/50 118/56 113/50 Blood Pressure [Right Arm] O2 Sat by Pulse 95 95 95 Oximetry 12/22/24 12/22/24 12/22/24 15:01 15:08 16:00 Temperature Pulse Rate 95 96 91 Pulse Rate [ Pocketed Spring Machine Operator ] Respiratory 18 Rate Blood Pressure 111/50 Blood Pressure [Right Arm] O2 Sat by Pulse 95 Oximetry 12/22/24 12/22/24 12/22/24 17:00 18:00 19:32 Temperature Pulse Rate 90 95 94 Pulse Rate [ Pocketed Spring Machine Operator ] Respiratory 18 22 Rate Blood Pressure 118/60 115/54 Blood Pressure [Right Arm] O2 Sat by Pulse 95 95 Oximetry 12/22/24 12/22/24 19:42 20:49 Temperature Pulse Rate 96 Pulse Rate [ 97 Pocketed Spring Machine Operator ] Respiratory 20 Rate Blood Pressure Blood Pressure 117/53 [Right Arm] O2 Sat by Pulse 95 Oximetry - Reevaluation(s) Reevaluation #1: 12/21/24 22:18 Medical records reviewed Reevaluation #2: 12/22/24 02:36 No real improvement in symptoms patient still short of breath Reevaluation #3: 12/22/24 02:36 Patient informed of results questions answered Reevaluation #4: Was pt. sent in by a medical professional or institution (, PA, MASH FILTER PRESS OPERATOR, urgent care, hospital, or care home...) When possible be specific @ -no Did you speak to anyone other than the patient for history (EMS, parent, family, police, friend...)? What history was obtained from this source @ -no Did you review nursing and triage notes (agree or disagree)? Why? @ -agree Are old charts reviewed (outside hosp., previous admission, EMS record, old EKG, old radiological studies, urgent care reports/EKG's, care home records)? Report findings @ -yes Differential Diagnosis (chest pain, altered mental status, abdominal pain women, abdominal pain men, vaginal bleeding, weakness, fever, dyspnea, syncope, headache, dizziness, GI bleed, back pain, seizure, CVA, palpatations, mental health, musculoskeletal)? @ -prior EKG interpreted by me (3pts min.). @ -yes X-rays interpreted by me (1pt min.). @ -yes negative for acute disease CT interpreted by me (1pt min.). @ -Yes concern pneumonia no PE U/S interpreted by me (1pt. min.). @ -no What testing was considered but not performed or refused? (CT, X-rays, U/S, labs)? Why? @ -none What meds were considered but not given or refused? Why? @ -none Did you discuss the management of the patient with other professionals (professionals i.e. , PA, MASH FILTER PRESS OPERATOR, lab, RT, psych nurse, rn social services, billet grinder, teacher, chief diversity officer, pillowcase maker)? Give summary @ -no Was smoking cessation discussed for >3mins.? @ -no Was critical care preformed (if so, how long)? @ -yes31 Were there social determinants of health that impacted care today? How? (Homelessness, low income, unemployed, alcoholism, drug addiction, transportation, low edu. Level, literacy, decrease access to med. care, skilled nursing, rehab)? @ -none Was there de-escalation of care discussed even if they declined (Discuss DNR or withdrawal of care, Hospice)? DNR status @ -no What co-morbidities impacted this encounter? (DM, HTN, Smoking, COPD, CAD, Cancer, CVA, ARF, Chemo, Hep., AIDS, mental health diagnosis, sleep apnea, morbid obesity)? @ -none Was patient admitted / discharged? Hospital course, mention meds given and route, prescriptions, significant lab abnormalities, going to OR and other pertinent info. @ - 74 male will be admitted for hypoxia hypoxia from CHF COPD, history of valve disease, patient will admit for breathing treatments, diuresis cardiology and pulmonology Admitted Undiagnosed new problem with uncertain prognosis? @ -no Drug Therapy requiring intensive monitoring for toxicity (Heparin, Nitro, Insulin, Cardizem)? @ -no Were any procedures done? @ -no Diagnosis/symptom? @ -Hypoxia from CHF and COPD Acute, or Chronic, or Acute on Chronic? @ -Acute Uncomplicated (without systemic symptoms) or Complicated (systemic symptoms)? @ -Complicated Side effects of treatment? @ -no Exacerbation, Progression, or Severe Exacerbation? @ -exacerbation Poses a threat to life or bodily function? How? (Chest pain, [place], [place], pneumonia, PE, COPD, DKA, ARF, appy, cholecystitis, CVA, Diverticulitis, Homicidal, Suicidal, threat to staff... and all critical care pts) @ -yes hypoxic respiratory failure Reevaluation #5: Differential Dyspnea: Coronary syndrome, arrhythmia, tamponade, asthma, COPD, pulmonary embolism, pneumonia, pneumothorax, pulmonary effusion, anaphylaxis, diabetic ketoacidosis, flailed chest, pulmonary contusion, diaphragmatic rupture, anemia, neuromuscular, this is not meant to be an all-inclusive list. Differential Chest Pain: Stable Angina, Unstable Angina, STEMI, NSTEMI Aortic Dissection, Pneumothorax, Musculoskeletal, Esophageal Spasm GERD, Cholecystitis, Pancreatitis, Zoster, this is not meant to be an all-inclusive list. - Consultations Consultation #1: Spoke with EM who agrees to admit this patient Chest Pain MDM - MDM 74 male will be admitted for hypoxia hypoxia from CHF COPD, history of valve disease, patient will admit for breathing treatments, diuresis cardiology and pulmonology Critical Care Time Critical Care Time: Yes Total Critical Care Time: 31 Disposition Clinical Impression: Acute exacerbation of chronic obstructive pulmonary disease, CHF (congestive heart failure), Hypoxia, Bilateral pleural effusion, Bilateral leg edema, NSTEMI (non-ST elevated myocardial infarction) Disposition: ADMITTED IP TO THIS HOSP Condition: Serious Is patient prescribed a controlled substance at d/c from ED?: No Time of Disposition: 02:00
[2024-12-21 22:03] LABS: Basophils # (A) 0.03 10*3/uL (0.00-0.10); Basophils % (A) 0.3 %; Eosinophils # (A) 0.20 10*3/uL (0.04-0.35); Eosinophils % (A) 2.1 %; HCT 34.7 % (39.6-50.0); HGB 11.7 g/dL (13.0-17.0); Lymphocytes # (A) 2.30 10*3/uL (0.90-5.00); Lymphocytes % (A) 24.0 %; MCH 32.0 pg (27.0-32.0); MCHC 33.7 g/dL (32.0-37.0); MCV 94.8 fL (80.0-97.0); Monocytes # (A) 0.77 10*3/uL (0.20-1.00); Monocytes % (A) 8.0 %; Neutrophils # (A) 6.26 10*3/uL (1.80-7.70); Neutrophils % (A) 65.3 %; Platelet Count 213 10*3/uL (140-440); RBC 3.66 10*6/uL (4.40-5.60); RDW 13.5 % (11.5-14.5); WBC 9.59 10*3/uL (4.50-10.00)
[2024-12-21] MEDS: methylPREDNISolone SOD SUCCI 125 MG/2 ML VIAL IV STA (22:12)
[2024-12-21 22:16] LABS: INR 1.1 (<1.2); Partial Thromboplastin Time 25.7 sec (22.0-30.0); Prothrombin Time 11.6 sec (10.0-12.5)
[2024-12-21 22:17] LABS: ALT 11 U/L (4-49); AST 18 U/L (17-59); African American GFR (CKD) >90 (>60 ml/min/1.73 sqM); Albumin 3.4 g/dL (3.5-5.0); Alkaline Phosphatase 93 U/L (38-126); Anion Gap 12 mmol/L; Blood Urea Nitrogen 15 mg/dL (9-20); Calcium 9.1 mg/dL (8.4-10.2); Carbon Dioxide 23 mmol/L (22-30); Chloride 105 mmol/L (98-107); Glucose 158 mg/dL (74-99); Lipase 85 U/L (23-300); Magnesium 1.5 mg/dL (1.6-2.3); Non-African American GFR(CKD) >90 (>60 ml/min/1.73 sqM); Potassium 4.0 mmol/L (3.5-5.1); Sodium 140 mmol/L (137-145); Total Protein 6.2 g/dL (6.3-8.2)
[2024-12-21 22:25] LABS: NT-Pro-B-Type Natriuretic Pept 2250 pg/mL
[2024-12-21] MEDS: IPRATROPIUM-ALBUTEROL 3 ML NEB INHALATION STA (22:42)
[2024-12-21 23:07] LABS: RSV Not Detected (Not Detectd)
--- NOTE | 2024-12-21 23:08 | XR ---
EXAM: XR Chest, 2 Views CLINICAL HISTORY: ITS.REASON XR Reason: Chest Pain TECHNIQUE: Frontal and lateral views of the chest. COMPARISON: No relevant prior studies available. FINDINGS: Lungs: Unremarkable. No consolidation. Pleural space: Trace bilateral pleural effusions. No pneumothorax. Heart: Postoperative changes aortic valve repair. No cardiomegaly. Mediastinum: Unremarkable. Normal mediastinal contour. Bones/joints: Unremarkable. No acute fracture. IMPRESSION: Trace bilateral pleural effusions.
[2024-12-22] MEDS: IPRATROPIUM-ALBUTEROL 3 ML NEB INHALATION STA (00:03)
[2024-12-22] MEDS: MAGNESIUM SULFATE-D5W PMX 1 GM in DEXTROSE/WATER 1 100ML.BAG IVPB SCH (00:30)
[2024-12-22] MEDS: MAGNESIUM OXIDE 400 MG TAB PO STA ×2 (00:30)
[2024-12-22] MEDS ORDERED: NALOXONE 0.4 MG/ML 1 ML VIAL IVP PRN (02:33)
[2024-12-22] MEDS: FUROSEMIDE 10 MG/ML 4 ML VIAL IV SCH ×2 (03:19→09:47)
--- NOTE | 2024-12-22 03:47 | CT ---
EXAM: CT Angiography Chest With Intravenous Contrast CLINICAL HISTORY: ITS.REASON CT Reason: pe TECHNIQUE: Axial computed tomographic angiography images of the chest with intravenous contrast. CTDI is 11.2 mGy and DLP is 283.9 mGy-cm. This CT exam was performed using one or more of the following dose reduction techniques: automated exposure control, adjustment of the mA and/or kV according to patient size, and/or use of iterative reconstruction technique. MIP reconstructed images were created and reviewed. COMPARISON: 10/17/2023 FINDINGS: Pulmonary arteries: Unremarkable. No pulmonary embolism. Aorta: No acute findings. No thoracic aortic aneurysm. Lungs: 1 cm left upper lobe pulmonary nodule new from prior exam right apical pleural scarring. Peribronchial thickening in the right lower lobe. Pleural space: Small right and trace left bilateral pleural effusions. No pneumothorax. Heart: Postoperative changes aortic valve repair. No cardiomegaly. No significant pericardial effusion. No evidence of RV dysfunction. Mediastinum: Small esophageal hiatal hernia. Bones/joints: No acute fracture. No dislocation. Soft tissues: Unremarkable. Lymph nodes: Right hilar lymphadenopathy measuring 1.1 cm. Left hilar lymph node measuring 0.8 cm. Mediastinal lymphadenopathy measuring up to 1.1 cm in the AP window. Diffuse changes COPD. IMPRESSION: 1 cm left upper lobe pulmonary nodule new from prior exam best appreciated on axial image 34 series 406. Follow-up CT scan in 3 months is suggested to assess for stability/resolution as this may be of infectious or inflammatory etiology. Diffuse changes COPD Hilar and mediastinal lymphadenopathy with peribronchial thickening in the right lower lobe likely of infectious or inflammatory etiology.
[2024-12-22] MEDS: AZITHROMYCIN 500 MG TAB PO SCH (04:24)
--- NOTE | 2024-12-22 05:42 | P.CNPUL ---
History of Present Illness Consult date: 12/22/24 Requesting physician: Nacho Lombardo Reason for consult: COPD Chief complaint: Shortness of breath History of present illness: Patient is a 74-year-old male with past medical history significant for COPD. Does follow pulmonary office with Dr. Navarrete. Has an FEV1 61% of predicted. Maintained on Symbicort inhaler, Combivent inhaler, and albuterol nebs as needed. Also, patient has history of hypertension, hyperlipidemia, heart failure, aortic stenosis with previous TAVR. Presented emergency department last night complaining of increased dyspnea. Workup done in the emergency department including a chest x-ray showing hyperinflation. D-dimer was 1.34 and a follow- up chest CT angiogram did not show any evidence of pulmonary embolism. Diffuse COPD changes. 1 cm left upper lobe pulmonary nodule, new from prior exam, possibly infectious or inflammatory. Hilar and mediastinal lymphadenopathy with peribronchial thickening in the right lower lobe suggesting infectious or inflammatory etiology. No pleural effusions. CBC unremarkable. No leukocytosis. Electrolytes WDL. Creatinine 0.62. Glucose 158. Troponin 0.038. NT proBNP 2250. Viral 4 Plex negative for influenza A/B, RSV, COVID while in emergency room, patient received multiple DuoNeb treatments and was loaded with IV Solu-Medrol. Also, placed on Lasix 40 mg twice daily. Patient currently being evaluated in the emergency department. He is on 2 L/min nasal cannula. Does not appear any respiratory distress. States his increased shortness of breath started yesterday when he was out for a walk. He was also lightheaded and decided to go home. He rested, then tried to go out and water the plants. Developed severe shortness of breath. States he developed a cold a few days ago. He has had increased cough and chest congestion. No significant purulent sputum. No hemoptysis. No fevers or chills. No chest pain. Over the past few days he has noticed increased swelling in his ankles. Most recent av ailable echocardiogram from Oct, 2023 estimating left ventricular ejection fraction of 35 to 40%. Normally functioning bioprosthetic aortic valve, moderate MR. Current vital signs: Heart rate 93 bpm, blood pressure 137/61 mmHg, nontachypneic, SpO2 96% on room air. Review of Systems REVIEW OF SYSTEMS: CONSTITUTIONAL: Denies any recent significant weight loss or weight gain. EYES: Denies change in vision. EARS, NOSE, MOUTH, THROAT: Denies headaches, denies sore throat. CARDIOVASCULAR: Denies chest pain, palpitations or syncopal episodes. RESPIRATORY: See HPI GASTROINTESTINAL: Denies change in appetite, abdominal pain, nausea and vomiting, or diarrhea GENITOURINARY: Denies hematuria, denies infections. MUSKULOSKELETAL: Denies pain, denies swelling. INTEGUMENTARY: Denies rash, denies eczema. NEUROLOGICAL: Denies recent memory loss, no recent seizure activity. PSYCHIATRIC: Denies anxiety, denies depression. HEMATOLOGIC/LYMPHATIC: Denies anemia, denies enlarged lymph node Past Medical History Past Medical History: Heart Failure, COPD, Hyperlipidemia, Hypertension, Osteoarthritis (OA) Additional Past Medical History / Comment(s): 2 brain aneurysms-states no symptoms and no surgery/clipping, severe aortic stenosis, severe aortic insufficiency, moderate to severe mitral regurgitation, recent adm. to [facility] for shortness of breath-COPD exacerbation, CHF History of Any Multi-Drug Resistant Organisms: None Reported Past Surgical History: Heart Catheterization Additional Past Surgical History / Comment(s): heart cath -no intervention, aortic valve Past Anesthesia/Blood Transfusion Reactions: No Reported Reaction Additional Past Anesthesia/Blood Transfusion Reaction / Comment(s): NO ANESTHESIA HX Past Psychological History: No Psychological Hx Reported Smoking Status: Former smoker Past Alcohol Use History: None Reported Past Drug Use History: None Reported - Past Family History Mother Family Medical History: No Reported History Father Family Medical History: Asthma Medications and Allergies Home Medications Medication Instructions Recorded Confirmed Type Budesonide/Formoterol Fumarate 2 puff INHALATION DIRECTED 06/10/18 12/22/24 History [Symbicort 160-4.5 Mcg Inhaler] Ipratropium/Albuterol Sulfate 1 puff INHALATION RT-QID 06/10/18 12/22/24 History [Combivent Respimat Inhaler] Atorvastatin [Lipitor] 40 mg PO DAILY 12/16/21 12/22/24 History Aspirin 81mg Dye Free 81 mg PO DAILY 12/22/24 12/22/24 History Esomeprazole Magnesium [NexIUM 20 mg PO DAILY 12/22/24 12/22/24 History 24Hr] Losartan [Cozaar] 25 mg PO HS 12/22/24 12/22/24 History Metoprolol Tartrate [Lopressor] 25 mg PO DAILY 12/22/24 12/22/24 History Allergies Allergy/AdvReac Type Severity Reaction Status Date / Time No Known Allergies Allergy Verified 12/21/24 21:18 Physical Exam Vitals: Vital Signs Temp Pulse Resp BP Pulse Ox 12/22/24 00:31 92 19 137/61 96 12/22/24 00:14 82 12/22/24 00:05 84 12/21/24 23:18 96 20 119/59 95 12/21/24 22:49 86 12/21/24 22:40 84 12/21/24 21:42 98 18 153/75 96 12/21/24 21:14 97.9 F 110 H 20 184/70 95 Intake and Output 12/21/24 12/21/24 12/22/24 14:59 22:59 06:59 Other: Weight 71.668 kg GENERAL EXAM: Alert, 74-year-old male, on 2 L/min nasal cannula,, comfortable in no apparent distress. HEAD: Normocephalic and atraumatic EYES: Normal reaction of pupils, equal size. NOSE: Clear with pink turbinates. THROAT: No erythema or exudates. NECK: No masses, no JVD. CHEST: No chest wall deformity. LUNGS: Equal air entry with scattered rhonchi. No conversational dyspnea or accessory muscle use.. CVS: S1 and S2 normal with no audible murmur, regular rhythm. No extra heart sounds ABDOMEN: No hepatosplenomegaly, active bowel sounds, no guarding or rigidity. SPINE: No scoliosis or deformity SKIN: No rashes CENTRAL NERVOUS SYSTEM: No focal deficits, tone is normal in all 4 extremities. EXTREMITIES: Bilateral ankle edema, pitting 1+. No clubbing or cyanosis. Peripheral pulses are intact. Results - Laboratory Findings CBC and BMP: 12/21/24 21:51 12/21/24 21:51 PT/INR, D-dimer PT 11.6 sec (10.0-12.5) 12/21/24 21:51 INR 1.1 (<1.2) 12/21/24 21:51 D-Dimer 1.34 mg/L FEU (<0.60) H 12/21/24 21:51 Abnormal lab findings: Abnormal Labs 12/21/24 12/21/24 12/21/24 21:51 21:51 21:51 RBC 3.66 L Hgb 11.7 L Hct 34.7 L D-Dimer Creatinine 0.62 L Glucose 158 H Magnesium 1.5 L Troponin I 0.038 H* Total Protein 6.2 L Albumin 3.4 L 12/21/24 21:51 RBC Hgb Hct D-Dimer 1.34 H Creatinine Glucose Magnesium Troponin I Total Protein Albumin - Diagnostic Findings Chest x-ray: image reviewed CT scan - chest: image reviewed Assessment and Plan Assessment: Acute hypoxemic respiratory failure, likely secondary to a combination of acute COPD exacerbation and acute CHF exacerbation with reduced ejection fraction. Acute dyspnea, chest CT angiogram did not show any evidence of pulmonary embolism. Diffuse COPD changes. Hilar and mediastinal lymphadenopathy with peribronchial thickening in the right lower lobe likely infectious or i nflammatory etiology. Also, 1 cm left upper lobe pulmonary nodule new from prior exam, likely infectious or inflammatory in etiology, however, follow-up to ensure resolution Troponin leak, repeat levels trending down History of valvular heart disease with severe aortic stenosis and moderate jami l regurgitation. Status post TAVR. Most recent available echocardiogram from Oct, 2023 estimating left ventricular ejection fraction of 35 to 40%. Normally functioning bioprosthetic aortic valve, moderate MR. Hypertension History of hyperlipidemia Former tobacco smoker Plan: Wean supplemental oxygen as tolerated, currently requiring 2 L/min nasal cannula Continue DuoNebs Continue IV Solu-Medrol Add Symbicort inhaler Add azithromycin Cepheid negative for influenza A/B, RSV, COVID NT-proBNP 2250 Continue IV Lasix 40 mg twice daily Repeat echocardiogram, if more recent study not available Cardiology consulted We will also continue to follow I have personally seen and examined the patient, performed the documentation and the assessment and plan as written. Number of minutes spent on the visit:20 This is a joint evaluation that was done along with the nurse practitioner. This evaluation was done and 33 minutes. In summary, the patient is 74 with known history of COPD and the patient is presenting for an acute COPD exacerbation. CT of the chest showed no acute abnormalities. There is diffuse emphysematous changes bilaterally and peribronchial wall thickening. No eviden ce of any airspace disease or consolidation. The patient is clinically feeling better as the patient was started on a combination of bronchodilators and steroids. He is on 2 L of oxygen by nasal cannula. The patient also had limited troponin leak likely secondary to type II myocardial ischemia. The viral screen was negative at time of admission. proBNP level was 2250. He is a former smoker. He is currently covered empirically with antibiotics and the patient is currently on Zithromax 5 mg p.o. daily. DuoNeb neb regiment [id number] and IV Solu-Medrol 60 mg every 6 hours. Echocardiogram was also completed and the patient has a left ventricular ejection fraction of 40 to 45%, bioprosthetic aortic valve is present with acceptable gradients with mild to moderate insufficiency. The patient is post TAVR. The patient also to be seen by cardiology. He underwent TAVR back in 2023 for severe aortic stenosis. This was also known to have hypertension. He is also on IV Lasix 40 mg every 24 hours. Time with Patient: Greater than 30
[2024-12-22] MEDS: methylPREDNISolone SOD SUCCI 125 MG/2 ML VIAL IV SCH (06:12)
[2024-12-22] MEDS: IPRATROPIUM-ALBUTEROL 3 ML NEB INHALATION SCH (07:52)
[2024-12-22] MEDS: SYMBICORT 160-4.5 MCG INHALER INHALATION SCH (07:52)
[2024-12-22] MEDS ORDERED: ACETAMINOPHEN TAB 325 MG TAB PO PRN (08:21)
[2024-12-22] MEDS: MAGNESIUM OXIDE 400 MG TAB PO SCH (09:44)
[2024-12-22] MEDS: PANTOPRAZOLE 40 MG TABLET PO SCH (09:44)
[2024-12-22] MEDS: LOSARTAN 25 MG TAB PO SCH ×2 (09:44→21:57)
[2024-12-22] MEDS: ATORVASTATIN 40 MG TAB PO SCH (09:45)
[2024-12-22] MEDS: ASPIRIN 81 MG PO SCH (09:45)
[2024-12-22] MEDS: METOPROLOL TARTRATE 25 MG TAB PO SCH ×2 (09:45→21:57)
[2024-12-22] MEDS: SPIRONOLACTONE 25 MG TAB PO SCH (09:46)
--- NOTE | 2024-12-22 11:57 | P.CRDCN ---
History of Present Illness Consult date: 12/22/24 Consult reason: chest pain, shortness of breath History of present illness: Patient is a 74-year-old male with history of COPD, CHF, severe aortic stenosis status post TAVR in 2023, hypertension, hyperlipidemia came in the ER last night with a chief complaint of feeling short of breath on exertion. Patient reports that he has been feeling short of breath since yesterday while he was walking outside. Patient denies chest pain, lightheadedness, palpitation, orthopnea, PND. He however does admit to have slightly worse ankle edema. Patient has a significant history of COPD and follows [facility] [employer] Dr. Navarrete. Patient previously hospitalized for COPD exacerbation has been more than a year ago. His primary lab instructor is Dr. Frederick. His most recent echocardiogram was in October 2024 which revealed ejection fraction of 40%, global hypokinesia, mild , moderate MR. Since the admission, patient reports improvement in shortness of breath. Currently on DuoNebs and IV steroids as well as on IV diuretics. Patient is a former heavy smoker ;quitting 15 years ago. Labs and images: WBC 9.59, hemoglobin 11.7, D-dimer 1.34, sodium 140, potassium 4.0, BUN 15, creatinine 0.62, magnesium 1.5, Troponin high 0.038, 0.029, 0.022 NT proBNP 2250 Cepheid 4 panel negative Chest x-ray shows hyperinflation otherwise no pulm vascular congestion noted. EKG shows sinus tachycardia with left bundle branch block Vitals: Heart rate 94, blood pressure 151/64, oxygen saturation 96% on 2 L nasal cannula Review of systems: Pertinent positives and negatives as discussed in HPI, a complete review of systems was performed and all other systems are negative. Physical examination: Vital signs reviewed General: non toxic, no distress Head: atraumatic, normocephalic, symmetric Eyes: EOMI, no lid lag, anicteric sclera, pupils equal round reactive to light ENT: Nose and ears atraumatic Neck: No cervical lymphadenopathy, trachea midline, supple Mouth: no lip lesion, mucus membranes moist Cardiovascular: S1S2 reg, no murmur, positive dorsalis pedis pulse bilateral, trace edema Lungs: Mild bilateral wheezing with no rales or crackles and no use of accessory muscles Abdominal: soft, nontender to palpation, no guarding Ext: muscle strength 5 out of 5 in all 4 extremities grossly, no gross muscle atrophy, no contractures, Psych: Alert, oriented, appropriate affect Assessment: #Acute COPD exacerbation #HFrEF, not in acute exacerbation, echo in October 2024 showed LVEF of 40% #Elevated troponin, type II NSTEMI due to oxygen demand/supply mismatch #History of COPD #Severe aortic stenosis s/p TAVR in 2023 #Hypertension Plan: Resume home cardiac medications Continue with IV Lasix 40 mg today and transition to oral tomorrow Continue losartan 25 mg once daily Increase metoprolol to 25 mg twice daily DuoNebs as scheduled and [id number] Continue monitor electrolytes Order BMP tomorrow a.m. Dictation was produced using [employer] dictation software. Please excuse any grammatical, word or spelling errors. Leobardo Quintanilla MD PGY 2 Past Medical History Past Medical History: Heart Failure, COPD, Hyperlipidemia, Hypertension, Osteoarthritis (OA) Additional Past Medical History / Comment(s): 2 brain aneurysms-states no symptoms and no surgery/clipping, severe aortic stenosis, severe aortic insufficiency, moderate to severe mitral regurgitation, recent adm. to [facility] for shortness of breath-COPD exacerbation, CHF History of Any Multi-Drug Resistant Organisms: None Reported Past Surgical History: Heart Catheterization Additional Past Surgical History / Comment(s): heart cath -no intervention, aortic valve Past Anesthesia/Blood Transfusion Reactions: No Reported Reaction Additional Past Anesthesia/Blood Transfusion Reaction / Comment(s): NO ANESTHESIA HX Past Psychological History: No Psychological Hx Reported Smoking Status: Former smoker Past Alcohol Use History: None Reported Past Drug Use History: None Reported - Past Family History Mother Family Medical History: No Reported History Father Family Medical History: Asthma Medications and Allergies Home Medications Medication Instructions Recorded Confirmed Type Budesonide/Formoterol Fumarate 2 puff INHALATION DIRECTED 06/10/18 12/22/24 H istory [Symbicort 160-4.5 Mcg Inhaler] Ipratropium/Albuterol Sulfate 1 puff INHALATION RT-QID 06/10/18 12/22/24 History [Combivent Respimat Inhaler] Atorvastatin [Lipitor] 40 mg PO DAILY 12/16/21 12/22/24 History Aspirin 81mg Dye Free 81 mg PO DAILY 12/22/24 12/22/24 History Esomeprazole Magnesium [NexIUM 20 mg PO DAILY 12/22/24 12/22/24 History 24Hr] Losartan [Cozaar] 25 mg PO HS 12/22/24 12/22/24 History Metoprolol Tartrate [Lopressor] 25 mg PO DAILY 12/22/24 12/22/24 History Allergies Allergy/AdvReac Type Severity Reaction Status Date / Time No Known Allergies Allergy Verified 12/21/24 21:18 Physical Exam Vitals: Vital Signs Temp Pulse Resp BP Pulse Ox 12/22/24 11:35 83 12/22/24 11:21 82 12/22/24 10:00 94 18 151/64 96 12/22/24 09:00 93 21 145/64 96 12/22/24 08:02 84 12/22/24 08:00 85 22 135/60 97 12/22/24 07:53 83 12/22/24 07:00 98.0 F 79 19 125/55 95 12/22/24 06:00 86 18 139/64 95 12/22/24 00:31 92 19 137/61 96 12/22/24 00:14 82 12/22/24 00:05 84 12/21/24 23:18 96 20 119/59 95 12/21/24 22:49 86 12/21/24 22:40 84 12/21/24 21:42 98 18 153/75 96 12/21/24 21:14 97.9 F 110 H 20 184/70 95 Intake and Output 12/21/24 12/22/24 12/22/24 22:59 06:59 14:59 Other: Weight 71.668 kg Results 12/21/24 21:51 12/21/24 21:51 Cardiac Enzymes 12/21/24 12/21/24 12/22/24 Range/Units 21:51 21:51 02:58 AST 18 (17-59) U/L Troponin I 0.038 H* 0.029 (0.000-0.034) ng/mL 12/22/24 Range/Units 07:04 AST (17-59) U/L Troponin I 0.022 (0.000-0.034) ng/mL Coagulation 12/21/24 Range/Units 21:51 PT 11.6 (10.0-12.5) sec APTT 25.7 (22.0-30.0) sec CBC 12/21/24 Range/Units 21:51 WBC 9.59 (4.50-10.00) 10*3/uL RBC 3.66 L (4.40-5.60) 10*6/uL Hgb 11.7 L (13.0-17.0) g/dL Hct 34.7 L (39.6-50.0) % Plt Count 213 (140-440) 10*3/uL Comprehensive Metabolic Panel 12/21/24 Range/Units 21:51 Sodium 140 (137-145) mmol/L Potassium 4.0 (3.5-5.1) mmol/L Chloride 105 (98-107) mmol/L Carbon Dioxide 23 (22-30) mmol/L BUN 15 (9-20) mg/dL Creatinine 0.62 L (0.66-1.25) mg/dL Glucose 158 H (74-99) mg/dL Calcium 9.1 (8.4-10.2) mg/dL AST 18 (17-59) U/L ALT 11 (4-49) U/L Alkaline Phosphatase 93 (38-126) U/L Total Protein 6.2 L (6.3-8.2) g/dL Albumin 3.4 L (3.5-5.0) g/dL Current Medications Generic Name Dose Route Start Last Admin Trade Name Freq PRN Reason Stop Dose Admin Acetaminophen 650 mg 12/22/24 08:21 Acetaminophen Tab 325 Mg Tab PO Q4HR PRN Fever And/ Or Mild Pain (1-3) Albuterol/Ipratropium 3 ml 12/22/24 08:00 12/22/24 11:19 Ipratropium-Albuterol 3 Ml Neb INHALATION 3 ml RT-QID CHASITY Administration Aspirin 81 mg 12/22/24 09:00 12/22/24 09:45 Aspirin 81 Mg PO 81 mg DAILY CHASITY Administration Atorvastatin Calcium 40 mg 12/22/24 09:00 12/22/24 09:45 Atorvastatin 40 Mg Tab PO 40 mg DAILY CHASITY Administration Azithromycin 500 mg 12/22/24 04:12 12/22/24 09:44 Azithromycin 500 Mg Tab PO 12/23/24 09:01 500 mg DAILY CHASITY Administration Protocol Budesonide/Formoterol Fumarate 2 puff 12/22/24 08:00 12/22/24 07:52 Symbicort 160-4.5 Mcg Inhaler INHALATION 2 puff RT-BID CHASITY Administration Furosemide 40 mg 12/22/24 09:00 12/22/24 09:47 Furosemide 10 Mg/Ml 4 Ml Vial IV 40 mg DAILY CHASITY Administration Losartan Potassium 25 mg 12/22/24 21:00 Losartan 25 Mg Tab PO HS CHASITY Magnesium Oxide 400 mg 12/22/24 09:00 12/22/24 09:44 Magnesium Oxide 400 Mg Tab PO 400 mg DAILY CHASITY Administration Methylprednisolone Sodium Succinate 60 mg 12/22/24 06:00 12/22/24 11:25 Methylprednisolone Sod Succi 125 Mg/2 Ml Vial IV 60 mg Q6HR CHASITY Administration Metoprolol Tartrate 25 mg 12/22/24 21:00 Metoprolol Tartrate 25 Mg Tab PO BID CHASITY Naloxone HCl 0.2 mg 12/22/24 02:33 Naloxone 0.4 Mg/Ml 1 Ml Vial IVP Q2M PRN Opioid Reversal Pantoprazole Sodium 40 mg 12/22/24 09:00 12/22/24 09:44 Pantoprazole 40 Mg Tablet PO 40 mg [id number] CHASITY Administration Intake and Output 12/21/24 12/22/24 12/22/24 22:59 06:59 14:59 Other: Weight 71.668 kg 12/21/24 21:51 12/21/24 21:51
--- NOTE | 2024-12-22 12:48 | CA ---
Transthoracic Echo Report Name: Thong Sung Age: 74 Gender: M : 1950 Exam Date: 12/22/2024 09:25 Exam Location: [facility] Ht (in): 68 Wt (lb): 158 Ordering Physician: Nacho Lombardo DO Attending/Referring Phys: [id number], [employer] Megha Villalobos Procedure CPT: Indications: Heart failure Cardiac Hx: Technical Quality: Fair Contrast 1: Total Dose (mL): Contrast 2: Total Dose (mL): MEASUREMENTS (Male / Female) Normal Values 2D ECHO LV Diastolic Diameter PLAX 5.1 cm 4.2 - 5.9 / 3.9 - 5.3 cm LV Systolic Diameter PLAX 3.7 cm IVS Diastolic Thickness 0.9 cm 0.6 - 1.0 / 0.6 - 0.9 cm LVPW Diastolic Thickness 1.5 cm 0.6 - 1.0 / 0.6 - 0.9 cm LV Relative Wall Thickness 0.5 RV Internal Dim ED PLAX 2.6 cm LVOT Diameter 2.0 cm LA Systolic Diameter LX 3.4 cm 3.0 - 4.0 / 2.7 - 3.8 cm LV Diastolic Volume MOD BP 150.9 cm??? 67 - 155 / 56 - 104 cm??? LV Systolic Volume MOD BP 73.5 cm??? - 58 / 19 - 49 cm??? LV Ejection Fraction MOD BP 51.3 % >= 55 % LV Cardiac Index MOD BP 3912.4 cm???/min???m??? LV Diastolic Volume MOD 4C 125.1 cm??? LV Systolic Volume MOD 4C 67.0 cm??? LV Ejection Fraction MOD 4C 46.4 % LV Cardiac Index MOD 4C 2934.7 cm???/min???m??? LV Diastolic Length 4C 8.3 cm LV Systolic Length 4C 7.5 cm LV Diastolic Volume MOD 2C 163.9 cm??? LV Systolic Volume MOD 2C 83.0 cm??? LV Ejection Fraction MOD 2C 49.4 % LV Cardiac Index MOD 2C 4086.3 cm???/min???m??? LV Diastolic Length 2C 8.6 cm LV Systolic Length 2C 7.6 cm LA Volume 48.4 cm??? 18 - 58 / 22 - 52 cm??? LA Volume Index 26.0 cm???/m??? 16 - 28 cm???/m??? M-MODE Aortic Root Diameter MM 2.2 cm AV Cusp Separation MM 1.7 cm DOPPLER AV Peak Velocity 172.9 cm/s AV Peak Gradient 12.0 mmHg AV Mean Velocity 144.7 cm/s AV Mean Gradient 9.9 mmHg AV Velocity Time Integral 39.6 cm AI Peak Velocity 288.7 cm/s AI Peak Gradient 33.3 mmHg AI Pressure Half Time 263.4 ms LVOT Peak Velocity 126.6 cm/s LVOT Peak Gradient 6.4 mmHg LVOT Velocity Time Integral 26.6 cm LVOT Stroke Volume 80.6 cm??? LVOT Stroke Volume Index 43.6 ml/m??? LVOT Cardiac Index 4070.4 cm???/min???m??? AV Area Cont Eq vti 2.0 cm??? AV Area Cont Eq pk 2.2 cm??? MV Peak Velocity 125.3 cm/s MV Peak Gradient 6.3 mmHg MV Mean Velocity 66.7 cm/s MV Mean Gradient 2.3 mmHg MV Velocity Time Integral 30.5 cm MV Area PHT 5.8 cm??? MR Peak Velocity 494.9 cm/s MR Peak Gradient 98.0 mmHg Mitral E Point Velocity 151.8 cm/s Mitral A Point Velocity 18.0 cm/s Mitral E to A Ratio 8.4 MV Deceleration Time 131.4 ms TR Peak Velocity 13.5 cm/s TR Peak Gradient 0.1 mmHg FINDINGS Left Ventricle Left ventricular ejection fraction is estimated at 40-45%. Moderately increased left ventricular systolic volume. Mildly decreased left ventricular ejection fraction. Mildly reduced global left ventricular systolic function. Mildly increased posterior left ventricular wall thickness. Right Ventricle Normal right ventricular size and function. question right ventricular free wall motion abnormalities. Right Atrium Normal right atrial size. No right atrial thrombus or mass seen. Left Atrium Normal left atrial size. No left atrial thrombus or mass present. Mitral Valve Mild thickening/calcification of the anterior mitral valve leaflet. Mitral annular calcification. Trace to mild mitral regurgitation. Aortic Valve bioprosthetic aortic valve without stenosis with a peak velocity of 1.7 m/s, peak gradient 12 mmHg, mean gradient 10 mmHg, and estimated aortic valve area of 2.2cm???. [id number] aortic regurgitation. Tricuspid Valve Structurally normal tricuspid valve. No tricuspid regurgitation. Pulmonic Valve Structurally normal pulmonic valve. No pulmonic regurgitation. Pericardium Minimal pericardial effusion. pleural effusion noted Aorta Normal size aortic root and proximal ascending aorta. CONCLUSIONS Cardiomyopathy with a EF between 40 to 45% Bioprosthetic aortic valve likely transcatheter with acceptable gradient and mild to moderate insufficiency Previewed by: Dr. Kolby Becker MD (Electronically Signed) Final Date: 22 December 2024 12:47
--- NOTE | 2024-12-22 13:49 | P.HPIM ---
History of Present Illness H&P Date: 12/22/24 History of present illness; patient 74-year-old gentleman with past medical history significant for COPD hyperlipidemia, congestive heart failure presented the ER because of shortness of breath. Patient states she was all right yesterday when she started having shortness of breath. Shortness of breath was sudden on onset, there was complaint of chest congestion at the time. Patient denied any palpitation. There was no complaint of orthopnea or PND. There was no complaint of fever or chills. Patient denies any nausea, vomiting abdominal pain. Because of the shortness of breath, patient came to the ER Initial lab work done in the ER showed WBC 9.59, hemoglobin 9.7, platelet count 213, D-dimer 1.34, sodium 140, potassium 4, BUN 15, creatinine 0.62, glucose 158, calcium 9.1, magnesium 1.5, troponin 0.038 Influenza A not detected Influenza B not detected RSV not detected COVID-19 not detected EKG done in the ER showed heart rate of 101, no ST segment elevation or depression seen, no T-wave inversions seen. Chest x-ray done in the ER showed trace bilateral pleural effusion CT chest PE protocol done showed 1 cm left upper lobe pulmonary nodule, diffuse new COPD. Hilar mediastinal lymphadenopathy with peribronchial thickening in the right lower lobe Patient admitted to internal medicine service REVIEW OF SYSTEMS: CONSTITUTIONAL: No fever, no malaise, no fatigue. HEENT: No recent visual problems or hearing problems. Denied any sore throat. CARDIOVASCULAR: As mentioned above PULMONARY: As mentioned above . GASTROINTESTINAL: No diarrhea, no nausea, no vomiting, no abdominal pain. NEUROLOGICAL: No headaches, no weakness, no numbness. HEMATOLOGICAL: Denies any bleeding or petechiae. GENITOURINARY: Denies any burning micturition, frequency, or urgency. MUSCULOSKELETAL/RHEUMATOLOGICAL: Denies any joint pain, swelling, or any muscle pain. ENDOCRINE: Denies any polyuria or polydipsia. The rest of the 14-point review of systems is negative. PHYSICAL EXAMINATION: GENERAL: The patient is alert and oriented x3, not in any acute distress. Well developed, well nourished. HEENT: Pupils are round and equally reacting to light. EOMI. No scleral icterus. No conjunctival pallor. Normocephalic, atraumatic. No pharyngeal erythema. No thyromegaly. CARDIOVASCULAR: S1 and S2 present. No murmurs, rubs, or gallops. PULMONARY: Chest is yunier coarse breath sounds bilaterally , no wheezing or crackles. ABDOMEN: Soft, nontender, nondistended, normoactive bowel sounds. No palpable organomegaly. MUSCULOSKELETAL: No joint swelling or deformity. EXTREMITIES: No cyanosis, clubbing, or pedal edema. NEUROLOGICAL: Gross neurological examination did not reveal any focal deficits. SKIN: No rashes. Assessment and plan Acute hypoxic respiratory failure Acute COPD exacerbation Acute on chronic systolic CHF Left upper lobe pulmonary nodule History of valvular heart disease with severe aortic stenosis and moderate mitral regurgitation. Status post TAVR. Hypertension History of hyperlipidemia Former tobacco smoker Monitor vital signs Monitor CBC Monitor CMP Continue telemetry monitoring Continue oxygen supplementation Ordered breathing treatments Ordered IV Solu-Medrol Ordered strict I's and O's Daily weights Ordered IV Lasix Resume home medicine consult cardiology Consult pulmonology Labs and medication were reviewed.. Continue same treatment. Continue with symptomatic treatment. Resume home medication. Monitor labs and vitals. DVT and GI prophylaxis. Further recommendations as per clinical course of the patient Dictation was produced using [employer] dictation software. please excuse any grammatical, word or spelling errors. Past Medical History Past Medical History: Heart Failure, COPD, Hyperlipidemia, Hypertension, Osteoarthritis (OA) Additional Past Medical History / Comment(s): 2 brain aneurysms-states no symptoms and no surgery/clipping, severe aortic stenosis, severe aortic insufficiency, moderate to severe mitral regurgitation, recent adm. to [facility] for shortness of breath-COPD exacerbation, CHF History of Any Multi-Drug Resistant Organisms: None Reported Past Surgical History: Heart Catheterization Additional Past Surgical History / Comment(s): heart cath -no intervention, aortic valve Past Anesthesia/Blood Transfusion Reactions: No Reported Reaction Additional Past Anesthesia/Blood Transfusion Reaction / Comment(s): NO ANESTHES IA HX Past Psychological History: No Psychological Hx Reported Smoking Status: Former smoker Past Alcohol Use History: None Reported Past Drug Use History: None Reported - Past Family History Mother Family Medical History: No Reported History Father Family Medical History: Asthma Medications and Allergies Home Medications Medication Instructions Recorded Confirmed Type Budesonide/Formoterol Fumarate 2 puff INHALATION DIRECTED 06/10/18 12/22/24 History [Symbicort 160-4.5 Mcg Inhaler] Ipratropium/Albuterol Sulfate 1 puff INHALATION RT-QID 06/10/18 12/22/24 History [Combivent Respimat Inhaler] Atorvastatin [Lipitor] 40 mg PO DAILY 12/16/21 12/22/24 History Aspirin 81mg Dye Free 81 mg PO DAILY 12/22/24 12/22/24 History Esomeprazole Magnesium [NexIUM 20 mg PO DAILY 12/22/24 12/22/24 History 24Hr] Losartan [Cozaar] 25 mg PO HS 12/22/24 12/22/24 History Metoprolol Tartrate [Lopressor] 25 mg PO DAILY 12/22/24 12/22/24 History Allergies Allergy/AdvReac Type Severity Reaction Status Date / Time No Known Allergies Allergy Verified 12/21/24 21:18 Physical Exam Vitals: Vital Signs Temp Pulse Resp BP Pulse Ox 12/22/24 11:35 83 12/22/24 11:21 82 12/22/24 10:00 94 18 151/64 96 12/22/24 09:00 93 21 145/64 96 12/22/24 08:02 84 12/22/24 08:00 85 22 135/60 97 12/22/24 07:53 83 12/22/24 07:00 98.0 F 79 19 125/55 95 12/22/24 06:00 86 18 139/64 95 12/22/24 00:31 92 19 137/61 96 12/22/24 00:14 82 12/22/24 00:05 84 12/21/24 23:18 96 20 119/59 95 12/21/24 22:49 86 12/21/24 22:40 84 12/21/24 21:42 98 18 153/75 96 12/21/24 21:14 97.9 F 110 H 20 184/70 95 Intake and Output 12/21/24 12/22/24 12/22/24 22:59 06:59 14:59 Other: Weight 71.668 kg Results CBC & Chem 7: 12/21/24 21:51 12/21/24 21:51 Labs: Abnormal Lab Results - Last 24 Hours (Table) 12/21/24 12/21/24 12/21/24 Range/Units 21:51 21:51 21:51 RBC 3.66 L (4.40-5.60) 10*6/uL Hgb 11.7 L (13.0-17.0) g/dL Hct 34.7 L (39.6-50.0) % D-Dimer (<0.60) mg/L FEU Creatinine 0.62 L (0.66-1.25) mg/dL Glucose 158 H (74-99) mg/dL Magnesium 1.5 L (1.6-2.3) mg/dL Troponin I 0.038 H* (0.000-0.034) ng/mL Total Protein 6.2 L (6.3-8.2) g/dL Albumin 3.4 L (3.5-5.0) g/dL 12/21/24 Range/Units 21:51 RBC (4.40-5.60) 10*6/uL Hgb (13.0-17.0) g/dL Hct (39.6-50.0) % D-Dimer 1.34 H (<0.60) mg/L FEU Creatinine (0.66-1.25) mg/dL Glucose (74-99) mg/dL Magnesium (1.6-2.3) mg/dL Troponin I (0.000-0.034) ng/mL Total Protein (6.3-8.2) g/dL Albumin (3.5-5.0) g/dL
[2024-12-23 07:30] LABS: African American GFR (CKD) >90 (>60 ml/min/1.73 sqM); Anion Gap 7 mmol/L; Blood Urea Nitrogen 20 mg/dL (9-20); Calcium 9.1 mg/dL (8.4-10.2); Carbon Dioxide 28 mmol/L (22-30); Chloride 103 mmol/L (98-107); Glucose 140 mg/dL (74-99); Magnesium 2.2 mg/dL (1.6-2.3); Non-African American GFR(CKD) 89 (>60 ml/min/1.73 sqM); Potassium 4.2 mmol/L (3.5-5.1); Sodium 138 mmol/L (137-145)
[2024-12-23] MEDS: FUROSEMIDE 40 MG TAB PO SCH (08:44)
--- NOTE | 2024-12-23 10:16 | P.PN ---
Subjective Progress Note Date: 12/23/24 Patient is a 74-year-old male with history of COPD, CHF, severe aortic stenosis status post TAVR in 2023, hypertension, hyperlipidemia came in the ER last night with a chief complaint of feeling short of breath on exertion. Patient reports that he has been feeling short of breath since yesterday while he was walking outside. Patient denies chest pain, lightheadedness, palpitation, orthopnea, PND. He however does admit to have slightly worse ankle edema. 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 Patient previously hospitalized for COPD exacerbation has been more than a year ago. His primary medical collections specialist is Dr. Frederick. His most recent echocardiogram was in October 2024 which revealed ejection fraction of 40%, global hypokinesia, mild , moderate MR. Since the admission, patient reports improvement in shortness of breath. Currently on DuoNebs and IV steroids as well as on IV diuretics. Patient is a former heavy smoker ;quitting 15 years ago. Labs and images: WBC 9.59, hemoglobin 11.7, D-dimer 1.34, sodium 140, potassium 4.0, BUN 15, creatinine 0.62, magnesium 1.5, Troponin high 0.038, 0.029, 0.022 NT proBNP 2250 Cepheid 4 panel negative Chest x-ray shows hyperinflation otherwise no pulm vascular congestion noted. EKG shows sinus tachycardia with left bundle branch block Vitals: Heart rate 94, blood pressure 151/64, oxygen saturation 96% on 2 L nasal cannula 12/23/2024: Patient seen examined at the bedside. No acute events overnight. Patient reports improvement in his breathing. Reports no chest pain. Minimal pedal edema. Sodium 138, potassium 4.2, BUN 20, creatinine 0.76 Physical examination: Vital signs reviewed General: non toxic, no distress Head: atraumatic, normocephalic, symmetric Eyes: EOMI, no lid lag, anicteric sclera, pupils equal round reactive to light ENT: Nose and ears atraumatic Neck: No cervical lymphadenopathy, trachea midline, supple Mouth: no lip lesion, mucus membranes moist Cardiovascular: S1S2 reg, no murmur, positive dorsalis pedis pulse bilateral, trace edema Lungs: CTA B, no rales or crackles. No use of accessory muscles Abdominal: soft, nontender to palpation, no guarding, Psych: Alert, oriented, appropriate affect Assessment: #Acute COPD exacerbation #HFrEF, not in acute exacerbation, echo in October 2024 showed LVEF of 40% #Elevated troponin, type II NSTEMI due to oxygen demand/supply mismatch #History of COPD #Severe aortic stenosis s/p TAVR in 2023 #Hypertension Plan: Continue with home cardiac medications Transition IV Lasix to oral to 40 mg once daily Continue losartan 25 mg once daily Continue metoprolol 25 mg twice daily DuoNebs as scheduled and [id number] Continue monitor electrolytes Order BMP tomorrow a.m. Dictation was produced using [employer] dictation software. Please excuse any grammatical, word or spelling errors. Leobardo Quintanilla MD PGY 2 Objective - Vital Signs Vital signs: Vital Signs Temp 97.1 F L 12/23/24 04:15 Pulse 90 12/23/24 09:12 Resp 18 12/23/24 04:15 BP 105/53 12/23/24 04:15 Pulse Ox 94 L 12/23/24 04:15 FiO2 Intake & Output 12/22/24 12/23/24 12/23/24 18:59 06:59 18:59 Intake Total 540 Output Total 700 300 Balance -700 240 Weight 68.3 kg Intake: Oral 540 Output: Urine 700 300 Other: Voiding Method Toilet Urinal # Voids 1 - Labs CBC & Chem 7: 12/21/24 21:51 12/23/24 06:44 Labs: Abnormal Lab Results - Last 24 Hours (Table) 12/23/24 Range/Units 06:44 Glucose 140 H (74-99) mg/dL
[2024-12-23 11:33] VITALS: BMI 22.8
[2024-12-23 11:43] LABS: Glucose,Whole Blood 121 mg/dL (70-110)
--- NOTE | 2024-12-23 12:41 | P.PN ---
Subjective Progress Note Date: 12/23/24 74-year-old gentleman with past medical history significant for COPD hyperlipidemia, congestive heart failure presented the ER because of shortness of breath. Patient states she was all right yesterday when she started having shortness of breath. Shortness of breath was sudden on onset, there was compla int of chest congestion at the time. Patient denied any palpitation. There was no complaint of orthopnea or PND. There was no complaint of fever or chills. Patient denies any nausea, vomiting abdominal pain. Because of the shortness of breath, patient came to the ER Initial lab work done in the ER showed WBC 9.59, hemoglobin 9.7, platelet count 213, D-dimer 1.34, sodium 140, potassium 4, BUN 15, creatinine 0.62, glucose 158, calcium 9.1, magnesium 1.5, troponin 0.038 Influenza A not detected Influenza B not detected RSV not detected COVID-19 not detected EKG done in the ER showed heart rate of 101, no ST segment elevation or depression seen, no T-wave inversions seen. Chest x-ray done in the ER showed trace bilateral pleural effusion CT chest PE protocol done showed 1 cm left upper lobe pulmonary nodule, diffuse new COPD. Hilar mediastinal lymphadenopathy with peribronchial thickening in the right lower lobe Patient admitted to internal medicine service 12/23. Patient seen and examined. Breathing has improved. Diuretics have been switched to oral. Encourage patient to ambulate REVIEW OF SYSTEMS: CONSTITUTIONAL: No fever, no malaise,. CARDIOVASCULAR: No chest pain, no palpitations, no syncope. PULMONARY: No shortness of breath, no cough, GASTROINTESTINAL: No diarrhea, no nausea, no vomiting, no abdominal pain. NEUROLOGICAL: No headaches, no weakness, PHYSICAL EXAMINATION: GENERAL: The patient is alert and oriented x3, not in any acute distress. Well developed, well nourished. HEENT: Pupils are round and equally reacting to light. EOMI. No scleral icterus. No conjunctival pallor. Normocephalic, atraumatic. No pharyngeal erythema. No thyromegaly. CARDIOVASCULAR: S1 and S2 present. No murmurs, rubs, or gallops. PULMONARY: Chest is clear to auscultation, no wheezing or crackles. ABDOMEN: Soft, nontender, nondistended, normoactive bowel sounds. No palpable organomegaly. MUSCULOSKELETAL: No joint swelling or deformity. EXTREMITIES: No cyanosis, clubbing, or pedal edema. NEUROLOGICAL: Gross neurological examination did not reveal any focal deficits. SKIN: No rashes. Assessment and plan Acute hypoxic respiratory failure Acute COPD exacerbation Acute on chronic systolic CHF Left upper lobe pulmonary nodule History of valvular heart disease with severe aortic stenosis and moderate mitral regurgitation. Status post TAVR. Hypertension History of hyperlipidemia Former tobacco smoker Monitor vital signs Monitor CBC Monitor CMP Continue telemetry monitoring Continue oxygen supplementation Continue breathing treatments Continue IV Solu-Medrol strict I's and O's Daily weights Continue oral Lasix Cardiology following pulmonology following Labs and medication were reviewed.. Continue same treatment. Continue with symptomatic treatment. Resume home medication. Monitor labs and vitals. DVT and GI prophylaxis. Further recommendations as per clinical course of the patient Dictation was produced using [employer] dictation software. please excuse any grammatical, word or spelling errors. Objective - Vital Signs Vital signs: Vital Signs Temp 97.6 F 12/23/24 08:40 Pulse 90 12/23/24 09:12 Resp 18 12/23/24 08:40 BP 124/57 12/23/24 08:40 Pulse Ox 93 L 12/23/24 08:40 FiO2 Intake & Output 12/22/24 12/23/24 12/23/24 18:59 06:59 18:59 Intake Total 540 Output Total 700 300 Balance -700 240 Weight 68.3 kg Intake: Oral 540 Output: Urine 700 300 Other: Voiding Method Toilet Toilet Urinal Urinal # Voids 1 - Labs CBC & Chem 7: 12/21/24 21:51 12/23/24 06:44 Labs: Abnormal Lab Results - Last 24 Hours (Table) 12/23/24 Range/Units 06:44 Glucose 140 H (74-99) mg/dL
[2024-12-23 13:58] VITALS: RESP 16
[2024-12-23 16:52] LABS: Glucose,Whole Blood 230 mg/dL (70-110)
[2024-12-23 20:02] LABS: Glucose,Whole Blood 167 mg/dL (70-110)
--- NOTE | 2024-12-23 20:15 | P.PN ---
Subjective Progress Note Date: 12/23/24 Patient is a 74-year-old male with past medical history significant for COPD. Does follow pulmonary office with Dr. Navarrete. Has an FEV1 61% of predicted. Maintained on Symbicort inhaler, Combivent inhaler, and albuterol nebs as needed. Also, patient has history of hypertension, hyperlipidemia, heart failure, aortic stenosis with previous TAVR. Presented emergency department last night complaining of increased dyspnea. Workup done in the emergency department including a chest x-ray showing hyperinflation. D-dimer was 1.34 and a follow- up chest CT angiogram did not show any evidence of pulmonary embolism. Diffuse COPD changes. 1 cm left upper lobe pulmonary nodule, new from prior exam, possibly infectious or inflammatory. Hilar and mediastinal lymphadenopathy with peribronchial thickening in the right lower lobe suggesting infectious or inflammatory etiology. No pleural effusions. CBC unremarkable. No leukocytosis. Electrolytes WDL. Creatinine 0.62. Glucose 158. Troponin 0.038. NT proBNP 2250. Viral 4 Plex negative for influenza A/B, RSV, COVID whi le in emergency room, patient received multiple DuoNeb treatments and was loaded with IV Solu-Medrol. Also, placed on Lasix 40 mg twice daily. Patient currently being evaluated in the emergency department. He is on 2 L/min nasal cannula. Does not appear any respiratory distress. States his increased shortness of breath started yesterday when he was out for a walk. He was also lightheaded and decided to go home. He rested, then tried to go out and water the plants. Developed severe shortness of breath. States he developed a cold a few days ago. He has had increased cough and chest congestion. No significant purulent sputum. No hemoptysis. No fevers or chills. No chest pain. Over the past few days he has noticed increased swelling in his ankles. Most recent available echocardiogram from Oct, 2023 estimating left ventricular ejection fraction of 35 to 40%. Normally functioning bioprosthetic aortic valve, moderate MR. Current vital signs: Heart rate 93 bpm, blood pressure 137/61 mmHg, nontachypneic, SpO2 96% on room air. On 12/23/2024, the patient is being seen for a follow-up. The patient is feeling much improved. Less short of breath compared to yesterday. Less bronchospastic and wheezy. Oxygenation is also stable and the patient has been weaned down to room air oxygen with a pulse ox of 96%. He is known to have COPD with an FEV1 of 61% of predicted and he was hospitalized for an acute Exacerbation. Remains on bronchodilators. Remains on oral Zithromax and empiric antibiotic coverage and IV Solu-Medrol. The blood work shows a sodium level of 138, potassium is at 4.2, BUN 20 with a creatinine 0.76. Troponin 0.02. Blood sugars at 167. Objective - Vital Signs Vital signs: Vital Signs Temp 97.1 F L 12/23/24 04:15 Pulse 90 12/23/24 09:12 Resp 18 12/23/24 04:15 BP 105/53 12/23/24 04:15 Pulse Ox 94 L 12/23/24 04:15 FiO2 Intake & Output 12/22/24 12/23/24 12/23/24 18:59 06:59 18:59 Intake Total 540 Output Total 700 300 Balance -700 240 Weight 68.3 kg Intake: Oral 540 Output: Urine 700 300 Other: Voiding Method Toilet Urinal # Voids 1 - Exam GENERAL EXAM: Alert, 74-year-old male, on room air oxygen,, comfortable in no apparent distress. HEAD: Normocephalic and atraumatic EYES: Normal reaction of pupils, equal size. NOSE: Clear with pink turbinates. THROAT: No erythema or exudates. NECK: No masses, no JVD. CHEST: No chest wall deformity. LUNGS: Equal air entry with scattered rhonchi. No conversational dyspnea or accessory muscle use.. CVS: S1 and S2 normal with no audible murmur, regular rhythm. No extra heart sounds ABDOMEN: No hepatosplenomegaly, active bowel sounds, no guarding or rigidity. SPINE: No scoliosis or deformity SKIN: No rashes CENTRAL NERVOUS SYSTEM: No focal deficits, tone is normal in all 4 extremities. EXTREMITIES: Bilateral ankle edema, pitting 1+. No clubbing or cyanosis. Peripheral pulses are intact. - Labs CBC & Chem 7: 12/21/24 21:51 12/23/24 06:44 Labs: Abnormal Lab Results - Last 24 Hours (Table) 12/23/24 Range/Units 06:44 Glucose 140 H (74-99) mg/dL Assessment and Plan Assessment: Acute hypoxemic respiratory failure, likely secondary to a combination of acute COPD exacerbation and acute CHF exacerbation with reduced ejection fraction. Clinically improving and the patient is currently on room air oxygen Acute dyspnea, chest CT angiogram did not show any evidence of pulmonary embolism. Diffuse COPD changes. Hilar and mediastinal lymphadenopathy with peribronchial thickening in the right lower lobe likely infectious or inflammatory etiology. Also, 1 cm left upper lobe pulmonary nodule new from prior exam, likely infectious or inflammatory in etiology, however, follow-up to ensure resolution Troponin leak, repeat levels trending down History of valvular heart disease with severe aortic stenosis and moderate mitral regurgitation. Status post TAVR. Most recent available echocardiogram from Oct, 2023 estimating left ventricular ejection fraction of 35 to 40%. Normally functioning bioprosthetic aortic valve, moderate MR. Systolic heart failure with an EF of around 40 to 45% with mild to moderate aortic insufficiency across the bioprosthetic aortic valve, post-TAVR. Hypertension History of hyperlipidemia Former tobacco smoker Plan: Oxygenation is stable and the patient is currently on room air oxygen Continue DuoNebs Continue IV Solu-Medrol Continue Symbicort inhaler Continue azithromycin Cepheid negative for influenza A/B, RSV, COVID NT-proBNP 2250 Continue Lasix and the patient has been switched to 40 mg p.o. daily Echocardiogram was also completed and the patient was found to have LV ejection fraction 40 to 45%, mildly reduced global LV function. Bioprosthetic aortic valve in place with mild to moderate insufficiency.
[2024-12-24 06:00] LABS: Glucose,Whole Blood 122 mg/dL (70-110)
[2024-12-24 07:09] LABS: Basophils # (A) 0.01 10*3/uL (0.00-0.10); Basophils % (A) 0.1 %; Eosinophils # (A) 0.00 10*3/uL (0.04-0.35); Eosinophils % (A) 0.0 %; HCT 35.2 % (39.6-50.0); HGB 11.8 g/dL (13.0-17.0); Lymphocytes # (A) 1.78 10*3/uL (0.90-5.00); Lymphocytes % (A) 11.3 %; MCH 32.2 pg (27.0-32.0); MCHC 33.5 g/dL (32.0-37.0); MCV 96.2 fL (80.0-97.0); Monocytes # (A) 0.61 10*3/uL (0.20-1.00); Monocytes % (A) 3.9 %; Neutrophils # (A) 13.22 10*3/uL (1.80-7.70); Neutrophils % (A) 84.1 %; Platelet Count 278 10*3/uL (140-440); RBC 3.66 10*6/uL (4.40-5.60); RDW 13.8 % (11.5-14.5); WBC 15.72 10*3/uL (4.50-10.00)
[2024-12-24 07:46] LABS: ALT 11 U/L (4-49); AST 15 U/L (17-59); African American GFR (CKD) >90 (>60 ml/min/1.73 sqM); Albumin 3.2 g/dL (3.5-5.0); Alkaline Phosphatase 80 U/L (38-126); Anion Gap 10 mmol/L; Blood Urea Nitrogen 23 mg/dL (9-20); Calcium 9.2 mg/dL (8.4-10.2); Carbon Dioxide 26 mmol/L (22-30); Chloride 103 mmol/L (98-107); Glucose 114 mg/dL (74-99); Non-African American GFR(CKD) 90 (>60 ml/min/1.73 sqM); Potassium 4.5 mmol/L (3.5-5.1); Sodium 139 mmol/L (137-145); Total Protein 5.8 g/dL (6.3-8.2)
[2024-12-24] MEDS: AZITHROMYCIN 500 MG TAB PO SCH (08:51)
[2024-12-24 10:21] VITALS: TEMP 97.4
--- NOTE | 2024-12-24 11:25 | P.PN ---
Subjective Progress Note Date: 12/24/24 Patient is a 74-year-old male with history of COPD, CHF, severe aortic stenosis status post TAVR in 2023, hypertension, hyperlipidemia came in the ER last night with a chief complaint of feeling short of breath on exertion. Patient reports that he has been feeling short of breath since yesterday while he was walking outside. Patient denies chest pain, lightheadedness, palpitation, orthopnea, PND. He however does admit to have slightly worse ankle edema. Patient has a significant history of COPD and follows gas meter mechanic Dr. Navarrete. Patient previously hospitalized for COPD exacerbation has been more than a year ago. His primary beveler is Dr. Frederick. His most recent echocardiogram was in October 2024 which revealed ejection fraction of 40%, global hypokinesia, mild , moderate MR. Since the admission, patient reports improvement in shortness of breath. Currently on DuoNebs and IV steroids as well as on IV diuretics. Patient is a former heavy smoker ;quitting 15 years ago. Labs and images: WBC 9.59, hemoglobin 11.7, D-dimer 1.34, sodium 140, potassium 4.0, BUN 15, creatinine 0.62, magnesium 1.5, Troponin high 0.038, 0.029, 0.022 NT proBNP 2250 Cepheid 4 panel negative Chest x-ray shows hyperinflation otherwise no pulm vascular congestion noted. EKG shows sinus tachycardia with left bundle branch block Vitals: Heart rate 94, blood pressure 151/64, oxygen saturation 96% on 2 L nasal cannula 12/23/2024: Patient seen examined at the bedside. No acute events overnight. Patient reports improvement in his breathing. Reports no chest pain. Minimal pedal edema. Sodium 138, potassium 4.2, BUN 20, creatinine 0.76 12/24/2024: Patient seen and examined the bedside. No acute events overnight. Patient denies shortness of breath chest pain. Patient was currently on room air. Saturating well. Blood pressure is at baseline. WBC 15, hemoglobin 11.8, platelet count 278, sodium 139, potassium 4.5, BUN 23, creatinine 0.74. Physical examination: Vital signs reviewed General: non toxic, no distress Head: atraumatic, normocephalic, symmetric Eyes: EOMI, no lid lag, anicteric sclera, pupils equal round reactive to light ENT: Nose and ears atraumatic Neck: No cervical lymphadenopathy, trachea midline, supple Mouth: no lip lesion, mucus membranes moist Cardiovascular: S1S2 reg, no murmur, positive dorsalis pedis pulse bilateral, trace edema Lungs: CTA B, no rales or crackles. No use of accessory muscles Abdominal: soft, nontender to palpation, no guarding, Psych: Alert, oriented, appropriate affect Assessment: #Acute COPD exacerbation, improving #HFrEF, not in acute exacerbation, echo in October 2024 showed LVEF of 40% #Elevated troponin, type II NSTEMI due to oxygen demand/supply mismatch #History of COPD #Severe aortic stenosis s/p TAVR in 2023 #Hypertension Plan: Continue with home cardiac medications Continue Lasix at 40 mg p.o. once daily Continue losartan 25 mg once daily Continue metoprolol 25 mg twice daily DuoNebs as scheduled and [id number] Continue monitor electrolytes Order BMP tomorrow a.m. Cardiology signing off. Please reconsult if needed. Thank you for consultation. Dictation was produced using [employer] dictation software. Please excuse any grammatical, word or spelling errors. Leobardo Quintanilla MD PGY 2 Objective - Vital Signs Vital signs: Vital Signs Temp 97.4 F L 12/24/24 08:00 Pulse 79 12/24/24 10:15 Resp 16 12/24/24 10:15 BP 111/57 12/24/24 08:00 Pulse Ox 94 L 12/24/24 10:06 FiO2 Intake & Output 12/23/24 12/24/24 12/24/24 18:59 06:59 18:59 Intake Total 240 240 Output Total 900 800 Balance -660 -560 Weight 68.3 kg 68.4 kg Intake: Oral 240 240 Output: Urine 900 800 Other: Voiding Method Toilet Toilet Toilet Urinal Urinal Urinal # Voids 1 - Labs CBC & Chem 7: 12/24/24 05:57 12/24/24 05:57 Labs: Abnormal Lab Results - Last 24 Hours (Table) 12/23/24 12/23/24 12/23/24 Range/Units 11:41 16:51 20:01 WBC (4.50-10.00) 10*3/uL RBC (4.40-5.60) 10*6/uL Hgb (13.0-17.0) g/dL Hct (39.6-50.0) % MCH (27.0-32.0) pg Immature Gran # (0.00-0.04) 10*3/uL Neutrophils # (1.80-7.70) 10*3/uL Eosinophils # (0.04-0.35) 10*3/uL BUN (9-20) mg/dL Glucose (74-99) mg/dL POC Glucose (mg/dL) 121 H 230 H 167 H (70-110) mg/dL AST (17-59) U/L Total Protein (6.3-8.2) g/dL Albumin (3.5-5.0) g/dL 12/24/24 12/24/24 12/24/24 Range/Units 05:57 05:57 05:58 WBC 15.72 H (4.50-10.00) 10*3/uL RBC 3.66 L (4.40-5.60) 10*6/uL Hgb 11.8 L (13.0-17.0) g/dL Hct 35.2 L (39.6-50.0) % MCH 32.2 H (27.0-32.0) pg Immature Gran # 0.10 H (0.00-0.04) 10*3/uL Neutrophils # 13.22 H (1.80-7.70) 10*3/uL Eosinophils # 0.00 L (0.04-0.35) 10*3/uL BUN 23 H (9-20) mg/dL Glucose 114 H (74-99) mg/dL POC Glucose (mg/dL) 122 H (70-110) mg/dL AST 15 L (17-59) U/L Total Protein 5.8 L (6.3-8.2) g/dL Albumin 3.2 L (3.5-5.0) g/dL
[2024-12-24 11:26] LABS: Glucose,Whole Blood 164 mg/dL (70-110)
--- NOTE | 2024-12-24 12:38 | P.DS ---
Providers Date of admission: 12/22/24 02:33 Expected date of discharge: 12/24/24 Attending physician: Kaela Simmons Consults: 12/22/24 02:33 Consult Physician Routine Consulting Provider: Jessica Mccurdy Consult Reason/Comments: hypoxia Do you want consulting provider notified?: Yes Consult Physician Routine Consulting Provider: Johann Mckenna Consult Reason/Comments: chf Do you want consulting provider notified?: Yes Primary care physician: Piter Diamond [facility] Course: 74-year-old gentleman with past medical history significant for COPD hyperlipidemia, congestive heart failure presented the ER because of shortness of breath. Patient states she was all right yesterday when she started having shortness of breath. Shortness of breath was sudden on onset, there was complaint of chest congestion at the time. Patient denied any palpitation. There was no complaint of orthopnea or PND. There was no complaint of fever or chills. Patient denies any nausea, vomiting abdominal pain. Because of the shortness of breath, patient came to the ER Initial lab work done in the ER showed WBC 9.59, hemoglobin 9.7, platelet count 213, D-dimer 1.34, sodium 140, potassium 4, BUN 15, creatinine 0.62, glucose 158, calcium 9.1, magnesium 1.5, troponin 0.038 Influenza A not detected Influenza B not detected RSV not detected COVID-19 not detected EKG done in the ER showed heart rate of 101, no ST segment elevation or depression seen, no T-wave inversions seen. Chest x-ray done in the ER showed trace bilateral pleural effusion CT chest PE protocol done showed 1 cm left upper lobe pulmonary nodule, diffuse new COPD. Hilar mediastinal lymphadenopathy with peribronchial thickening in the right lower lobe Patient admitted to internal medicine service 12/23. Patient seen and examined. Breathing has improved. Diuretics have been switched to oral. Encourage patient to ambulate Assessment and plan Acute hypoxic respiratory failure Acute COPD exacerbation Acute on chronic systolic CHF Left upper lobe pulmonary nodule History of valvular heart disease with severe aortic stenosis and moderate mitral regurgitation. Status post TAVR. Hypertension History of hyperlipidemia Former tobacco smoker Monitor vital signs Monitor CBC Monitor CMP Continue telemetry monitoring Continue oxygen supplementation Continue breathing treatments Continue IV Solu-Medrol strict I's and O's Daily weights Continue oral Lasix 12/24/2024 - patient is switched to oral Lasix, prednisone and her antibiotic and is stable for discharge Patient Condition at Discharge: Serious Plan - Discharge Summary Discharge Rx Participant: No New Discharge Prescriptions: New Furosemide [Lasix] 40 mg PO DAILY 30 Days #30 tab Magnesium Oxide [Mag-Ox] 400 mg PO DAILY 30 Days #30 tab predniSONE 50 mg PO DAILY 5 Days #5 tablet Azithromycin [Zithromax] 500 mg PO DAILY 3 Days #3 tab Continue Ipratropium/Albuterol Sulfate [Combivent Respimat Inhaler] 1 puff INHALATION RT-QID Budesonide/Formoterol Fumarate [Symbicort 160-4.5 Mcg Inhaler] 2 puff INHALATION DIRECTED Atorvastatin [Lipitor] 40 mg PO DAILY Esomeprazole Magnesium [NexIUM 24Hr] 20 mg PO DAILY Metoprolol Tartrate [Lopressor] 25 mg PO DAILY Losartan [Cozaar] 25 mg PO HS Aspirin 81mg Dye Free 81 mg PO DAILY Discharge Medication List Budesonide/Formoterol Fumarate [Symbicort 160-4.5 Mcg Inhaler] 2 puff INHALATION DIRECTED 06/10/18 [History] Ipratropium/Albuterol Sulfate [Combivent Respimat Inhaler] 1 puff INHALATION RT- QID 06/10/18 [History] Atorvastatin [Lipitor] 40 mg PO DAILY 12/16/21 [History] Aspirin 81mg Dye Free 81 mg PO DAILY 12/22/24 [History] Esomeprazole Magnesium [NexIUM 24Hr] 20 mg PO DAILY 12/22/24 [History] Losartan [Cozaar] 25 mg PO HS 12/22/24 [History] Metoprolol Tartrate [Lopressor] 25 mg PO DAILY 12/22/24 [History] Azithromycin [Zithromax] 500 mg PO DAILY 3 Days #3 tab 12/24/24 [Rx] Furosemide [Lasix] 40 mg PO DAILY 30 Days #30 tab 12/24/24 [Rx] Magnesium Oxide [Mag-Ox] 400 mg PO DAILY 30 Days #30 tab 12/24/24 [Rx] predniSONE 50 mg PO DAILY 5 Days #5 tablet 12/24/24 [Rx] Follow up Appointment(s)/Referral(s): Piter Simon [Primary Care Provider] - 1-2 days Discharge Disposition: HOME SELF-CARE
[2024-12-24 13:36] VITALS: BP 110/58; PULSE 78
--- NOTE | 2024-12-24 13:48 | P.PN ---
Subjective Progress Note Date: 12/24/24 Patient is a 74-year-old male with past medical history significant for COPD. Does follow pulmonary office with Dr. Navarrete. Has an FEV1 61% of predicted. Maintained on Symbicort inhaler, Combivent inhaler, and albuterol nebs as needed. Also, patient has history of hypertension, hyperlipidemia, heart failure, aortic stenosis with previous TAVR. Presented emergency department last night complaining of increased dyspnea. Workup done in the emergency department including a chest x-ray showing hyperinflation. D-dimer was 1.34 and a follow- up chest CT angiogram did not show any evidence of pulmonary embolism. Diffuse COPD changes. 1 cm left upper lobe pulmonary nodule, new from prior exam, possibly infectious or inflammatory. Hilar and mediastinal lymphadenopathy with peribronchial thickening in the right lower lobe suggesting infectious or inflammatory etiology. No pleural effusions. CBC unremarkable. No leukocytosis. Electrolytes WDL. Creatinine 0.62. Glucose 158. Troponin 0.038. NT proBNP 2250. Viral 4 Plex negative for influenza A/B, RSV, COVID whi le in emergency room, patient received multiple DuoNeb treatments and was loaded with IV Solu-Medrol. Also, placed on Lasix 40 mg twice daily. Patient currently being evaluated in the emergency department. He is on 2 L/min nasal cannula. Does not appear any respiratory distress. States his increased shortness of breath started yesterday when he was out for a walk. He was also lightheaded and decided to go home. He rested, then tried to go out and water the plants. Developed severe shortness of breath. States he developed a cold a few days ago. He has had increased cough and chest congestion. No significant purulent sputum. No hemoptysis. No fevers or chills. No chest pain. Over the past few days he has noticed increased swelling in his ankles. Most recent available echocardiogram from Oct, 2023 estimating left ventricular ejection fraction of 35 to 40%. Normally functioning bioprosthetic aortic valve, moderate MR. Current vital signs: Heart rate 93 bpm, blood pressure 137/61 mmHg, nontachypneic, SpO2 96% on room air. On 12/23/2024, the patient is being seen for a follow-up. The patient is feeling much improved. Less short of breath compared to yesterday. Less bronchospastic and wheezy. Oxygenation is also stable and the patient has been weaned down to room air oxygen with a pulse ox of 96%. He is known to have COPD with an FEV1 of 61% of predicted and he was hospitalized for an acute Exacerbation. Remains on bronchodilators. Remains on oral Zithromax and empiric antibiotic coverage and IV Solu-Medrol. The blood work shows a sodium level of 138, potassium is at 4.2, BUN 20 with a creatinine 0.76. Troponin 0.02. Blood sugars at 167. On 12/24/2024, the patient is on room air oxygen. Feeling well. No significant shortness of breath. No chest pain. No pleurisy or hemoptysis. Afebrile hemodynamically stable. The white cell count is 15.7 with a hemoglobin 11.8 and a platelet count of 278. BUN is 23 with a creatinine of 0.7. Sodium is at 139. No other significant vents overnight. The patient can be discharged home today. Objective - Vital Signs Vital signs: Vital Signs Temp 97.4 F L 12/24/24 08:00 Pulse 79 12/24/24 10:15 Resp 16 12/24/24 10:15 BP 111/57 12/24/24 08:00 Pulse Ox 94 L 12/24/24 10:06 FiO2 Intake & Output 12/23/24 12/24/24 12/24/24 18:59 06:59 18:59 Intake Total 240 240 Output Total 900 800 Balance -660 -560 Weight 68.3 kg 68.4 kg Intake: Oral 240 240 Output: Urine 900 800 Other: Voiding Method Toilet Toilet Toilet Urinal Urinal Urinal # Voids 1 - Exam GENERAL EXAM: Alert, 74-year-old male, on room air oxygen,, comfortable in no apparent distress. HEAD: Normocephalic and atraumatic EYES: Normal reaction of pupils, equal size. NOSE: Clear with pink turbinates. THROAT: No erythema or exudates. NECK: No masses, no JVD. CHEST: No chest wall deformity. LUNGS: Equal air entry with scattered rhonchi. No conversational dyspnea or accessory muscle use.. CVS: S1 and S2 normal with no audible murmur, regular rhythm. No extra heart sounds ABDOMEN: No hepatosplenomegaly, active bowel sounds, no guarding or rigidity. SPINE: No scoliosis or deformity SKIN: No rashes CENTRAL NERVOUS SYSTEM: No focal deficits, tone is normal in all 4 extremities. EXTREMITIES: Bilateral ankle edema, pitting 1+. No clubbing or cyanosis. Rose pheral pulses are intact. - Labs CBC & Chem 7: 12/24/24 05:57 12/24/24 05:57 Labs: Abnormal Lab Results - Last 24 Hours (Table) 12/23/24 12/23/24 12/24/24 Range/Units 16:51 20:01 05:57 WBC 15.72 H (4.50-10.00) 10*3/uL RBC 3.66 L (4.40-5.60) 10*6/uL Hgb 11.8 L (13.0-17.0) g/dL Hct 35.2 L (39.6-50.0) % MCH 32.2 H (27.0-32.0) pg Immature Gran # 0.10 H (0.00-0.04) 10*3/uL Neutrophils # 13.22 H (1.80-7.70) 10*3/uL Eosinophils # 0.00 L (0.04-0.35) 10*3/uL BUN (9-20) mg/dL Glucose (74-99) mg/dL POC Glucose (mg/dL) 230 H 167 H (70-110) mg/dL AST (17-59) U/L Total Protein (6.3-8.2) g/dL Albumin (3.5-5.0) g/dL 12/24/24 12/24/24 12/24/24 Range/Units 05:57 05:58 11:25 WBC (4.50-10.00) 10*3/uL RBC (4.40-5.60) 10*6/uL Hgb (13.0-17.0) g/dL Hct (39.6-50.0) % MCH (27.0-32.0) pg Immature Gran # (0.00-0.04) 10*3/uL Neutrophils # (1.80-7.70) 10*3/uL Eosinophils # (0.04-0.35) 10*3/uL BUN 23 H (9-20) mg/dL Glucose 114 H (74-99) mg/dL POC Glucose (mg/dL) 122 H 164 H (70-110) mg/dL AST 15 L (17-59) U/L Total Protein 5.8 L (6.3-8.2) g/dL Albumin 3.2 L (3.5-5.0) g/dL Assessment and Plan Assessment: Acute hypoxemic respiratory failure, likely secondary to a combination of acute COPD exacerbation and acute CHF exacerbation with reduced ejection fraction. Clinically improving and the patient is currently on room air oxygen Acute dyspnea, chest CT angiogram did not show any evidence of pulmonary embolism. Diffuse COPD changes. Hilar and mediastinal lymphadenopathy with p eribronchial thickening in the right lower lobe likely infectious or inflammatory etiology. Also, 1 cm left upper lobe pulmonary nodule new from prior exam, likely infectious or inflammatory in etiology, however, follow-up to ensure resolution Troponin leak, repeat levels trending down History of valvular heart disease with severe aortic stenosis and moderate mitral regurgitation. Status post TAVR. Most recent available echocardiogram from Oct, 2023 estimating left ventricular ejection fraction of 35 to 40%. Normally functioning bioprosthetic aortic valve, moderate MR. Systolic heart failure with an EF of around 40 to 45% with mild to moderate aortic insufficiency across the bioprosthetic aortic valve, post-TAVR. Hypertension History of hyperlipidemia Former tobacco smoker Plan: Oxygenation is stable and the patient is currently on room air oxygen Continue DuoNebs The patient can be discharged home today on a prednisone burst taper and a course of Zithromax, to complete the 5-day course. Echocardiogram was also completed and the patient was found to have LV ejection fraction 40 to 45%, mildly reduced global LV function. Bioprosthetic aortic valve in place with mild to moderate insufficiency. Oxygenation is improved and the patient is currently on room air oxygen. Meanwhile, the patient will continue Lasix 40 mg p.o. on a daily basis on outpatient basis. Will continue Symbicort as maintenance and combine rescue inhaler on outpatient basis. Will follow-up on outpatient basis. Based on FEV1 is noted of 61% of predicted.
[2024-12-24] MEDS ORDERED: IPRATROPIUM-ALBUTEROL 3 ML NEB INHALATION SCH (20:00)
== END 2024-12-24 13:59 | disposition home or self-care (01) | DRG 280 ==
LOC: EC 21:13 → 3SCARD 12-22 02:33
PROVIDERS: ADMIT Hospitalist; ATTEND Hospitalist
DX: I11.0 Hypertensive heart disease with heart failure (principal); I50.23 Acute on chronic systolic (congestive) heart failure; I21.A1 Myocardial infarction type 2; J96.01 Acute respiratory failure with hypoxia; J44.1 Chronic obstructive pulmonary disease with (acute) exacerbation; Z95.3 Presence of xenogenic heart valve; I44.7 Left bundle-branch block, unspecified; R00.0 Tachycardia, unspecified; Z11.52 Encounter for screening for COVID-19; R91.1 Solitary pulmonary nodule; E78.5 Hyperlipidemia, unspecified; R59.0 Localized enlarged lymph nodes; I08.0 Rheumatic disorders of both mitral and aortic valves; Z79.51 Long term (current) use of inhaled steroids; Z79.82 Long term (current) use of aspirin; Z79.899 Other long term (current) drug therapy; Z87.891 Personal history of nicotine dependence; Z71.6 Tobacco abuse counseling
CPT/HCPCS: 36415; 71046; 71275; 80048; 80053; 83690; 83735; 83880; 84484; 85025; 85379; 85610; 85730; 87636; 93005; 93306; 94640; 94760; 96365; 96366; 96375; 96376; 99291